=== PATIENT | male | born 1935 | race Caucasian/White ===

== ENCOUNTER → 2017-01-30 | Outpatient (CLI) | payer MEDICARE ==
[2017-01-30 08:59] LABS: Blood Urea Nitrogen 17 mg/dL (9-20); Non-African American GFR(MDRD) >60 (>60 ml/min/1.73 sqM)
--- NOTE | 2017-01-30 10:52 | CT ---
EXAMINATION TYPE: CT ChestAbdPelvis w con DATE OF EXAM: 01/30/2017 COMPARISON: CT thorax dated 03/20/2010 HISTORY: Lung and Prostate CA CT DLP: 1842 mGycm. Automated Exposure Control for Dose Reduction was Utilized. CONTRAST: CT scan of the thorax, abdomen and pelvis is performed with IV Contrast, patient injected with 100 mL of Omnipaque 300. FINDINGS: LUNGS: There has been a right upper lobectomy with resultant hyperexpansion of the right middle lobe and compensatory expansion of the right lower lobe with mediastinal shift to the right. Right apical pleural parenchymal scarring is noted. Focal pleural thickening is elongated measuring 1.5 cm on seri es 4 image 25. No new pulmonary nodules or masses are seen. Minimal left basilar dependent subsegment al atelectasis is noted. MEDIASTINUM: There are no greater than 1 cm hilar or mediastinal lymph nodes. No pericardial effusi on is seen. Left-sided cardiac device is present as well as three-vessel coronary artery calcificati ons. Right hilar mediastinal clips are seen. There are some areas of narrowing of the right main pulm onary artery, likely postsurgical. OTHER: No additional significant the hepatic parenchyma relating to benign granulomatous disease. Ab normality is seen. LIVER/GB: There is diffuse hypoattenuation of the hepatic parenchyma, most commonly related to underl vicki hepatic steatosis. This finding limits evaluation for hepatic masses. A single 6 mm lesion is se en within segment 8, unchanged from the prior exam of 03/20/2010, most likely relating to a benign si mple cyst. Scattered calcifications are seen within PANCREAS: No significant abnormality is seen. SPLEEN: Scattered parenchymal punctate rounded benign-appearing calcifications are seen within the sp lenic parenchyma compatible with granulomatous sequela. ADRENALS: No significant abnormality is seen. KIDNEYS: No significant abnormality is seen. To small to accurately characterize left upper poler and right inferior pole renal cortical lesions are seen. BOWEL: No significant abnormality is seen. No dilation. GENITAL ORGANS: The prostate gland is enlarged, heterogenous, and macrolobulated with exophytic nodul e from the left lateral peripheral zone measuring approximately 3.4 cm in anterior posterior dimensio n. There is impression upon the urinary bladder. Bilateral fat filled inguinal hernias are noted. LYMPH NODES: Approximately 1.2 cm peripancreatic nodule is seen on series 3 image 60 that is unchange d from 03/20/2010 and may represent a treated lymph node, splenule, or less likely unchanged pancreat ic lesion. OSSEOUS STRUCTURES: Punctate 5 mm sclerotic focus is seen within the right iliac bone, nonspecific. A dditional punctate 2 mm right iliac sclerotic focus is seen on image 90 of series 3. Left iliac scler otic focus is seen in series 3 image 94 measuring 3 mm. Similar 5 mm sclerotic focus is seen within t he L4 vertebral body and 3 mm focus within the L1 vertebral body. Multilevel degenerative changes are seen of the thoracolumbar and lumbosacral spine with Schmorl's nodes, endplate sclerosis, interverte bral disc space narrowing, vacuum disc phenomenon, at least disc bulges, small anterior osteophytes a nd facet arthropathy. OTHER: Moderate circumferential atheromatous changes are seen of the abdominal aorta and its branches . Abdominal aorta is of normal course and caliber. Nonspecific inflammatory fat stranding is seen of the inferior superficial abdominal wall subcutaneous soft tissues. IMPRESSION: 1. Postsurgical changes of the right lung with compensatory hyperexpansion and slight rightward media stinal shift. No evidence of new pulmonary nodule to suggest recurrence or metastatic intrathoracic d isease. No adenopathy within the chest, abdomen or pelvis. 2. Multiple nonspecific punctate sclerotic foci within the pelvis and lumbar vertebral bodies. These may simply relate to benign bone islands, however without prior exam for stability small metastatic f oci remain a possibility and surveillances recommended. 3. Enlarged, nodular, and heterogenous prostate gland corresponding the patient's known history of pr ostate carcinoma. 4. No evidence of visceral metastasis within the abdomen or pelvis. 5. Hepatic steatosis.
--- NOTE | 2017-01-30 13:50 | NM ---
EXAMINATION TYPE: NM bone scan whole body DATE OF EXAM: 01/30/2017 COMPARISON: 01/22/2017 CT HISTORY: Prostate cancer Delayed whole-body scanning was performed following the injection of 23.4 mCi Tc 99m MDP. Images acq uired 4.5 hours post injection. Anterior, posterior whole body images, bilateral obliques of the views of the pelvis and rib cage sub mitted. FINDINGS: Abnormal uptake in the proximal level of L3-L4 likely is degenerative. The punctate areas of abnormal signal involving the lumbar spine and pelvis are not well seen by bone scan which may be secondary to the small size of lesions noted by CT scan. Arthropathy of the should ers and knees is demonstrated with areas of abnormal uptake is a scoliotic curvature of the spine. Abnormal uptake involving the mandible likely related to periodontal disease. Photopenic defect overl vicki the left upper chest likely is related to Mediport catheter. IMPRESSION: No suspicious uptake seen by bone scan to correspond to the CT abnormality. This may be due to the re latively small size of the CT lesions (3 mm less), therefore, early metastases not excluded. Follow-u p exam could be obtained. Abnormal uptake at the L3 levels L3 most likely degenerative.
== END | disposition home or self-care (01) ==
LOC: RADCTMAIN 08:03
PROVIDERS: ATTEND Radiology Radiation Oncology
DX: C34.90 Malignant neoplasm of unspecified part of unspecified bronchus or lung (principal); C61 Malignant neoplasm of prostate; K76.0 Fatty (change of) liver, not elsewhere classified; N40.0 Benign prostatic hyperplasia without lower urinary tract symptoms; R93.7 Abnormal findings on diagnostic imaging of other parts of musculoskeletal system; Z98.890 Other specified postprocedural states
CPT/HCPCS: 82565; 84520; 71260; 74177; 36415; 78306; A9503; Q9967

== ENCOUNTER → 2017-09-03 | Outpatient (CLI) | payer MEDICARE ==
--- NOTE | 2017-09-03 10:48 | US ---
EXAMINATION TYPE: US venous doppler duplex LE LT DATE OF EXAM: 09/03/2017 10:34 AM COMPARISON: CLINICAL HISTORY: M79.662 Left Lower Ext Pain R22.42 Swelling. Hx of left popliteal vein DVT in 2009, on blood thinners, swollen knee, No pain SIDE PERFORMED: Left TECHNIQUE: The lower extremity deep venous system is examined utilizing real time linear array sonog emmanuelle with graded compression, doppler sonography and color-flow sonography. VESSELS IMAGED: External Iliac Vein (EIV) Common Femoral Vein Deep Femoral Vein Greater Saphenous Vein * Femoral Vein Popliteal Vein Small Saphenous Vein * Proximal Calf Veins (* superficial vessels) Grayscale, color doppler, spectral doppler imaging performed of the deep veins of the lower extremity . There is normal flow, compressibility, vascular waveforms. Cystic appearing lesion seen posterior left knee= 5.7 x 3.7 x 2.5 cm IMPRESSION: Left Leg: Negative for DVT
== END | disposition home or self-care (01) ==
LOC: RADUSWWP 09:52
PROVIDERS: ATTEND Internal Medicine Hematology & Oncology
DX: R22.42 Localized swelling, mass and lump, left lower limb (principal); M79.662 Pain in left lower leg

== ENCOUNTER → 2017-09-05 | Outpatient (CLI) | payer MEDICARE | END | disposition home or self-care (01) | LOC: LABWHC1 11:40 | PROVIDERS: ATTEND Radiology Radiation Oncology | DX: C61 Malignant neoplasm of prostate (principal) | CPT/HCPCS: 36415; 84153; 84402; 84403 ==

== ENCOUNTER 2017-11-22 18:33 | Emergency (ER) | payer MEDICARE ==
[2017-11-22 18:42] VITALS: TEMP 98.4
[2017-11-22 19:37] LABS: Anisocytosis Slight; Basophils # (A) 0.1 k/uL (0-0.2); Basophils % (A) 0 %; Eosinophils # (A) 0.4 k/uL (0-0.7); Eosinophils % (A) 2 %; HCT 44.9 % (39.0-53.0); HGB 13.8 gm/dL (13.0-17.5); Hypochromasia Marked; Lymphocytes # (A) 1.3 k/uL (1.0-4.8); Lymphocytes % (A) 5 %; MCH 22.8 pg (25.0-35.0); MCHC 30.7 g/dL (31.0-37.0); Mean Platelet Volume 9.7; Microcytosis Slight; Monocytes # (A) 1.1 k/uL (0-1.0); Monocytes % (A) 4 %; Neutrophils # (A) 21.4 k/uL (1.3-7.7); Neutrophils % (A) 87 %; Platelet Count 141 k/uL (150-450); RBC 6.04 m/uL (4.30-5.90); RDW 16.6 % (11.5-15.5); WBC 24.5 k/uL (3.8-10.6)
[2017-11-22 19:50] LABS: INR 3.2 (<1.2); Partial Thromboplastin Time 29.3 sec (22.0-30.0); Prothrombin Time 28.5 sec (9.0-12.0)
[2017-11-22 19:51] LABS: ALT 43 U/L (21-72); AST 29 U/L (17-59); Alkaline Phosphatase 94 U/L (38-126); Anion Gap 8 mmol/L; Blood Urea Nitrogen 27 mg/dL (9-20); Calcium 9.1 mg/dL (8.4-10.2); Carbon Dioxide 24 mmol/L (22-30); Chloride 106 mmol/L (98-107); Glucose 112 mg/dL (74-99); Potassium 4.4 mmol/L (3.5-5.1); Sodium 138 mmol/L (137-145); Total Bilirubin 1.4 mg/dL (0.2-1.3); Total Protein 5.8 g/dL (6.3-8.2)
[2017-11-22 19:54] LABS: MCV 74.3 fL (80.0-100.0)
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
[2017-11-22 20:50] VITALS: BP 173/99; PULSE 69; RESP 16
== END 2017-11-22 20:54 | disposition home or self-care (01) ==
LOC: EC 18:33
DX: D69.6 Thrombocytopenia, unspecified (principal); R79.1 Abnormal coagulation profile; I48.91 Unspecified atrial fibrillation; J44.9 Chronic obstructive pulmonary disease, unspecified; I10 Essential (primary) hypertension; Z85.46 Personal history of malignant neoplasm of prostate; Z85.118 Personal history of other malignant neoplasm of bronchus and lung; Z86.718 Personal history of other venous thrombosis and embolism; Z87.891 Personal history of nicotine dependence; Z95.810 Presence of automatic (implantable) cardiac defibrillator; Z90.2 Acquired absence of lung [part of]; Z79.01 Long term (current) use of anticoagulants; Z79.52 Long term (current) use of systemic steroids; Z79.899 Other long term (current) drug therapy
CPT/HCPCS: 36415; 80053; 85025; 85610; 85730; 86850; 86900; 86901; 99283

== ENCOUNTER → 2018-03-17 | Outpatient (CLI) | payer MEDICARE ==
[2018-03-17 07:52] LABS: Blood Urea Nitrogen 17 mg/dL (9-20)
--- NOTE | 2018-03-17 19:47 | CT ---
EXAMINATION TYPE: CT lumbar spine wo/w con DATE OF EXAM: 03/17/2018 COMPARISON: 01/30/2017 HISTORY: Low Back Pain. History of prostate cancer. CT DLP: 1482.30 mGycm Automated exposure control for dose reduction was used. CONTRAST: CT scan of the lumbar is performed without and with IV Contrast, patient injected with 100 mL of Isov ue 300. TECHNIQUE: Enhanced CT of the lumbar spine was performed. Bone and soft tissue window settings are s ubmitted as well as coronal and sagittal reconstructions. FINDINGS: There is grade 1 anterolisthesis of L4 on L5 and mild compression deformity of the L3 and L 4 vertebral bodies with height loss of approximately 30% at both levels. Extensive intervertebral dis c desiccation is seen at L3-L4 and Schmorl's node of the superior endplate of L3. Schmorl's node is a lso seen of the superior endplate of T12. There is inferior vertebral body height loss of L1. Vacuum disc phenomenon is seen at L5-S1. There is multilevel facet arthropathy. Nonspecific sclerotic proces s is seen of T12 and its left lateral margin that is subcentimeter. In the superficial subcutaneous s oft tissues at L1-L2 there is a rounded 2.0 cm cystic structure that may represent a subcutaneous shelbi aceous cyst. Evaluation of the spinal canal is limited on CT. There is partial visualization of a sma ll right pleural effusion and bibasilar subsegmental atelectasis. There is tortuosity of the descendi ng thoracic aorta and a small hiatal hernia. Few splenic and hepatic microcalcifications relate to be nign granulomata change. There is a 8mm left renal cyst appreciated. Extensive atherosclerosis is see n of the abdominal aorta and its branches. Urinary bladder circumferential wall thickening may relate to incomplete distention and is partially visualized. L1-L2: There is a broad-based disc bulge and facet arthropathy resulting in mild bilateral neural for aminal narrowing without spinal canal stenosis. L2-L3: There is a broad-based disc bulge, ligamentum flavum buckling and facet arthropathy resulting in mild bilateral neural foraminal narrowing and mild spinal canal stenosis. L3-L4: There is disc uncovering from the anterolisthesis as well as degenerative disc disease. There is a right foraminal disc herniation superimposed upon a broad-based disc bulge creating severe right neural foraminal narrowing, mild left neural foraminal narrowing and mild spinal canal stenosis in c ombination with facet arthropathy and ligamentum flavum buckling. L4-L5: There is a broad-based disc bulge as well as facet arthropathy and ligamentum flavum buckling creating mild to moderate right neural foraminal narrowing, mild left neural foraminal narrowing, and mild spinal canal stenosis. L5-S1: There is a left paracentral disc herniation superimposed upon a broad-based disc bulge. Facet arthropathy and ligamentum flavum buckling are also seen at this level creating mild right and severe left neural foraminal narrowing as well as mild spinal canal stenosis. IMPRESSION: 1. Age indeterminant compression deformities of L1, L3, and L4. In comparison to the CT chest, abdome n, and pelvis of 01/22/2017 the compression deformities of L1 and L4 are new with endplate deformity o f L3 stable. 2. Grade 1 anterolisthesis of L4 on L5 is stable from the prior. This is likely degenerative in natur e. 3. Left paracentral disc herniation at L5-S1 creating mild spinal canal stenosis. 4. Right foraminal disc herniation at L3-L4 resulting severe neural foraminal narrowing. 5. Multilevel moderate degenerative disc disease as described above creating variable degrees of neur al foraminal narrowing and spinal canal stenosis. 6. Partially visualized small right pleural effusion and other ancillary findings as described above.
== END | disposition home or self-care (01) ==
LOC: RADCTMAIN 07:09
PROVIDERS: ATTEND Internal Medicine Geriatric Medicine
DX: M48.061 Spinal stenosis, lumbar region without neurogenic claudication (principal); M99.73 Connective tissue and disc stenosis of intervertebral foramina of lumbar region; M51.26 Other intervertebral disc displacement, lumbar region; M51.27 Other intervertebral disc displacement, lumbosacral region; M43.16 Spondylolisthesis, lumbar region; M43.8X6 Other specified deforming dorsopathies, lumbar region
CPT/HCPCS: 82565; 84520; 72133; 36415; Q9967

== ENCOUNTER → 2018-10-13 | Outpatient (CLI) | payer MEDICARE ==
--- NOTE | 2018-10-13 17:04 | XR ---
EXAMINATION: XR chest 2V DATE AND TIME: 10/13/2018 4:46 PM CLINICAL INDICATION: PHH; C34.11 D69.3 G72.9 C61 TECHNIQUE: Departmental protocol COMPARISON: 03/06/2010 FINDINGS: Cardiac pacemaker. Moderately enlarged cardiac silhouette. Tortuous and prominent thoracic aorta. There is silhouetting of the right hemidiaphragm and right heart border by a prominent oblique-angled interface with appearance of right middle lobe atelectasis in the setting of moderate right pleural effusion. Small left pleural effusion noted. No abnormal gas collections. Emphysematous lung changes are noted. There is no pulmonary edema. The vast bulk of the pulmonary par enchyma is clear and well-expanded bilaterally. No acute skeletal or soft tissue findings are evident. IMPRESSION: Bilateral pleural effusions, greater on the right. Suspect right middle lobe atelectasis.
== END | disposition home or self-care (01) ==
LOC: RADXRMAIN 16:28
PROVIDERS: ATTEND Internal Medicine Hematology & Oncology
DX: C34.11 Malignant neoplasm of upper lobe, right bronchus or lung (principal); J90 Pleural effusion, not elsewhere classified; D69.3 Immune thrombocytopenic purpura; G72.9 Myopathy, unspecified; C61 Malignant neoplasm of prostate
CPT/HCPCS: 71046

== ENCOUNTER 2018-10-28 08:49 | Day surgery (SDC) | payer MEDICARE ==
[2018-10-28 09:22] VITALS: TEMP 97.6
[2018-10-28 09:25] LABS: Mean Platelet Volume 9.7; Platelet Count 184 k/uL (150-450)
[2018-10-28 09:35] LABS: INR 1.1 (<1.2); Prothrombin Time 11.7 sec (9.0-12.0)
--- NOTE | 2018-10-28 10:41 | XR ---
EXAMINATION TYPE: XR chest 1V portable DATE OF EXAM: 10/28/2018 COMPARISON: Prior chest x-ray 10/13/2018 HISTORY: Status post right thoracentesis TECHNIQUE: Single frontal view of the chest is obtained. FINDINGS: There is no significant interval change. IMPRESSION: No evident complication status post right thoracentesis.
[2018-10-28 10:51] VITALS: BP 116/73; PULSE 76; RESP 16
--- NOTE | 2018-10-28 15:08 | US ---
EXAMINATION TYPE: US thoracentesis DATE OF EXAM: 10/28/2018 COMPARISON: Chest x-ray 10/13/2018 HISTORY: Pleural effusion. FINDINGS: Maximal barrier technique was utilized. The skin overlying a suitable pocket of fluid was localized and the overlying skin prepped and draped. Lidocaine was used for local anesthesia. Ultras ound was used with sterile technique. A 5 [place] catheter over guide needle was advanced into the pl eural fluid collection using ultrasound guidance and the catheter advanced, needle removed. Approxim ately 0.8 liter(s) of serous fluid was removed. Catheter was withdrawn and hemostasis achieved. The re is no immediate complication. The patient discharged in stable condition without complication. IMPRESSION: STATUS POST ULTRASOUND GUIDED THORACENTESIS, POST PROCEDURE CHEST X-RAY PENDING. THIS NH OCEDURE WAS PERFORMED BY THE UNDERSIGNED.
== END 2018-10-28 10:51 | disposition home or self-care (01) ==
LOC: RADPROMAIN 08:49
PROVIDERS: ATTEND Internal Medicine Hematology & Oncology
DX: J90 Pleural effusion, not elsewhere classified (principal); C34.90 Malignant neoplasm of unspecified part of unspecified bronchus or lung; Z79.01 Long term (current) use of anticoagulants; Z79.02 Long term (current) use of antithrombotics/antiplatelets
CPT/HCPCS: 32555; 36415; 71045; 85049; 85610

== ENCOUNTER 2018-12-07 05:06 | Inpatient (IN) | payer MEDICARE ==
[2018-12-07] MEDS ORDERED: ALBUTEROL NEBULIZED 2.5 MG/3 ML INHALATION STA (05:39)
[2018-12-07] MEDS ORDERED: SODIUM CHLORIDE 0.9% 1,000 ML IV STA (05:39)
[2018-12-07] MEDS ORDERED: IPRATROPIUM 0.5 MG/2.5 ML NEBU INHALATION STA (05:39)
--- NOTE | 2018-12-07 05:39 | ED ---
SOB HPI - General Chief Complaint: Shortness of Breath Stated Complaint: Fall,SOB Time Seen by Provider: 12/07/18 05:38 Source: patient, family, RN notes reviewed, old records reviewed Mode of arrival: wheelchair Limitations: no limitations - History of Present Illness Initial Comments: This is an 83-year-old male the ER for evaluation. Patient resents today for evaluation of severe shortness of breath patient has recent fall which caused him to have severe left-sided flank pain left-sided chest pain. Patient has no other trauma is noted. Patient states shortness of breath of alcohol the last 2 days he is doing breathing treatments at home but his heart rate still remains to be going up-and-down, do breathing treatments are not helping. Also has history of cancer lung cancer with pleural effusions, most recently has had it drained about 800 miles. No cough no fevers. No current chest pain. Patient is taking all medication as prescribed MD Complaint: shortness of breath, cough -: hour(s) Severity: moderate Severity scale (1-10): 4 Improves With: nothing Worsens With: nothing Known History Of: COPD, congestive heart failure Context: recent URI, trauma/injury Associated Symptoms: pain with inspiration, cough Treatments Prior to Arrival: bronchodilator - Related Data Home Medications Medication Instructions Recorded Confirmed Atorvastatin [Lipitor] 20 mg PO DAILY 11/22/17 12/07/18 Metoprolol Tartrate [Lopressor] 50 mg PO BID 11/22/17 12/07/18 Tamsulosin [Flomax] 0.4 mg PO BID 11/22/17 12/07/18 Ubidecarenone [Co Q-10] 100 mg PO DAILY 11/22/17 12/07/18 Umeclidinium Brm/Vilanterol Tr 1 puff INHALATION RT-DAILY 11/22/17 12/07/18 [Anoro Ellipta 62.5-25 Mcg INH] Vitamin B Complex/Folic Acid 0.4 mg PO DAILY 11/22/17 12/07/18 [B-Complex Tablet] cycloSPORINE [Restasis] 1 drop BOTH EYES BID 11/22/17 12/07/18 Apixaban [Eliquis] 2.5 mg PO BID 10/14/18 12/07/18 Osimertinib Mesylate [Tagrisso] 80 mg PO DAILY 10/14/18 12/07/18 Albuterol Nebulized [Ventolin 2.5 mg INHALATION RT-BID 12/07/18 12/07/18 Nebulized] Calcium Carbonate/Vitamin D3 1 tab PO BID 12/07/18 12/07/18 [Calcium 600-Vit D3 400 Tablet] Clopidogrel [Plavix] 75 mg PO DAILY 12/07/18 12/07/18 Glucosamine-Chondr 500-400Mg 1 tab PO DAILY 12/07/18 12/07/18 Loperamide HCl [Imodium A-D] 2 mg PO QID PRN 12/07/18 12/07/18 Prochlorperazine [Compazine] 10 mg PO Q6H PRN 12/07/18 12/07/18 predniSONE 5 mg PO DAILY 12/07/18 12/07/18 Allergies Allergy/AdvReac Type Severity Reaction Status Date / Time No Known Allergies Allergy Verified 12/07/18 06:54 Review of Systems ROS Statement: Those systems with pertinent positive or pertinent negative responses have been documented in the HPI. ROS Other: All systems not noted in ROS Statement are negative. Past Medical History Past Medical History: Atrial Fibrillation, COPD, Hypertension Additional Past Medical History / Comment(s): malginant neoplasm of prostate, idopathic thrombocytopenic purpura, carcinoma of rt upper lung, dvt of left leg, myelodysplastic syndrome, carcinoma right hip History of Any Multi-Drug Resistant Organisms: None Reported Past Surgical History: Adenoidectomy, Tonsillectomy Additional Past Surgical History / Comment(s): rt upper lung lobe removed, aicd or pacemaker, thoracentesis Past Psychological History: No Psychological Hx Reported Smoking Status: Former smoker Past Alcohol Use History: None Reported Past Drug Use History: None Reported - Past Family History Mother Family Medical History: Cancer Additional Family Medical History / Comment(s): Mother had breast and colon cancer. Father Family Medical History: Vascular Disorder Additional Family Medical History / Comment(s): Father of a ruptured aneurysm. General Exam Limitations: no limitations General appearance: alert, in no apparent distress Head exam: Present: atraumatic, normocephalic, normal inspection Eye exam: Present: normal appearance, PERRL, EOMI. Absent: scleral icterus, conjunctival injection, periorbital swelling ENT exam: Present: normal exam, mucous membranes moist Neck exam: Present: normal inspection. Absent: tenderness, meningismus, lymphadenopathy Respiratory exam: Present: respiratory distress, wheezes, accessory muscle use, decreased breath sounds, prolonged expiratory. Absent: rales, rhonchi, stridor Cardiovascular Exam: Present: tachycardia, irregular rhythm, normal heart sounds. Absent: systolic murmur, diastolic murmur, rubs, gallop, clicks GI/Abdominal exam: Present: soft, normal bowel sounds. Absent: distended, tenderness, guarding, rebound, rigid Extremities exam: Present: normal inspection, full ROM, normal capillary refill. Absent: tenderness, pedal edema, joint swelling, calf tenderness Back exam: Present: normal inspection Neurological exam: Present: alert, oriented X3, CN II-XII intact Psychiatric exam: Present: normal affect, normal mood Skin exam: Present: warm, dry, intact, normal color. Absent: rash Course Vital Signs 12/07/18 12/07/18 12/07/18 05:09 06:04 06:17 Temperature 97.3 F L Pulse Rate 71 66 67 Respiratory 22 Rate Blood Pressure 147/74 O2 Sat by Pulse 98 Oximetry 12/07/18 12/07/18 12/07/18 06:29 06:39 07:34 Temperature 98.4 F Pulse Rate 72 77 69 Respiratory 18 18 Rate Blood Pressure 127/98 139/99 O2 Sat by Pulse 100 100 Oximetry - Reevaluation(s) Reevaluation #1: 12/07/18 06:14 Medical records reviewed Medical Decision Making - Medical Decision Making 83 male the ER for evaluation of shortness of breath, patient does have no contusions to fall, and out of A. fib with RVR, also possibility of pneumonia on x-ray. Patient be admitted for monitoring of cardiopulmonary status - Lab Data Result diagrams: 12/09/18 08:43 12/09/18 08:43 Lab Results 12/07/18 12/07/18 12/07/18 Range/Units 05:30 05:30 05:30 WBC 21.3 H (3.8-10.6) k/uL RBC 5.58 (4.30-5.90) m/uL Hgb 14.1 (13.0-17.5) gm/dL Hct 45.9 (39.0-53.0) % MCV 82.2 (80.0-100.0) fL MCH 25.3 (25.0-35.0) pg MCHC 30.8 L (31.0-37.0) g/dL RDW 16.5 H (11.5-15.5) % Plt Count 292 (150-450) k/uL Neutrophils % 88 % Lymphocytes % 3 % Monocytes % 6 % Eosinophils % 1 % Basophils % 0 % Neutrophils # 18.7 H (1.3-7.7) k/uL Lymphocytes # 0.7 L (1.0-4.8) k/uL Monocytes # 1.2 H (0-1.0) k/uL Eosinophils # 0.3 (0-0.7) k/uL Basophils # 0.1 (0-0.2) k/uL Hypochromasia Slight Anisocytosis Slight PT (9.0-12.0) sec INR (<1.2) APTT (22.0-30.0) sec Sodium 122 L (137-145) mmol/L Potassium 5.1 (3.5-5.1) mmol/L Chloride 87 L (98-107) mmol/L Carbon Dioxide 25 (22-30) mmol/L Anion Gap 10 mmol/L BUN 25 H (9-20) mg/dL Creatinine 0.79 (0.66-1.25) mg/dL Est GFR (CKD-EPI)AfAm >90 (>60 ml/min/1.73 sqM) Est GFR (CKD-EPI)NonAf 82 (>60 ml/min/1.73 sqM) Glucose 108 H (74-99) mg/dL Calcium 9.2 (8.4-10.2) mg/dL Magnesium 1.8 (1.6-2.3) mg/dL Total Bilirubin 3.2 H (0.2-1.3) mg/dL AST 22 (17-59) U/L ALT 24 (21-72) U/L Alkaline Phosphatase 112 (38-126) U/L Troponin I (0.000-0.034) ng/mL NT-Pro-B Natriuret Pep 5540 pg/mL Total Protein 6.2 L (6.3-8.2) g/dL Albumin 4.3 (3.5-5.0) g/dL 12/07/18 12/07/18 Range/Units 05:30 05:30 WBC (3.8-10.6) k/uL RBC (4.30-5.90) m/uL Hgb (13.0-17.5) gm/dL Hct (39.0-53.0) % MCV (80.0-100.0) fL MCH (25.0-35.0) pg MCHC (31.0-37.0) g/dL RDW (11.5-15.5) % Plt Count (150-450) k/uL Neutrophils % % Lymphocytes % % Monocytes % % Eosinophils % % Basophils % % Neutrophils # (1.3-7.7) k/uL Lymphocytes # (1.0-4.8) k/uL Monocytes # (0-1.0) k/uL Eosinophils # (0-0.7) k/uL Basophils # (0-0.2) k/uL Hypochromasia Anisocytosis PT 11.9 (9.0-12.0) sec INR 1.1 (<1.2) APTT 29.3 (22.0-30.0) sec Sodium (137-145) mmol/L Potassium (3.5-5.1) mmol/L Chloride (98-107) mmol/L Carbon Dioxide (22-30) mmol/L Anion Gap mmol/L BUN (9-20) mg/dL Creatinine (0.66-1.25) mg/dL Est GFR (CKD-EPI)AfAm (>60 ml/min/1.73 sqM) Est GFR (CKD-EPI)NonAf (>60 ml/min/1.73 sqM) Glucose (74-99) mg/dL Calcium (8.4-10.2) mg/dL Magnesium (1.6-2.3) mg/dL Total Bilirubin (0.2-1.3) mg/dL AST (17-59) U/L ALT (21-72) U/L Alkaline Phosphatase (38-126) U/L Troponin I <0.012 (0.000-0.034) ng/mL NT-Pro-B Natriuret Pep pg/mL Total Protein (6.3-8.2) g/dL Albumin (3.5-5.0) g/dL - EKG Data -: EKG Interpreted by Me (EKG shows paced rhythm rate of 100, AR 134, QRS 154, QTC 552) - Radiology Data Radiology results: report reviewed (Chest x-ray does show concern for pneumonia), image reviewed Disposition Clinical Impression: Acute exacerbation of chronic obstructive airways disease, Atrial fibrillation, Hyponatremia, Contusion of rib on left side, Community acquired pneumonia Disposition: ADMITTED IP TO THIS HOSP Condition: Fair Is patient prescribed a controlled substance at d/c from ED?: No
[2018-12-07] MEDS ORDERED: DILTIAZEM 5 MG/ML 5 ML VIAL IVP STA (05:47)
[2018-12-07 05:58] LABS: Anisocytosis Slight; Basophils # (A) 0.1 k/uL (0-0.2); Basophils % (A) 0 %; Eosinophils # (A) 0.3 k/uL (0-0.7); Eosinophils % (A) 1 %; HCT 45.9 % (39.0-53.0); HGB 14.1 gm/dL (13.0-17.5); Hypochromasia Slight; Lymphocytes # (A) 0.7 k/uL (1.0-4.8); Lymphocytes % (A) 3 %; MCH 25.3 pg (25.0-35.0); MCHC 30.8 g/dL (31.0-37.0); MCV 82.2 fL (80.0-100.0); Mean Platelet Volume 9.9; Monocytes # (A) 1.2 k/uL (0-1.0); Monocytes % (A) 6 %; Neutrophils # (A) 18.7 k/uL (1.3-7.7); Neutrophils % (A) 88 %; Platelet Count 292 k/uL (150-450); RBC 5.58 m/uL (4.30-5.90); RDW 16.5 % (11.5-15.5); WBC 21.3 k/uL (3.8-10.6)
[2018-12-07 06:05] LABS: ALT 24 U/L (21-72); AST 22 U/L (17-59); African American GFR (CKD) >90 (>60 ml/min/1.73 sqM); Albumin 4.3 g/dL (3.5-5.0); Alkaline Phosphatase 112 U/L (38-126); Anion Gap 10 mmol/L; Blood Urea Nitrogen 25 mg/dL (9-20); Calcium 9.2 mg/dL (8.4-10.2); Carbon Dioxide 25 mmol/L (22-30); Chloride 87 mmol/L (98-107); Glucose 108 mg/dL (74-99); Magnesium 1.8 mg/dL (1.6-2.3); Potassium 5.1 mmol/L (3.5-5.1); Sodium 122 mmol/L (137-145); Total Bilirubin 3.2 mg/dL (0.2-1.3); Total Protein 6.2 g/dL (6.3-8.2)
[2018-12-07 06:08] LABS: INR 1.1 (<1.2); Partial Thromboplastin Time 29.3 sec (22.0-30.0); Prothrombin Time 11.9 sec (9.0-12.0)
[2018-12-07] MEDS ORDERED: methylPREDNISolone SOD SUCCI 125 MG/2 ML VIAL IV STA (06:10)
--- NOTE | 2018-12-07 06:58 | XR ---
EXAM: XR Chest, 1 View CLINICAL HISTORY: ITS.REASON XR Reason: n TECHNIQUE: Frontal view of the chest. COMPARISON: CXR 10/28/18 FINDINGS: Lungs: Bibasilar atelectasis and lower lung infiltrate. Pleural space: Unremarkable. No pneumothorax. Heart: Cardiomegaly. Mediastinum: Unremarkable. Bones/joints: Unremarkable. Tubes, lines and devices: Left-sided cardiac pacing device. IMPRESSION: Bibasilar atelectasis and lower lung infiltrate.
[2018-12-07] MEDS ORDERED: ALBUTEROL NEBULIZED 2.5 MG/3 ML INHALATION PRN (06:59)
[2018-12-07] MEDS ORDERED: LEVOFLOXACIN 750MG-D5W PMX 750 MG in DEXTROSE/WATER 1 150ML.BAG IVPB STA (07:10)
[2018-12-07] MEDS: IPRATROPIUM-ALBUTEROL 3 ML NEB INHALATION SCH ×4 (08:34→19:25)
[2018-12-07] MEDS ORDERED: methylPREDNISolone SOD SUCCI 125 MG/2 ML VIAL IV SCH (12:00)
[2018-12-07] MEDS: IOPAMIDOL-300 CONTRAST 30 ML VIAL (ORAL USE) PO PRN ×2 (12:10→13:04)
[2018-12-07] MEDS ORDERED: LOPERAMIDE 2 MG CAP PO PRN (13:59)
[2018-12-07] MEDS ORDERED: BACLOFEN 10 MG TAB PO PRN (14:00)
--- NOTE | 2018-12-07 14:05 | XR ---
EXAMINATION TYPE: XR ribs LT DATE OF EXAM: 12/07/2018 COMPARISON: NONE HISTORY: Pain TECHNIQUE: 4 views of the left ribs submitted FINDINGS: Heart is enlarged and there is a cardiac device with subsegmental right-sided consolidation . There appears to be deformity of the posterior left rib. This is suggestive of fracture. No definit e destructive changes are seen. IMPRESSION: 1. Correlate for fracture posterior left 11th rib.
--- NOTE | 2018-12-07 14:36 | CT ---
EXAMINATION TYPE: CT ChestAbdPelvis w con DATE OF EXAM: 12/07/2018 COMPARISON: CT chest abdomen and pelvis January 30, 2017 HISTORY: fell 3 days ago. pain throughout chest abdomen and pelvis most prominent lt lower rib area CT DLP: 1212 mGycm. Automated Exposure Control for Dose Reduction was Utilized. CONTRAST: CT scan of the thorax, abdomen and pelvis is performed with IV Contrast, patient injected with 100 mL of Isovue 370. FINDINGS: LUNGS: An azygos lobe/fissure is redemonstrated. Surgical changes right hilar level are present axial image 26. There is new small to moderate-sized right pleural effusion extending to right lung apex a nd new small left pleural effusion. There is associated bibasilar compressive atelectasis. MEDIASTINUM: There are no greater than 1 cm hilar or mediastinal lymph nodes. New small to tiny tiffany cardial effusion is seen. Cardiomegaly is present with dual-lead pacemaker. [place] coronary artery c alcification and/or stents are felt present. OTHER: No additional significant abnormality is seen. LIVER/GB: No significant abnormality is appreciated. PANCREAS: No significant abnormality is seen. SPLEEN: Numerous calcifications throughout the spleen are consistent with product of old granulomatou s disease. ADRENALS: No significant abnormality is seen. KIDNEYS: No significant abnormality is seen. BOWEL: Oral contrast does not reach glottic level making evaluation of distal bowel slightly suboptim al. No suspicious small large bowel dilatation. Prominence of fecal material in the right colon and c ecum. GENITAL ORGANS: Enlarged prostate gland consistent with BPH. Adjacent pelvic phleboliths. LYMPH NODES: No greater than 1cm abdominal or pelvic lymph nodes are appreciated. OSSEOUS STRUCTURES: Innumerable osseous metastatic lesions with sclerotic foci throughout the vertebr a. Mild pathologic chronic compression fracture L4 level. Mild compression fracture L1 level. Moderat e pathologic chronic compression fracture T6 level. Scattered bony lesions throughout pelvis includin g a large lesion and right acetabulum. Lesion left sacrum with pathologic fracture coronal image 58. Bilateral rib lesions. There are acute nondisplaced vertical fractures through the posterior left 10- 12 ribs coronal image 75 and coronal image 12. OTHER: Moderate vascular calcification of the aorta extending into pelvic branch vessels.. IMPRESSION: 1. Confirmation of acute nondisplaced fractures involving posterior left 10th through 12th ribs. No a cute posttraumatic finding otherwise identified in the chest abdomen or pelvis. 2. Diffuse osseous metastatic disease is present. Pathologic fracture left scapula is noted.
--- NOTE | 2018-12-07 14:55 | P.HPIM ---
History of Present Illness H&P Date: 12/07/18 83 years old male patient of Dr. Stone, Dr. 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 Patient and his decided to hold on to Friday to see Dr. Stein but since he felt significantly worse with shortness of breath and back pain patient decided to come to the ER this morning. In the ER patient have a temp of 97.6 pulse of 76 respiratory rate 18 blood pressure 147/90 saturating well at room air. Labs flood ggestive leukocytes of 21,000, platelet 292, sodium 122 chloride 87 BUN 25 creatinine 0.79 bilirubin of 3.2 albumin 4.3 BNP of 5540 troponin 0.012. Chest x-ray was done that suggested right-sided consolidation deformity of the posterior left rib concerning for fracture of the left 11th rib. PET scan done in July 2018 prior to the radiation suggest lesions in the lower sclerae lumbar spine and pelvis and right eighth rib. Oncology and pulmonary evaluated the patient and ordered CT chest abdomen and pelvis to rule out further metastass and fractures. Review of Systems Constitutional: Reports fatigue, Reports lethargy, Denies chronic headaches, Denies chronic pain, Denies daytime sleepiness, Denies poor appetite Eyes: denies blurred vision, denies decreased vision, denies dry eye Ears, nose, mouth and throat: Denies ant. neck pain, Denies dysphagia, Denies headache, Denies hoarseness, Denies nasal discharge, Denies neck lump, Denies odynophagia, Denies post-nasal drip Cardiovascular: Reports chest pain, Reports decreased exercise tolerance, Reports dyspnea on exertion, Reports shortness of breath, Denies lightheadedness, Denies orthopnea, Denies palpitations, Denies paroxysmal nocturnal dyspnea, Denies syncope Respiratory: Reports cough, Reports dyspnea, Reports pain on inspiration, Reports wheezing, Denies congestion, Denies cough with sputum, Denies home oxygen Gastrointestinal: Denies abdominal pain, Denies belching, Denies bloating, Denies BRBPR, Denies change in bowel habits, Denies coffee ground emesis, Denies constipation, Denies diarrhea, Denies dyspepsia, Denies heartburn, Denies hematemesis, Denies hematochezia, Denies indigestion, Denies jaundice, Denies lactose intolerance, Denies loss of appetite, Denies vomiting Genitourinary: Denies discharge, Denies erectile dysfunction, Denies hematuria, Denies incontinence, Denies nocturia, Denies polyuria Musculoskeletal: Reports fractures, Reports gait dysfunction, Reports limitation of motion, Reports loss of height, Reports low back pain, Reports myalgias, Denies frequent falls, Denies leg numbness/tingling, Denies muscle weakness, Denies neck pain, Denies redness of joints, Denies shooting arm pain, Denies shooting leg pain Integumentary: Denies acne, Denies change in hair/nails, Denies color changes, Denies darkening of skin, Denies foot/leg ulcers, Denies growths, Denies hirsutism, Denies lesions, Denies sores, Denies striae, Denies wounds Neurological: Reports balance difficulties, Reports motor disturbance, Reports weakness, Denies aphasia, Denies ataxia, Denies change in mentation, Denies change in smell/taste, Denies change in speech, Denies confusion, Denies convulsions, Denies headaches, Denies loss of vision, Denies migraines, Denies numbness, Denies paralysis, Denies paresthesias, Denies seizures, Denies tingling Psychiatric: Denies anxiety, Denies depression Endocrine: Reports fatigue, Denies deepening of the voice, Denies excessive sweating, Denies excessive thirst, Denies heat intolerance, Denies high blood sugars, Denies increase in ring/shoe/hat size, Denies low blood sugars, Denies palpitations, Denies polydipsia, Denies polyphagia, Denies proptosis, Denies recent glucocorticoid use Past Medical History Past Medical History: Atrial Fibrillation, Blood Disorder, Cancer, COPD, Hyperlipidemia, Hypertension, Syncope Additional Past Medical History / Comment(s): 2016 R lung cancer with surg terry/chemotherapy, 2018 metatstatic cancer to R hip with radiation, past prostate cancer with radiation, pleural effusions with thoracentesis-last time 10/28/18 with 0.8L removed, Gilbert's syndrome per past medical record, myelodysplastic syndrome, thombocytopenia purpura, ITP, DVT l leg 2010, recurrent syncope/sinus arrest with pacer, fall on 12/05/18 with severe low back pain since-difficulty ambulating, cyst top of head. History of Any Multi-Drug Resistant Organisms: None Reported Past Surgical History: Adenoidectomy, Pacemaker, Tonsillectomy Additional Past Surgical History / Comment(s): R upper lobectomy, reveal mon itor, dual pacemaker, vocal cord benign polypectomies, colonoscopy, bilateral cataract removals/lens implants. Type of Cardiac Device: Permanent Pacemaker Device Placement Date:: 2009 Smoking Status: Former smoker - Past Family History Mother Family Medical History: Cancer Additional Family Medical History / Comment(s): Mother had breast and colon cancer. Father Family Medical History: Vascular Disorder Additional Family Medical History / Comment(s): Father of a ruptured aneurysm. Medications and Allergies Home Medications Medication Instructions Recorded Confirmed Type Atorvastatin [Lipitor] 20 mg PO DAILY 11/22/17 12/07/18 History Metoprolol Tartrate [Lopressor] 50 mg PO BID 11/22/17 12/07/18 History Tamsulosin [Flomax] 0.4 mg PO BID 11/22/17 12/07/18 History Ubidecarenone [Co Q-10] 100 mg PO DAILY 11/22/17 12/07/18 History Umeclidinium Brm/Vilanterol Tr 1 puff INHALATION RT-DAILY 11/22/17 12/07/18 History [Anoro Ellipta 62.5-25 Mcg INH] Vitamin B Complex/Folic Acid 0.4 mg PO DAILY 11/22/17 12/07/18 History [B-Complex Tablet] cycloSPORINE [Restasis] 1 drop BOTH EYES BID 11/22/17 12/07/18 History Apixaban [Eliquis] 2.5 mg PO BID 10/14/18 12/07/18 History Osimertinib Mesylate [Tagrisso] 80 mg PO DAILY 10/14/18 12/07/18 History Albuterol Nebulized [Ventolin 2.5 mg INHALATION RT-BID 12/07/18 12/07/18 History Nebulized] Calcium Carbonate/Vitamin D3 1 tab PO BID 12/07/18 12/07/18 History [Calcium 600-Vit D3 400 Tablet] Clopidogrel [Plavix] 75 mg PO DAILY 12/07/18 12/07/18 History Glucosamine-Chondr 500-400Mg 1 tab PO DAILY 12/07/18 12/07/18 History Loperamide HCl [Imodium A-D] 2 mg PO QID PRN 12/07/18 12/07/18 History Prochlorperazine [Compazine] 10 mg PO Q6H PRN 12/07/18 12/07/18 History predniSONE 5 mg PO DAILY 12/07/18 12/07/18 History Allergies Allergy/AdvReac Type Severity Reaction Status Date / Time No Known Allergies Allergy Verified 12/07/18 06:54 Physical Exam Vitals: Vital Signs Temp Pulse Pulse Resp BP BP Pulse Ox 12/07/18 08:49 76 12/07/18 08:34 76 12/07/18 08:00 97.5 F L 100 18 141/94 98 12/07/18 07:34 98.4 F 69 18 139/99 100 12/07/18 06:39 77 18 127/98 100 12/07/18 06:29 72 12/07/18 06:17 67 12/07/18 06:04 66 12/07/18 05:09 97.3 F L 71 22 147/74 98 Intake and Output 12/06/18 12/07/18 12/07/18 22:59 06:59 14:59 Other: Weight 77.111 kg - Constitutional General appearance: cooperative, no acute distress, history of a bump on his forehead no sign of bruising or bleeding - EENT Eyes: anicteric sclerae, PERRLA, normal appearance ENT: hearing grossly normal - Neck Neck: no lymphadenopathy, normal ROM, no other, no rigidity, no stridor, no thyromegaly - Respiratory Respiratory: bilateral: Decreased air entry with expiratory wheezing diffusely no crackles - Cardiovascular Rhythm: regular Heart sounds: normal: S1, S2 Abnormal Heart Sounds: no systolic murmur, no diastolic murmur, no rub, no S3 Gallop, no S4 Gallop, no click, no other - Gastrointestinal General gastrointestinal: normal bowel sounds, soft tender in the left flank - Integumentary Integumentary: no rash - Neurologic Neurologic: CNII-XII intact - Musculoskeletal Musculoskeletal: strength equal bilaterally - Psychiatric Psychiatric: A&O x's 3, appropriate affect Results CBC & Chem 7: 12/07/18 05:30 12/07/18 05:30 Labs: Abnormal Lab Results - Last 24 Hours (Table) 12/07/18 12/07/18 Range/Units 05:30 05:30 WBC 21.3 H (3.8-10.6) k/uL MCHC 30.8 L (31.0-37.0) g/dL RDW 16.5 H (11.5-15.5) % Neutrophils # 18.7 H (1.3-7.7) k/uL Lymphocytes # 0.7 L (1.0-4.8) k/uL Monocytes # 1.2 H (0-1.0) k/uL Sodium 122 L (137-145) mmol/L Chloride 87 L (98-107) mmol/L BUN 25 H (9-20) mg/dL Glucose 108 H (74-99) mg/dL Total Bilirubin 3.2 H (0.2-1.3) mg/dL Total Protein 6.2 L (6.3-8.2) g/dL Thrombosis Risk Factor Assmnt - DVT/VTE Prophylaxis DVT/VTE Prophylaxis: Pharmacologic Prophylaxis ordered - Choose All That Apply Any of the Below Risk Factors Present?: Yes Each Factor Represents 1 point: Abnormal pulmonary function (COPD) Other Risk Factors: Yes Each Risk Factor Represents 2 Points: Malignancy Each Risk Factor Represents 3 Points: Age 75 years or older, History of DVT/PE Other congenital or acquired thrombophilia - If yes, enter type in comment: No Thrombosis Risk Factor Assessment Total Risk Factor Score: 9 Thrombosis Risk Factor Assessment Level: High Risk Assessment and Plan Plan: #1 left flank pain secondary to mechanical fall. PT and OT consult. X-ray of the rib suggest posterior 11th rib fracture. CT chest, abdomen and pelvis ordered to rule out bleeding, metastasis or fractures. Incentive spirometry. Pulmonary consulted. Tramadol 50 4 times a day for pain control and baclofen for muscle spasm #2 history of lung cancer status post right lobectomy and chemotherapy in 2016 with metastasis to the right hip status postradiation in 2019 . Recent thoracentesis suggestive of recurrence of the lung cancer pathology positive for EGFR on Tagrisso #3 recurrent pleural effusions status post thoracentesis in 2017 chest x-ray negative for pleural effusion #4 COPD exacerbation initiated patient on Solu-Medrol 60 every 6 hours levofl oxacin running at 750 mg by mouth daily continue DuoNeb as needed for shortness of breath pro-calcitonin ordered #5 myelodysplasia stable #6 Gilbert's syndrome stable #7. Paroxysmal atrial fibrillation with history of recurrent syncope status post pacemaker. Continue metoprolol 50 mg twice a day. 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 Continue normal saline at 75 mL per hour and repeat CMP today #14 CODE STATUS full code
[2018-12-07] MEDS: traMADol 50 MG TAB PO SCH ×3 (15:02→21:40)
[2018-12-07] MEDS: OSIMERTINIB MESYLATE PO SCH (15:02)
--- NOTE | 2018-12-07 16:45 | CONS ---
CONSULTATION This is an 83-year-old male whom we were asked to see because of shortness of breath and falling. The patient apparently fell at home. He was brought in by his to the emergency room to be evaluated. He complains of pain in the left posterolateral chest area. He apparently was going down some steps and fell and hit that area. The patient apparently had a chest x-ray which did not show anything acute. We were asked to see the patient because the patient complains of pain with deep breathing and certain body movements. It apparently it relates primarily to trauma. The patient apparently was trying to take care of this at home with breathing treatments; he was using breathing treatments frequently, but it did not seem to help. He does have a previous history of lung cancer with previous right upper lobectomy and right pleural effusion, status post thoracentesis of about 800 mL. This was done by Interventional Radiology. The patient sees my partner, Dr. Hobson, for his COPD and lung cancer. The patient was scheduled to have a CT scan of the abdomen and pelvis. We added the chest to be included in that evaluation. Again, the chest x-ray did not show any fractured ribs. HOME MEDICATIONS: His home medications include: 1. Lipitor. 2. Lopressor. 3. Flomax. 4. Coenzyme Q. 5. Anoro. 6. Vitamin B complex. 7. Cyclosporine eye drops. 8. Eliquis. 9. Tagrisso. 10.Albuterol nebulized treatments. 11.Vitamin D3. 12.Glucosamine/chondroitin. 13.Imodium. 14.Prochlorperazine, which is Compazine. 15.Prednisone 5 mg a day. ALLERGIES: DENIED. MEDICAL HISTORY: Reviewed. He has a history of: 1. Hyperlipidemia. 2. Hypertension. 3. COPD. 4. Lung cancer. 5. Atrial fibrillation. 6. Prostate cancer. 7. ITP. 8. Left leg DVT. 9. Myelodysplastic syndrome. 10.Recurrent lung cancer to the right hip area. SURGICAL HISTORY: Surgical history includes: 1. Right upper lobectomy. 2. Pacemaker/AICD placement. 3. Thoracentesis recently. 4. Adenoidectomy. 5. Tonsillectomy. SOCIAL HISTORY: Positive for previous tobacco use. Denies any alcohol or illicit drug use. OCCUPATIONAL HISTORY: Noncontributory. FAMILY HISTORY: Negative. Apparently he states that his family is relatively healthy. REVIEW OF SYSTEMS: CONSTITUTIONAL: Left flank and back pain. NEUROLOGIC: Negative. HEENT: Negative. CARDIOVASCULAR: Negative. PULMONARY: Shortness of breath on deep inspiration. GI: Negative. : Negative. RHEUMATOLOGIC: Negative. IMMUNOLOGIC: Negative. ENDOCRINOLOGIC: Negative. DERMATOLOGIC: Negative. PHYSICAL EXAMINATION: VITAL SIGNS: Current vital signs are reviewed. Temperature is 97.6, heart rate 83, respiratory rate 18, blood pressure 147/90, mean 109, room-air saturation 94%. GENERAL: He appears in no acute distress. HEENT: HEENT examination is grossly unremarkable. Mucous membranes are moist. No oral lesions. NECK: Supple. Full range of motion. No adenopathy, thyromegaly or neck vein distention. CARDIOVASCULAR: Cardiovascular examination reveals regular rhythm and rate. Heart rate is 76. S1, S2 normal. No S3, S4 or murmur. LUNGS: Lungs reveal relatively clear breath sounds. He does wince when he takes a deep breath. No wheezes, rhonchi or crackles. Breath sounds are equal bilaterally. They are diminished throughout, primarily because he splints when he takes a deep breath. ABDOMEN: Soft. Bowel sounds are heard. EXTREMITIES: Intact. No cyanosis, clubbing or edema. SKIN: Without rash. NEUROLOGIC: Neurologic examination is brief but nonfocal. LAB DATA/IMAGING: Reviewed. White count 21.3, hemoglobin 14.1, hematocrit 45.9, platelet count 392,000. PT, INR, PTT all normal. Sodium 122, potassium 5.1, chloride 87, CO2 25. BUN 25, creatinine 0.79. N-terminal proBNP 5540. Troponins negative. Glucose 108. Total protein 6.2. Chest x-ray is reviewed. It shows some mild bibasilar atelectasis or lung infiltrates. No cephalization. There could be small effusions bilaterally. CT scan of chest, abdomen and pelvis is pending. CURRENT MEDICATIONS: Medications are reviewed. He is currently on updrafts with DuoNeb and Solu-Medrol. ASSESSMENT: 1. Status post fall with injury to the left posterior chest and lateral chest area; rule out pulmonary contusion and rib fractures. 2. Difficulty breathing secondary to left chest trauma. 3. History of lung cancer, status post right upper lobectomy with recurrence to the right hip and recent right thoracentesis. 4. History of hyperlipidemia. 5. History of hypertension. 6. History of chronic obstructive pulmonary disease. 7. History of chronic atrial fibrillation. 8. Currently on immunotherapy for spi-utuva-efod lung cancer. 9. Prostate cancer. 10.Idiopathic thrombocytopenic purpura. 11.Status post right upper lobectomy for lung cancer. 12.Left leg deep venous thrombosis. 13.History of myelodysplastic syndrome. PLAN: Please see my orders. The patient's medications are reviewed. We will discontinue the corticosteroids. Will wait for the CT scan of the chest, abdomen and pelvis. Will continue with breathing treatments. No additional recommendations are made. Patient needs to have pain control and incentive spirometer. Additional recommendations and suggestions are forthcoming. MMODL / IJN: [id number] /
[2018-12-07 17:43] LABS: ALT 22 U/L (21-72); AST 31 U/L (17-59); African American GFR (CKD) >90 (>60 ml/min/1.73 sqM); Albumin 3.7 g/dL (3.5-5.0); Alkaline Phosphatase 96 U/L (38-126); Anion Gap 9 mmol/L; Blood Urea Nitrogen 23 mg/dL (9-20); Calcium 8.1 mg/dL (8.4-10.2); Carbon Dioxide 21 mmol/L (22-30); Chloride 87 mmol/L (98-107); Glucose 141 mg/dL (74-99); Potassium 5.3 mmol/L (3.5-5.1); Total Bilirubin 2.9 mg/dL (0.2-1.3); Total Protein 5.7 g/dL (6.3-8.2)
[2018-12-07] MEDS: methylPREDNISolone SOD SUCCI 125 MG/2 ML VIAL IV SCH ×2 (17:45→22:56)
[2018-12-07] MEDS: SODIUM CHLORIDE 0.9% 1,000 ML IV SCH (17:45)
[2018-12-07 17:49] LABS: Sodium 117 mmol/L (137-145)
[2018-12-07] MEDS: SYMBICORT 160-4.5 MCG INHALER INHALATION SCH (19:25)
[2018-12-07] MEDS: METOPROLOL TARTRATE 50 MG TAB PO SCH (20:33)
[2018-12-07] MEDS: TAMSULOSIN 0.4 MG CAP.ER.24H PO SCH (20:34)
[2018-12-07] MEDS: CALCIUM CARB-VIT D 500MG-200UN 1 EACH TAB PO SCH (20:34)
[2018-12-07] MEDS: cycloSPORINE 0.05% OPHTH 0.4 ML DROPERETTE BOTH EYES SCH (21:41)
[2018-12-07] MEDS: IPRATROPIUM-ALBUTEROL 3 ML NEB INHALATION PRN (23:05)
--- NOTE | 2018-12-08 00:07 | P.CONS ---
History of Present Illness - Reason for Consult Consult date: 12/07/18 - History of Present Illness The patient is an 83-year-old white male with multiple medical problems. He is followed by Dr. Stone, in the outpatient setting. He has a long-standing history of ITP for which he was initially seen, and which was managed for several years with steroids and IVIG intermittently. he then developed other issues subsequently, as detailed below 09/01/15 : Just back from [place], he was diagnosed with Lung cancer, Adenocarcinoma subtype > Had Laporoscopic right upper Lobectomy on 06/06/15 rev ealing 2 cm (T1b) with Mets to [address] (T1) without distant mets for overall stage of IIA. Was started on adjuvant Chemotherapy with Carboplatinum+Alimta, 3 of 4 cycles completed in [place], 4th and last cycle is due on 09/15/15. He tolerated chemotherapy well, with Grade IV thrombocytopenia, dose of Carboplatinum was reduced for cycle#3. . 01/17/17: Was diagnosed with [place] 4+4=8 Adenocarcinoma of Prostate.. 02/19/17: Started on XRT of Prostate (Dr Bernie Morales). 04/01/17: Completed XRT to Prostate Ca, Received Rituxan for ITP, wkly x 4 , in late 2017. 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 He was given palliative XRT to Pelvis and started on Osimertinib > C/O nausea > better after Osimertinib held. 09/16/18: Feels a bit better, less SOB, Osimertinib restarted, tolerating Tagrisso well. 10/13/18: C/O increasing SOB, feels stronger, gained weight, has minimal skeletal pain. 11/12/18: Feels Ok, had Thoracentesis: 800 ml removed, no cytology studies. Tolerating simertinib well. On prednisone 5mg Po daily (ITP). the patient also has a long-standing history of anticoagulation for atrial fibrillation and hypercoagulable state. Was on warfarin for several years, but was changed to eliquis some months ago, due to difficulty in regulating INR. The patient's hematology and oncology history is as summarized above. The patient had an accidental fall, and suffered trauma to his left lower rib cage and left flank. He had been complaining of increased shortness of breath for about a day or so before, and this apparently became worse after the fall. It was exacerbated by difficulty in taking a deep breath, since this made his pain worsened. He therefore came into the emergency room, and was admitted further management. The patient has been taking eliquis and Plavix on a regular basis, and to his last dose on 12/06/18 p.m. He has had no obvious bleeding. According to his , the left flank pain is his major issue as it is interfering with his breathing, as well as any movement. Consult was therefore placed for further evaluation and recommendations Review of Systems Constitutional: Reports fatigue Eyes: denies blurred vision, denies pain Ears: deny: decreased hearing, ear discharge, earache, tinnitus Ears, nose, mouth and throat: Denies headache, Denies sore throat Cardiovascular: Reports chest pain, Reports dyspnea on exertion, Reports irregular heart beat Respiratory: Reports dyspnea, Reports pain Gastrointestinal: Denies abdominal pain, Denies diarrhea, Denies nausea, Denies vomiting Genitourinary: Reports as per HPI Musculoskeletal: Reports as per HPI, Reports muscle weakness Musculoskeletal: left: as per HPI Integumentary: Denies pruritus, Denies rash Neurological: Reports weakness, Denies numbness Psychiatric: Denies anxiety, Denies depression Endocrine: Reports fatigue Hematologic/Lymphatic: Reports as per HPI, Reports thrombophilia Past Medical History Past Medical History: Atrial Fibrillation, Blood Disorder, Cancer, COPD, Hyperlipidemia, Hypertension, Syncope Additional Past Medical History / Comment(s): 2016 R lung cancer with surgery/chemotherapy, 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 History of Any Multi-Drug Resistant Organisms: None Reported Past Surgical History: Adenoidectomy, Pacemaker, Tonsillectomy Additional Past Surgical History / Comment(s): R upper lobectomy, reveal monitor, dual pacemaker, vocal cord benign polypectomies, colonoscopy, bilateral cataract removals/lens implants. Type of Cardiac Device: Permanent Pacemaker Device Placement Date:: 2009 Smoking Status: Former smoker - Past Family History Mother Family Medical History: Cancer Additional Family Medical History / Comment(s): Mother had breast and colon cancer. Father Family Medical History: Vascular Disorder Additional Family Medical History / Comment(s): Father of a ruptured aneurysm. Medications and Allergies Home Medications Medication Instructions Recorded Confirmed Type Atorvastatin [Lipitor] 20 mg PO DAILY 11/22/17 12/07/18 History Metoprolol Tartrate [Lopressor] 50 mg PO BID 11/22/17 12/07/18 History Tamsulosin [Flomax] 0.4 mg PO BID 11/22/17 12/07/18 History Ubidecarenone [Co Q-10] 100 mg PO DAILY 11/22/17 12/07/18 History Umeclidinium Brm/Vilanterol Tr 1 puff INHALATION RT-DAILY 11/22/17 12/07/18 History [Anoro Ellipta 62.5-25 Mcg INH] Vitamin B Complex/Folic Acid 0.4 mg PO DAILY 11/22/17 12/07/18 History [B-Complex Tablet] cycloSPORINE [Restasis] 1 drop BOTH EYES BID 11/22/17 12/07/18 History Apixaban [Eliquis] 2.5 mg PO BID 10/14/18 12/07/18 History Osimertinib Mesylate [Tagrisso] 80 mg PO DAILY 10/14/18 12/07/18 History Albuterol Nebulized [Ventolin 2.5 mg INHALATION RT-BID 12/07/18 12/07/18 History Nebulized] Calcium Carbonate/Vitamin D3 1 tab PO BID 12/07/18 12/07/18 History [Calcium 600-Vit D3 400 Tablet] Clopidogrel [Plavix] 75 mg PO DAILY 12/07/18 12/07/18 History Glucosamine-Chondr 500-400Mg 1 tab PO DAILY 12/07/18 12/07/18 History Loperamide HCl [Imodium A-D] 2 mg PO QID PRN 12/07/18 12/07/18 History Prochlorperazine [Compazine] 10 mg PO Q6H PRN 12/07/18 12/07/18 History predniSONE 5 mg PO DAILY 12/07/18 12/07/18 History Allergies Allergy/AdvReac Type Severity Reaction Status Date / Time No Known Allergies Allergy Verified 12/07/18 06:54 Physical Exam Vitals: Vital Signs Temp Pulse Pulse Resp BP BP Pulse Ox 12/07/18 23:05 84 12/07/18 19:35 76 12/07/18 19:26 80 96 12/07/18 19:16 97.7 F 109 H 22 156/96 96 12/07/18 17:06 76 12/07/18 16:52 76 12/07/18 11:55 97.6 F 83 18 147/90 94 L 12/07/18 08:49 76 12/07/18 08:34 76 12/07/18 08:00 97.5 F L 100 18 141/94 98 12/07/18 07:34 98.4 F 69 18 139/99 100 12/07/18 06:39 77 18 127/98 100 12/07/18 06:29 72 12/07/18 06:17 67 12/07/18 06:04 66 12/07/18 05:09 97.3 F L 71 22 147/74 98 Intake and Output 12/07/18 12/07/18 12/08/18 14:59 22:59 06:59 Intake Total 150 350 Balance 150 350 Intake: Intake, IV Titration 150 Amount Levofloxacin 750Mg-D5w 150 Pmx 750 mg In Dextrose/ Water 1 150ml.bag @ 100 mls/hr IVPB ONCE STA Rx#: [id number] Oral 350 Other: Voiding Method Toilet # Voids 2 1 - Constitutional General appearance: no acute distress - EENT Eyes: EOMI, PERRLA ENT: hearing grossly normal, normal oropharynx - Neck Neck: no lymphadenopathy Thyroid: bilateral: normal size - Respiratory Respiratory: bilateral: diminished, wheezing - Cardiovascular Rhythm: irregularly irregular Heart sounds: normal: S1, S2 - Gastrointestinal General gastrointestinal: normal bowel sounds, soft - Integumentary Integumentary: normal - Neurologic Neurologic: CNII-XII intact - Musculoskeletal There was no tenderness noted on careful palpation of the spine along its entire length. The patient did have tenderness to palpation over the left lower rib cage and left flank. No obvious bruising noted in this area Musculoskeletal: generalized weakness, strength equal bilaterally - Psychiatric Psychiatric: A&O x's 3, appropriate affect Results CBC & Chem 7: 12/07/18 05:30 12/07/18 14:53 Labs: Abnormal Lab Results - Last 24 Hours (Table) 12/07/18 12/07/18 12/07/18 Range/Units 05:30 05:30 14:53 WBC 21.3 H (3.8-10.6) k/uL MCHC 30.8 L (31.0-37.0) g/dL RDW 16.5 H (11.5-15.5) % Neutrophils # 18.7 H (1.3-7.7) k/uL Lymphocytes # 0.7 L (1.0-4.8) k/uL Monocytes # 1.2 H (0-1.0) k/uL Sodium 122 L 117 L* (137-145) mmol/L Potassium 5.3 H (3.5-5.1) mmol/L Chloride 87 L 87 L (98-107) mmol/L Carbon Dioxide 21 L (22-30) mmol/L BUN 25 H 23 H (9-20) mg/dL Creatinine 0.62 L (0.66-1.25) mg/dL Glucose 108 H 141 H (74-99) mg/dL Osmolality 253 L (280-301) mosm/kg Calcium 8.1 L (8.4-10.2) mg/dL Total Bilirubin 3.2 H 2.9 H (0.2-1.3) mg/dL Total Protein 6.2 L 5.7 L (6.3-8.2) g/dL Chest x-ray: report reviewed Assessment and Plan (1) Contusion of rib on left side Narrative/Plan: The patient's current admission was precipitated by his accidental fall, trauma and subsequent effects. He does have known bone metastasis, and therefore could have suffered fractures. However effect of fractures in this case is likely to be is less significance overall, as they're likely to be admitted to the ribs if indeed that have occurred. On careful palpation of the spine and left iliac bone, and this time no significant tenderness was elicited. The area of tenderness was localized to the left lower rib cage and left upper flank. The bigger concern in this case is of bleeding as the patient was on eliquis and Plavix at the time of the trauma. Chest x-ray did not show any significant effusion on the affected side. The scans and were ordered to rule out any evidence of significant abdominal or thoracic hemorrhage. At this time there is no evidence of active bleeding as hemoglobin is normal, along with heart rate and blood pressure. Continue to monitor while workup is in progress Pain control Current Visit: Yes Status: Acute Code(s): S20.212A - CONTUSION OF LEFT FRONT WALL OF THORAX, INITIAL ENCOUNTER SNOMED Code(s): 150178726 (2) Acute exacerbation of chronic obstructive airways disease Narrative/Plan: On exam the patient had significant wheezing, and had actually developed some shortness of breath even prior to his follow-up in chest x-ray raises the possibility of basal infiltrate and therefore possible pneumonia. Deferred to the admitting service and other consultants for management in this regard Current Visit: Yes Status: Acute Code(s): J44.1 - CHRONIC OBSTRUCTIVE PULMO NARY DISEASE W (ACUTE) EXACERBATION SNOMED Code(s): 582815262 (3) Atrial fibrillation Narrative/Plan: The patient is on chronic anticoagulation, as well as antiplatelet therapy . Heart rate is controlled. Anticoagulation is currently on hold. However if imaging studies, as well as continued physical assessment and labs show no evidence of bleeding, then eliquis and Plavix may be resumed with continued monitoring Current Visit: Yes Status: Acute Code(s): I48.91 - UNSPECIFIED ATRIAL FIBRILLATION SNOMED Code(s): 04966461 (4) Metastatic lung cancer (metastasis from lung to other site) Narrative/Plan: The patient has been on a targeted agent, Osimertinib, this is a diagnosis of metastatic disease, with overall poor tolerance other than some side effects initially leading to temporary cessation. He reports good tolerance and compliance at this time. The patient did have thoracentesis done last month, but fluid was not sent for cytology. Imaging studies and have been ordered may be helpful in checking for progression. Similarly, if imaging studies were not definitive or negative, then it would be reasonable to target any recurrent effusion and ensure that cytologies are performed this time. ,,,While workup is in progress the patient can continue taking his targeted agent from home while inpatient Current Visit: Yes Status: Acute Code(s): C34.90 - MALIGNANT NEOPLASM OF UNSP PART OF UNSP BRONCHUS OR LUNG SNOMED Code(s): 57160973 (5) Chronic ITP (idiopathic thrombocytopenia) Narrative/Plan: Currently in remission with platelet count normal. Patient is on steroids chronically and is currently on low-dose prednisone. Monitor platelet count Current Visit: Yes Status: Acute Code(s): D69.3 - IMMUNE THROMBOCYTOPENIC P URPURA SNOMED Code(s): 85968549 Plan: Deferred to the admitting service and other consultants for management of his other medical problems
[2018-12-08] MEDS: IPRATROPIUM-ALBUTEROL 3 ML NEB INHALATION PRN ×2 (03:29→14:00)
[2018-12-08] MEDS: methylPREDNISolone SOD SUCCI 125 MG/2 ML VIAL IV SCH (05:27)
[2018-12-08] MEDS: IPRATROPIUM-ALBUTEROL 3 ML NEB INHALATION SCH ×5 (08:05→23:01)
[2018-12-08] MEDS: SYMBICORT 160-4.5 MCG INHALER INHALATION SCH ×2 (08:05→19:53)
[2018-12-08] MEDS: traMADol 50 MG TAB PO SCH ×2 (08:17→13:48)
[2018-12-08] MEDS: METOPROLOL TARTRATE 50 MG TAB PO SCH ×2 (08:18→20:55)
[2018-12-08] MEDS: CALCIUM CARB-VIT D 500MG-200UN 1 EACH TAB PO SCH ×2 (08:18→20:55)
[2018-12-08] MEDS: ATORVASTATIN 20 MG TAB PO SCH (08:18)
[2018-12-08] MEDS: TAMSULOSIN 0.4 MG CAP.ER.24H PO SCH ×2 (08:18→20:55)
[2018-12-08] MEDS: cycloSPORINE 0.05% OPHTH 0.4 ML DROPERETTE BOTH EYES SCH ×2 (08:19→21:29)
[2018-12-08 08:34] LABS: Anisocytosis Slight; Basophils % (A) 0 %; Eosinophils # (A) 0.1 k/uL (0-0.7); Eosinophils % (A) 0 %; HCT 42.6 % (39.0-53.0); HGB 13.2 gm/dL (13.0-17.5); Hypochromasia Moderate; Lymphocytes # (A) 0.5 k/uL (1.0-4.8); Lymphocytes % (A) 2 %; MCH 25.7 pg (25.0-35.0); Mean Platelet Volume 9.6; Monocytes # (A) 0.6 k/uL (0-1.0); Monocytes % (A) 2 %; Neutrophils % (A) 95 %; Platelet Count 344 k/uL (150-450); RBC 5.13 m/uL (4.30-5.90); RDW 16.8 % (11.5-15.5); WBC 26.4 k/uL (3.8-10.6)
[2018-12-08 08:39] LABS: ALT 14 U/L (21-72); AST 26 U/L (17-59); African American GFR (CKD) >90 (>60 ml/min/1.73 sqM); Albumin 4.1 g/dL (3.5-5.0); Alkaline Phosphatase 97 U/L (38-126); Anion Gap 14 mmol/L; Blood Urea Nitrogen 25 mg/dL (9-20); Calcium 8.3 mg/dL (8.4-10.2); Carbon Dioxide 20 mmol/L (22-30); Chloride 88 mmol/L (98-107); Glucose 147 mg/dL (74-99); Sodium 122 mmol/L (137-145); Total Bilirubin 2.7 mg/dL (0.2-1.3); Total Protein 6.1 g/dL (6.3-8.2)
[2018-12-08 08:49] LABS: Neutrophils # (A) 25.2 k/uL (1.3-7.7)
[2018-12-08] MEDS ORDERED: predniSONE 5 MG TAB PO SCH (09:00)
[2018-12-08] MEDS ORDERED: APIXABAN 2.5 MG TABLET PO SCH (09:00)
[2018-12-08] MEDS: SODIUM CHLORIDE 0.9% 1,000 ML IV SCH (09:00)
[2018-12-08] MEDS ORDERED: CLOPIDOGREL 75 MG TAB PO SCH (09:00)
[2018-12-08] MEDS: NON-FORMULARY DRUG (Vitamin B Complex/Folic Acid [B-Complex Tablet] 0.4 MG) PO SCH (10:19)
--- NOTE | 2018-12-08 12:09 | PN ---
PROGRESS NOTE This is a pulmonary and critical care progress note. DATE OF SERVICE: December 08, 2018 This is an 83-year-old gentleman we saw yesterday in consultation. He apparently fell at home injuring his left posterior chest and back area. The patient had a CT scan of the chest, abdomen and pelvis. The abdomen and pelvis CT scan was unremarkable. The chest CT scan showed 2 major issues. One was that he had multiple fractured ribs on the left side posteriorly at 10, 11 and 12 in addition to that, he has widely metastatic lung cancer. He has too numerous to count skeletal metastasis. The patient's reason for being in the hospital was difficulty breathing secondary to the left chest trauma. He does have a previous history of lung cancer. He is status post right upper lobectomy with occurrence of the right hip area. He has also had a recent right thoracentesis. In addition, he has a history of hyperlipidemia, hypertension, COPD, atrial fibrillation, prostate cancer, ITP, right upper lobectomy for lung cancer, left leg DVT and myelodysplastic syndrome. The patient is resting comfortably today. He is complaining about shortness of breath especially when he coughs or takes a deep breath. He is wearing oxygen therapy. His medications were reviewed. PHYSICAL EXAMINATION: VITAL SIGNS: Current vital signs include temperature 97.7, heart rate 96, respiratory rate 24, blood pressure 149/91, mean 110 and 3 L saturation 96%. Appears in no acute distress. HEENT: Examination is grossly unremarkable. Nasal O2 in place. NECK: Supple. Full range of motion. No adenopathy, thyromegaly or neck vein distention. CARDIOVASCULAR: Examination reveals regular rhythm and rate. Heart sounds are distant. LUNGS: Reveal diminished breath sounds. He does not take deep breaths. There is mild prolongation on forced maneuver. The patient does have some mild expiratory wheezes. ABDOMEN: Soft. Bowel sounds are heard. EXTREMITIES: Are intact. No cyanosis, clubbing, or edema. SKIN: Without rash. NEUROLOGIC: Examination is brief but nonfocal. LABS: Labs are reviewed. White count 26.4, hemoglobin 13.2, hematocrit 42.6, platelet count 344,000. Sodium 122, potassium 5, chloride 88, CO2 is 29. Anion gap 14. BUN 25, creatinine 0.78. The rest of the labs are reviewed. Chest, abdomen and pelvic CT is reviewed. Rib x-rays are reviewed. ASSESSMENT: 1. Status post fall with injury to the left posterior chest and lateral chest area, with fractured ribs posteriorly at 10, 11 and 12. 2. Possible pulmonary contusion secondary to chest trauma. 3. Dyspnea, secondary to left chest trauma. 4. History of lung cancer, status post right upper lobectomy with occurrence of the right hip and multiple skeletal metastases, despite immune therapy. 5. Recent right thoracentesis for right-sided pleural effusion. 6. History of hyperlipidemia. 7. History of hypertension. 8. Chronic obstructive pulmonary disease. 9. History of chronic atrial fibrillation. 10.Currently receiving immune therapy for non-small cell lung cancer. 11.History of prostate cancer. 12.Idiopathic thrombocytopenic purpura. 13.Status post right upper lobectomy for lung cancer. 14.Left leg deep venous thrombosis. 15.History of myelodysplastic syndrome. PLAN: The patient is doing reasonably well. I do encourage him to take deep breaths, cough and clear secretions. We also expressed to him the importance of doing incentive spirometry. Additional recommendations and suggestions are forthcoming. Obviously with the multiple rib fractures, pain control will be important. I did pass onto the the CT scan of the chest showing multiple skeletal metastasis. She will speak to the oncologist later today. Additional recommendations and suggestions are forthcoming. Prognosis is guarded. MMODL / IJN: [id number] /
[2018-12-08] MEDS: OSIMERTINIB MESYLATE PO SCH (13:48)
[2018-12-08] MEDS ORDERED: methylPREDNISolone SOD SUCCI 40 MG/ML 1 ML VIAL IV STA (13:50)
[2018-12-08] MEDS: methylPREDNISolone SOD SUCCI 40 MG/ML 1 ML VIAL IV SCH ×2 (13:52→17:22)
[2018-12-08] MEDS ORDERED: MORPHINE SULFATE 2 MG/ML SYRINGE IVP PRN (14:05)
--- NOTE | 2018-12-08 14:10 | P.PN ---
Subjective Progress Note Date: 12/08/18 Principal diagnosis: Fall was concerned that lesions on bone were new, compared to PET from [place] and does not appear progressed. Although new pleural effusion and audible wheeze. Objective - Vital Signs Vital signs: Vital Signs Temp 97.5 F L 12/08/18 04:56 Pulse 96 12/08/18 08:17 Resp 24 12/08/18 05:51 BP 149/91 12/08/18 05:51 Pulse Ox 96 12/08/18 05:51 Intake & Output 12/07/18 12/08/18 12/08/18 18:59 06:59 18:59 Intake Total 150 1025 Balance 150 1025 Weight 77.111 kg Intake: Intake, IV Titration 150 675 Amount Levofloxacin 750Mg-D5w 150 Pmx 750 mg In Dextrose/ Water 1 150ml.bag @ 100 mls/hr IVPB ONCE STA Rx#: [id number] Sodium Chloride 0.9% 1, 675 000 ml @ 75 mls/hr IV . [id number] [facility] Rx#:[id number] Oral 350 Other: Voiding Method Toilet Toilet Toilet # Voids 2 1 - Exam General: Alert and Oriented x3, No Acute Distress Head: Normocytic, Atraumatic Neck: Supple Mouth: No Lesions, No Thrush Eyes: Non-sclerotic No Palpable cervical, supraclavicular, axillary adenopathy Heart: Regular Rate, Regular Rhythm Lungs: Clear to Ausculations, No Wheeze, No Rhonchi, Diminishe bilateral lower lobes, No increased respiratory effort noted Abdomen: Soft, Non-Distended, Non-Tended, BSx4 Extremities: No Edema, Equal Strength Neurological: No Focal Defects: No sensory or motor deficits noted Psych: Calm and cooperative - Labs CBC & Chem 7: 12/08/18 07:55 12/08/18 07:55 Labs: Abnormal Lab Results - Last 24 Hours (Table) 12/07/18 12/08/18 12/08/18 Range/Units 14:53 07:55 07:55 WBC 26.4 H (3.8-10.6) k/uL RDW 16.8 H (11.5-15.5) % Neutrophils # 25.2 H (1.3-7.7) k/uL Lymphocytes # 0.5 L (1.0-4.8) k/uL Sodium 117 L* 122 L (137-145) mmol/L Potassium 5.3 H (3.5-5.1) mmol/L Chloride 87 L 88 L (98-107) mmol/L Carbon Dioxide 21 L 20 L (22-30) mmol/L BUN 23 H 25 H (9-20) mg/dL Creatinine 0.62 L (0.66-1.25) mg/dL Glucose 141 H 147 H (74-99) mg/dL Osmolality 253 L (280-301) mosm/kg Calcium 8.1 L 8.3 L (8.4-10.2) mg/dL Total Bilirubin 2.9 H 2.7 H (0.2-1.3) mg/dL ALT 14 L (21-72) U/L Total Protein 5.7 L 6.1 L (6.3-8.2) g/dL Assessment and Plan Plan: Contusion of rib on left side - CT Scan and Xray reveal Fx left posterior 11th rib, likely from fall and trauma. - The bigger concern in this case is of bleeding as the patient was on eliquis and Plavix at the time of the trauma. Chest x-ray did not show any significant effusion on the affected side. Acute exacerbation of chronic obstructive airways disease - admitting service and other consultants for management in this regard Atrial fibrillation - Chronic and Heart Rate Controlled - Anticoagulation is currently on hold. However if imaging studies, as well as continued physical assessment and labs show no evidence of bleeding, then eliquis and Plavix may be resumed with continued monitoring Metastatic lung cancer (metastasis from lung to other site): - Recent treatment with Osimertinib, tolerance has been poor. recently on hold. Right moderate pleural effusion and small left: - Schedule thoracentesis please send for cytology Chronic ITP (idiopathic thrombocytopenia) - Currently in remission with platelet count normal. - Patient is on steroids chronically and is currently on low-dose prednisone. Monitor platelet count Hyponatremia: - Nephrology Following - Osmolatity and urine lyte reviewed. Neoplastic related pain: Rib fx: - Balance between pain med induced lethargy/confusion - will add lidocaine patch Greaterthan 30 minutes with patient and
[2018-12-08] MEDS: HYDROcodone/APAP 5-325MG 1 EACH TAB PO PRN (14:21)
--- NOTE | 2018-12-08 15:37 | P.PN ---
Subjective Progress Note Date: 12/08/18 83 years old male patient of Dr. Stone, Dr. 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 Patient and his decided to hold on to Friday to see Dr. Stein but since he felt significantly worse with shortness of breath and back pain patient decided to come to the ER this morning. In the ER patient have a temp of 97.6 pulse of 76 respiratory rate 18 blood pressure 147/90 saturating well at room air. Labs suggestive leukocytes of 21,000, platelet 292, sodium 122 chloride 87 BUN 25 creatinine 0.79 bilirubin of 3.2 albumin 4.3 BNP of 5540 troponin 0.012. Chest x-ray was done that suggested right-sided consolidation deformity of the posterior left rib concerning for fracture of the left 11th rib. PET scan done in July 2018 prior to the radiation suggest lesions in the lower sclerae lumbar spine and pelvis and right eighth rib. Oncology and pulmonary evaluated the patient and ordered CT chest abdomen and pelvis to rule out further metastass and fractures. 12/08 patient examined bedside appears to be wheezing significantly. Also complains of significant pain in the left flank. Pain not controlled on tramadol will switch to [place] every 6 hours with IV morphine 2 mg every 6 hours alternating therapy. Solu-Medrol reduced to 40 mg every 6 per hour per pulmonary recommendations. CT chest abdomen and pelvis concerning for left 10- 12 rib fracture and left scapula fracture which appears to be new with the diffuse OCS metastatic disease present. Vital signs stable with a temp of 97.7 pulse of 70 respiratory rate 16 blood pressure 165/69. Patient's updated on the computed tomography scan results. Objective - Vital Signs Vital signs: Vital Signs Temp 97.8 F 12/08/18 12:10 Pulse 92 12/08/18 14:16 Resp 20 12/08/18 12:10 BP 133/83 12/08/18 12:10 Pulse Ox 99 12/08/18 12:10 Intake & Output 12/07/18 12/08/18 12/08/18 18:59 06:59 18:59 Intake Total 150 1025 600 Balance 150 1025 600 Weight 77.111 kg Intake: Intake, IV Titration 150 675 600 Amount Levofloxacin 750Mg-D5w 150 Pmx 750 mg In Dextrose/ Water 1 150ml.bag @ 100 mls/hr IVPB ONCE STA Rx#: [id number] Sodium Chloride 0.9% 1, 675 600 000 ml @ 75 mls/hr IV . [id number] Rx#:[id number] Oral 350 Other: Voiding Method Toilet Toilet Toilet # Voids 2 1 - Exam ROS Constitutional: Denies chills, Denies fever, Denies lethargy, Denies malaise, Denies poor appetite, Denies weakness, Denies weight loss Eyes: denies decreased vision, denies diplopia, denies discharge, denies pain Cardiovascular: Denies chest pain, Denies decreased exercise tolerance, Denies edema, Denies high blood pressure, Denies irregular heart beat, Denies palpitations, Denies paroxysmal nocturnal dyspnea, Denies rapid heart beat, Denies shortness of breath Respiratory: Denies congestion, Denies cough, Denies cough with sputum,endorses dyspnea, Denies home oxygen, endorses wheezing Gastrointestinal: Denies abdominal pain, Denies change in bowel habits, Denies coffee ground emesis, Denies early satiety, Denies excessive gas, Denies heartburn, Denies hematemesis, Denies hematochezia, Denies loss of appetite, Denies nausea, Denies vomiting Genitourinary: Denies dysuria, Denies flank pain, Denies kidney stones, Denies menorrhagia, Denies urgency, Denies urinary frequency Musculoskeletal: Denies gait dysfunction, Denies limitation of motion, Denies morning stiffness, Denies muscle cramps Physical exam - Constitutional General appearance: cooperative, no acute distress, bump on his forehead no sign of bruising or bleeding - EENT Eyes: anicteric sclerae, PERRLA, normal appearance ENT: hearing grossly normal - Neck Neck: no lymphadenopathy, normal ROM, no other, no rigidity, no stridor, no thyromegaly - Respiratory Respiratory: bilateral: Decreased air entry with expiratory wheezing diffusely worse than yesterday no crackles - Cardiovascular Rhythm: regular Heart sounds: normal: S1, S2 Abnormal Heart Sounds: no systolic murmur, no diastolic murmur, no rub, no S3 Gallop, no S4 Gallop, no click, no other - Gastrointestinal General gastrointestinal: normal bowel sounds, soft tender in the left flank - Integumentary Integumentary: no rash - Neurologic Neurologic: CNII-XII intact - Musculoskeletal Musculoskeletal: strength equal bilaterally - Psychiatric Psychiatric: A&O x's 3, appropriate affect - Labs CBC & Chem 7: 12/08/18 07:55 12/08/18 07:55 Labs: Abnormal Lab Results - Last 24 Hours (Table) 12/07/18 12/08/18 12/08/18 Range/Units 14:53 07:55 07:55 WBC 26.4 H (3.8-10.6) k/uL RDW 16.8 H (11.5-15.5) % Neutrophils # 25.2 H (1.3-7.7) k/uL Lymphocytes # 0.5 L (1.0-4.8) k/uL Sodium 117 L* 122 L (137-145) mmol/L Potassium 5.3 H (3.5-5.1) mmol/L Chloride 87 L 88 L (98-107) mmol/L Carbon Dioxide 21 L 20 L (22-30) mmol/L BUN 23 H 25 H (9-20) mg/dL Creatinine 0.62 L (0.66-1.25) mg/dL Glucose 141 H 147 H (74-99) mg/dL Osmolality 253 L (280-301) mosm/kg Uric Acid (3.5-8.5) mg/dL Calcium 8.1 L 8.3 L (8.4-10.2) mg/dL Total Bilirubin 2.9 H 2.7 H (0.2-1.3) mg/dL ALT 14 L (21-72) U/L Total Protein 5.7 L 6.1 L (6.3-8.2) g/dL 12/08/18 Range/Units 07:55 WBC (3.8-10.6) k/uL RDW (11.5-15.5) % Neutrophils # (1.3-7.7) k/uL Lymphocytes # (1.0-4.8) k/uL Sodium (137-145) mmol/L Potassium (3.5-5.1) mmol/L Chloride (98-107) mmol/L Carbon Dioxide (22-30) mmol/L BUN (9-20) mg/dL Creatinine (0.66-1.25) mg/dL Glucose (74-99) mg/dL Osmolality (280-301) mosm/kg Uric Acid 3.3 L (3.5-8.5) mg/dL Calcium (8.4-10.2) mg/dL Total Bilirubin (0.2-1.3) mg/dL ALT (21-72) U/L Total Protein (6.3-8.2) g/dL Assessment and Plan Plan: #1 left flank pain secondary to mechanical fall. PT and OT consult. X-ray of the rib suggest posterior 11th rib fracture. CT chest, abdomen and pelvis positive for fractures of the 10th to 12th rib on the left with left the pathological scapular fracture Incentive spirometry. Pulmonary consulted. Tramadol switched to [place] 5 every 6 with morphine intermittently #2 history of lung cancer status post right lobectomy and chemotherapy in 2016 with metastasis to the right hip status postradiation in 2019 . Recent thoracentesis suggestive of recurrence of the lung cancer pathology positive for EGFR on Tagrisso patient's CT abdomen and pelvis suggest multiple metastasis patient would like to discuss with Dr. Stone on his next appointment #3 recurrent pleural effusions status post thoracentesis in 2017 chest x-ray negative for pleural effusion #4 COPD exacerbation initiated patient on Solu-Medrol 60 every 6 hours levofloxacin 750 mg by mouth daily continue DuoNeb as needed for shortness of breath pro-calcitonin ordered #5 myelodysplasia stable #6 Gilbert's syndrome stable #7. Paroxysmal atrial fibrillation with history of recurrent syncope status post pacemaker. Continue metoprolol 50 mg twice a day. 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 Urine creatinine ordered serums sodium check Q's 8 hours #14 CODE STATUS full code
[2018-12-08] MEDS: LIDOCAINE 5% PATCH TOPICAL SCH (17:22)
[2018-12-09] MEDS: methylPREDNISolone SOD SUCCI 40 MG/ML 1 ML VIAL IV SCH ×3 (00:47→13:11)
[2018-12-09 01:14] LABS: Glucose,Whole Blood 159 mg/dL (75-99)
--- NOTE | 2018-12-09 02:14 | XR ---
EXAM: XR Chest, 1 View CLINICAL HISTORY: ITS.REASON XR Reason: loud audible breathing TECHNIQUE: Frontal view of the chest. COMPARISON: 12/07/18 FINDINGS: Lungs: Small amount of bibasilar atelectasis. Pleural space: Cannot rule out small bilateral pleural effusions. No pneumothorax. Heart: Unremarkable. No cardiomegaly. Mediastinum: Unremarkable. Bones/joints: osteopenia. Tubes, lines and devices: Left pacer is again noted. IMPRESSION: Small amount of bibasilar atelectasis. No substantial change.
[2018-12-09] MEDS: IPRATROPIUM-ALBUTEROL 3 ML NEB INHALATION SCH ×5 (03:56→18:38)
[2018-12-09 04:06] LABS: ABG Base Excess -1.8 mmol/L; ABG HCO3 23 mmol/L (21-25); ABG Oxygen Saturation 97.2 % (94-97); ABG PCO2 36 mmHg (35-45); ABG PH 7.41 (7.35-7.45); ABG PO2 87 mmHg (83-108); ABG TCO2 24 mmol/L (19-24); Allen Test Performed? Yes
[2018-12-09] MEDS: SYMBICORT 160-4.5 MCG INHALER INHALATION SCH ×2 (08:51→20:35)
[2018-12-09] MEDS: LIDOCAINE 5% PATCH TOPICAL SCH (09:11)
[2018-12-09] MEDS: TAMSULOSIN 0.4 MG CAP.ER.24H PO SCH ×2 (09:12→19:59)
[2018-12-09] MEDS: METOPROLOL TARTRATE 50 MG TAB PO SCH ×2 (09:12→19:57)
[2018-12-09] MEDS: CALCIUM CARB-VIT D 500MG-200UN 1 EACH TAB PO SCH ×2 (09:13→19:57)
[2018-12-09] MEDS: HYDROcodone/APAP 5-325MG 1 EACH TAB PO PRN ×2 (09:13→15:51)
[2018-12-09] MEDS: cycloSPORINE 0.05% OPHTH 0.4 ML DROPERETTE BOTH EYES SCH ×2 (09:14→19:57)
[2018-12-09] MEDS: ATORVASTATIN 20 MG TAB PO SCH (09:14)
[2018-12-09] MEDS: NON-FORMULARY DRUG (Vitamin B Complex/Folic Acid [B-Complex Tablet] 0.4 MG) PO SCH (09:15)
[2018-12-09 09:26] LABS: Albumin 4.2 g/dL (3.5-5.0); Calcium 8.8 mg/dL (8.4-10.2); Potassium 5.4 mmol/L (3.5-5.1); Total Bilirubin 2.3 mg/dL (0.2-1.3); Total Protein 6.2 g/dL (6.3-8.2)
[2018-12-09 10:03] LABS: Anisocytosis Slight; HCT 42.9 % (39.0-53.0); Hypochromasia Moderate; MCH 25.7 pg (25.0-35.0); MCHC 30.4 g/dL (31.0-37.0); MCV 84.6 fL (80.0-100.0); Mean Platelet Volume 10.2; Platelet Count 334 k/uL (150-450); RBC 5.07 m/uL (4.30-5.90); RDW 16.6 % (11.5-15.5); WBC 33.3 k/uL (3.8-10.6)
[2018-12-09 11:28] LABS: Monocytes # (M) 1.33 k/uL (0-1.0); Neutrophils % (M) 94 %; Nucleated Red Blood Cells 0 /100 WBC (0-0)
[2018-12-09 11:29] LABS: Band Neutrophils % 1 %; Lymphocytes # (M) 0.33 k/uL (1.0-4.8); Total Cells Counted 200
[2018-12-09 11:30] LABS: Poikilocytosis (M) Present; Toxic Granulation Present
[2018-12-09 11:31] LABS: Large Platelets Present
--- NOTE | 2018-12-09 12:41 | PN ---
PROGRESS NOTE DATE OF SERVICE: 12/09/2018 This is an 83-year-old gentleman who we saw in consultation 2 days ago. He fell at home injuring his left posterior chest and back area. CT scan revealed rib fractures at 10, 11, 12 posteriorly on the left. A chest x-ray showed a tenth rib fracture. The patient also has a history of metastatic lung cancer with [id number] skeletal metastasis. The patient apparently came into the hospital with complaints of difficulty in taking a deep breath and pain when taking a deep breath. The patient is also having difficulty with his breathing and noisy breathing. He does have a prior history of lung cancer with previous right upper lobectomy and recurrence into the right hip area. The recent CT scan of the chest, abdomen and pelvis showed multiple thoracic metastases. He also has a history of hyperlipidemia, hypertension, COPD, atrial fibrillation, prostate cancer, ITP, the right upper lobectomy for lung cancer, left leg DVT and myelodysplastic syndrome. His has lots of questions today. I answered them all. He is on maximal therapy with duo nebs, Pulmicort, Perforomist, Solu-Medrol, etc. He is also getting oxygen therapy. She has been informed about the multiple skeletal metastasis and about the rib fractures. PHYSICAL EXAMINATION: Current vital signs incluide a good temperature of 97.6, heart rate 92, respiratory rate 24, blood pressure 143/88 mean 106, room air saturation 95% on 2 L. He is 97%. Appears in no acute distress. HEENT: Examination is grossly unremarkable. Mucous membranes are moist. No oral lesions. NECK: Supple. Full range of motion. No adenopathy or thyromegaly. Neck veins are flat. CARDIOVASCULAR: Examination reveals regular rhythm and rate. Heart rate 92. S1, S2 normal. No S3, S4, or murmur. LUNGS: Reveal a very noisy inspiratory and expiratory wheezes and rhonchi. There is prolongation. The patient does not appear to be in any distress. No crackles. Breath sounds equal bilaterally. He winces when he takes a deep breath and when he coughs. ABDOMEN: Soft, bowel sounds are heard. No masses or tenderness. EXTREMITIES: Intact. No cyanosis, clubbing, or edema. SKIN: Without rash. NEUROLOGIC: Examination is brief but nonfocal. LABS: Reviewed. White count 33.3, hemoglobin 13, hematocrit 42.9, platelet count 334,000. He had blood gases done last night showing a pO2 of 87, pCO2 of 36, pH of 7.41. Sodium 122, potassium 5.4, chloride 87, CO2 is 23, anion gap is 12. BUN and creatinine were 37 and 0.94. The patient's total bilirubin was 2.3, albumin was 4.2. The patient did have a chest x-ray today. It shows basilar atelectasis. The right diaphragm is elevated. I do not see a pneumothorax. MEDICATIONS: Reviewed including his breathing medications. ASSESSMENT: 1. Status post fall with injury to the left posterior chest and lateral chest area, with fractures of ribs 10, 11 and 12 posteriorly. 2. Possible pulmonary contusion secondary to chest trauma. 3. Dyspnea, secondary to left chest trauma. 4. History of lung cancer, status post right upper lobectomy and recurrence of the cancer to the right hip area and multiple skeletal metastasis, despite immunotherapy. 5. Recent right thoracentesis right-sided pleural effusion. 6. History of hyperlipidemia. 7. History of hypertension. 8. Chronic obstructive pulmonary disease. 9. History of chronic atrial fibrillation. 10.Currently receiving immunotherapy for non-small cell lung cancer. 11.History of prostate cancer. 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 13.Status post right upper lobectomy for lung cancer. 14.Left leg deep venous thrombosis. 15.History of myelodysplastic syndrome. PLAN: The patient is still complaining of a lot of shortness of breath, particularly when he coughs or takes a deep breath. He needs additional pain medication for that. Currently receiving oxygen therapy, breathing treatments and steroids for his underlying difficulty with breathing. Some of this relates to underlying COPD. The patient is encouraged to deep breathe, cough, clear secretions and use the incentive spirometer. Hourly. No additional recommendations are made. We will continue to follow. His prognosis is very poor given his non-small cell lung cancer with multiple skeletal metastasis. I think sometimes the appears to be somewhat unrealistic about his overall situation. We will continue to support. Oncology is following. No additional recommendations are made. MMODL / IJN: [id number] /
[2018-12-09] MEDS: OSIMERTINIB MESYLATE PO SCH (13:11)
--- NOTE | 2018-12-09 13:33 | P.PN ---
Subjective Progress Note Date: 12/09/18 Principal diagnosis: Fall . is concerned as he became very confused overnight. His audible breathing is unchanged. Planning on thoracentesis Friday. Objective - Vital Signs Vital signs: Vital Signs Temp 97.8 F 12/09/18 12:47 Pulse 75 12/09/18 12:47 Resp 22 12/09/18 12:47 BP 156/82 12/09/18 12:47 Pulse Ox 94 L 12/09/18 12:47 Intake & Output 12/08/18 12/09/18 12/09/18 18:59 06:59 18:59 Intake Total 600 350 290 Balance 600 350 290 Weight 77.111 kg Intake: Intake, IV Titration 600 Amount Sodium Chloride 0.9% 1, 600 000 ml @ 75 mls/hr IV . [id number] Rx[facility][id number] Oral 350 290 Other: Voiding Method Toilet Toilet Toilet # Voids 1 - Exam General: Alert and Oriented x3, No Acute Distress Head: Normocytic, Atraumatic Neck: Supple Mouth: No Lesions, No Thrush Eyes: Non-sclerotic No Palpable cervical, supraclavicular, axillary adenopathy Heart: Regular Rate, Regular Rhythm Lungs: Clear to Ausculations, No Wheeze, No Rhonchi, Diminishe bilateral lower lobes, No increased respiratory effort noted Abdomen: Soft, Non-Distended, Non-Tended, BSx4 Extremities: No Edema, Equal Strength Neurological: No Focal Defects: No sensory or motor deficits noted Psych: Calm and cooperative - Labs CBC & Chem 7: 12/09/18 08:43 12/09/18 08:43 Labs: Abnormal Lab Results - Last 24 Hours (Table) 12/08/18 12/08/18 12/09/18 Range/Units 16:06 22:54 01:12 WBC (3.8-10.6) k/uL MCHC (31.0-37.0) g/dL RDW (11.5-15.5) % Neutrophils # (Manual) (1.3-7.7) k/uL Lymphocytes # (Manual) (1.0-4.8) k/uL Monocytes # (Manual) (0-1.0) k/uL ABG O2 Saturation (94-97) % Sodium 120 L 120 L (137-145) mmol/L Potassium (3.5-5.1) mmol/L Chloride (98-107) mmol/L BUN (9-20) mg/dL Glucose (74-99) mg/dL POC Glucose (mg/dL) 159 H (75-99) mg/dL Total Bilirubin (0.2-1.3) mg/dL Total Protein (6.3-8.2) g/dL 12/09/18 12/09/18 12/09/18 Range/Units 04:03 08:43 08:43 WBC 33.3 H (3.8-10.6) k/uL MCHC 30.4 L (31.0-37.0) g/dL RDW 16.6 H (11.5-15.5) % Neutrophils # (Manual) 31.60 H (1.3-7.7) k/uL Lymphocytes # (Manual) 0.33 L (1.0-4.8) k/uL Monocytes # (Manual) 1.33 H (0-1.0) k/uL ABG O2 Saturation 97.2 H (94-97) % Sodium 122 L (137-145) mmol/L Potassium 5.4 H (3.5-5.1) mmol/L Chloride 87 L (98-107) mmol/L BUN 37 H (9-20) mg/dL Glucose 130 H (74-99) mg/dL POC Glucose (mg/dL) (75-99) mg/dL Total Bilirubin 2.3 H (0.2-1.3) mg/dL Total Protein 6.2 L (6.3-8.2) g/dL Assessment and Plan Plan: Contusion of rib on left side - CT Scan and Xray reveal Fx left posterior 11th rib, likely from fall and trauma. - The bigger concern in this case is of bleeding as the patient was on eliquis and Plavix at the time of the trauma. Chest x-ray did not show any significant effusion on the affected side. Acute exacerbation of chronic obstructive airways disease - admitting service and other consultants for management in this regard Atrial fibrillation - Chronic and Heart Rate Controlled - Anticoagulation is currently on hold. However if imaging studies, as well as continued physical assessment and labs show no evidence of bleeding, then eliquis and Plavix may be resumed with continued monitoring Metastatic lung cancer (metastasis from lung to other site): - Recent treatment with Osimertinib, tolerance has been poor. recently on hold. - Would continue and continue monthly Xgeva in office. Right moderate pleural effusion and small left: - Schedule thoracentesis please send for cytology Chronic ITP (idiopathic thrombocytopenia) - Currently in remission with platelet count normal. - Patient is on steroids chronically and is currently on low-dose prednisone. Monitor platelet count Hyponatremia: - Nephrology Following - Osmolatity and urine lyte reviewed. Neoplastic related pain: Rib fx: - Balance between pain med induced lethargy/confusion - will add lidocaine patch rec Psych consult for geriatric assessment, recs for night confusion Greater than 30 minutes with patient and counseling and cordinating care
[2018-12-09] MEDS ORDERED: FUROSEMIDE 10 MG/ML 2 ML VIAL IV ONE ×2 (14:23→14:43)
--- NOTE | 2018-12-09 14:42 | P.PN ---
Subjective Progress Note Date: 12/09/18 83 years old male patient of Dr. Stone, Dr. 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 Patient and his decided to hold on to Friday to see Dr. Stein but since he felt significantly worse with shortness of breath and back pain patient decided to come to the ER this morning. In the ER patient have a temp of 97.6 pulse of 76 respiratory rate 18 blood pressure 147/90 saturating well at room air. Labs suggestive leukocytes of 21,000, platelet 292, sodium 122 chloride 87 BUN 25 creatinine 0.79 bilirubin of 3.2 albumin 4.3 BNP of 5540 troponin 0.012. Chest x-ray was done that suggested right-sided consolidation deformity of the posterior left rib concerning for fracture of the left 11th rib. PET scan done in July 2018 prior to the radiation suggest lesions in the lower sclerae lumbar spine and pelvis and right eighth rib. Oncology and pulmonary evaluated the patient and ordered CT chest abdomen and pelvis to rule out further metastass and fractures. 12/08 patient examined bedside appears to be wheezing significantly. Also complains of significant pain in the left flank. Pain not controlled on tramadol will switch to [place] every 6 hours with IV morphine 2 mg every 6 hours alternating therapy. Solu-Medrol reduced to 40 mg every 6 per hour per pulmonary recommendations. CT chest abdomen and pelvis concerning for left 10- 12 rib fracture and left scapula fracture which appears to be new with the diffuse OCS metastatic disease present. Vital signs stable with a temp of 97.7 pulse of 70 respiratory rate 16 blood pressure 165/69. Patient's updated on the computed tomography scan results. 12/09 patient examined bedside is wheezing significantly with no improvement on Solu-Medrol and breathing treatment. He did have an episode of confusion yesterday night likely secondary to morphine. Patient will be held. On evaluation today patient states the pain is well controlled on the current regimen vitals suggested temp 97.8 pulse 75 respiratory rate 22 blood pressure 156/82. We will increase Medrol to 60 IV every 6 and continue budesonide twice a day. We'll stop morphine, and start patient on Toradol. Continue eliquis and Plavix. Since patient is not able to tolerate narcotics due to the side effects we will start patient on Toradol .patient is a high fall risk and need for precautions. Sodium has improved to 122 uric acid is low labs suggestive of SIADH. Nephrology consulted for further management. Continue fluid restriction of 1500 mL Objective - Vital Signs Vital signs: Vital Signs Temp 97.8 F 12/09/18 12:47 Pulse 75 12/09/18 12:47 Resp 22 12/09/18 12:47 BP 156/82 12/09/18 12:47 Pulse Ox 94 L 12/09/18 12:47 Intake & Output 12/08/18 12/09/18 12/09/18 18:59 06:59 18:59 Intake Total 600 350 290 Balance 600 350 290 Weight 77.111 kg Intake: Intake, IV Titration 600 Amount Sodium Chloride 0.9% 1, 600 000 ml @ 75 mls/hr IV . [id number] [facility] Rx#:[id number] Oral 350 290 Other: Voiding Method Toilet Toilet Toilet # Voids 1 - Exam ROS Constitutional: Denies chills, Denies fever, Denies lethargy, Denies malaise, Denies poor appetite, Denies weakness, Denies weight loss Eyes: denies decreased vision, denies diplopia, denies discharge, denies pain Cardiovascular: Denies chest pain, Denies decreased exercise tolerance, Denies edema, Denies high blood pressure, Denies irregular heart beat, Denies palpitations, Denies paroxysmal nocturnal dyspnea, Denies rapid heart beat, Denies shortness of breath Respiratory: Denies congestion, Denies cough, Denies cough with sputum,endorses dyspnea, Denies home oxygen, endorses worsening wheezing Gastrointestinal: Denies abdominal pain, Denies change in bowel habits, Denies coffee ground emesis, Denies early satiety, Denies excessive gas, Denies heartburn, Denies hematemesis, Denies hematochezia, Denies loss of appetite, Denies nausea, Denies vomiting Genitourinary: Denies dysuria, Denies flank pain, Denies kidney stones, Denies menorrhagia, Denies urgency, Denies urinary frequency Musculoskeletal: Denies gait dysfunction, Denies limitation of motion, Denies morning stiffness, Denies muscle cramps Physical exam - Constitutional General appearance: cooperative, no acute distress, bump on his forehead no sign of bruising or bleeding - EENT Eyes: anicteric sclerae, PERRLA, normal appearance ENT: hearing grossly normal - Neck Neck: no lymphadenopathy, normal ROM, no other, no rigidity, no stridor, no thyromegaly - Respiratory Respiratory: bilateral: Decreased air entry with inspiratory and expiratory wheezing diffusely worse than yesterday no crackles - Cardiovascular Rhythm: regular Heart sounds: normal: S1, S2 Abnormal Heart Sounds: no systolic murmur, no diastolic murmur, no rub, no S3 Gallop, no S4 Gallop, no click, no other - Gastrointestinal General gastrointestinal: normal bowel sounds, soft tender in the left flank - Integumentary Integumentary: no rash - Neurologic Neurologic: CNII-XII intact - Musculoskeletal Musculoskeletal: strength equal bilaterally - Psychiatric Psychiatric: A&O x's 3, appropriate affect - Labs CBC & Chem 7: 12/09/18 08:43 12/09/18 08:43 Labs: Abnormal Lab Results - Last 24 Hours (Table) 12/08/18 12/08/18 12/09/18 Range/Units 16:06 22:54 01:12 WBC (3.8-10.6) k/uL MCHC (31.0-37.0) g/dL RDW (11.5-15.5) % Neutrophils # (Manual) (1.3-7.7) k/uL Lymphocytes # (Manual) (1.0-4.8) k/uL Monocytes # (Manual) (0-1.0) k/uL ABG O2 Saturation (94-97) % Sodium 120 L 120 L (137-145) mmol/L Potassium (3.5-5.1) mmol/L Chloride (98-107) mmol/L BUN (9-20) mg/dL Glucose (74-99) mg/dL POC Glucose (mg/dL) 159 H (75-99) mg/dL Total Bilirubin (0.2-1.3) mg/dL Total Protein (6.3-8.2) g/dL 12/09/18 12/09/18 12/09/18 Range/Units 04:03 08:43 08:43 WBC 33.3 H (3.8-10.6) k/uL MCHC 30.4 L (31.0-37.0) g/dL RDW 16.6 H (11.5-15.5) % Neutrophils # (Manual) 31.60 H (1.3-7.7) k/uL Lymphocytes # (Manual) 0.33 L (1.0-4.8) k/uL Monocytes # (Manual) 1.33 H (0-1.0) k/uL ABG O2 Saturation 97.2 H (94-97) % Sodium 122 L (137-145) mmol/L Potassium 5.4 H (3.5-5.1) mmol/L Chloride 87 L (98-107) mmol/L BUN 37 H (9-20) mg/dL Glucose 130 H (74-99) mg/dL POC Glucose (mg/dL) (75-99) mg/dL Total Bilirubin 2.3 H (0.2-1.3) mg/dL Total Protein 6.2 L (6.3-8.2) g/dL Assessment and Plan Plan: #1 left flank pain secondary to mechanical fall. PT and OT consult. X-ray of the rib suggest posterior 11th rib fracture. CT chest, abdomen and pelvis positive for fractures of the 10th to 12th rib on the left with left the pathological scapular fracture Incentive spirometry. Pulmonary consulted. Tramadol switched to [place] 5 every 6 hold morphine. Toradol initiated for 5 days #2 history of lung cancer status post right lobectomy and chemotherapy in 2016 with metastasis to the right hip status postradiation in 2019 . Recent thoracentesis suggestive of recurrence of the lung cancer pathology positive for EGFR on Tagrisso patient's CT abdomen and pelvis suggest multiple metastasis patient would like to discuss with Dr. Stone on his next appointment #3 recurrent pleural effusions status post thoracentesis in 2017 chest x-ray negative for pleural effusion #4 COPD exacerbation initiated patient on Solu-Medrol 60 every 6 hours az ithromycin 500 mg by mouth daily continue DuoNeb as needed for shortness of breath pro-calcitonin negative for pneumonia #5 myelodysplasia stable #6 Gilbert's syndrome stable #7. Paroxysmal atrial fibrillation with history of recurrent syncope status post pacemaker. Continue metoprolol 50 mg twice a day. 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 Urine creatinine ordered serums sodium check Q's 8 hours #14 CODE STATUS full code
--- NOTE | 2018-12-09 15:17 | CDI ---
Documentation Clarification Form Date: 12/09/2018 14:57 From: Valencia Black RN CCDS Admit Date: 12/07/2018 6:59:00 AM Patient Name: Raman Vanegas Visit Number: [id number] Discharge Date: ATTENTION: The Clinical Documentation Specialists (CDI) and [facility] Coding Staff appreciate your assistance in clarifying documentation. Please respond to the clarification below the line at the bottom and electronically sign. The CDI & [facility] Coding staff will review the response and follow-up if needed. Please note: Queries are made part of the Legal Health Record. If you have any questions, please contact the author of this message via ITS. 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 Per your Progress note 12/09/2018 currently receiving oxygen therapy, breathing treatments and steroids for his underlying difficulty with breathing. Some of this relates to underlying COPD History/Risk Factors: Medical history Right Lung Cancer with Lobectomy and chemo. Thoracentesis 10/28/18 , Tobacco use: former smoker Clinical Indicators: Vital signs: 156/82 75 97.8 94% 2L Lung/Breathing assessment: Reveal a very noisy inspiratory and expiratory wheezes and rhonchi. There is prolongation . The patient does not appear to be in any dstress. No crackles breath sounds equal bilaterally ABG/CBG: pH7.41 pO2 87 pCO2 36 Treatment: Breathing tx Duoneb, Symbicort, Solumedrol, O2 2L to 3L In your professional opinion, can you please clarify if these findings signify one of the following conditions? * Acute Respiratory Failure (further specify (if known)): With hypercapnia? (pCO2 >50 and pH <7.35) With hypoxia? (pO2 <60 mm Hg or SpO2 <91% on room air) * Acute Respiratory Distress * Acute Respiratory Insufficiency * Other Diagnosis, please specify * Unable to determine (Last Revision: August 2017) MTDD
[2018-12-09] MEDS: AZITHROMYCIN 500 MG in SODIUM CHLORIDE 0.9% 250 ML IVPB SCH (15:49)
[2018-12-09] MEDS: POLYETHYLENE GLYCOL 3350 17 GM POWD.PACK PO SCH (15:49)
[2018-12-09] MEDS ORDERED: HYDROcodone/APAP 5-325MG 1 EACH TAB PO STA (17:15)
[2018-12-09] MEDS: methylPREDNISolone SOD SUCCI 125 MG/2 ML VIAL IV SCH (18:15)
[2018-12-09] MEDS: KETOROLAC 30 MG/ML 1 ML VIAL IVP PRN (18:16)
[2018-12-10] MEDS: IPRATROPIUM-ALBUTEROL 3 ML NEB INHALATION SCH ×7 (00:05→23:36)
[2018-12-10] MEDS: HYDROcodone/APAP 5-325MG 1 EACH TAB PO PRN ×4 (01:28→17:35)
[2018-12-10] MEDS: methylPREDNISolone SOD SUCCI 125 MG/2 ML VIAL IV SCH ×5 (01:29→23:53)
[2018-12-10] MEDS: SODIUM CHLORIDE TAB 1 GM TAB PO SCH ×4 (01:29→17:35)
[2018-12-10] MEDS: SYMBICORT 160-4.5 MCG INHALER INHALATION SCH ×2 (07:59→20:31)
--- NOTE | 2018-12-10 08:45 | CDI ---
Documentation Clarification Form Date: 12/10/2018 8:25:09 AM From: Valencia Black RN CCDS Admit Date: 12/07/2018 6:59:00 AM Patient Name: Raman Vanegas Visit Number: [id number] Discharge Date: ATTENTION: The Clinical Documentation Specialists (CDI) and [facility] Coding Staff appreciate your assistance in clarifying documentation. Please respond to the clarification below the line at the bottom and electronically sign. The CDI & [facility] Coding staff will review the response and follow-up if needed. Please note: Queries are made part of the Legal Health Record. If you have any questions, please contact the author of this message via ITS. Dr. Butch Mahoney Confusion was documented in the 12/09/2018 progress note History/Risk Factors: 83 year old male presents to the ED for shortness of breath and a recent fall. Medical Hx HTN, COPD, Lung Cancer w/ lobectomy and Myelodysplastic syndrome. Clinical Indicators: per progress note 12/09/2018 He did an episode of confusion yesterday night likely secondary to morphine. Labs: 12/09 0400 Blood Gas Right radial 02 saturation 97.2, ph 7.41 pco2 36, total co2 24; Treatment: Discontinued morphine ivp, In your professional opinion, please clarify the etiology of the Altered Mental Status, if known. * Toxic Encephalopathy (specify Type and Underlying Medical Illness) * Other condition (please specify) * Unable to determine (Last Revision: August 2017) TOxic encephalopathy sec to opiod use MTDD
[2018-12-10 08:46] LABS: Anisocytosis Slight; Basophils % (A) 0 %; Eosinophils % (A) 0 %; HCT 40.6 % (39.0-53.0); HGB 12.6 gm/dL (13.0-17.5); Hypochromasia Moderate; Lymphocytes # (A) 0.2 k/uL (1.0-4.8); Lymphocytes % (A) 1 %; MCH 25.7 pg (25.0-35.0); MCHC 30.9 g/dL (31.0-37.0); MCV 83.3 fL (80.0-100.0); Monocytes # (A) 0.8 k/uL (0-1.0); Monocytes % (A) 3 %; Neutrophils # (A) 23.3 k/uL (1.3-7.7); Neutrophils % (A) 95 %; Platelet Count 272 k/uL (150-450); RBC 4.88 m/uL (4.30-5.90); RDW 16.4 % (11.5-15.5); WBC 24.5 k/uL (3.8-10.6)
[2018-12-10] MEDS: LIDOCAINE 5% PATCH TOPICAL SCH (08:48)
[2018-12-10] MEDS: ATORVASTATIN 20 MG TAB PO SCH (08:49)
[2018-12-10] MEDS: SENNOSIDES 8.6 MG TAB PO PRN ×2 (08:49→21:52)
[2018-12-10] MEDS: METOPROLOL TARTRATE 50 MG TAB PO SCH ×2 (08:50→21:52)
[2018-12-10] MEDS: CALCIUM CARB-VIT D 500MG-200UN 1 EACH TAB PO SCH ×2 (08:50→21:52)
[2018-12-10] MEDS: TAMSULOSIN 0.4 MG CAP.ER.24H PO SCH ×2 (08:50→21:52)
[2018-12-10] MEDS: AZITHROMYCIN 500 MG in SODIUM CHLORIDE 0.9% 250 ML IVPB SCH (08:51)
[2018-12-10 08:52] LABS: ALT 30 U/L (21-72); AST 31 U/L (17-59); African American GFR (CKD) >90 (>60 ml/min/1.73 sqM); Albumin 3.5 g/dL (3.5-5.0); Alkaline Phosphatase 72 U/L (38-126); Anion Gap 9 mmol/L; Blood Urea Nitrogen 41 mg/dL (9-20); Calcium 8.6 mg/dL (8.4-10.2); Carbon Dioxide 23 mmol/L (22-30); Chloride 91 mmol/L (98-107); Glucose 128 mg/dL (74-99); Potassium 5.2 mmol/L (3.5-5.1); Sodium 123 mmol/L (137-145); Total Bilirubin 1.8 mg/dL (0.2-1.3); Total Protein 5.2 g/dL (6.3-8.2); Uric Acid 3.9 mg/dL (3.5-8.5)
[2018-12-10] MEDS: OSIMERTINIB MESYLATE PO SCH ×2 (08:52→12:24)
[2018-12-10] MEDS: cycloSPORINE 0.05% OPHTH 0.4 ML DROPERETTE BOTH EYES SCH ×2 (08:52→22:17)
[2018-12-10] MEDS ORDERED: FUROSEMIDE 10 MG/ML 4 ML VIAL IV STA (08:58)
[2018-12-10] MEDS: NON-FORMULARY DRUG (Vitamin B Complex/Folic Acid [B-Complex Tablet] 0.4 MG) PO SCH (09:14)
--- NOTE | 2018-12-10 10:14 | P.NPCON ---
History of Present Illness - Reason for Consult hyponatremia - History of Present Illness Reason for sedation: Hyponatremia History of present illness: Patient is a 83-year-old male seen in renal consultation for hyponatremia. Patient's sodium level on admission was 122 on 12/07/2018 and it dropped down to 117 the same day. The last couple of days it's been in the range of 120-122. Last night the patient received a dose of Lasix and was started on sodium chloride tablets. Sodium level this morning is 123. Oral intake is fair. He denies excess fluid intake. He is not on any thiazide diuretics. Urine output has been good. No hematuria or dysuria. No history of kidney disease. Patient does complain of pain on the left side of his back. He does have rib fractures after sustaining a fall. CT of the chest abdomen and pelvis revealed fractures of 10-12 ribs on the left. Patient has history of lung cancer and is status post right lobectomy and chemotherapy in 2016. Patient is noted to have metastatic disease to the right hip earlier this year. He is required thoracentesis recently and cytology was suggestive of recurrence of lung cancer. Hemodynamically stable. Vital signs are stable. General: The patient appeared well nourished and normally developed. HEENT: Head exam is unremarkable. Neck is without jugular venous distension. LUNGS: Breath sounds decreased. Scattered wheezing. HEART: Rate and Rhythm are regular. First and second heart sounds normal. No murmurs, rubs or gallops. ABDOMEN: Abdominal exam reveals normal bowel sounds. Non-tender and non- distended. No evidence of peritonitis. EXTREMITITES: 1+ edema. Past Medical History Past Medical History: Atrial Fibrillation, COPD, Hypertension Additional Past Medical History / Comment(s): malginant neoplasm of prostate, idopathic thrombocytopenic purpura, carcinoma of rt upper lung, dvt of left leg, myelodysplastic syndrome, carcinoma right hip History of Any Multi-Drug Resistant Organisms: None Reported Past Surgical History: Adenoidectomy, Tonsillectomy Additional Past Surgical History / Comment(s): rt upper lung lobe removed, aicd or pacemaker, thoracentesis Type of Cardiac Device: Permanent Pacemaker Device Placement Date:: 2009 Past Psychological History: No Psychological Hx Reported Smoking Status: Former smoker Past Alcohol Use History: None Reported Past Drug Use History: None Reported - Past Family History Mother Family Medical History: Cancer Additional Family Medical History / Comment(s): Mother had breast and colon cancer. Father Family Medical History: Vascular Disorder Additional Family Medical History / Comment(s): Father of a ruptured aneurysm. Medications and Allergies Home Medications Medication Instructions Recorded Confirmed Type Atorvastatin [Lipitor] 20 mg PO DAILY 11/22/17 12/07/18 History Metoprolol Tartrate [Lopressor] 50 mg PO BID 11/22/17 12/07/18 History Tamsulosin [Flomax] 0.4 mg PO BID 11/22/17 12/07/18 History Ubidecarenone [Co Q-10] 100 mg PO DAILY 11/22/17 12/07/18 History Umeclidinium Brm/Vilanterol Tr 1 puff INHALATION RT-DAILY 11/22/17 12/07/18 History [Anoro Ellipta 62.5-25 Mcg INH] Vitamin B Complex/Folic Acid 0.4 mg PO DAILY 11/22/17 12/07/18 History [B-Complex Tablet] cycloSPORINE [Restasis] 1 drop BOTH EYES BID 11/22/17 12/07/18 History Apixaban [Eliquis] 2.5 mg PO BID 10/14/18 12/07/18 History Osimertinib Mesylate [Tagrisso] 80 mg PO DAILY 10/14/18 12/07/18 History Albuterol Nebulized [Ventolin 2.5 mg INHALATION RT-BID 12/07/18 12/07/18 History Nebulized] Calcium Carbonate/Vitamin D3 1 tab PO BID 12/07/18 12/07/18 History [Calcium 600-Vit D3 400 Tablet] Clopidogrel [Plavix] 75 mg PO DAILY 12/07/18 12/07/18 History Glucosamine-Chondr 500-400Mg 1 tab PO DAILY 12/07/18 12/07/18 History Loperamide HCl [Imodium A-D] 2 mg PO QID PRN 12/07/18 12/07/18 History Prochlorperazine [Compazine] 10 mg PO Q6H PRN 12/07/18 12/07/18 History predniSONE 5 mg PO DAILY 12/07/18 12/07/18 History Allergies Allergy/AdvReac Type Severity Reaction Status Date / Time No Known Allergies Allergy Verified 12/07/18 06:54 Physical Exam Vitals: Vital Signs Temp Pulse Pulse Resp BP Pulse Ox 12/10/18 08:15 76 12/10/18 08:01 74 12/10/18 05:00 97.7 F 74 18 117/82 99 12/10/18 03:51 76 12/10/18 03:43 72 12/10/18 00:15 72 12/10/18 00:05 72 98 12/10/18 00:00 18 12/09/18 21:00 98.7 F 74 18 125/73 97 12/09/18 19:15 18 12/09/18 18:50 74 12/09/18 18:40 71 12/09/18 12:47 97.8 F 75 22 156/82 94 L Intake and Output 12/09/18 12/10/18 12/10/18 22:59 06:59 14:59 Intake Total 970 370 Balance 970 370 Intake: Intake, IV Titration 250 250 Amount Azithromycin 500 mg In 250 250 Sodium Chloride 0.9% 250 ml @ 250 mls/hr IVPB DAILY COUNTS INCLUDE 234 BEDS AT THE [facility] Rx#:[id number] Oral 720 120 Other: Voiding Method Toilet Toilet # Voids 1 2 # Bowel Movements 2 Results - Lab Results Most recent lab results ABG pH 7.41 (7.35-7.45) 12/09/18 04:03 ABG pCO2 36 mmHg (35-45) 12/09/18 04:03 ABG pO2 87 mmHg (83-108) 12/09/18 04:03 ABG HCO3 23 mmol/L (21-25) 12/09/18 04:03 ABG O2 Saturation 97.2 % (94-97) H 12/09/18 04:03 Calcium 8.6 mg/dL (8.4-10.2) 12/10/18 07:56 Magnesium 1.8 mg/dL (1.6-2.3) 12/07/18 05:30 12/10/18 07:56 12/10/18 07:56 Assessment and Plan Plan: Assessment: 1. Hyponatremia. Patient is slightly hypervolemic. Additionally there is a component of SIADH from underlying malignancy. Urine osmolality was quite high at 847 and urine sodium was 26. Uric acid also low which is again suggestive of SIADH. TSH normal. 2. Mild hyperkalemia which can be from the use of nonsteroidals. 3. Status post fall with rib fractures. 4. Metastatic lung cancer. Oncology following. 5. COPD exacerbation. Plan: Lasix 40 mg IV once now. Maintain 1.5 L fluid restriction. Maintain sodium chloride tablets 1 g twice daily. Repeat sodium level this evening. Encouraged oral intake, especially protein. Ensure 3 times daily. If no improvement in sodium level, I will give him a dose of Samsca. Thank you for the consultation. I will continue to follow the patient with you during his hospital stay.
--- NOTE | 2018-12-10 11:09 | PN ---
PROGRESS NOTE DATE OF SERVICE: 12/10/2018. This is an 83-year-old male with a history of recent fall and multiple injuries to the left posterior chest and back area and fractures of ribs 10, 11 and 12. The patient may have sustained a pulmonary contusion secondary to chest trauma. Anyway, the patient initially came in with shortness of breath. Any time he coughed or took a deep breath he was having pain in that area from the recent trauma and the fractures. More recently, over the last couple of days, he has been complaining of really noisy respirations. In fact, you can sort of hear the noise when first entering the room. The patient does have a history of lung cancer. He has had a previous right upper lobectomy and recurrence to the right hip area. Also, CT scan of the chest revealed multiple [id number] skeletal metastases according to the radiologist. I believe that the noisy respirations may in fact relate to either extrinsic compression of the airways by malignancy and/or endobronchial or endotracheal tumor implant. In fact, when you listen to his neck area, you can hear some stridor. He has had a recent right-sided thoracentesis. He does have a small amount of pleural effusion back on the right side. That is going to be reassessed by Interventional Radiology. He does also have a history of hyperlipidemia, hypertension, COPD, chronic atrial fibrillation and current immune therapy for his non-small cell lung cancer. Other medical problems include prostate cancer, ITP, previous right upper lobectomy for lung cancer, left leg DVT and myelodysplastic syndrome. His overall prognosis remains very guarded. I spoke to him and his today. I did ask the nurse to make sure that Dr. Masterson come in to see the patient. Dr. Masterson saw the patient on Friday, but not since that time. The patient has been seen by the oncologic nurse practitioner. PHYSICAL EXAMINATION: VITAL SIGNS: Current vital signs are reviewed. Temperature is 97.7, heart rate 74, respiratory rate 18, blood pressure 117/82, mean 93 and 2 L saturation 99%. He appears in no acute distress. He does have noisy respirations and some mild stridor noted. There is no conversational dyspnea. There is no use of accessory muscles. HEENT: Examination is grossly unremarkable. Nasal O2 in place at 2 L. NECK: Supple. Full range of motion. No adenopathy or thyromegaly. There is some stridor on auscultation. CARDIOVASCULAR: Examination reveals regular rhythm and rate. Heart rate is 74. S1, S2 normal. No S3, S4, or murmur. LUNGS: Reveal both inspiratory and expiratory high-pitched continuous adventitious lung sounds. No crackles. No distinct wheezes per se. A few scattered rhonchi noted. ABDOMEN: Soft. Bowel sounds are heard. EXTREMITIES: Are intact. No cyanosis, clubbing, or edema. SKIN: Without rash. NEUROLOGIC: Examination is brief but nonfocal. LABS: Labs are reviewed. White count 24.5, hemoglobin 12.6, hematocrit 40.6, platelet count 272,000. Sodium 123, potassium 5.2, chloride 91, CO2 of 23. Anion gap is 9. BUN and creatinine were 41 and 0.88. Total bilirubin was 1.8. Alkaline phosphatase was 72. Most recent chest x-ray was from yesterday. It is stable. A CAT scan from 12/07 is re-evaluated. MEDICATIONS: His medications are evaluated. He is currently on Zithromax, Symbicort, diuretics, DuoNeb, corticosteroids, and his usual medications. His current immune therapy is a drug called Tagrisso. ASSESSMENT: 1. Status post fall with injury to the left posterior chest and lateral chest area, with fractures posteriorly of ribs 10, 11 and 12. 2. Possible pulmonary contusion secondary to chest trauma. 3. Shortness of breath, secondary to chest trauma. 4. History of lung cancer, status post right upper lobectomy and recurrence of the cancer to the right hip area and multiple skeletal metastases despite immune therapy. The lung cancer is non-small cell. 5. Recent right thoracentesis for right-sided pleural effusion. 6. History of hyperlipidemia. 7. History of hypertension. 8. Chronic obstructive pulmonary disease. 9. History of chronic atrial fibrillation. 10.Currently receiving immunotherapy for non-small cell lung cancer. 11.History of prostate cancer. 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 13.Status post right upper lobectomy for lung cancer. 14.Left leg deep venous thrombosis. 15.History of myelodysplastic syndrome. PLAN: The patient's overall prognosis remains poor. I believe code status should be discussed and there should be some consideration to possible hospice or palliative care. We will leave that up to the primary and the oncology service. His respiratory issues are of concern. I believe that if this was all a COPD exacerbation, the breathing treatments and Symbicort and steroids would have made things better. I suspect there is either extrinsic compression of the airways by tumor and/or endobronchial or endotracheal tumor implants. Additional recommendations and suggestions are forthcoming. Prognosis is poor. We will continue to follow. MMODL / IJN: [id number] /
[2018-12-10] MEDS: POLYETHYLENE GLYCOL 3350 17 GM POWD.PACK PO SCH (12:08)
--- NOTE | 2018-12-10 16:03 | P.PN ---
Subjective Progress Note Date: 12/10/18 83 years old male patient of Dr. Stone, Dr. 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 Patient and his decided to hold on to Friday to see Dr. Stein but since he felt significantly worse with shortness of breath and back pain patient decided to come to the ER this morning. In the ER patient have a temp of 97.6 pulse of 76 respiratory rate 18 blood pressure 147/90 saturating well at room air. Labs suggestive leukocytes of 21,000, platelet 292, sodium 122 chloride 87 BUN 25 creatinine 0.79 bilirubin of 3.2 albumin 4.3 BNP of 5540 troponin 0.012. Chest x-ray was done that suggested right-sided consolidation deformity of the posterior left rib concerning for fracture of the left 11th rib. PET scan done in July 2018 prior to the radiation suggest lesions in the lower sclerae lumbar spine and pelvis and right eighth rib. Oncology and pulmonary evaluated the patient and ordered CT chest abdomen and pelvis to rule out further metastass and fractures. 12/08 patient examined bedside appears to be wheezing significantly. Also complains of significant pain in the left flank. Pain not controlled on tramadol will switch to [place] every 6 hours with IV morphine 2 mg every 6 hours alternating therapy. Solu-Medrol reduced to 40 mg every 6 per hour per pulmonary recommendations. CT chest abdomen and pelvis concerning for left 10- 12 rib fracture and left scapula fracture which appears to be new with the diffuse OCS metastatic disease present. Vital signs stable with a temp of 97.7 pulse of 70 respiratory rate 16 blood pressure 165/69. Patient's updated on the computed tomography scan results. 12/09 patient examined bedside is wheezing significantly with no improvement on Solu-Medrol and breathing treatment. He did have an episode of confusion yesterday night likely secondary to morphine. Patient will be held. On evaluation today patient states the pain is well controlled on the current regimen vitals suggested temp 97.8 pulse 75 respiratory rate 22 blood pressure 156/82. We will increase Medrol to 60 IV every 6 and continue budesonide twice a day. We'll stop morphine, and start patient on Toradol. Continue eliquis and Plavix. Since patient is not able to tolerate narcotics due to the side effects we will start patient on Toradol .patient is a high fall risk and need for precautions. Sodium has improved to 122 uric acid is low labs suggestive of SIADH. Nephrology consulted for further management. Continue fluid restriction of 1500 mL 12/10 patient examined bedside wheezing has improved significantly will continue with Solu-Medrol and breathing treatment. Vitals are stable with a temp of 97.8 pulse 78 respiratory rate 20 blood pressure 153/88 saturating well at room air. Patient continues to have lower back pain and burning and corrected, in addition to the left flank pain, will start patient on gabapentin for sciatica. Worsening separately instructed to give patient breathing treatment every 4 hours. Had detailed discussion with Dr. johansen who feels patient's cancer has not progressed and there are no lung lesions that might be contributing to patient's respiratory status. Will treat patient for COPD exacerbation with Solu-Medrol and breathing treatment that patient is responding to. Since patient also has confusion and had a trauma. It would be beneficial to get a CT head to rule out bleeding Objective - Vital Signs Vital signs: Vital Signs Temp 97.8 F 12/10/18 12:49 Pulse 78 12/10/18 12:49 Resp 20 12/10/18 12:49 BP 153/88 12/10/18 12:49 Pulse Ox 94 L 12/10/18 12:49 Intake & Output 12/09/18 12/10/18 12/10/18 18:59 06:59 18:59 Intake Total 1140 1340 725 Output Total 1225 Balance 1140 1340 -500 Weight 77.111 kg Intake: Intake, IV Titration 250 500 Amount Azithromycin 500 mg In 250 500 Sodium Chloride 0.9% 250 ml @ 250 mls/hr IVPB DAILY SUZY Rx#:[id number] Oral 890 840 725 Output: Urine 1225 Other: Voiding Method Toilet Toilet Toilet # Voids 2 2 # Bowel Movements 2 - Exam ROS Constitutional: Denies chills, Denies fever, Denies lethargy, Denies malaise, Denies poor appetite, Denies weakness, Denies weight loss Eyes: denies decreased vision, denies diplopia, denies discharge, denies pain Cardiovascular: Denies chest pain, Denies decreased exercise tolerance, Denies edema, Denies high blood pressure, Denies irregular heart beat, Denies palpitations, Denies paroxysmal nocturnal dyspnea, Denies rapid heart beat, Denies shortness of breath Respiratory: Denies congestion, Denies cough, Denies cough with sputum,endorses dyspnea, Denies home oxygen, endorses worsening wheezing Gastrointestinal: Denies abdominal pain, Denies change in bowel habits, Denies coffee ground emesis, Denies early satiety, Denies excessive gas, Denies heartburn, Denies hematemesis, Denies hematochezia, Denies loss of appetite, Denies nausea, Denies vomiting Genitourinary: Denies dysuria, Denies flank pain, Denies kidney stones, Denies menorrhagia, Denies urgency, Denies urinary frequency Musculoskeletal: Denies gait dysfunction, Denies limitation of motion, Denies morning stiffness, Denies muscle cramps Neurological confusion present, normal motor or sensory deficit Physical exam - Constitutional General appearance: cooperative, no acute distress, bump on his forehead no sign of bruising or bleeding - EENT Eyes: anicteric sclerae, PERRLA, normal appearance ENT: hearing grossly normal - Neck Neck: no lymphadenopathy, normal ROM, no other, no rigidity, no stridor, no thyromegaly - Respiratory Respiratory: bilateral: Decreased air entry with inspiratory and expiratory wheezing diffusely worse than yesterday no crackles - Cardiovascular Rhythm: regular Heart sounds: normal: S1, S2 Abnormal Heart Sounds: no systolic murmur, no diastolic murmur, no rub, no S3 Gallop, no S4 Gallop, no click, no other - Gastrointestinal General gastrointestinal: normal bowel sounds, soft tender in the left flank - Integumentary Integumentary: no rash - Neurologic Neurologic: CNII-XII intact - Musculoskeletal Musculoskeletal: strength equal bilaterally - Psychiatric Psychiatric: A&O x's 3, appropriate affect - Labs CBC & Chem 7: 12/10/18 07:56 12/10/18 07:56 Labs: Abnormal Lab Results - Last 24 Hours (Table) 12/09/18 12/10/18 12/10/18 Range/Units 19:33 07:56 07:56 WBC 24.5 H (3.8-10.6) k/uL Hgb 12.6 L (13.0-17.5) gm/dL MCHC 30.9 L (31.0-37.0) g/dL RDW 16.4 H (11.5-15.5) % Neutrophils # 23.3 H (1.3-7.7) k/uL Lymphocytes # 0.2 L (1.0-4.8) k/uL Sodium 121 L 123 L (137-145) mmol/L Potassium 5.2 H (3.5-5.1) mmol/L Chloride 91 L (98-107) mmol/L BUN 41 H (9-20) mg/dL Glucose 128 H (74-99) mg/dL Total Bilirubin 1.8 H (0.2-1.3) mg/dL Total Protein 5.2 L (6.3-8.2) g/dL Assessment and Plan Plan: #1 left flank pain secondary to mechanical fall. PT and OT consult. X-ray of the rib suggest posterior 11th rib fracture. CT chest, abdomen and pelvis positive for fractures of the 10th to 12th rib on the left with left the pathological scapular fracture Incentive spirometry. Pulmonary consulted. Tramadol switched to [place] 5 every 6 hold morphine. Toradol initiated for 5 days. Gabapentin initiated at 100 3 times a day #2 history of lung cancer status post right lobectomy and chemotherapy in 2016 with metastasis to the right hip status postradiation in 2019 . Recent thoracentesis suggestive of recurrence of the lung cancer pathology positive for EGFR on Tagrisso patient's CT abdomen and pelvis suggest multiple metastasis patient would like to discuss with Dr. Stone on his next appointment #3 recurrent pleural effusions status post thoracentesis in 2017 chest x-ray negative for pleural effusion #4 COPD exacerbation initiated patient on Solu-Medrol 60 every 6 hours az ithromycin 500 mg by mouth daily continue DuoNeb as needed for shortness of breath pro-calcitonin negative for pneumonia #5 myelodysplasia stable #6 Gilbert's syndrome stable #7. Paroxysmal atrial fibrillation with history of recurrent syncope status post pacemaker. Continue metoprolol 50 mg twice a day. 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 Patient received 2 doses of Lasix yesterday. Patient Lasix 40 today #15 metabolic encephalopathy likely secondary to medications. CT head ordered to rule out any bleeding in the brain revealed and brain metastasis #14 CODE STATUS full code
[2018-12-10] MEDS ORDERED: QUEtiapine 25 MG TAB PO PRN (16:59)
--- NOTE | 2018-12-10 17:06 | P.CN ---
Psychiatric Consult - . Consult date: 12/10/18 Consult:: 12/10/18 16:40 IDENTTIFYING DATA: This patient is a 83-year-old male with a history of COPD, lung cancer stage IV, hypoxemia hyponatremia and status post falls with fractured ribs. Patient lives with his and has 3 kids. HISTORY OF PRESENT ILLNESS: The patient was brought into the hospital on 12/07/2018 for hypoxemia hyponatremia status post falls and fractured his ribs. Psychiatry was consulted for "ing". According to nurse states that patient has been confused at night however did not have any kind of behavioral disturbances. Senior Technical Writer spoke with who states that patient has had a long course of different treatments and is lung cancer has spread however remains hopeful. states that on Friday she received a call from the patient stating that he was confused and was watching the baseball game and states that he was in "[place] basement". states that on and off patient will get confused at night and attributes it to his medications. Senior Technical Writer spoke with patient at bedside, who was calm and cooperative during interview. Patient spoke of his ups and downs with lung cancer and difficulty in breathing which causes him anxiety at nighttime. He remains optimistic about his treatment. Patient denies any depression or any manic symptoms at this time. Patient does admit to having some visual hallucinations at night and states that on his iPod or on his phone she believes that there is other buttons that aren't really there and tries to push them. Patient also claims that he feel disoriented at times and doesn't know where he is. Patient claims that he's been looking at his watch to remember the dates. Patient denies any psych history and denies any substance use. He states that he sleeps okay at night and has fair appetite. At this time patient denies any suicidal or homical ideations, intent or plan. Patient denies any auditory, visual hallucinations and denies any paranoia or delusions. PAST PSYCHIATRIC HISTORY: denies. PAST MEDICAL HISTORY: Lung cancer stage IV with history of lobectomy in 2016 with multiple skeletal metastases, COPD, ITP ALLERGIES: No known drug allergies. CHEMICAL DEPENDENCY HISTORY: denies. FAMILY PSYCHIATRIC HISTORY: denies. FAMILY CHEMICAL DEPENDENCY HISTORY:denies. SOCIAL HISTORY: Currently lives with his and has 3 kids. MENTAL STATUS EXAM: General Appearance: Patient appears to be stated age is alert, pleasant, and cooperative. Patient was wearing hospital gown and has fair hygiene and grooming. Behavior: Patient is calmly seated without any agitated behavior. Speech: Patient's speech is fluent and nonpressured. Mood/Affect: Patient reports their mood is fine, affect is congruent Suicidality/Homicidality: Patient denies having any suicidal or homicidal ideation intent or plan. Perceptions: Patient denies any auditory or visual hallucinations. Though content/process: There is no evidence of any delusional thought content and thought process is linear and goal-directed. Memory and concentration: AOX3, grossly intact for the purposes of this session. Can spell "WORLD" backwards, has 3/3 memory recall, can name previous two presidents. Judgment and insight: fair IMPRESSIONS: Delirium secondary to medications (sedatives and steroids) PLAN: -At this time patient patient does NOT meet criteria for inpatient psychiatric admission. -Delirium precautions recommended with patient including - Consider decreasing/avoiding use of narcotics, PERFUME AND TOILET WATER MAKER sedatives, limit anticholinergic medications when possible, frequent re-orientation, minimize use of restraints, open window shades during the day and close them at night -Would recommend the following medication changes/additions: Seroquel 12.5 mg daily at bedtime when necessary for behavioral disturbances associated with delirium i.e. patient wandering always, having disturbing visual hallucinations, bizarre behavior, pulling at lines etc. -Psychiatry will sign off at this point Thank you for the consult 12/10/18 16:57 12/10/18 17:00 12/10/18 17:04
--- NOTE | 2018-12-10 17:33 | CT ---
EXAMINATION TYPE: CT brain wo con DATE OF EXAM: 12/10/2018 COMPARISON: 09/08/2009 HISTORY: Confusion CT DLP: 1079.2 mGycm Automated exposure control for dose reduction was used. FINDINGS: There is cerebral cortical atrophy. There is no mass effect nor midline shift. There is no sign of in tracranial hemorrhage. There is mild mucosal thickening left maxillary sinus. Calvarium is intact. IMPRESSION: CEREBRAL ATROPHY THAT HAS PROGRESSED COMPARED TO OLD EXAM. NO ACUTE INTRACRANIAL ABNORMALITY.
[2018-12-10] MEDS: GABAPENTIN 100 MG CAP PO SCH ×2 (17:37→21:52)
[2018-12-11] MEDS: IPRATROPIUM-ALBUTEROL 3 ML NEB INHALATION SCH ×5 (03:12→21:26)
[2018-12-11] MEDS: HYDROcodone/APAP 5-325MG 1 EACH TAB PO PRN ×4 (03:14→21:10)
[2018-12-11] MEDS: methylPREDNISolone SOD SUCCI 125 MG/2 ML VIAL IV SCH ×4 (06:25→23:15)
[2018-12-11] MEDS: SODIUM CHLORIDE TAB 1 GM TAB PO SCH ×2 (06:26→18:02)
--- NOTE | 2018-12-11 07:33 | CDI ---
Documentation Clarification Form Date: 12/09/2018 14:57 From: Valencia Black RN CCDS Admit Date: 12/07/2018 6:59:00 AM Patient Name: Raman Vanegas Visit Number: [id number] Discharge Date: ATTENTION: The Clinical Documentation Specialists (CDI) and [facility] Coding Staff appreciate your assistance in clarifying documentation. Please respond to the clarification below the line at the bottom and electronically sign. The CDI & [facility] Coding staff will review the response and follow-up if needed. Please note: Queries are made part of the Legal Health Record. If you have any questions, please contact the author of this message via ITS. 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 Per your Progress note 12/09/2018 currently receiving oxygen therapy, breathing treatments and steroids for his underlying difficulty with breathing. Some of this relates to underlying COPD History/Risk Factors: Medical history Right Lung Cancer with Lobectomy and chemo. Thoracentesis 10/28/18 , Tobacco use: former smoker Clinical Indicators: Vital signs: 156/82 75 97.8 94% 2L Lung/Breathing assessment: Reveal a very noisy inspiratory and expiratory wheezes and rhonchi. There is prolongation . The patient does not appear to be in any dstress. No crackles breath sounds equal bilaterally ABG/CBG: pH7.41 pO2 87 pCO2 36 Treatment: Breathing tx Duoneb, Symbicort, Solumedrol, O2 2L to 3L In your professional opinion, can you please clarify if these findings signify one of the following conditions? * Acute Respiratory Failure (further specify (if known)): With hypercapnia? (pCO2 >50 and pH <7.35) With hypoxia? (pO2 <60 mm Hg or SpO2 <91% on room air) * Acute Respiratory Distress * Acute Respiratory Insufficiency * Other Diagnosis, please specify * Unable to determine (Last Revision: August 2017) MTDD
[2018-12-11 08:16] LABS: African American GFR (CKD) >90 (>60 ml/min/1.73 sqM); Anion Gap 8 mmol/L; Blood Urea Nitrogen 42 mg/dL (9-20); Calcium 8.5 mg/dL (8.4-10.2); Carbon Dioxide 27 mmol/L (22-30); Chloride 93 mmol/L (98-107); Glucose 136 mg/dL (74-99); Magnesium 2.2 mg/dL (1.6-2.3); Potassium 4.9 mmol/L (3.5-5.1); Sodium 128 mmol/L (137-145)
[2018-12-11] MEDS: SYMBICORT 160-4.5 MCG INHALER INHALATION SCH ×2 (08:24→21:26)
--- NOTE | 2018-12-11 09:16 | P.PN ---
Subjective Patient is seen in follow-up for hyponatremia. Sodium level is improving and is up to 128 today. Oral intake is fair. Urine output is good. No vomiting or diarrhea. Patient is maintained on sodium chloride tablets and also received a dose of IV Lasix yesterday. Vital signs are stable. General: The patient appeared well nourished and normally developed. HEENT: Head exam is unremarkable. Neck is without jugular venous distension. LUNGS: Lungs are clear to auscultation and percussion. Breath sounds decreased. HEART: Rate and Rhythm are regular. First and second heart sounds normal. No murmurs, rubs or gallops. ABDOMEN: Abdominal exam reveals normal bowel sounds. Non-tender and non- distended. No evidence of peritonitis. EXTREMITITES: No clubbing, cyanosis, or edema. Objective - Vital Signs Vital signs: Vital Signs Temp 97.4 F L 12/10/18 19:31 Pulse 80 12/11/18 08:37 Resp 20 12/10/18 20:31 BP 144/83 12/10/18 19:31 Pulse Ox 98 12/11/18 08:24 Intake & Output 12/10/18 12/11/18 12/11/18 18:59 06:59 18:59 Intake Total 725 240 Output Total 1225 Balance -500 240 Weight 77.111 kg Intake: Oral 725 240 Output: Urine 1225 Other: Voiding Method Toilet Toilet # Voids 1 # Bowel Movements 1 - Labs CBC & Chem 7: 12/10/18 07:56 12/11/18 07:26 Labs: Abnormal Lab Results - Last 24 Hours (Table) 12/10/18 12/10/18 12/11/18 Range/Units 16:45 Unknown 07:26 Sodium 126 L 128 L (137-145) mmol/L Chloride 93 L (98-107) mmol/L BUN 42 H (9-20) mg/dL Glucose 136 H (74-99) mg/dL Ur Creatinine 24 Hour 807.8 L (1000.0-2000.0) mg/24hr Assessment and Plan Plan: Assessment: 1. Hyponatremia. Patient is slightly hypervolemic. Additionally there is a component of SIADH from underlying malignancy. Urine osmolality was quite high at 847 and urine sodium was 26. Uric acid also low which is again suggestive of SIADH. TSH normal. 2. Mild hyperkalemia which can be from the use of nonsteroidals. Improved. 3. Status post fall with rib fractures. 4. Metastatic lung cancer. Oncology following. 5. COPD exacerbation. Plan: Start Lasix 20 mg orally twice daily. Maintain 1.5 L fluid restriction. Maintain sodium chloride tablets 1 g twice daily. Encouraged oral intake, especially protein. Ensure 3 times daily. If sodium level drops again, I will give him a dose of [place].
[2018-12-11] MEDS: LIDOCAINE 5% PATCH TOPICAL SCH (09:35)
[2018-12-11] MEDS: TAMSULOSIN 0.4 MG CAP.ER.24H PO SCH ×2 (09:36→21:08)
[2018-12-11] MEDS: METOPROLOL TARTRATE 50 MG TAB PO SCH ×2 (09:36→21:08)
[2018-12-11] MEDS: ATORVASTATIN 20 MG TAB PO SCH (09:36)
[2018-12-11] MEDS: AZITHROMYCIN 500 MG TAB PO SCH (09:36)
[2018-12-11] MEDS: FUROSEMIDE 20 MG TAB PO SCH ×2 (09:37→15:40)
[2018-12-11] MEDS: GABAPENTIN 100 MG CAP PO SCH ×3 (09:37→21:08)
[2018-12-11] MEDS: CALCIUM CARB-VIT D 500MG-200UN 1 EACH TAB PO SCH ×2 (09:37→21:08)
[2018-12-11] MEDS: NON-FORMULARY DRUG (Vitamin B Complex/Folic Acid [B-Complex Tablet] 0.4 MG) PO SCH (09:38)
[2018-12-11] MEDS: cycloSPORINE 0.05% OPHTH 0.4 ML DROPERETTE BOTH EYES SCH ×2 (09:38→21:08)
[2018-12-11] MEDS: OSIMERTINIB MESYLATE PO SCH (12:37)
--- NOTE | 2018-12-11 15:25 | P.PN ---
Subjective Progress Note Date: 12/11/18 Principal diagnosis: Fall Patient sitting up in chair, Audible wheeze improved in this position, at bedside Objective - Vital Signs Vital signs: Vital Signs Temp 97.4 F L 12/10/18 19:31 Pulse 79 12/11/18 11:40 Resp 20 12/11/18 09:30 BP 144/83 12/10/18 19:31 Pulse Ox 98 12/11/18 08:24 Intake & Output 12/10/18 12/11/18 12/11/18 18:59 06:59 18:59 Intake Total 725 240 480 Output Total 1225 Balance -500 240 480 Weight 77.111 kg Intake: Oral 725 240 480 Output: Urine 1225 Other: Voiding Method Toilet Toilet Toilet # Voids 1 # Bowel Movements 1 - Exam General: Alert and Oriented x3, No Acute Distress Head: Normocytic, Atraumatic Neck: Supple Mouth: No Lesions, No Thrush Eyes: Non-sclerotic No Palpable cervical, supraclavicular, axillary adenopathy Heart: Regular Rate, Regular Rhythm Lungs: Clear to Ausculations, No Wheeze, No Rhonchi, Diminishe bilateral lower lobes, No increased respiratory effort noted Abdomen: Soft, Non-Distended, Non-Tended, BSx4 Extremities: No Edema, Equal Strength Neurological: No Focal Defects: No sensory or motor deficits noted Psych: Calm and cooperative - Labs CBC & Chem 7: 12/10/18 07:56 12/11/18 07:26 Labs: Abnormal Lab Results - Last 24 Hours (Table) 12/10/18 12/10/18 12/11/18 Range/Units 16:45 Unknown 07:26 Sodium 126 L 128 L (137-145) mmol/L Chloride 93 L (98-107) mmol/L BUN 42 H (9-20) mg/dL Glucose 136 H (74-99) mg/dL Ur Creatinine 24 Hour 807.8 L (1000.0-2000.0) mg/24hr Assessment and Plan Plan: Contusion of rib on left side - CT Scan and Xray reveal Fx left posterior 11th rib, likely from fall and trauma. - The bigger concern in this case is of bleeding as the patient was on eliquis and Plavix at the time of the trauma. Chest x-ray did not show any significant effusion on the affected side. Acute exacerbation of chronic obstructive airways disease - admitting service and other consultants for management in this regard Atrial fibrillation - Chronic and Heart Rate Controlled - Anticoagulation is currently on hold. However if imaging studies, as well as continued physical assessment and labs show no evidence of bleeding, then eliquis and Plavix may be resumed with continued monitoring Metastatic lung cancer (metastasis from lung to other site): - Recent treatment with Osimertinib, tolerance has been poor. recently on hold. - Would continue and continue monthly Xgeva in office. Right moderate pleural effusion and small left: - Schedule thoracentesis please send for cytology Chronic ITP (idiopathic thrombocytopenia) - Currently in remission with platelet count normal. - Patient is on steroids chronically and is currently on low-dose prednisone. Monitor platelet count Hyponatremia: - Nephrology Following - Osmolatity and urine lyte reviewed. Neoplastic related pain: Rib fx: - Balance between pain med induced lethargy/confusion - will add lidocaine patch - Pulmonary to perform Thoracentesis if needed Friday, ok to continue Eliquis at this time til re-evaluation of pleural fluid
--- NOTE | 2018-12-11 15:31 | P.PN ---
Subjective Progress Note Date: 12/11/18 83 years old male patient of Dr. Stone, Dr. 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 Patient and his decided to hold on to Friday to see Dr. Stein but since he felt significantly worse with shortness of breath and back pain patient decided to come to the ER this morning. In the ER patient have a temp of 97.6 pulse of 76 respiratory rate 18 blood pressure 147/90 saturating well at room air. Labs suggestive leukocytes of 21,000, platelet 292, sodium 122 chloride 87 BUN 25 creatinine 0.79 bilirubin of 3.2 albumin 4.3 BNP of 5540 troponin 0.012. Chest x-ray was done that suggested right-sided consolidation deformity of the posterior left rib concerning for fracture of the left 11th rib. PET scan done in July 2018 prior to the radiation suggest lesions in the lower sclerae lumbar spine and pelvis and right eighth rib. Oncology and pulmonary evaluated the patient and ordered CT chest abdomen and pelvis to rule out further metastass and fractures. 12/08 patient examined bedside appears to be wheezing significantly. Also complains of significant pain in the left flank. Pain not controlled on tramadol will switch to [place] every 6 hours with IV morphine 2 mg every 6 hours alternating therapy. Solu-Medrol reduced to 40 mg every 6 per hour per pulmonary recommendations. CT chest abdomen and pelvis concerning for left 10- 12 rib fracture and left scapula fracture which appears to be new with the diffuse OCS metastatic disease present. Vital signs stable with a temp of 97.7 pulse of 70 respiratory rate 16 blood pressure 165/69. Patient's updated on the computed tomography scan results. 12/09 patient examined bedside is wheezing significantly with no improvement on Solu-Medrol and breathing treatment. He did have an episode of confusion yesterday night likely secondary to morphine. Patient will be held. On evaluation today patient states the pain is well controlled on the current regimen vitals suggested temp 97.8 pulse 75 respiratory rate 22 blood pressure 156/82. We will increase Medrol to 60 IV every 6 and continue budesonide twice a day. We'll stop morphine, and start patient on Toradol. Continue eliquis and Plavix. Since patient is not able to tolerate narcotics due to the side effects we will start patient on Toradol .patient is a high fall risk and need for precautions. Sodium has improved to 122 uric acid is low labs suggestive of SIADH. Nephrology consulted for further management. Continue fluid restriction of 1500 mL 12/10 patient examined bedside wheezing has improved significantly will continue with Solu-Medrol and breathing treatment. Vitals are stable with a temp of 97.8 pulse 78 respiratory rate 20 blood pressure 153/88 saturating well at room air. Patient continues to have lower back pain and burning and corrected, in addition to the left flank pain, will start patient on gabapentin for sciatica. Worsening separately instructed to give patient breathing treatment every 4 hours. Had detailed discussion with Dr. johansen who feels patient's cancer has not progressed and there are no lung lesions that might be contributing to patient's respiratory status. Will treat patient for COPD exacerbation with Solu-Medrol and breathing treatment that patient is responding to. Since patient also has confusion and had a trauma. It would be beneficial to get a CT head to rule out bleeding 12/11 patient continues to be wheezing on exertion. Pain is better controlled he slept better yesterday. Patient appears to be tolerating gabapentin and [place] well without any side effect of confusion. Plavix continues to be held. Continue IV steroids for today will continue DuoNeb as needed for shortness of breath as well as scheduled basis every [address] head was negative for any acute bleed. All questions were answered with family at bedside Objective - Vital Signs Vital signs: Vital Signs Temp 97.4 F L 12/10/18 19:31 Pulse 79 12/11/18 11:40 Resp 20 12/11/18 09:30 BP 144/83 12/10/18 19:31 Pulse Ox 98 12/11/18 08:24 Intake & Output 12/10/18 12/11/18 12/11/18 18:59 06:59 18:59 Intake Total 725 240 480 Output Total 1225 Balance -500 240 480 Weight 77.111 kg Intake: Oral 725 240 480 Output: Urine 1225 Other: Voiding Method Toilet Toilet Toilet # Voids 1 # Bowel Movements 1 - Exam ROS Constitutional: Denies chills, Denies fever, Denies lethargy, Denies malaise, Denies poor appetite, Denies weakness, Denies weight loss Eyes: denies decreased vision, denies diplopia, denies discharge, denies pain Cardiovascular: Denies chest pain, Denies decreased exercise tolerance, Denies edema, Denies high blood pressure, Denies irregular heart beat, Denies palpitations, Denies paroxysmal nocturnal dyspnea, Denies rapid heart beat, Denies shortness of breath Respiratory: Denies congestion, Denies cough, Denies cough with sputum,endorses dyspnea, Denies home oxygen, endorses worsening wheezing Gastrointestinal: Denies abdominal pain, Denies change in bowel habits, Denies coffee ground emesis, Denies early satiety, Denies excessive gas, Denies heartburn, Denies hematemesis, Denies hematochezia, Denies loss of appetite, Denies nausea, Denies vomiting Genitourinary: Denies dysuria, Denies flank pain, Denies kidney stones, Denies menorrhagia, Denies urgency, Denies urinary frequency Musculoskeletal: Denies gait dysfunction, Denies limitation of motion, Denies morning stiffness, Denies muscle cramps Neurological confusion present, normal motor or sensory deficit Physical exam - Constitutional General appearance: cooperative, no acute distress, bump on his forehead no sign of bruising or bleeding - EENT Eyes: anicteric sclerae, PERRLA, normal appearance ENT: hearing grossly normal - Neck Neck: no lymphadenopathy, normal ROM, no other, no rigidity, no stridor, no thyromegaly - Respiratory Respiratory: bilateral: Decreased air entry with inspiratory and expiratory wheezing diffusely worse than yesterday no crackles - Cardiovascular Rhythm: regular Heart sounds: normal: S1, S2 Abnormal Heart Sounds: no systolic murmur, no diastolic murmur, no rub, no S3 Gallop, no S4 Gallop, no click, no other - Gastrointestinal General gastrointestinal: normal bowel sounds, soft tender in the left flank - Integumentary Integumentary: no rash - Neurologic Neurologic: CNII-XII intact - Musculoskeletal Musculoskeletal: strength equal bilaterally - Psychiatric Psychiatric: A&O x's 3, appropriate affect - Labs CBC & Chem 7: 12/10/18 07:56 12/11/18 07:26 Labs: Abnormal Lab Results - Last 24 Hours (Table) 12/10/18 12/10/18 12/11/18 Range/Units 16:45 Unknown 07:26 Sodium 126 L 128 L (137-145) mmol/L Chloride 93 L (98-107) mmol/L BUN 42 H (9-20) mg/dL Glucose 136 H (74-99) mg/dL Ur Creatinine 24 Hour 807.8 L (1000.0-2000.0) mg/24hr Assessment and Plan Plan: #1 left flank pain secondary to mechanical fall. PT and OT consult. X-ray of the rib suggest posterior 11th rib fracture. CT chest, abdomen and pelvis positive for fractures of the 10th to 12th rib on the left with left the pathological scapular fracture Incentive spirometry. Pulmonary consulted. Tramadol switched to [place] 5 every 6 hold morphine. Toradol initiated for 5 days. Gabapentin initiated at 100 3 times a day #2 history of lung cancer status post right lobectomy and chemotherapy in 2016 with metastasis to the right hip status postradiation in 2019 . Recent thoracentesis suggestive of recurrence of the lung cancer pathology positive for EGFR on Tagrisso patient's CT abdomen and pelvis suggest multiple metastasis patient would like to discuss with Dr. Stone on his next appointment #3 recurrent pleural effusions status post thoracentesis in 2017 chest x-ray negative for pleural effusion plan for thoracentesis on Friday #4 COPD exacerbation initiated patient on Solu-Medrol 60 every 6 hours azithromycin 500 mg by mouth daily continue DuoNeb as needed for shortness of breath pro-calcitonin negative for pneumonia #5 myelodysplasia stable #6 Gilbert's syndrome stable #7. Paroxysmal atrial fibrillation with history of recurrent syncope status post pacemaker. Continue metoprolol 50 mg twice a day. 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 Patient received 2 doses of Lasix yesterday. Patient Lasix 40 today #15 metabolic encephalopathy likely secondary to medications. CT head ordered to rule out any bleeding in the brain revealed and brain metastasis #14 CODE STATUS full code Disposition- plan for thoracentesis Friday
--- NOTE | 2018-12-11 17:07 | P.PN ---
Subjective Progress Note Date: 12/11/18 Principal diagnosis: The patient is seen today 12/11/2018 in follow-up on the regular medical floor. He is currently awake and alert in no acute distress. He does have dyspnea on minimal exertion. Currently maintaining good O2 saturations in the upper 90s on 2 L/m per nasal cannula. Sodium 128. Creatinine 0.89. He is maintained on DuoNeb inhalations, Symbicort and the Solu-Medrol. Antibiotics in the form of azithromycin. Objective - Vital Signs Vital signs: Vital Signs Temp 97.4 F L 12/10/18 19:31 Pulse 98 12/11/18 15:42 Resp 20 12/11/18 15:31 BP 144/83 12/10/18 19:31 Pulse Ox 99 12/11/18 15:31 Intake & Output 12/10/18 12/11/18 12/11/18 18:59 06:59 18:59 Intake Total 725 240 480 Output Total 1225 Balance -500 240 480 Weight 77.111 kg Intake: Oral 725 240 480 Output: Urine 1225 Other: Voiding Method Toilet Toilet Toilet # Voids 1 6 # Bowel Movements 1 - Exam GENERAL EXAM: Frail, cachectic 83-year-old gentleman. Alert, currently comfortable in no apparent distress. On 2 L nasal cannula. HEAD: Normocephalic. EYES: Normal reaction of pupils, equal size. NOSE: Clear with pink turbinates. THROAT: No erythema or exudates. NECK: No masses, no JVD. CHEST: No chest wall deformity. LUNGS: Equal air entry with scattered rhonchi. CVS: S1 and S2 normal with no audible murmur, regular rhythm. ABDOMEN: No hepatosplenomegaly, normal bowel sounds, no guarding or rigidity. SPINE: No scoliosis or deformity SKIN: No rashes CENTRAL NERVOUS SYSTEM: No focal deficits, tone is normal in all 4 extremities. EXTREMITIES: There is no peripheral edema. No clubbing, no cyanosis. Periphera l pulses are intact. - Labs CBC & Chem 7: 12/10/18 07:56 12/11/18 07:26 Labs: Abnormal Lab Results - Last 24 Hours (Table) 12/10/18 12/10/18 12/11/18 Range/Units 16:45 Unknown 07:26 Sodium 126 L 128 L (137-145) mmol/L Chloride 93 L (98-107) mmol/L BUN 42 H (9-20) mg/dL Glucose 136 H (74-99) mg/dL Ur Creatinine 24 Hour 807.8 L (1000.0-2000.0) mg/24hr Assessment and Plan Assessment: Impression: #1 Chest pain secondary follow with injury to the left posterior chest and lateral chest area, fractures posteriorly of ribs 10, 11 and 12. #2 Possible pulmonary contusion secondary to chest trauma. #3 Acute hypoxic respiratory failure secondary to above. On 2 liters per minute per nasal cannula. #4 History of lung cancer, status post right upper lobectomy and recurrence of the cancer to the right hip and multiple skeletal metastases despite immunotherapy. Lung cancer is non-small cell. #5 Recent right-sided thoracentesis for pleural effusion. #6 Hyperlipidemia. #7 Hypertension. #8 Chronic obstructive pulmonary disease. #9 History of chronic atrial fibrillation, anticoagulated with Eliquis. #10 Currently receiving immunotherapy for non-small cell lung cancer. #11 History of prostate cancer. 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 #13 History of left lower extremity DVT. #14 History of myelodysplastic syndrome. Plan: The patient was seen and evaluated by Dr. Abdullahi. No plans for thoracentesis at this time. We'll resume his Eliquis. Continue bronchodilators and steroids. Increase his activity as tolerated. We'll continue to follow and make further recommendations based on his clinical status. I, the cosigning physician, performed a history & physical examination of the patient. Lungs sounds few scattered rhonchi. Maintaining good O2 saturations in the 90s on 2 L/m per nasal cannula. I discussed the assessment and plan of care with my nurse practitioner, Enma Coelho. I attest to the above note as dictated by her.
--- NOTE | 2018-12-11 17:27 | P.PN ---
Subjective Progress Note Date: 12/10/18 The patient continues to complain of decreased endurance and generalized weakness. He has persistent shortness of breath even at rest. On questioning, he states that this appears to be somewhat better. He is able to ability to the bathroom and back to the chair with oxygen without assistance. Chest wall/flank pain is somewhat improved. No obvious bleeding noted. He denies any new areas of bone pain. Objective - Vital Signs Vital signs: Vital Signs Temp 97.4 F L 12/10/18 19:31 Pulse 98 12/11/18 15:42 Resp 20 12/11/18 15:31 BP 144/83 12/10/18 19:31 Pulse Ox 99 12/11/18 15:31 Intake & Output 12/10/18 12/11/18 12/11/18 18:59 06:59 18:59 Intake Total 725 240 480 Output Total 1225 Balance -500 240 480 Weight 77.111 kg Intake: Oral 725 240 480 Output: Urine 1225 Other: Voiding Method Toilet Toilet Toilet # Voids 1 6 # Bowel Movements 1 - Constitutional General appearance: Present: no acute distress - EENT Eyes: Present: EOMI ENT: Present: hearing grossly normal, normal oropharynx - Respiratory Details: Apparently noted throughout both lung erwin, including right lung base on my exam Respiratory: bilateral: wheezing - Cardiovascular Rhythm: regular Heart sounds: normal: S1, S2 - Gastrointestinal General gastrointestinal: Present: normal bowel sounds, soft - Integumentary Integumentary: Present: normal - Neurologic Neurologic: Present: CNII-XII intact - Musculoskeletal Musculoskeletal Comment(s): Persistent left lower rib cage tenderness on palpation Musculoskeletal: Present: generalized weakness, strength equal bilaterally - Psychiatric Psychiatric: Present: A&O x's 3 - Labs CBC & Chem 7: 12/10/18 07:56 12/11/18 07:26 Labs: Abnormal Lab Results - Last 24 Hours (Table) 12/10/18 12/10/18 12/11/18 Range/Units 16:45 Unknown 07:26 Sodium 126 L 128 L (137-145) mmol/L Chloride 93 L (98-107) mmol/L BUN 42 H (9-20) mg/dL Glucose 136 H (74-99) mg/dL Ur Creatinine 24 Hour 807.8 L (1000.0-2000.0) mg/24hr Assessment and Plan (1) Contusion of rib on left side Narrative/Plan: Imaging studies revealed no evidence of any internal hemorrhage, either in the chest wall or abdomen. Patient continues to have tenderness on exam, but no major bruising in the soft tissue. Imaging studies confirmed traumatic fractures. Current Visit: Yes Status: Acute Code(s): S20.212A - CONTUSION OF LEFT FRONT WALL OF THORAX, INITIAL ENCOUNTER SNOMED Code(s): 468110487 (2) Metastatic lung cancer (metastasis from lung to other site) Narrative/Plan: Based on imaging studies done here, there were concerns regarding disease status from the patient and his , as well as other consultants. Imaging studies were discussed with the nurse practitioner, who had already discussed with the patient and his family that they did not show any definite evidence of progression. The same was retreated indicated to the patient and his . Scans show diffuse bony metastatic disease. The patient had presented with the same, prior to starting his current line of therapy. Compared to prior computed tomography scan reports, there does not appear to be significant progression. There was some concern on part of the admitting service about certain areas not mentioned on prior PET scan such as the left scapula. However, there was a lag between prior imaging, and initiation of his current therapy. In addition his current targeted agent may take up to 2-3 months to start showing clinical benefit. Therefore it is possible that some bony progression could have developed between the prior imaging, and onset of therapy effect. Clinically actually the patient is significantly improved in terms of his bone pain. Therefore based on the current findings, there is no definite evidence of progression of bone disease. There was also concern for progression of disease in the lung. However CT scans do not show any definite evidence of the same. Therefore to confirm progression in the lung, the patient would need bronchoscopic evaluation (as there is concern for airway obstruction based on clinical exam per pulmonary) to determine the same. However, he is not felt to be stable enough to undergo bronchoscopy. A PET scan may be of benefit, but would need to be performed as an outpatient. Therefore, at this time, in the absence of any documented, confirm progression of disease, it would be reasonable to continue his current line of therapy, especially given that his bone symptoms have improved. In addition, the patient's current targeted agent is proven to be quite effective in his malignancy, even more than standard chemotherapy in the first line. After some initial issues, he has been tolerating treatment quite well. Given his age and performance status of the treatment options are somewhat limited. Therefore it would not be justified to discontinue treatment at this time unless progression is definitely proved The above was discussed in detail with the patient and his , and also with the admitting service. They expressed understanding of the same, and it was decided to continue current treatment at this time. Based on the patient's 's request, the case was also be discussed with the patient's primary oncologist and jewelry repairer. Current Visit: Yes Status: Acute Code(s): C34.90 - MALIGNANT NEOPLASM OF UNSP PART OF UNSP BRONCHUS OR LUNG SNOMED Code(s): 98221532 (3) Acute exacerbation of chronic obstructive airways disease Narrative/Plan: The patient continues to be short of breath, though he feels somewhat improved today. On my exam today, there was bilateral wheezing noted. It was discussed with the patient and his , that given the underlying condition of his lungs, it is possible that respiratory status may deteriorate, despite aggressive management, even though his malignancy may be under control. Therefore it would be reasonable to consider the patient's CODE STATUS and make decisions regarding intubation/mechanical ventilation if this were to occur. The patient's prognosis is likely to be very guarded in those circumstances, with a respiratory compromise occurred from malignant or nonmalignant causes, and chances of clinical benefit from intubation are likely to be low. The patient and his again expressed understanding of the same. The case will be discussed with the primary jewelry repairer at their request. They will consider the above and make a decision regarding his CODE STATUS, and ventilation support Current Visit: Yes Status: Acute Code(s): J44.1 - CHRONIC OBSTRUCTIVE PULMONARY DISEASE W (ACUTE) EXACERBATION SNOMED Code(s): 608978240 (4) Chronic ITP (idiopathic thrombocytopenia) Narrative/Plan: Platelets remain normal on low-dose prednisone Current Visit: Yes Status: Acute Code(s): D69.3 - IMMUNE THROMBOCYTOPENIC PURPURA SNOMED Code(s): 42800922 (5) Atrial fibrillation Current Visit: Yes Status: Acute Code(s): I48.91 - UNSPECIFIED ATRIAL FIBRILLATION SNOMED Code(s): 21171585 Plan: The above was discussed in detail with the admitting service, and Dr. Stone
[2018-12-11] MEDS: APIXABAN 5 MG TAB PO SCH (21:08)
[2018-12-12] MEDS: IPRATROPIUM-ALBUTEROL 3 ML NEB INHALATION SCH ×7 (00:12→23:34)
[2018-12-12] MEDS: SODIUM CHLORIDE TAB 1 GM TAB PO SCH ×2 (06:13→18:06)
[2018-12-12] MEDS: methylPREDNISolone SOD SUCCI 125 MG/2 ML VIAL IV SCH ×4 (06:14→23:45)
[2018-12-12] MEDS: LIDOCAINE 5% PATCH TOPICAL SCH (07:35)
[2018-12-12] MEDS: GABAPENTIN 100 MG CAP PO SCH ×3 (07:37→21:03)
[2018-12-12] MEDS: cycloSPORINE 0.05% OPHTH 0.4 ML DROPERETTE BOTH EYES SCH ×2 (07:37→21:04)
[2018-12-12] MEDS: TAMSULOSIN 0.4 MG CAP.ER.24H PO SCH ×2 (07:37→21:03)
[2018-12-12] MEDS: CALCIUM CARB-VIT D 500MG-200UN 1 EACH TAB PO SCH ×2 (07:38→21:04)
[2018-12-12] MEDS: METOPROLOL TARTRATE 50 MG TAB PO SCH ×2 (07:38→21:03)
[2018-12-12] MEDS: HYDROcodone/APAP 5-325MG 1 EACH TAB PO PRN ×2 (07:38→13:51)
[2018-12-12] MEDS: ATORVASTATIN 20 MG TAB PO SCH (07:38)
[2018-12-12] MEDS: FUROSEMIDE 20 MG TAB PO SCH ×2 (07:39→17:15)
[2018-12-12] MEDS: APIXABAN 5 MG TAB PO SCH ×2 (07:39→21:03)
[2018-12-12] MEDS: SENNOSIDES 8.6 MG TAB PO PRN (07:39)
[2018-12-12 08:00] LABS: African American GFR (CKD) >90 (>60 ml/min/1.73 sqM); Anion Gap 10 mmol/L; Blood Urea Nitrogen 45 mg/dL (9-20); Calcium 8.3 mg/dL (8.4-10.2); Carbon Dioxide 25 mmol/L (22-30); Chloride 95 mmol/L (98-107); Glucose 148 mg/dL (74-99); Sodium 130 mmol/L (137-145)
[2018-12-12 08:05] LABS: Magnesium 2.3 mg/dL (1.6-2.3); Potassium 5.3 mmol/L (3.5-5.1)
[2018-12-12] MEDS: SYMBICORT 160-4.5 MCG INHALER INHALATION SCH ×2 (09:04→19:30)
--- NOTE | 2018-12-12 09:41 | P.PN ---
Subjective Progress Note Date: 12/12/18 Principal diagnosis: Chest pain secondary to all with left lateral rib fractures of 10, 11 and 12 The patient is seen today 12/12/2017 in follow-up on the regular medical floor. He is currently sitting up in a chair at the bedside. Awake and alert in no acute distress. Breathing quite a bit better today as compared to yesterday. 18 in good O2 saturations in the high 90s on 2 L/m per nasal cannula. He is afebrile. Hemodynamically stable. Sodium 1:30. Potassium 5.3. Creatinine 0.79. Objective - Vital Signs Vital signs: Vital Signs Temp 97.6 F 12/12/18 04:39 Pulse 78 12/12/18 07:44 Resp 18 12/12/18 07:44 BP 154/85 12/12/18 04:39 Pulse Ox 99 12/12/18 04:39 Intake & Output 12/11/18 12/12/18 12/12/18 18:59 06:59 18:59 Intake Total 480 437 Output Total 550 Balance -70 437 Weight 79.5 kg Intake: Oral 480 437 Output: Urine 550 Other: Voiding Method Toilet Toilet Toilet # Voids 4 2 - Exam GENERAL EXAM: Frail, cachectic 83-year-old gentleman. Alert, up in a chair at the bedside, currently comfortable in no apparent distress. On 2 L nasal cannula. HEAD: Normocephalic. EYES: Normal reaction of pupils, equal size. NOSE: Clear with pink turbinates. THROAT: No erythema or exudates. NECK: No masses, no JVD. CHEST: No chest wall deformity. LUNGS: Equal air entry with scattered rhonchi. CVS: S1 and S2 normal with no audible murmur, regular rhythm. ABDOMEN: No hepatosplenomegaly, normal bowel sounds, no guarding or rigidity. SPINE: No scoliosis or deformity SKIN: No rashes CENTRAL NERVOUS SYSTEM: No focal deficits, tone is normal in all 4 extremities. EXTREMITIES: There is no peripheral edema. No clubbing, no cyanosis. Peripheral pulses are intact. - Labs CBC & Chem 7: 12/10/18 07:56 12/12/18 07:00 Labs: Abnormal Lab Results - Last 24 Hours (Table) 12/12/18 Range/Units 07:00 Sodium 130 L (137-145) mmol/L Potassium 5.3 H (3.5-5.1) mmol/L Chloride 95 L (98-107) mmol/L BUN 45 H (9-20) mg/dL Glucose 148 H (74-99) mg/dL Calcium 8.3 L (8.4-10.2) mg/dL Assessment and Plan Assessment: Impression: #1 Chest pain secondary follow with injury to the left posterior chest and lateral chest area, fractures posteriorly of ribs 10, 11 and 12. #2 Possible pulmonary contusion secondary to chest trauma. #3 Acute hypoxic respiratory failure secondary to above. On 2 liters per minute per nasal cannula. #4 History of lung cancer, status post right upper lobectomy and recurrence of the cancer to the right hip and multiple skeletal metastases despite immunotherapy. Lung cancer is non-small cell. #5 Recent right-sided thoracentesis for pleural effusion. #6 Hyperlipidemia. #7 Hypertension. #8 Chronic obstructive pulmonary disease. #9 History of chronic atrial fibrillation, anticoagulated with Eliquis. #10 Currently receiving immunotherapy for non-small cell lung cancer. #11 History of prostate cancer. 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 #13 History of left lower extremity DVT. #14 History of myelodysplastic syndrome. Plan: The patient was seen and evaluated by Dr. Abdullahi. Continue bronchodilators and steroids. Increase his activity as tolerated. We'll continue to follow and make further recommendations based on his clinical status. I, the cosigning physician, performed a history & physical examination of the patient. Lungs sounds few scattered rhonchi. Maintaining good O2 saturations in the 90s on 2 L/m per nasal cannula. I discussed the assessment and plan of care with my nurse practitioner, Enma Coelho. I attest to the above note as dictated by her.
[2018-12-12] MEDS: AZITHROMYCIN 500 MG TAB PO SCH (09:46)
[2018-12-12] MEDS: NON-FORMULARY DRUG (Vitamin B Complex/Folic Acid [B-Complex Tablet] 0.4 MG) PO SCH (09:46)
--- NOTE | 2018-12-12 12:42 | P.PN ---
Subjective Progress Note Date: 12/12/18 83 years old male patient of Dr. Stone, Dr. 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 Patient and his decided to hold on to Friday to see Dr. Stein but since he felt significantly worse with shortness of breath and back pain patient decided to come to the ER this morning. In the ER patient have a temp of 97.6 pulse of 76 respiratory rate 18 blood pressure 147/90 saturating well at room air. Labs suggestive leukocytes of 21,000, platelet 292, sodium 122 chloride 87 BUN 25 creatinine 0.79 bilirubin of 3.2 albumin 4.3 BNP of 5540 troponin 0.012. Chest x-ray was done that suggested right-sided consolidation deformity of the posterior left rib concerning for fracture of the left 11th rib. PET scan done in July 2018 prior to the radiation suggest lesions in the lower sclerae lumbar spine and pelvis and right eighth rib. Oncology and pulmonary evaluated the patient and ordered CT chest abdomen and pelvis to rule out further metastass and fractures. 12/08 patient examined bedside appears to be wheezing significantly. Also complains of significant pain in the left flank. Pain not controlled on t ramadol will switch to [place] every 6 hours with IV morphine 2 mg every 6 hours alternating therapy. Solu-Medrol reduced to 40 mg every 6 per hour per pulmonary recommendations. CT chest abdomen and pelvis concerning for left 10- 12 rib fracture and left scapula fracture which appears to be new with the diffuse OCS metastatic disease present. Vital signs stable with a temp of 97.7 pulse of 70 respiratory rate 16 blood pressure 165/69. Patient's updated on the computed tomography scan results. 12/09 patient examined bedside is wheezing significantly with no improvement on Solu-Medrol and breathing treatment. He did have an episode of confusion yesterday night likely secondary to morphine. Patient will be held. On evaluation today patient states the pain is well controlled on the current regimen vitals suggested temp 97.8 pulse 75 respiratory rate 22 blood pressure 156/82. We will increase Medrol to 60 IV every 6 and continue budesonide twice a day. We'll stop morphine, and start patient on Toradol. Continue eliquis and Plavix. Since patient is not able to tolerate narcotics due to the side effects we will start patient on Toradol .patient is a high fall risk and need for precautions. Sodium has improved to 122 uric acid is low labs suggestive of SIADH. Nephrology consulted for further management. Continue fluid restriction of 1500 mL 12/10 patient examined bedside wheezing has improved significantly will continue with Solu-Medrol and breathing treatment. Vitals are stable with a temp of 97.8 pulse 78 respiratory rate 20 blood pressure 153/88 saturating well at room air. Patient continues to have lower back pain and burning and corrected, in addition to the left flank pain, will start patient on gabapentin for sciatica. Worsening separately instructed to give patient breathing treatment every 4 hours. Had detailed discussion with Dr. johansen who feels patient's cancer has not progressed and there are no lung lesions that might be contributing to patient's respiratory status. Will treat patient for COPD exacerbation with Solu-Medrol and breathing treatment that patient is responding to. Since patient also has confusion and had a trauma. It would be beneficial to get a CT head to rule out bleeding 12/11 patient continues to be wheezing on exertion. Pain is better controlled he slept better yesterday. Patient appears to be tolerating gabapentin and [place] well without any side effect of confusion. Plavix continues to be held. Continue IV steroids for today will continue DuoNeb as needed for shortness of breath as well as scheduled basis every [address] head was negative for any acute bleed. All questions were answered with family at bedside 12/12: Patient continues to have wheezing with exertion. He is up to the bacterium utilizing walker. is at the bedside and plan of care discussed with both of them. Patient states that his pain is better controlled and he is sleeping better. He is tolerating the gabapentin and [place] without any difficulties. Discussed with patient and preforming an echocardiogram. states that echocardiogram was done 07/23/2018 and refuses one at this time. Due to the chest x-ray showing no increase in atelectasis or fluid eliquis was restarted yesterday. Repeat chest x-ray tomorrow. Review Of Systems: Constitutional: No fever, no chills, no night sweats. No weight change. No weakness, fatigue or lethargy. No daytime sleepiness. EENT: No headache. No blurred vision or double vision, no loss of vision. No loss of Hearing, no ringing in the ears, no dizziness. No nasal drainage or congestion. No epistaxis. No sore throat. Lungs: Reports shortness of breath with exertion, no cough, no sputum production. Reports wheezing. Cardiovascular: No chest pain, no lower extremity edema. No palpitations. No paroxysmal nocturnal dyspnea. No orthopnea. No lightheadedness or dizziness. No syncopal episodes. Abdominal: no abdominal discomfort. No nausea, vomiting. no diarrhea. No constipation. No bloody or tarry stools. improved loss of appetite. Genitourinary: No dysuria, increased frequency, urgency. No urinary retention. Musculoskeletal: No myalgias. No muscle weakness, no gait dysfunction, no frequent falls. No back pain. No neck pain. Integumentary: No wounds, no lesions. No rash or pruritus. No unusual bruising. No change in hair or nails. Neurologic: No aphasia. No facial droop. No change in mentation. No head injury. No headache. No paralysis. No paresthesia. Psychiatric: No depression. No anxiety. No mood swings. Endocrine: No abnormal blood sugars. No weight change. No excessive sweating or thirst. Objective - Vital Signs Vital signs: Vital Signs Temp 97.6 F 12/12/18 04:39 Pulse 108 H 12/12/18 10:53 Resp 18 12/12/18 07:44 BP 154/85 12/12/18 04:39 Pulse Ox 99 12/12/18 04:39 Intake & Output 12/11/18 12/12/18 12/12/18 18:59 06:59 18:59 Intake Total 480 437 200 Output Total 550 Balance -70 437 200 Weight 79.5 kg Intake: Oral 480 437 200 Output: Urine 550 Other: Voiding Method Toilet Toilet Toilet # Voids 4 2 - Exam General Appearance: Alert, cooperative, no distress, appears stated age. Neck HEENT: Supple, no lymphadenopathy, no thyroid enlargement, no carotid bruits. Lungs: Decreased air entry with inspiratory and expiratory wheezes, no crackles or rhonchi Chest Wall: Chest wall normal expansion with deep inspiration no tenderness and no deformity was found on exam, no costochondral pain or discomfort. Heart: Regular rate and rhythm, S1, S2 normal, no murmur, rub or gallop. Back: Symmetric, no curvature, ROM normal, no CVA tenderness. Abdomen: Soft, non-tender, no rebound or rigidity, no hepatosplenomegaly. Extremities: Extremities normal, atraumatic, no cyanosis or edema. Pulses: 2+ and symmetric. Skin: Skin color, texture, tugor normal, no rashes or lesions. Neurologic: Alert oriented x3 cranial nerves II through XII intact, no motor deficit, no abnormal balance or gait with walker - Labs CBC & Chem 7: 12/10/18 07:56 12/12/18 07:00 Labs: Abnormal Lab Results - Last 24 Hours (Table) 12/12/18 Range/Units 07:00 Sodium 130 L (137-145) mmol/L Potassium 5.3 H (3.5-5.1) mmol/L Chloride 95 L (98-107) mmol/L BUN 45 H (9-20) mg/dL Glucose 148 H (74-99) mg/dL Calcium 8.3 L (8.4-10.2) mg/dL Assessment and Plan Plan: 1. left flank pain secondary to mechanical fall. PT and OT consult. X-ray of the rib suggest posterior 11th rib fracture. CT chest, abdomen and pelvis posi tive for fractures of the 10th to 12th rib on the left with left the pathological scapular fracture Incentive spirometry. Pulmonary appreciated. Tramadol switched to [place] 5 every 6 hold morphine. Toradol initiated for 5 days. Gabapentin initiated at 100 3 times a day 2. history of lung cancer status post right lobectomy and chemotherapy in 2016 with metastasis to the right hip status postradiation in 2019 . Recent thoracentesis suggestive of recurrence of the lung cancer pathology positive for EGFR on Tagrisso patient's CT abdomen and pelvis suggest multiple metastasis patient would like to discuss with Dr. Stone on his next appointment. Repeat chest x-ray tomorrow possible thoracentesis on Friday. 3. recurrent pleural effusions status post thoracentesis in 12/09/18 chest x-ray negative for pleural effusion, gayla reinitiated repeat chest x-ray tomorrow possible thoracentesis Friday. BNP ordered 4. COPD exacerbation initiated patient on Solu-Medrol 60 every 6 hours azithr omycin 500 mg by mouth daily continue DuoNeb as needed for shortness of breath pro-calcitonin negative for pneumonia 5. myelodysplasia stable 6. Gilbert's syndrome stable 7. Paroxysmal atrial fibrillation with history of recurrent syncope status post pacemaker. Continue metoprolol 50 mg twice a day. elliquis restarted 8. history of DVT left leg 2009 on elliquis 9. hypertension. Continue metoprolol 10. idiopathic thrombocytopenia platelets stable 11. hyperlipidemia Lipitor 20 mg by mouth daily 12. atrial fibrillation continue metoprolol 50 mg twice a day 13. BPH continue tamsulosin 14. 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 Patient received 2 doses of Lasix yesterday. Patient Lasix 40 today 15. metabolic encephalopathy likely secondary to medications. CT negative. CODE STATUS full code Disposition- minimum 2 nights day, possible thoracentesis on Friday Impression and plan of care have been directed as dictated by the signing physician. Cate lBand nurse practitioner acting as scribe for signing physician.
[2018-12-12] MEDS: OSIMERTINIB MESYLATE PO SCH (13:52)
--- NOTE | 2018-12-12 14:04 | P.PN ---
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 He is feeling much better is eating fairly well and his sodium is improving. Past hi story significant for long-standing TTP, lung cancer as well as multiple myeloma and ca prostate Currently he is on salt tablets and Lasix with fluid restriction as treatment for his SIADH. He does have minimal edema Objective - Vital Signs Vital signs: Vital Signs Temp 97.6 F 12/12/18 04:39 Pulse 108 H 12/12/18 10:53 Resp 18 12/12/18 07:44 BP 154/85 12/12/18 04:39 Pulse Ox 99 12/12/18 04:39 Intake & Output 12/11/18 12/12/18 12/12/18 18:59 06:59 18:59 Intake Total 480 437 200 Output Total 550 Balance -70 437 200 Weight 79.5 kg Intake: Oral 480 437 200 Output: Urine 550 Other: Voiding Method Toilet Toilet Toilet # Voids 4 2 Examination is awake alert oriented comfortable HEENT exam no JVP neck is supple no facial asymmetry Lungs are clear to auscultation good air entry bilaterally Heart sounds are unremarkable for any murmur rub gallop Abdomen soft nontender Extremity exam was trace edema in his feet. Neurologically awake alert oriented - Labs CBC & Chem 7: 12/10/18 07:56 12/12/18 07:00 Labs: Abnormal Lab Results - Last 24 Hours (Table) 12/12/18 Range/Units 07:00 Sodium 130 L (137-145) mmol/L Potassium 5.3 H (3.5-5.1) mmol/L Chloride 95 L (98-107) mmol/L BUN 45 H (9-20) mg/dL Glucose 148 H (74-99) mg/dL Calcium 8.3 L (8.4-10.2) mg/dL Assessment and Plan Assessment: Impression 1. SIADH with sodium improving on current treatment of salt and Lasix and water to restriction. Sodium is up to 1:30. 2. Metastatic lung CA. 3. History of chronic ITP 4. History of COPD 5. Atrial fibrillation. 6. Mild hyperkalemia potassium is 5.3. Possibly related to nonsteroidals otherwise No other clear-cut cause at this time. Rule out high blood sugar Recommendation 1. Discontinue nonsteroidals. 2. Check blood sugar 3. Maintain current regimen off salt water restriction and Lasix and watch closely.
[2018-12-12] MEDS: KETOROLAC 30 MG/ML 1 ML VIAL IVP PRN (17:13)
[2018-12-12] MEDS: HYDROcodone/APAP 7.5-325MG 1 EACH TAB PO PRN ×2 (18:04→22:19)
--- NOTE | 2018-12-12 19:40 | P.PN ---
Subjective Progress Note Date: 12/12/18 Principal diagnosis: Fall at bedside and patient up in chair breathing appears much improved Objective - Vital Signs Vital signs: Vital Signs Temp 98.1 F 12/12/18 16:42 Pulse 99 12/12/18 19:29 Resp 18 12/12/18 16:42 BP 137/90 12/12/18 16:42 Pulse Ox 99 12/12/18 16:42 Intake & Output 12/12/18 12/12/18 12/13/18 06:59 18:59 06:59 Intake Total 437 1065 Balance 437 1065 Weight 79.5 kg Intake: Oral 437 1065 Other: Voiding Method Toilet Toilet # Voids 2 3 - Exam General: Alert and Oriented x3, No Acute Distress Head: Normocytic, Atraumatic Neck: Supple Mouth: No Lesions, No Thrush Eyes: Non-sclerotic No Palpable cervical, supraclavicular, axillary adenopathy Heart: Regular Rate, Regular Rhythm Lungs: Clear to Ausculations, No Wheeze, No Rhonchi, Diminishe bilateral lower lobes, No increased respiratory effort noted Abdomen: Soft, Non-Distended, Non-Tended, BSx4 Extremities: No Edema, Equal Strength Neurological: No Focal Defects: No sensory or motor deficits noted Psych: Calm and cooperative - Labs CBC & Chem 7: 12/10/18 07:56 12/12/18 07:00 Labs: Abnormal Lab Results - Last 24 Hours (Table) 12/12/18 Range/Units 07:00 Sodium 130 L (137-145) mmol/L Potassium 5.3 H (3.5-5.1) mmol/L Chloride 95 L (98-107) mmol/L BUN 45 H (9-20) mg/dL Glucose 148 H (74-99) mg/dL Calcium 8.3 L (8.4-10.2) mg/dL Assessment and Plan Plan: Contusion of rib on left side - CT Scan and Xray reveal Fx left posterior 11th rib, likely from fall and trauma. - The bigger concern in this case is of bleeding as the patient was on eliquis and Plavix at the time of the trauma. Chest x-ray did not show any significant effusion on the affected side. Acute exacerbation of chronic obstructive airways disease - admitting service and other consultants for management in this regard Atrial fibrillation - Chronic and Heart Rate Controlled - Anticoagulation is currently on hold. However if imaging studies, as well as continued physical assessment and labs show no evidence of bleeding, then eliquis and Plavix may be resumed with continued monitoring Metastatic lung cancer (metastasis from lung to other site): - Recent treatment with Osimertinib, tolerance has been poor. recently on hold. - Would continue and continue monthly Xgeva in office. Right moderate pleural effusion and small left: - Schedule thoracentesis please send for cytology Chronic ITP (idiopathic thrombocytopenia) - Currently in remission with platelet count normal. - Patient is on steroids chronically and is currently on low-dose prednisone. Monitor platelet count Hyponatremia: - Nephrology Following - Osmolatity and urine lyte reviewed. Neoplastic related pain: Rib fx: - Balance between pain med induced lethargy/confusion - will add lidocaine patch - Pulmonary to perform Thoracentesis if needed Friday, ok to continue Eliquis at this time til re-evaluation of pleural fluid - patient continues to improve
[2018-12-13] MEDS: IPRATROPIUM-ALBUTEROL 3 ML NEB INHALATION SCH ×6 (03:14→23:36)
[2018-12-13] MEDS: SODIUM CHLORIDE TAB 1 GM TAB PO SCH ×2 (05:57→16:40)
[2018-12-13] MEDS: methylPREDNISolone SOD SUCCI 125 MG/2 ML VIAL IV SCH ×4 (05:57→23:54)
[2018-12-13] MEDS: HYDROcodone/APAP 7.5-325MG 1 EACH TAB PO PRN ×4 (05:57→21:45)
--- NOTE | 2018-12-13 07:20 | XR ---
EXAMINATION TYPE: XR chest 2V DATE OF EXAM: 12/13/2018 COMPARISON: 12/09/2018 INDICATION: Short of breath TECHNIQUE: Frontal and lateral views of the chest are obtained. FINDINGS: The heart size is normal. The pulmonary vasculature is normal. Small right pleural effusion is present. Some atelectasis in the right middle lobe is present.. Pace maker overlies left chest. IMPRESSION: 1. Right middle lobe atelectasis with a small right pleural effusion.
[2018-12-13] MEDS: SYMBICORT 160-4.5 MCG INHALER INHALATION SCH ×2 (08:00→19:37)
[2018-12-13 08:25] LABS: Anisocytosis Slight; Basophils # (A) 0.1 k/uL (0-0.2); Basophils % (A) 0 %; Eosinophils # (A) 0.1 k/uL (0-0.7); Eosinophils % (A) 0 %; HCT 47.8 % (39.0-53.0); Hypochromasia Marked; Lymphocytes # (A) 0.1 k/uL (1.0-4.8); Lymphocytes % (A) 0 %; MCH 25.2 pg (25.0-35.0); MCHC 29.3 g/dL (31.0-37.0); Mean Platelet Volume 8.8; Monocytes # (A) 0.7 k/uL (0-1.0); Monocytes % (A) 2 %; Neutrophils # (A) 28.8 k/uL (1.3-7.7); Neutrophils % (A) 96 %; Platelet Count 279 k/uL (150-450); RBC 5.56 m/uL (4.30-5.90)
[2018-12-13 08:35] LABS: Albumin 3.9 g/dL (3.5-5.0); Calcium 8.7 mg/dL (8.4-10.2); Total Bilirubin 1.8 mg/dL (0.2-1.3); Total Protein 5.8 g/dL (6.3-8.2)
--- NOTE | 2018-12-13 08:37 | P.PN ---
Subjective Progress Note Date: 12/13/18 83 years old male patient of Dr. Stone, Dr. 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 Patient and his decided to hold on to Friday to see Dr. Stein but since he felt significantly worse with shortness of breath and back pain patient decided to come to the ER this morning. In the ER patient have a temp of 97.6 pulse of 76 respiratory rate 18 blood pressure 147/90 saturating well at room air. Labs suggestive leukocytes of 21,000, platelet 292, sodium 122 chloride 87 BUN 25 creatinine 0.79 bilirubin of 3.2 albumin 4.3 BNP of 5540 troponin 0.012. Chest x-ray was done that suggested right-sided consolidation deformity of the posterior left rib concerning for fracture of the left 11th rib. PET scan done in July 2018 prior to the radiation suggest lesions in the lower sclerae lumbar spine and pelvis and right eighth rib. Oncology and pulmonary evaluated the patient and ordered CT chest abdomen and pelvis to rule out further metastass and fractures. 12/08 patient examined bedside appears to be wheezing significantly. Also complains of significant pain in the left flank. Pain not controlled on t ramadol will switch to Hamel every 6 hours with IV morphine 2 mg every 6 hours alternating therapy. Solu-Medrol reduced to 40 mg every 6 per hour per pulmonary recommendations. CT chest abdomen and pelvis concerning for left 10- 12 rib fracture and left scapula fracture which appears to be new with the diffuse OCS metastatic disease present. Vital signs stable with a temp of 97.7 pulse of 70 respiratory rate 16 blood pressure 165/69. Patient's updated on the computed tomography scan results. 12/09 patient examined bedside is wheezing significantly with no improvement on Solu-Medrol and breathing treatment. He did have an episode of confusion yesterday night likely secondary to morphine. Patient will be held. On evaluation today patient states the pain is well controlled on the current regimen vitals suggested temp 97.8 pulse 75 respiratory rate 22 blood pressure 156/82. We will increase Medrol to 60 IV every 6 and continue budesonide twice a day. We'll stop morphine, and start patient on Toradol. Continue eliquis and Plavix. Since patient is not able to tolerate narcotics due to the side effects we will start patient on Toradol .patient is a high fall risk and need for precautions. Sodium has improved to 122 uric acid is low labs suggestive of SIADH. Nephrology consulted for further management. Continue fluid restriction of 1500 mL 12/10 patient examined bedside wheezing has improved significantly will continue with Solu-Medrol and breathing treatment. Vitals are stable with a temp of 97.8 pulse 78 respiratory rate 20 blood pressure 153/88 saturating well at room air. Patient continues to have lower back pain and burning and corrected, in addition to the left flank pain, will start patient on gabapentin for sciatica. Worsening separately instructed to give patient breathing treatment every 4 hours. Had detailed discussion with Dr. johansen who feels patient's cancer has not progressed and there are no lung lesions that might be contributing to patient's respiratory status. Will treat patient for COPD exacerbation with Solu-Medrol and breathing treatment that patient is responding to. Since patient also has confusion and had a trauma. It would be beneficial to get a CT head to rule out bleeding 12/11 patient continues to be wheezing on exertion. Pain is better controlled he slept better yesterday. Patient appears to be tolerating gabapentin and Hamel well without any side effect of confusion. Plavix continues to be held. Continue IV steroids for today will continue DuoNeb as needed for shortness of breath as well as scheduled basis every [address] head was negative for any acute bleed. All questions were answered with family at bedside 12/12: Patient continues to have wheezing with exertion. He is up to the bacterium utilizing walker. is at the bedside and plan of care discussed with both of them. Patient states that his pain is better controlled and he is sleeping better. He is tolerating the gabapentin and Hamel without any difficulties. Discussed with patient and preforming an echocardiogram. states that echocardiogram was done 07/23/2018 and refuses one at this time. Due to the chest x-ray showing no increase in atelectasis or fluid eliquis was restarted yesterday. Repeat chest x-ray tomorrow. 12/13: Patient is resting in bed without any difficulties at this time. Patient states that his breathing has improved compared to yesterday. He finds that he is able to tolerate walking short distances. His states that he does better after he's had his breathing treatments. However the longer way from the breathing treatment the worst his wheezes be calm. Instructed patient and that they may off for additional breathing treatments in between the scheduled once. Chest x-ray shows a small right pleural effusion. We'll continue to give eliquis. Continue to hold Plavix. BNP 9250. Review Of Systems: Constitutional: No fever, no chills, no night sweats. No weight change. No weakness, fatigue or lethargy. No daytime sleepiness. EENT: No headache. No blurred vision or double vision, no loss of vision. No loss of Hearing, no ringing in the ears, no dizziness. No nasal drainage or congestion. No epistaxis. No sore throat. Lungs: Reports shortness of breath with exertion, no cough, no sputum production. Reports wheezing. Cardiovascular: No chest pain, no lower extremity edema. No palpitations. No paroxysmal nocturnal dyspnea. No orthopnea. No lightheadedness or dizziness. No syncopal episodes. Abdominal: no abdominal discomfort. No nausea, vomiting. no diarrhea. No constipation. No bloody or tarry stools. improved loss of appetite. Genitourinary: No dysuria, increased frequency, urgency. No urinary retention. Musculoskeletal: No myalgias. No muscle weakness, no gait dysfunction, no frequent falls. No back pain. No neck pain. Integumentary: No wounds, no lesions. No rash or pruritus. No unusual bruising. No change in hair or nails. Neurologic: No aphasia. No facial droop. No change in mentation. No head injury. No headache. No paralysis. No paresthesia. Psychiatric: No depression. No anxiety. No mood swings. Endocrine: No abnormal blood sugars. No weight change. No excessive sweating or thirst. Objective - Vital Signs Vital signs: Vital Signs Temp 97.1 F L 12/13/18 05:00 Pulse 84 08/11/19 08:12 Resp 20 12/13/18 05:00 BP 167/79 12/13/18 05:00 Pulse Ox 94 L 12/13/18 05:00 Intake & Output 12/12/18 12/13/18 12/13/18 18:59 06:59 18:59 Intake Total 1065 240 Balance 1065 240 Weight 74.5 kg Intake: Oral 1065 240 Other: Voiding Method Toilet Toilet # Voids 3 2 - Exam General Appearance: Alert, cooperative, no distress, appears stated age. Neck HEENT: Supple, no lymphadenopathy, no thyroid enlargement, no carotid bruits. Lungs: Decreased air entry with inspiratory and expiratory wheezes improved, no crackles or rhonchi Chest Wall: Chest wall normal expansion with deep inspiration no tenderness and no deformity was found on exam, no costochondral pain or discomfort. Heart: Regular rate and rhythm, S1, S2 normal, no murmur, rub or gallop. Back: Symmetric, no curvature, ROM normal, no CVA tenderness. Abdomen: Soft, non-tender, no rebound or rigidity, no hepatosplenomegaly. Extremities: Extremities normal, atraumatic, no cyanosis or edema. Pulses: 2+ and symmetric. Skin: Skin color, texture, tugor normal, no rashes or lesions. Neurologic: Alert oriented x3 cranial nerves II through XII intact, no motor deficit, no abnormal balance or gait with walker - Labs CBC & Chem 7: 12/13/18 07:47 12/13/18 07:47 Labs: Abnormal Lab Results - Last 24 Hours (Table) 12/13/18 Range/Units 07:47 WBC 30.0 H (3.8-10.6) k/uL MCHC 29.3 L (31.0-37.0) g/dL RDW 17.0 H (11.5-15.5) % Assessment and Plan Plan: 1. left flank pain secondary to mechanical fall. PT and OT consult. X-ray of the rib suggest posterior 11th rib fracture. CT chest, abdomen and pelvis positive for fractures of the 10th to 12th rib on the left with left the pathological scapular fracture Incentive spirometry. Pulmonary appreciated. Tramadol switched to Hamel 5 every 6 hold morphine. Toradol initiated for 5 days. Gabapentin initiated at 100 3 times a day 2. history of lung cancer status post right lobectomy and chemotherapy in 2016 with metastasis to the right hip status postradiation in 2019 . Recent thoracentesis suggestive of recurrence of the lung cancer pathology positive for EGFR on Tagrisso patient's CT abdomen and pelvis suggest multiple metastasis patient would like to discuss with Dr. Stone on his next appointment. Repeat chest x-ray tomorrow possible thoracentesis on Friday. 3. recurrent pleural effusions status post thoracentesis in 12/09/18 chest x-ray negative for pleural effusion, eliquis reinitiated repeat chest x-ray impression small right pleural effusion possible thoracentesis Friday. BNP 9250. Continue to hold Plavix 4. COPD exacerbation initiated patient on Solu-Medrol 60 every 6 hours azithrom ycin 500 mg by mouth daily continue DuoNeb as needed for shortness of breath pro-calcitonin negative for pneumonia 5. myelodysplasia stable 6. Gilbert's syndrome stable 7. Paroxysmal atrial fibrillation with history of recurrent syncope status post pacemaker. Continue metoprolol 50 mg twice a day. elliquis restarted 8. history of DVT left leg 2009 on elliquis 9. hypertension. Continue metoprolol 10. idiopathic thrombocytopenia platelets stable 11. hyperlipidemia Lipitor 20 mg by mouth daily 12. atrial fibrillation continue metoprolol 50 mg twice a day 13. BPH continue tamsulosin 14. 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 Patient received 2 doses of Lasix yesterday. Patient Lasix 40 today 15. metabolic encephalopathy likely secondary to medications. CT negative. CODE STATUS full code Disposition- minimum 2 nights day, possible thoracentesis on Friday Impression and plan of care have been directed as dictated by the signing physician. Cate Bland nurse practitioner acting as scribe for signing physician.
[2018-12-13 08:38] LABS: Potassium 5.1 mmol/L (3.5-5.1)
[2018-12-13] MEDS: CALCIUM CARB-VIT D 500MG-200UN 1 EACH TAB PO SCH ×2 (09:13→20:21)
[2018-12-13] MEDS: TAMSULOSIN 0.4 MG CAP.ER.24H PO SCH ×2 (09:13→20:21)
[2018-12-13] MEDS: FUROSEMIDE 20 MG TAB PO SCH ×2 (09:13→16:40)
[2018-12-13] MEDS: METOPROLOL TARTRATE 50 MG TAB PO SCH ×2 (09:13→20:21)
[2018-12-13] MEDS: AZITHROMYCIN 500 MG TAB PO SCH (09:14)
[2018-12-13] MEDS: ATORVASTATIN 20 MG TAB PO SCH (09:14)
[2018-12-13] MEDS: cycloSPORINE 0.05% OPHTH 0.4 ML DROPERETTE BOTH EYES SCH ×2 (09:14→20:21)
[2018-12-13] MEDS: APIXABAN 5 MG TAB PO SCH (09:14)
[2018-12-13] MEDS: LIDOCAINE 5% PATCH TOPICAL SCH (09:14)
[2018-12-13] MEDS: SENNOSIDES 8.6 MG TAB PO PRN (09:14)
[2018-12-13] MEDS: NON-FORMULARY DRUG (Vitamin B Complex/Folic Acid [B-Complex Tablet] 0.4 MG) PO SCH (09:15)
[2018-12-13] MEDS: GABAPENTIN 100 MG CAP PO SCH ×3 (09:17→20:21)
[2018-12-13 09:52] LABS: Poikilocytosis (M) Present
[2018-12-13 09:53] LABS: Large Platelets Present; RBC Fragments Present
--- NOTE | 2018-12-13 10:16 | P.PN ---
Subjective Progress Note Date: 12/13/18 Principal diagnosis: Chest pain secondary to all with left lateral rib fractures of 10, 11 and 12 The patient is seen today 12/13/2018 in follow-up on the regular medical floor. Up ambulating in the room with assistance and walker. Breathing is better today as compared to yesterday. Maintaining in good O2 saturations in the high 90s on 2 L/m per nasal cannula. He is afebrile. Hemodynamically stable. White count 30.0. Hemoglobin 14.0. Creatinine 0.93. He remains on DuoNeb inhalations, Symbicort, IV Solu-Medrol. Antibiotics in the form of azithromycin. Chest x- ray shows right middle lobe atelectasis with a small right pleural effusion. Objective - Vital Signs Vital signs: Vital Signs Temp 97.1 F L 12/13/18 05:00 Pulse 84 12/13/18 08:12 Resp 20 12/13/18 05:00 BP 167/79 12/13/18 05:00 Pulse Ox 94 L 12/13/18 05:00 Intake & Output 12/12/18 12/13/18 12/13/18 18:59 06:59 18:59 Intake Total 1065 240 Balance 1065 240 Weight 74.5 kg Intake: Oral 1065 240 Other: Voiding Method Toilet Toilet # Voids 3 2 - Exam GENERAL EXAM: Frail, cachectic 83-year-old gentleman. Alert, currently comfortable in no apparent distress. On 2 L nasal cannula. HEAD: Normocephalic. EYES: Normal reaction of pupils, equal size. NOSE: Clear with pink turbinates. THROAT: No erythema or exudates. NECK: No masses, no JVD. CHEST: No chest wall deformity. LUNGS: Equal air entry with faint crackles in the right base. CVS: S1 and S2 normal with no audible murmur, regular rhythm. ABDOMEN: No hepatosplenomegaly, normal bowel sounds, no guarding or rigidity. SPINE: No scoliosis or deformity SKIN: No rashes CENTRAL NERVOUS SYSTEM: No focal deficits, tone is normal in all 4 extremities. EXTREMITIES: There is no peripheral edema. No clubbing, no cyanosis. Peripheral pulses are intact. - Labs CBC & Chem 7: 12/13/18 07:47 12/13/18 07:47 Labs: Abnormal Lab Results - Last 24 Hours (Table) 12/13/18 12/13/18 Range/Units 07:47 07:47 WBC 30.0 H (3.8-10.6) k/uL MCHC 29.3 L (31.0-37.0) g/dL RDW 17.0 H (11.5-15.5) % Neutrophils # 28.8 H (1.3-7.7) k/uL Lymphocytes # 0.1 L (1.0-4.8) k/uL Sodium 134 L (137-145) mmol/L Chloride 94 L (98-107) mmol/L Carbon Dioxide 31 H (22-30) mmol/L BUN 58 H (9-20) mg/dL Glucose 179 H (74-99) mg/dL Total Bilirubin 1.8 H (0.2-1.3) mg/dL Total Protein 5.8 L (6.3-8.2) g/dL Assessment and Plan Assessment: Impression: #1 Chest pain secondary follow with injury to the left posterior chest and lateral chest area, fractures posteriorly of ribs 10, 11 and 12. #2 Possible pulmonary contusion secondary to chest trauma. Small right pleural effusion. #3 Acute hypoxic respiratory failure secondary to above. On 2 liters per minute per nasal cannula. #4 History of lung cancer, status post right upper lobectomy and recurrence of the cancer to the right hip and multiple skeletal metastases despite immunotherapy. Lung cancer is non-small cell. #5 Recent right-sided thoracentesis for pleural effusion. #6 Hyperlipidemia. #7 Hypertension. #8 Chronic obstructive pulmonary disease. #9 History of chronic atrial fibrillation, anticoagulated with Eliquis. #10 Currently receiving immunotherapy for non-small cell lung cancer. #11 History of prostate cancer. 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 #13 History of left lower extremity DVT. #14 History of myelodysplastic syndrome. Plan: The patient was seen and evaluated by Dr. Abdullahi. Chest x-ray and labs reviewed. Just a small right pleural effusion. Continue bronchodilators, antibiotics and steroids. Increase his activity as tolerated. We'll continue to follow and make further recommendations based on his clinical status. I, the cosigning physician, performed a history & physical examination of the patient. Lungs sounds few crackles in the right base. Maintaining good O2 saturations in the 90s on 2 L/m per nasal cannula. I discussed the assessment and plan of care with my nurse practitioner, Enma Coelho. I attest to the above note as dictated by her.
--- NOTE | 2018-12-13 11:38 | P.PN ---
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 He is feeling much better is eating fairly well and his sodium is improving. Past hi story significant for long-standing ITP, He denies any fever chills cough. His short of breath and is on oxygen via nasal cannula. No nausea vomiting diarrhea. He does have pain from her rib fracture Currently he is on salt tablets and Lasix with fluid restriction as treatment for his SIADH. He does have minimal edema Objective - Vital Signs Vital signs: Vital Signs Temp 97.1 F L 12/13/18 05:00 Pulse 84 12/13/18 08:12 Resp 20 12/13/18 09:40 BP 167/79 12/13/18 05:00 Pulse Ox 94 L 12/13/18 05:00 Intake & Output 12/12/18 12/13/18 12/13/18 18:59 06:59 18:59 Intake Total 1065 240 Balance 1065 240 Weight 74.5 kg Intake: Oral 1065 240 Other: Voiding Method Toilet Toilet Toilet # Voids 3 2 On examination is awake alert oriented HEENT exam no JVP neck is supple no facial asymmetry Lungs are significant for bilateral coarse crackles at bases good air entry bilaterally Heart sounds are unremarkable for any murmur rub gallop Abdomen soft nontender no masses Extreme exam was minimal edema in the ankles and feet. Neurologically awake alert oriented but generalized weakness - Labs CBC & Chem 7: 12/13/18 07:47 12/13/18 07:47 Labs: Abnormal Lab Results - Last 24 Hours (Table) 12/13/18 12/13/18 Range/Units 07:47 07:47 WBC 30.0 H (3.8-10.6) k/uL MCHC 29.3 L (31.0-37.0) g/dL RDW 17.0 H (11.5-15.5) % Neutrophils # 28.8 H (1.3-7.7) k/uL Lymphocytes # 0.1 L (1.0-4.8) k/uL Sodium 134 L (137-145) mmol/L Chloride 94 L (98-107) mmol/L Carbon Dioxide 31 H (22-30) mmol/L BUN 58 H (9-20) mg/dL Glucose 179 H (74-99) mg/dL Total Bilirubin 1.8 H (0.2-1.3) mg/dL Total Protein 5.8 L (6.3-8.2) g/dL Assessment and Plan Assessment: Impression 1. SIADH with sodium improving on current treatment of salt and Lasix and water to restriction. Sodium is up to 134. 2. Metastatic lung CA. 3. History of chronic ITP 4. History of COPD 5. Atrial fibrillation. 6. Mild hyperkalemia potassium is 5.3. Possibly related to nonsteroidals otherwise No other clear-cut cause at this time. Rule out high blood sugar Recommendation 1. Avoid nonsteroidals. 2. Maintain current regimen off salt water restriction and Lasix and watch closely. 3. If his discharge he needs to have electrolytes checked in 2 or 3 days and reported to our office or come and see us in the office.
[2018-12-13] MEDS: OSIMERTINIB MESYLATE PO SCH (12:28)
[2018-12-14] MEDS: IPRATROPIUM-ALBUTEROL 3 ML NEB INHALATION SCH ×6 (03:51→23:33)
[2018-12-14] MEDS: HYDROcodone/APAP 7.5-325MG 1 EACH TAB PO PRN ×3 (05:48→20:29)
[2018-12-14] MEDS: SODIUM CHLORIDE TAB 1 GM TAB PO SCH (05:48)
[2018-12-14] MEDS: methylPREDNISolone SOD SUCCI 125 MG/2 ML VIAL IV SCH (05:48)
[2018-12-14 08:13] LABS: Anisocytosis Slight; HCT 45.7 % (39.0-53.0); HGB 13.7 gm/dL (13.0-17.5); Hypochromasia Marked; MCH 25.8 pg (25.0-35.0); MCV 86.3 fL (80.0-100.0); Mean Platelet Volume 9.1; Platelet Count 292 k/uL (150-450); RBC 5.29 m/uL (4.30-5.90)
[2018-12-14] MEDS: SYMBICORT 160-4.5 MCG INHALER INHALATION SCH ×2 (08:20→19:54)
[2018-12-14] MEDS: LIDOCAINE 5% PATCH TOPICAL SCH (08:24)
[2018-12-14] MEDS: GABAPENTIN 100 MG CAP PO SCH ×3 (08:25→21:44)
[2018-12-14] MEDS: SENNOSIDES 8.6 MG TAB PO PRN ×2 (08:25→20:30)
[2018-12-14] MEDS: CALCIUM CARB-VIT D 500MG-200UN 1 EACH TAB PO SCH ×2 (08:25→20:29)
[2018-12-14] MEDS: ATORVASTATIN 20 MG TAB PO SCH (08:25)
[2018-12-14] MEDS: FUROSEMIDE 20 MG TAB PO SCH ×2 (08:25→17:22)
[2018-12-14] MEDS: AZITHROMYCIN 500 MG TAB PO SCH (08:25)
[2018-12-14] MEDS: TAMSULOSIN 0.4 MG CAP.ER.24H PO SCH ×2 (08:25→20:29)
[2018-12-14] MEDS: METOPROLOL TARTRATE 50 MG TAB PO SCH ×2 (08:25→20:30)
[2018-12-14] MEDS: cycloSPORINE 0.05% OPHTH 0.4 ML DROPERETTE BOTH EYES SCH ×2 (08:26→20:30)
[2018-12-14] MEDS: NON-FORMULARY DRUG (Vitamin B Complex/Folic Acid [B-Complex Tablet] 0.4 MG) PO SCH (08:26)
[2018-12-14 09:25] LABS: African American GFR (CKD) >90 (>60 ml/min/1.73 sqM); Anion Gap 10 mmol/L; Blood Urea Nitrogen 55 mg/dL (9-20); Calcium 8.4 mg/dL (8.4-10.2); Carbon Dioxide 32 mmol/L (22-30); Chloride 93 mmol/L (98-107); Glucose 155 mg/dL (74-99); Potassium 4.6 mmol/L (3.5-5.1); Sodium 135 mmol/L (137-145)
--- NOTE | 2018-12-14 09:31 | P.PN ---
Subjective Patient is seen in follow-up for hyponatremia. Sodium level is improving and is up to 135 today. Oral intake is fair. Urine output is good. No vomiting or diarrhea. Patient is maintained on sodium chloride tablets and oral Lasix. Vital signs are stable. General: The patient appeared well nourished and normally developed. HEENT: Head exam is unremarkable. Neck is without jugular venous distension. LUNGS: Breath sounds decreased. Scattered rhonchi. HEART: Rate and Rhythm are regular. First and second heart sounds normal. No murmurs, rubs or gallops. ABDOMEN: Abdominal exam reveals normal bowel sounds. Non-tender and non- distended. No evidence of peritonitis. EXTREMITITES: 1+ edema. Objective - Vital Signs Vital signs: Vital Signs Temp 97.9 F 12/14/18 07:47 Pulse 80 12/14/18 08:32 Resp 20 12/14/18 07:47 BP 143/90 12/14/18 07:47 Pulse Ox 95 12/13/18 21:00 Intake & Output 12/13/18 12/14/18 12/14/18 18:59 06:59 18:59 Intake Total 940 Balance 940 Weight 77 kg Intake: Oral 940 Other: Voiding Method Toilet Toilet # Voids 4 2 - Labs CBC & Chem 7: 12/14/18 07:34 12/14/18 07:34 Labs: Abnormal Lab Results - Last 24 Hours (Table) 12/13/18 12/14/18 12/14/18 Range/Units 07:47 07:34 07:34 WBC 30.0 H 29.0 H (3.8-10.6) k/uL MCHC 29.3 L 30.0 L (31.0-37.0) g/dL RDW 17.0 H 17.0 H (11.5-15.5) % Neutrophils # 28.8 H (1.3-7.7) k/uL Lymphocytes # 0.1 L (1.0-4.8) k/uL Sodium 135 L (137-145) mmol/L Chloride 93 L (98-107) mmol/L Carbon Dioxide 32 H (22-30) mmol/L BUN 55 H (9-20) mg/dL Glucose 155 H (74-99) mg/dL Assessment and Plan Plan: Assessment: 1. Hyponatremia. Patient is slightly hypervolemic. Additionally there is a component of SIADH from underlying malignancy. Urine osmolality was quite high at 847 and urine sodium was 26. Uric acid also low which is again suggestive of SIADH. TSH normal. Improving. 2. Mild hyperkalemia which can be from the use of nonsteroidals. Improved. 3. Status post fall with rib fractures. 4. Metastatic lung cancer. Oncology following. 5. COPD exacerbation. Plan: Maintain Lasix 20 mg orally twice daily. Maintain 1.5 L fluid restriction. Decrease sodium chloride tablets 1 g once today. Encouraged oral intake, especially protein. Ensure 3 times daily. Repeat BMP to 3 days postdischarge. Follow up outpatient in the next 1-2 weeks.
[2018-12-14] MEDS: OSIMERTINIB MESYLATE PO SCH (12:34)
[2018-12-14 13:06] VITALS: BMI 23.6
--- NOTE | 2018-12-14 14:34 | P.PN ---
Subjective Progress Note Date: 12/14/18 Principal diagnosis: Chest pain secondary to all with left lateral rib fractures of 10, 11 and 12 The patient is seen today 12/14/2018 in follow-up on the regular medical floor. He is currently sitting up in a chair at the bedside. Awake and alert in no acute distress. Cooperative. He is maintaining good O2 saturations in the 90s on 2 L/m per nasal cannula. He is afebrile. White count 29.0. Hemoglobin 13.7. Creatinine 0.81. He remains on DuoNeb inhalations, Symbicort, oral prednisone. Antibiotics in the form of azithromycin. Objective - Vital Signs Vital signs: Vital Signs Temp 97.9 F 12/14/18 07:47 Pulse 76 12/14/18 12:35 Resp 19 12/14/18 08:35 BP 143/90 12/14/18 07:47 Pulse Ox 95 12/13/18 21:00 Intake & Output 12/13/18 12/14/18 12/14/18 18:59 06:59 18:59 Intake Total 940 Balance 940 Weight 77 kg 77 kg Intake: Oral 940 Other: Voiding Method Toilet Toilet Toilet # Voids 4 2 2 - Exam GENERAL EXAM: 83-year-old gentleman. Alert, currently comfortable in no apparent distress. On 2 L nasal cannula. HEAD: Normocephalic. EYES: Normal reaction of pupils, equal size. NOSE: Clear with pink turbinates. THROAT: No erythema or exudates. NECK: No masses, no JVD. CHEST: No chest wall deformity. LUNGS: Equal air entry with faint crackles in the right base. CVS: S1 and S2 normal with no audible murmur, regular rhythm. ABDOMEN: No hepatosplenomegaly, normal bowel sounds, no guarding or rigidity. SPINE: No scoliosis or deformity SKIN: No rashes CENTRAL NERVOUS SYSTEM: No focal deficits, tone is normal in all 4 extremities. EXTREMITIES: There is no peripheral edema. No clubbing, no cyanosis. Peripheral pulses are intact. - Labs CBC & Chem 7: 12/14/18 07:34 12/14/18 07:34 Labs: Abnormal Lab Results - Last 24 Hours (Table) 12/14/18 12/14/18 Range/Units 07:34 07:34 WBC 29.0 H (3.8-10.6) k/uL MCHC 30.0 L (31.0-37.0) g/dL RDW 17.0 H (11.5-15.5) % Sodium 135 L (137-145) mmol/L Chloride 93 L (98-107) mmol/L Carbon Dioxide 32 H (22-30) mmol/L BUN 55 H (9-20) mg/dL Glucose 155 H (74-99) mg/dL Assessment and Plan Assessment: Impression: #1 Chest pain secondary to injury to the left posterior chest and lateral chest area, fractures posteriorly of ribs 10, 11 and 12. #2 Possible pulmonary contusion secondary to chest trauma. Small right pleural effusion. #3 Acute hypoxic respiratory failure secondary to above. On 2 liters per minute per nasal cannula. #4 History of lung cancer, status post right upper lobectomy and recurrence of the cancer to the right hip and multiple skeletal metastases despite immunoth erapy. Lung cancer is non-small cell. #5 Recent right-sided thoracentesis for pleural effusion. #6 Hyperlipidemia. #7 Hypertension. #8 Chronic obstructive pulmonary disease. #9 History of chronic atrial fibrillation, anticoagulated with Eliquis. #10 Currently receiving immunotherapy for non-small cell lung cancer. #11 History of prostate cancer. 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 #13 History of left lower extremity DVT. #14 History of myelodysplastic syndrome. Plan: The patient was seen and evaluated by Dr. Hobson. He is cleared for discharge from the pulmonary standpoint. He'll be evaluated for possible home oxygen. Continue bronchodilators, antibiotics and steroids. Follow-up in our office in 1-2 weeks' time. He has are both encouraged to call sooner with any pulmonary symptoms or other questions or concerns. I, the cosigning physician, performed a history & physical examination of the patient. Lungs sounds few crackles in the right base. Maintaining good O2 saturations in the 90s on 2 L/m per nasal cannula. I discussed the assessment and plan of care with my nurse practitioner, Enma Coelho. I attest to the above note as dictated by her.
--- NOTE | 2018-12-14 14:48 | P.PN ---
Subjective Progress Note Date: 12/14/18 83 years old male patient of Dr. Stone, Dr. 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 Patient and his decided to hold on to Friday to see Dr. Stein but since he felt significantly worse with shortness of breath and back pain patient decided to come to the ER this morning. In the ER patient have a temp of 97.6 pulse of 76 respiratory rate 18 blood pressure 147/90 saturating well at room air. Labs suggestive leukocytes of 21,000, platelet 292, sodium 122 chloride 87 BUN 25 creatinine 0.79 bilirubin of 3.2 albumin 4.3 BNP of 5540 troponin 0.012. Chest x-ray was done that suggested right-sided consolidation deformity of the posterior left rib concerning for fracture of the left 11th rib. PET scan done in July 2018 prior to the radiation suggest lesions in the lower sclerae lumbar spine and pelvis and right eighth rib. Oncology and pulmonary evaluated the patient and ordered CT chest abdomen and pelvis to rule out further metastass and fractures. 12/08 patient examined bedside appears to be wheezing significantly. Also complains of significant pain in the left flank. Pain not controlled on tramadol will switch to Geddes every 6 hours with IV morphine 2 mg every 6 hours alternating therapy. Solu-Medrol reduced to 40 mg every 6 per hour per pulmonary recommendations. CT chest abdomen and pelvis concerning for left 10- 12 rib fracture and left scapula fracture which appears to be new with the diffuse OCS metastatic disease present. Vital signs stable with a temp of 97.7 pulse of 70 respiratory rate 16 blood pressure 165/69. Patient's updated on the computed tomography scan results. 12/09 patient examined bedside is wheezing significantly with no improvement on Solu-Medrol and breathing treatment. He did have an episode of confusion yesterday night likely secondary to morphine. Patient will be held. On evaluation today patient states the pain is well controlled on the current regimen vitals suggested temp 97.8 pulse 75 respiratory rate 22 blood pressure 156/82. We will increase Medrol to 60 IV every 6 and continue budesonide twice a day. We'll stop morphine, and start patient on Toradol. Continue eliquis and Plavix. Since patient is not able to tolerate narcotics due to the side effects we will start patient on Toradol .patient is a high fall risk and need for precautions. Sodium has improved to 122 uric acid is low labs suggestive of SIADH. Nephrology consulted for further management. Continue fluid restriction of 1500 mL 12/10 patient examined bedside wheezing has improved significantly will continue with Solu-Medrol and breathing treatment. Vitals are stable with a temp of 97.8 pulse 78 respiratory rate 20 blood pressure 153/88 saturating well at room air. Patient continues to have lower back pain and burning and corrected, in addition to the left flank pain, will start patient on gabapentin for sciatica. Worsening separately instructed to give patient breathing treatment every 4 hours. Had detailed discussion with Dr. johansen who feels patient's cancer has not progressed and there are no lung lesions that might be contributing to patient's respiratory status. Will treat patient for COPD exacerbation with Solu-Medrol and breathing treatment that patient is responding to. Since patient also has confusion and had a trauma. It would be beneficial to get a CT head to rule out bleeding 12/11 patient continues to be wheezing on exertion. Pain is better controlled he slept better yesterday. Patient appears to be tolerating gabapentin and Geddes well without any side effect of confusion. Plavix continues to be held. Continue IV steroids for today will continue DuoNeb as needed for shortness of breath as well as scheduled basis every [address] head was negative for any acute bleed. All questions were answered with family at bedside 12/12: Patient continues to have wheezing with exertion. He is up to the bacterium utilizing walker. is at the bedside and plan of care discussed with both of them. Patient states that his pain is better controlled and he is sleeping better. He is tolerating the gabapentin and Geddes without any difficulties. Discussed with patient and preforming an echocardiogram. states that echocardiogram was done 07/23/2018 and refuses one at this time. Due to the chest x-ray showing no increase in atelectasis or fluid eliquis was restarted yesterday. Repeat chest x-ray tomorrow. 12/13: Patient is resting in bed without any difficulties at this time. Patient states that his breathing has improved compared to yesterday. He finds that he is able to tolerate walking short distances. His states that he does better after he's had his breathing treatments. However the longer way from the breathing treatment the worst his wheezes be calm. Instructed patient and that they may off for additional breathing treatments in between the scheduled once. Chest x-ray shows a small right pleural effusion. We'll continue to give eliquis. Continue to hold Plavix. BNP 9250. 12/14: Patient did have a bloody stool last evening for which eliquis was placed on hold. He has been afebrile, heart rate 80, blood pressure 143/90, pulse ox 95% on 2 L nasal cannula. We have asked for home O2 assessment to be done for which his pulse ox was 96% with activity on room air. Solu-Medrol will be decreased to 40 mg every 8 hours. Patient does complain of continued shortness of breath. Repeat sodium is at 135. Patient has had good urine output. No vomiting or diarrhea. Patient is followed by nephrology with plan for Lasix 20 mg oral twice daily, 1.5 L fluid restriction, sodium chloride tablets down to 1 g today. Encourage oral intake and ensure. Plan for follow-up in the office in one to 2 weeks. Discussed discharge planning with the patient and his . VNA is currently set up but PT has recommended subacute rehab. Patient does not want to go to rehab and also states that her mother has been placed in hospice care and she may need to travel to [place] at any time but her mother is not actively dying at this point. Case management will follow-up with the patient's regarding other options if needed. Patient is anxious to see Dr. Hobson today. Patient does have a rash on the bilateral buttocks it is very mild. Patient has been seen by gift shop clerk and Review Of Systems: Constitutional: No fever, no chills, no night sweats. No weight change. No weakness, fatigue or lethargy. EENT: No headache. No blurred vision or double vision, no loss of vision. No loss of Hearing, no ringing in the ears, no dizziness. No nasal drainage or congestion. No epistaxis. No sore throat. Lungs: Reports shortness of breath with exertion, no cough, no sputum production. Reports wheezing. Cardiovascular: No chest pain, no lower extremity edema. No palpitations. No paroxysmal nocturnal dyspnea. No orthopnea. No lightheadedness or dizziness. No syncopal episodes. Abdominal: no abdominal discomfort. No nausea, vomiting. no diarrhea. No constipation. No bloody or tarry stools. improved loss of appetite. Genitourinary: No dysuria, increased frequency, urgency. No urinary retention. Musculoskeletal: No myalgias. No muscle weakness, no gait dysfunction, no frequent falls. No back pain. No neck pain. Integumentary: No wounds, no lesions. No rash or pruritus. No unusual bruising. No change in hair or nails. Neurologic: No aphasia. No facial droop. No change in mentation. No head injury. No headache. No paralysis. No paresthesia. Psychiatric: No depression. No anxiety. No mood swings. Endocrine: No abnormal blood sugars. No weight change. No excessive sweating or thirst. Objective - Vital Signs Vital signs: Vital Signs Temp 97.9 F 12/14/18 07:47 Pulse 80 12/14/18 08:32 Resp 19 12/14/18 08:35 BP 143/90 12/14/18 07:47 Pulse Ox 95 12/13/18 21:00 Intake & Output 12/13/18 12/14/18 12/14/18 18:59 06:59 18:59 Intake Total 940 Balance 940 Weight 77 kg Intake: Oral 940 Other: Voiding Method Toilet Toilet Toilet # Voids 4 2 - Exam General Appearance: Alert, cooperative, no distress, appears stated age. Neck HEENT: Supple, no lymphadenopathy, no thyroid enlargement, no carotid bruits. Lungs: Decreased air entry with inspiratory and expiratory wheezes improved, no crackles or rhonchi Chest Wall: Chest wall normal expansion with deep inspiration no tenderness and no deformity was found on exam, no costochondral pain or discomfort. Heart: Regular rate and rhythm, S1, S2 normal, no murmur, rub or gallop. Back: Symmetric, no curvature, ROM normal, no CVA tenderness. Abdomen: Soft, non-tender, no rebound or rigidity, no hepatosplenomegaly. Mild erythema on the bilateral medial buttocks. Extremities: Extremities normal, atraumatic, no cyanosis or edema. Pulses: 2+ and symmetric. Skin: Skin color, texture, tugor normal, no rashes or lesions. Neurologic: Alert oriented x3 cranial nerves II through XII intact, no motor deficit, no abnormal balance or gait with walker - Labs CBC & Chem 7: 12/14/18 07:34 12/14/18 07:34 Labs: Abnormal Lab Results - Last 24 Hours (Table) 12/14/18 12/14/18 Range/Units 07:34 07:34 WBC 29.0 H (3.8-10.6) k/uL MCHC 30.0 L (31.0-37.0) g/dL RDW 17.0 H (11.5-15.5) % Sodium 135 L (137-145) mmol/L Chloride 93 L (98-107) mmol/L Carbon Dioxide 32 H (22-30) mmol/L BUN 55 H (9-20) mg/dL Glucose 155 H (74-99) mg/dL Assessment and Plan Plan: 1. left flank pain secondary to mechanical fall secondary to 10th to 11th left rib fractures and the pathological scapula fracture. Continue Incentive spirometry. Pulmonary appreciated. Gabapentin initiated at 100 3 times a day 2. History of lung cancer status post right lobectomy and chemotherapy in 2016 with metastasis to the right hip status postradiation in 2019 . Recent thora centesis suggestive of recurrence of the lung cancer pathology positive for EGFR on Tagrisso patient's CT abdomen and pelvis suggest multiple metastasis patient would like to discuss with Dr. Stone on his next appointment. Repeat chest x- ray tomorrow possible thoracentesis on Friday. 3. Recurrent pleural effusions status post thoracentesis in 12/09/18. Pulmonary consult appreciated. No plan for thoracentesis. 4. COPD exacerbation initiated patient on Solu-Medrol decreased to 40 mg every 8 hours azithromycin 500 mg by mouth daily continue DuoNeb as needed for shortness of breath pro-calcitonin negative for pneumonia 5. myelodysplasia stable 6. Gilbert's syndrome stable 7. Paroxysmal atrial fibrillation with history of recurrent syncope status post pacemaker. Continue metoprolol 50 mg twice a day. Eliquis on hold for possible GI bleed. 8. history of DVT left leg 2009 on elliquis 9. hypertension. Continue metoprolol 10. idiopathic thrombocytopenia platelets stable 11. hyperlipidemia Lipitor 20 mg by mouth daily 12. atrial fibrillation continue metoprolol 50 mg twice a day 13. BPH continue tamsulosin 14. 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 Patient received 2 doses of Lasix yesterday. Patient Lasix 40 today 15. metabolic encephalopathy likely secondary to medications. CT negative. 16. Possible GI bleed most likely from hemorrhoids. Eliquis on hold. CODE STATUS full code Discharge plan: Home with VNA tomorrow or ECF. Impression and plan of care have been directed as dictated by the signing physician. Kasandra Dyer nurse practitioner acting as scribe for signing physician.
--- NOTE | 2018-12-14 15:52 | P.PN ---
Subjective Progress Note Date: 12/14/18 Principal diagnosis: Fall while on anticoagulation Patient is overall doing well today, he has no acute complaints, he denies any hemoptysis, new or unusual pain. He has been taking osimertinib with complaints of occasional diarrhea, mild rash puritis controlled. Objective - Vital Signs Vital signs: Vital Signs Temp 97.9 F 12/14/18 07:47 Pulse 76 12/14/18 12:35 Resp 19 12/14/18 15:06 BP 143/90 12/14/18 07:47 Pulse Ox 95 12/13/18 21:00 Intake & Output 12/13/18 12/14/18 12/14/18 18:59 06:59 18:59 Intake Total 940 1250 Balance 940 1250 Weight 77 kg 77 kg Intake: Oral 940 1250 Other: Voiding Method Toilet Toilet Toilet # Voids 4 2 3 - Constitutional General appearance: Present: average body habitus, cooperative, no acute distress - EENT Eyes: Present: anicteric sclerae, EOMI - Respiratory Respiratory: bilateral: CTA, rales (Few scattered) - Cardiovascular Heart sounds: normal: S1, S2 - Peripheral edema foot Peripheral Edema: bilateral: Trace - Gastrointestinal General gastrointestinal: Present: normal bowel sounds, soft - Integumentary Integumentary: Present: normal - Neurologic Neurologic: Present: CNII-XII intact - Musculoskeletal Musculoskeletal: Present: generalized weakness - Psychiatric Psychiatric: Present: A&O x's 3, appropriate affect, intact judgment & insight - Labs CBC & Chem 7: 12/14/18 07:34 12/14/18 07:34 Labs: Abnormal Lab Results - Last 24 Hours (Table) 12/14/18 12/14/18 Range/Units 07:34 07:34 WBC 29.0 H (3.8-10.6) k/uL MCHC 30.0 L (31.0-37.0) g/dL RDW 17.0 H (11.5-15.5) % Sodium 135 L (137-145) mmol/L Chloride 93 L (98-107) mmol/L Carbon Dioxide 32 H (22-30) mmol/L BUN 55 H (9-20) mg/dL Glucose 155 H (74-99) mg/dL Assessment and Plan (1) Contusion of rib on left side Narrative/Plan: No evidence currently to suggest ongoing bleeding. Continue to watch CBC will inpatient. Patient will monitor for resolving bruising. Current Visit: Yes Status: Acute Priority: Medium Code(s): S20.212A - CONTUSION OF LEFT FRONT WALL OF THORAX, INITIAL ENCOUNTER SNOMED Code(s): 237529086 (2) Chronic ITP (idiopathic thrombocytopenia) Narrative/Plan: No evidence of exacerbation. No acute intervention needed. Count is okay for patient to receive anticoagulation and antiplatelet therapies Current Visit: Yes Status: Chronic Priority: Low Code(s): D69.3 - IMMUNE THROMBOCYTOPENIC PURPURA SNOMED Code(s): 10440278 (3) Metastatic lung cancer (metastasis from lung to other site) Narrative/Plan: Patient has been on oral EGFR therapy for several months now. He had some side effects early on but, with a period of holding, starting at a reduced dose, and then increasing to standard dose patient has actually done very well with only grade 1 side effects. Patient is also due for Rank Ligand inhibitor treatment with Xgeva. Appointments will be adjusted, patient's will be contacted by the office for a new appointment date and time. Continue osimertinib Current Visit: Yes Status: Chronic Priority: Medium Code(s): C34.90 - MALIGNANT NEOPLASM OF UNSP PART OF UNSP BRONCHUS OR LUNG SNOMED Code(s): 54854478
[2018-12-14] MEDS ORDERED: methylPREDNISolone SOD SUCCI 40 MG/ML 1 ML VIAL IV SCH (16:00)
[2018-12-14] MEDS: APIXABAN 2.5 MG TABLET PO SCH (20:29)
[2018-12-14] MEDS: BETAMETHASONE DIPROPIONATE 0.05% CREAM 15 GM TUBE TOPICAL SCH (20:30)
[2018-12-15] MEDS: HYDROcodone/APAP 7.5-325MG 1 EACH TAB PO PRN ×3 (01:57→13:04)
[2018-12-15] MEDS: IPRATROPIUM-ALBUTEROL 3 ML NEB INHALATION SCH ×3 (03:30→12:43)
[2018-12-15] MEDS: SYMBICORT 160-4.5 MCG INHALER INHALATION SCH (07:27)
[2018-12-15] MEDS: TAMSULOSIN 0.4 MG CAP.ER.24H PO SCH (08:07)
[2018-12-15] MEDS: GABAPENTIN 100 MG CAP PO SCH (08:07)
[2018-12-15] MEDS: METOPROLOL TARTRATE 50 MG TAB PO SCH (08:07)
[2018-12-15] MEDS: BETAMETHASONE DIPROPIONATE 0.05% CREAM 15 GM TUBE TOPICAL SCH (08:07)
[2018-12-15] MEDS: LIDOCAINE 5% PATCH TOPICAL SCH (08:07)
[2018-12-15] MEDS: CALCIUM CARB-VIT D 500MG-200UN 1 EACH TAB PO SCH (08:08)
[2018-12-15] MEDS: APIXABAN 2.5 MG TABLET PO SCH (08:08)
[2018-12-15] MEDS: FUROSEMIDE 20 MG TAB PO SCH (08:08)
[2018-12-15] MEDS: SENNOSIDES 8.6 MG TAB PO PRN (08:08)
[2018-12-15] MEDS: ATORVASTATIN 20 MG TAB PO SCH (08:08)
[2018-12-15] MEDS: AZITHROMYCIN 500 MG TAB PO SCH (08:08)
[2018-12-15] MEDS: cycloSPORINE 0.05% OPHTH 0.4 ML DROPERETTE BOTH EYES SCH (08:09)
[2018-12-15] MEDS: NON-FORMULARY DRUG (Vitamin B Complex/Folic Acid [B-Complex Tablet] 0.4 MG) PO SCH (08:09)
[2018-12-15] MEDS ORDERED: SODIUM CHLORIDE TAB 1 GM TAB PO SCH (09:00)
[2018-12-15] MEDS ORDERED: predniSONE 20 MG TAB PO SCH (09:00)
[2018-12-15 09:37] VITALS: RESP 17
--- NOTE | 2018-12-15 09:52 | P.PN ---
Subjective Progress Note Date: 12/15/18 Principal diagnosis: Chest pain secondary to all with left lateral rib fractures of 10, 11 and 12 The patient is seen today 12/15/2018 in follow-up on the regular medical floor. He is up in a chair at the bedside. Awake and alert in no acute distress. Appetite has improved. He's been up ambulating with assistance. He denies any worsening shortness of breath, cough or congestion. Maintaining good O2 saturations in the mid 90s on room air now. He is afebrile. Hemodynamically stable. He remains on DuoNeb inhalations, Symbicort. Prednisone taper. Antibiotics in the form of azithromycin by mouth Objective - Vital Signs Vital signs: Vital Signs Temp 97.7 F 12/15/18 05:00 Pulse 90 12/15/18 07:41 Resp 17 12/15/18 07:30 BP 130/89 12/15/18 05:00 Pulse Ox 95 12/15/18 05:00 Intake & Output 12/14/18 12/15/18 12/15/18 18:59 06:59 18:59 Intake Total 1250 Balance 1250 Weight 77 kg 77 kg Intake: Oral 1250 Other: Voiding Method Toilet Toilet Toilet # Voids 3 1 # Bowel Movements 1 - Exam GENERAL EXAM: 83-year-old gentleman. Alert, comfortable in no apparent distress. On room air. HEAD: Normocephalic. EYES: Normal reaction of pupils, equal size. NOSE: Clear with pink turbinates. THROAT: No erythema or exudates. NECK: No masses, no JVD. CHEST: No chest wall deformity. LUNGS: Equal air entry with faint crackles in the right base. CVS: S1 and S2 normal with no audible murmur, regular rhythm. ABDOMEN: No hepatosplenomegaly, normal bowel sounds, no guarding or rigidity. SPINE: No scoliosis or deformity SKIN: No rashes CENTRAL NERVOUS SYSTEM: No focal deficits, tone is normal in all 4 extremities. EXTREMITIES: There is no peripheral edema. No clubbing, no cyanosis. Peripheral pulses are intact. - Labs CBC & Chem 7: 12/14/18 07:34 12/14/18 07:34 Assessment and Plan Assessment: Impression: #1 Chest pain secondary to injury to the left posterior chest and lateral chest area, fractures posteriorly of ribs 10, 11 and 12. #2 Possible pulmonary contusion secondary to chest trauma. Small right pleural effusion. #3 Acute hypoxic respiratory failure secondary to above. On 2 liters per minute per nasal cannula. #4 History of lung cancer, status post right upper lobectomy and recurrence of the cancer to the right hip and multiple skeletal metastases despite immunotherapy. Lung cancer is non-small cell. #5 Recent right-sided thoracentesis for pleural effusion. #6 Hyperlipidemia. #7 Hypertension. #8 Chronic obstructive pulmonary disease. #9 History of chronic atrial fibrillation, anticoagulated with Eliquis. #10 Currently receiving immunotherapy for non-small cell lung cancer. #11 History of prostate cancer. 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 #13 History of left lower extremity DVT. #14 History of myelodysplastic syndrome. Plan: The patient was seen and evaluated by Dr. Hobson. He is cleared for discharge from the pulmonary standpoint. Follow-up in our office in 1-2 weeks' time. He and are both encouraged to call sooner with any pulmonary symptoms or other questions or concerns. I, the cosigning physician, performed a history & physical examination of the patient. Lungs sounds few crackles in the right base. Maintaining good O2 saturations in the 90s on room air. I discussed the assessment and plan of care with my nurse practitioner, Enma Coelho. I attest to the above note as dictated by her.
--- NOTE | 2018-12-15 10:10 | P.PN ---
Subjective Patient is seen in follow-up for hyponatremia. Sodium level has improved and was up to 135 as of yesterday. Oral intake is fair. Urine output is good. No vomiting or diarrhea. No active complaints at this time. Vital signs are stable. General: The patient appeared well nourished and normally developed. HEENT: Head exam is unremarkable. Neck is without jugular venous distension. LUNGS: Breath sounds decreased. Scattered rhonchi. HEART: Rate and Rhythm are regular. First and second heart sounds normal. No murmurs, rubs or gallops. ABDOMEN: Abdominal exam reveals normal bowel sounds. Non-tender and non- distended. No evidence of peritonitis. EXTREMITITES: 1+ edema. Objective - Vital Signs Vital signs: Vital Signs Temp 97.7 F 12/15/18 05:00 Pulse 90 12/15/18 07:41 Resp 17 12/15/18 07:30 BP 130/89 12/15/18 05:00 Pulse Ox 95 12/15/18 05:00 Intake & Output 12/14/18 12/15/18 12/15/18 18:59 06:59 18:59 Intake Total 1250 Balance 1250 Weight 77 kg 77 kg Intake: Oral 1250 Other: Voiding Method Toilet Toilet Toilet # Voids 3 1 # Bowel Movements 1 - Labs CBC & Chem 7: 12/14/18 07:34 12/14/18 07:34 Assessment and Plan Plan: Assessment: 1. Hyponatremia. Patient is slightly hypervolemic. Additionally there is a component of SIADH from underlying malignancy. Urine osmolality was quite high at 847 and urine sodium was 26. Uric acid also low which is again suggestive of SIADH. TSH normal. Improved. 2. Mild hyperkalemia which can be from the use of nonsteroidals. Improved. 3. Status post fall with rib fractures. 4. Metastatic lung cancer. Oncology following. 5. COPD exacerbation. Plan: Maintain Lasix 20 mg orally twice daily. Maintain 1.5 L fluid restriction. Continue sodium chloride tablet 1 g once today. Encouraged oral intake, especially protein. Ensure 3 times daily. Repeat BMP 2-3 days postdischarge. Follow up outpatient in the next 1-2 weeks.
[2018-12-15] MEDS ORDERED: HYDROCORTISONE SUPPOSITORY 25 MG SUPP RECTAL STA (11:28)
[2018-12-15 12:57] VITALS: BP 124/83; PULSE 78; TEMP 98
[2018-12-15] MEDS: OSIMERTINIB MESYLATE PO SCH (13:06)
--- NOTE | 2018-12-15 13:22 | P.PN ---
Subjective Progress Note Date: 12/15/18 Principal diagnosis: Fall while on anticoagulation, on EGFR therapy for non-small cell lung cancer, metastatic Patient is overall doing well today, he has no acute complaints, pending discharge. Objective - Vital Signs Vital signs: Vital Signs Temp 98 F 12/15/18 12:57 Pulse 78 12/15/18 12:57 Resp 17 12/15/18 12:57 BP 124/83 12/15/18 12:57 Pulse Ox 96 12/15/18 12:57 Intake & Output 12/14/18 12/15/18 12/15/18 18:59 06:59 18:59 Intake Total 1250 450 Balance 1250 450 Weight 77 kg 77 kg Intake: Oral 1250 450 Other: Voiding Method Toilet Toilet Toilet # Voids 3 1 # Bowel Movements 1 - Constitutional General appearance: Present: average body habitus, cooperative, no acute distress - EENT Eyes: Present: anicteric sclerae, EOMI - Respiratory Details: respirations even and unlabored, O2 discontinued - Integumentary Integumentary: Present: normal - Neurologic Neurologic: Present: CNII-XII intact - Musculoskeletal Musculoskeletal Comment(s): assistive device for ambulation Musculoskeletal: Present: strength equal bilaterally - Psychiatric Psychiatric: Present: A&O x's 3, appropriate affect, intact judgment & insight - Labs CBC & Chem 7: 12/14/18 07:34 12/14/18 07:34 Assessment and Plan (1) Contusion of rib on left side Narrative/Plan: hemoglobin stable, No evidence to suggest bleeding. CBC will continue to be monitored in the outpatient setting. Patient are very aware of bleeding precautions and signs and symptoms of bleeding. Current Visit: Yes Status: Acute Priority: Medium Code(s): S20.212A - CONTUSION OF LEFT FRONT WALL OF THORAX, INITIAL ENCOUNTER SNOMED Code(s): 636010411 (2) Chronic ITP (idiopathic thrombocytopenia) Narrative/Plan: Patient is going to taper prednisone back to his 5 mg by mouth daily which was his maintenance dose for ITP. Current Visit: Yes Status: Chronic Priority: Low Code(s): D69.3 - IMMUNE THROMBOCYTOPENIC PURPURA SNOMED Code(s): 18704789 (3) Metastatic lung cancer (metastasis from lung to other site) Narrative/Plan: Patient has been on oral EGFR therapy for several months now, doing well overall, mild side effects. Will continue on the same. Patient is also due for Rank Ligand inhibitor treatment with Xgeva. Appointme nts adjusted, patient's will be contacted by the office with new appointment dates and times. Continue osimertinib, oral EGFR therapy for metastatic lung cancer. Current Visit: Yes Status: Chronic Priority: Medium Code(s): C34.90 - MALIGNANT NEOPLASM OF UNSP PART OF UNSP BRONCHUS OR LUNG SNOMED Code(s): 02993744 (4) Atrial fibrillation Narrative/Plan: Cont eliquis 2.5mg BID (confirmed dose with office and , Rx changed at Pharmacy) Current Visit: Yes Status: Chronic Priority: Medium Code(s): I48.91 - U NSPECIFIED ATRIAL FIBRILLATION SNOMED Code(s): 35676324 (5) Hyponatremia Narrative/Plan: recheck labs in office, will CC to Nephrology for ongoing treatment and monitoring Current Visit: Yes Status: Acute Priority: Medium Code(s): E87.1 - HYPO- OSMOLALITY AND HYPONATREMIA SNOMED Code(s): 26639817
--- NOTE | 2018-12-15 15:54 | P.DS ---
Providers Date of admission: 12/07/18 06:59 Expected date of discharge: 12/15/18 Attending physician: Ryne Stein Consults: 12/07/18 06:59 Consult Physician Routine Consulting Provider: Daniel Stone Consult Reason/Comments: known Do you want consulting provider notified?: Yes Consult Physician Routine Consulting Provider: Lexis Hobson Consult Reason/Comments: known Do you want consulting provider notified?: Yes 12/09/18 13:48 Consult Physician Routine Consulting Provider: Toy Graves Consult Reason/Comments: hyponatremia Do you want consulting provider notified?: Yes 12/09/18 17:16 Consult Physician Routine Consulting Provider: Yuniel Durbin Consult Reason/Comments: sun downers Do you want consulting provider notified?: Already Contacted Primary care physician: Ryne Stein [facility] Course: 83 years old male patient of Dr. Stone, Dr. 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 Patient and his decided to hold on to Friday to see Dr. Stein but since he felt significantly worse with shortness of breath and back pain patient decided to come to the ER this morning. In the ER patient have a temp of 97.6 pulse of 76 respiratory rate 18 blood pressure 147/90 saturating well at room air. Labs suggestive leukocytes of 21,000, platelet 292, sodium 122 chloride 87 BUN 25 creatinine 0.79 bilirubin of 3.2 albumin 4.3 BNP of 5540 troponin 0.012. Chest x-ray was done that suggested right-sided consolidation deformity of the posterior left rib concerning for fracture of the left 11th rib. PET scan done in July 2018 prior to the radiation suggest lesions in the lower sclerae lumbar spine and pelvis and right eighth rib. Oncology and pulmonary evaluated the patient and ordered CT chest abdomen and pelvis to rule out further metastass and fractures. 12/08 patient examined bedside appears to be wheezing significantly. Also complains of significant pain in the left flank. Pain not controlled on tramadol will switch to [place] every 6 hours with IV morphine 2 mg every 6 hours alternating therapy. Solu-Medrol reduced to 40 mg every 6 per hour per pulmonary recommendations. CT chest abdomen and pelvis concerning for left 10- 12 rib fracture and left scapula fracture which appears to be new with the diffuse OCS metastatic disease present. Vital signs stable with a temp of 97.7 pulse of 70 respiratory rate 16 blood pressure 165/69. Patient's updated on the computed tomography scan results. 12/09 patient examined bedside is wheezing significantly with no improvement on Solu-Medrol and breathing treatment. He did have an episode of confusion yesterday night likely secondary to morphine. Patient will be held. On evaluation today patient states the pain is well controlled on the current regimen vitals suggested temp 97.8 pulse 75 respiratory rate 22 blood pressure 156/82. We will increase Medrol to 60 IV every 6 and continue budesonide twice a day. We'll stop morphine, and start patient on Toradol. Continue eliquis and Plavix. Since patient is not able to tolerate narcotics due to the side effects we will start patient on Toradol .patient is a high fall risk and need for precautions. Sodium has improved to 122 uric acid is low labs suggestive of SIADH. Nephrology consulted for further management. Continue fluid restriction of 1500 mL 12/10 patient examined bedside wheezing has improved significantly will continue with Solu-Medrol and breathing treatment. Vitals are stable with a temp of 97.8 pulse 78 respiratory rate 20 blood pressure 153/88 saturating well at room air. Patient continues to have lower back pain and burning and corrected, in addition to the left flank pain, will start patient on gabapentin for sciatica. Worsening separately instructed to give patient breathing treatment every 4 hours. Had detailed discussion with Dr. johansen who feels patient's cancer has not progressed and there are no lung lesions that might be contributing to patient's respiratory status. Will treat patient for COPD exacerbation with Solu-Medrol and breathing treatment that patient is responding to. Since patient also has confusion and had a trauma. It would be beneficial to get a CT head to rule out bleeding 12/11 patient continues to be wheezing on exertion. Pain is better controlled he slept better yesterday. Patient appears to be tolerating gabapentin and [place] well without any side effect of confusion. Plavix continues to be held. Continue IV steroids for today will continue DuoNeb as needed for shortness of breath as well as scheduled basis every [address] head was negative for any acute bleed. All questions were answered with family at bedside 12/12: Patient continues to have wheezing with exertion. He is up to the bacterium utilizing walker. is at the bedside and plan of care discussed with both of them. Patient states that his pain is better controlled and he is sleeping better. He is tolerating the gabapentin and [place] without any difficulties. Discussed with patient and preforming an echocardiogram. states that echocardiogram was done 07/23/2018 and refuses one at this time. Due to the chest x-ray showing no increase in atelectasis or fluid eliquis was restarted yesterday. Repeat chest x-ray tomorrow. 12/13: Patient is resting in bed without any difficulties at this time. Patient states that his breathing has improved compared to yesterday. He finds that he is able to tolerate walking short distances. His states that he does better after he's had his breathing treatments. However the longer way from the breathing treatment the worst his wheezes be calm. Instructed patient and that they may off for additional breathing treatments in between the scheduled once. Chest x-ray shows a small right pleural effusion. We'll continue to give eliquis. Continue to hold Plavix. BNP 9250. 12/14: Patient did have a bloody stool last evening for which eliquis was placed on hold. He has been afebrile, heart rate 80, blood pressure 143/90, pulse ox 95% on 2 L nasal cannula. We have asked for home O2 assessment to be done for which his pulse ox was 96% with activity on room air. Solu-Medrol will be decreased to 40 mg every 8 hours. Patient does complain of continued shortness of breath. Repeat sodium is at 135. Patient has had good urine output. No vomiting or diarrhea. Patient is followed by nephrology with plan for Lasix 20 mg oral twice daily, 1.5 L fluid restriction, sodium chloride tablets down to 1 g today. Encourage oral intake and ensure. Plan for follow-up in the office in one to 2 weeks. Discussed discharge planning with the patient and his . VNA is currently set up but PT has recommended subacute rehab. Patient does not want to go to rehab and also states that her mother has been placed in hospice care and she may need to travel to [place] at any time but her mother is not actively dying at this point. Case management will follow-up with the patient's regarding other options if needed. Patient is anxious to see Dr. Hobson today. Patient does have a rash on the bilateral buttocks it is very mild. Patient has been seen by lab technologist and 12/15: Patient was seen by Dr. Graves this morning with recommendations to continue Lasix 20 mg twice daily, maintain 1.5 L fluid restriction, sodium chloride 1 g daily, ensure and repeat BMP in 2-3 days after discharge with follow-up in the office in one to 2 weeks. Patient is complaining of rectal discomfort today and Anusol will be added. Patient was resumed back on eliquis. Oncology is planning for follow-up appointment in the office as well as an appointment for Tagrisso. The patient will be discharged home today in stable condition. Discharge diagnoses: 1. Left flank pain secondary to mechanical fall secondary to 10th to 11th left rib fractures and the pathological scapula fracture. 2. History of lung cancer status post right lobectomy and chemotherapy in 2016 with metastasis to the right hip status postradiation in 2019. 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 Recurrent pleural effusions status post thoracentesis in 12/09/18. 4. COPD exacerbation 5. Myelodysplasia stable 6. Gilbert's syndrome stable 7. Paroxysmal atrial fibrillation with history of recurrent syncope status post pacemaker. 8. History of DVT left leg 2009 on elliquis 9. Hypertension. 10. Idiopathic thrombocytopenia 11. Hyperlipidemia 12. BPH 13. 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 Metabolic encephalopathy likely secondary to medications. 16. Possible GI bleed most likely from hemorrhoids. Discharge plan: Home with VNA Impression and plan of care have been directed as dictated by the signing physician. Kasandra Dyer nurse practitioner acting as scribe for signing physician. Patient Condition at Discharge: Good Plan - Discharge Summary Discharge Rx Participant: Yes New Discharge Prescriptions: New Hydrocortisone Suppository [Anusol-Hc] 25 mg RECTAL HS #30 supp Betamethasone Dipropionate [Diprolene AF 0.05% Cream] 1 applic TOPICAL BID applic Furosemide [Lasix] 20 mg PO BID@0900,1600 #60 tab Gabapentin [Neurontin] 100 mg PO TID #9 cap HYDROcodone/APAP 7.5-325MG [[place] 7.5-325] 1 each PO Q4HR PRN #18 tab PRN Reason: Pain Sennosides [Senokot] 8.6 mg PO BID PRN tab PRN Reason: Constipation QUEtiapine [SEROquel] 12.5 mg PO HS PRN #30 tab PRN Reason: Delirium Sodium Chloride Tab 1 gm PO DAILY #30 tab Azithromycin [Zithromax] 500 mg PO DAILY #3 tab predniSONE 0 mg PO DIRECTED #30 tab Continue cycloSPORINE [Restasis] 1 drop BOTH EYES BID Metoprolol Tartrate [Lopressor] 50 mg PO BID Vitamin B Complex/Folic Acid [B-Complex Tablet] 0.4 mg PO DAILY Ubidecarenone [Co Q-10] 100 mg PO DAILY Tamsulosin [Flomax] 0.4 mg PO BID Umeclidinium Brm/Vilanterol Tr [Anoro Ellipta 62.5-25 Mcg INH] 1 puff INHALATION RT-DAILY Atorvastatin [Lipitor] 20 mg PO DAILY Osimertinib Mesylate [Tagrisso] 80 mg PO DAILY Apixaban [Eliquis] 2.5 mg PO BID Albuterol Nebulized [Ventolin Nebulized] 2.5 mg INHALATION RT-BID Prochlorperazine [Compazine] 10 mg PO Q6H PRN PRN Reason: Nausea Calcium Carbonate/Vitamin D3 [Calcium 600-Vit D3 400 Tablet] 1 tab PO BID Glucosamine-Chondr 500-400Mg 1 tab PO DAILY Loperamide HCl [Imodium A-D] 2 mg PO QID PRN PRN Reason: Diarrhea Discontinued predniSONE 5 mg PO DAILY Clopidogrel [Plavix] 75 mg PO DAILY Discharge Medication List Atorvastatin [Lipitor] 20 mg PO DAILY 11/22/17 [History] Metoprolol Tartrate [Lopressor] 50 mg PO BID 11/22/17 [History] Tamsulosin [Flomax] 0.4 mg PO BID 11/22/17 [History] Ubidecarenone [Co Q-10] 100 mg PO DAILY 11/22/17 [History] Umeclidinium Brm/Vilanterol Tr [Anoro Ellipta 62.5-25 Mcg INH] 1 puff INHALATION RT-DAILY 11/22/17 [History] Vitamin B Complex/Folic Acid [B-Complex Tablet] 0.4 mg PO DAILY 11/22/17 [History] cycloSPORINE [Restasis] 1 drop BOTH EYES BID 11/22/17 [History] Apixaban [Eliquis] 2.5 mg PO BID 10/14/18 [History] Osimertinib Mesylate [Tagrisso] 80 mg PO DAILY 10/14/18 [History] Albuterol Nebulized [Ventolin Nebulized] 2.5 mg INHALATION RT-BID 12/07/18 [History] Calcium Carbonate/Vitamin D3 [Calcium 600-Vit D3 400 Tablet] 1 tab PO BID 12/07/18 [History] Glucosamine-Chondr 500-400Mg 1 tab PO DAILY 12/07/18 [History] Loperamide HCl [Imodium A-D] 2 mg PO QID PRN 12/07/18 [History] Prochlorperazine [Compazine] 10 mg PO Q6H PRN 12/07/18 [History] Azithromycin [Zithromax] 500 mg PO DAILY #3 tab 12/15/18 [Rx] Betamethasone Dipropionate [Diprolene AF 0.05% Cream] 1 applic TOPICAL BID applic 12/15/18 [Rx] Furosemide [Lasix] 20 mg PO BID@0900,1600 #60 tab 12/15/18 [Rx] Gabapentin [Neurontin] 100 mg PO TID #9 cap 12/15/18 [Rx] HYDROcodone/APAP 7.5-325MG [[place] 7.5-325] 1 each PO Q4HR PRN #18 tab 12/15/18 [Rx] Hydrocortisone Suppository [Anusol-Hc] 25 mg RECTAL HS #30 supp 12/15/18 [Rx] QUEtiapine [SEROquel] 12.5 mg PO HS PRN #30 tab 12/15/18 [Rx] Sennosides [Senokot] 8.6 mg PO BID PRN tab 12/15/18 [Rx] Sodium Chloride Tab 1 gm PO DAILY #30 tab 12/15/18 [Rx] predniSONE 0 mg PO DIRECTED #30 tab 12/15/18 [Rx] Follow up Appointment(s)/Referral(s): Ryne Stein MD [Primary Care Provider] - 1-2 days (office will call patient with appt.) Daniel Stone MD [STAFF PHYSICIAN] - 12/15/18 10:30 am [facility] Visiting Nurse, [NON-STAFF] - 1-2 Days Patient Instructions/Handouts: How to Prevent Pressure Injuries (GEN), COPD (Chronic Obstructive Pulmonary Disease) (GEN) Discharge Disposition: HOME WITH HOME HEALTH SERVICES
[2018-12-15] MEDS ORDERED: HYDROCORTISONE SUPPOSITORY 25 MG SUPP RECTAL SCH (21:00)
== END 2018-12-15 15:29 | disposition home health service (06) | DRG 205 ==
LOC: EC 05:06 → 3NMEDONC 06:59
PROVIDERS: ADMIT Internal Medicine Geriatric Medicine; ATTEND Internal Medicine Geriatric Medicine
DX: S27.321A Contusion of lung, unilateral, initial encounter (principal); G92 Toxic encephalopathy; J96.01 Acute respiratory failure with hypoxia; J91.0 Malignant pleural effusion; D69.3 Immune thrombocytopenic purpura; E22.2 Syndrome of inappropriate secretion of antidiuretic hormone; C79.51 Secondary malignant neoplasm of bone; S22.42XA Multiple fractures of ribs, left side, initial encounter for closed fracture; M84.512A Pathological fracture in neoplastic disease, left shoulder, initial encounter for fracture; J44.1 Chronic obstructive pulmonary disease with (acute) exacerbation; C34.11 Malignant neoplasm of upper lobe, right bronchus or lung; J98.11 Atelectasis; R64 Cachexia; K92.1 Melena; D68.32 Hemorrhagic disorder due to extrinsic circulating anticoagulants; E87.5 Hyperkalemia; I11.0 Hypertensive heart disease with heart failure; I50.9 Heart failure, unspecified; I48.0 Paroxysmal atrial fibrillation; I48.2 Chronic atrial fibrillation; E80.4 Gilbert syndrome; D46.9 Myelodysplastic syndrome, unspecified; E78.5 Hyperlipidemia, unspecified; N40.0 Benign prostatic hyperplasia without lower urinary tract symptoms; M54.42 Lumbago with sciatica, left side; R26.2 Difficulty in walking, not elsewhere classified; T40.605A Adverse effect of unspecified narcotics, initial encounter; T45.515A Adverse effect of anticoagulants, initial encounter; Z68.23 Body mass index [BMI] 23.0-23.9, adult; Z79.01 Long term (current) use of anticoagulants; Z79.02 Long term (current) use of antithrombotics/antiplatelets; Z79.52 Long term (current) use of systemic steroids; Z79.899 Other long term (current) drug therapy; Z86.718 Personal history of other venous thrombosis and embolism; Z90.2 Acquired absence of lung [part of]; Z98.890 Other specified postprocedural states; Z85.46 Personal history of malignant neoplasm of prostate; Z87.891 Personal history of nicotine dependence; Z92.21 Personal history of antineoplastic chemotherapy; Z92.3 Personal history of irradiation; Z95.810 Presence of automatic (implantable) cardiac defibrillator; Z98.42 Cataract extraction status, left eye; Z98.41 Cataract extraction status, right eye; Z96.1 Presence of intraocular lens; Z80.0 Family history of malignant neoplasm of digestive organs; Z80.3 Family history of malignant neoplasm of breast; W10.9XXA Fall (on) (from) unspecified stairs and steps, initial encounter; Y92.009 Unspecified place in unspecified non-institutional (private) residence as the place of occurrence of the external cause
CPT/HCPCS: 36415; 36600; 70450; 71045; 71046; 71260; 74177; 80048; 80053; 81050; 82570; 82805; 83735; 83880; 83930; 83935; 84145; 84295; 84300; 84443; 84484; 84550; 85025; 85027; 85610; 85730; 93005; 94640; 94760; 96361; 96374; 99285

== ENCOUNTER 2019-01-23 11:03 | Inpatient (IN) | payer MEDICARE ==
[2019-01-23] MEDS ORDERED: IPRATROPIUM-ALBUTEROL 3 ML NEB INHALATION STA (11:38)
[2019-01-23] MEDS ORDERED: methylPREDNISolone SOD SUCCI 125 MG/2 ML VIAL IV STA (11:38)
--- NOTE | 2019-01-23 11:53 | XR ---
EXAMINATION TYPE: XR chest 2V DATE OF EXAM: 01/23/2019 HISTORY: difficulty breathing. REFERENCE: Previous study dated 12/13/2018. FINDINGS: There is a bipolar pacemaker place on the left. The heart is mildly enlarged. There is chronic atelectasis of the right middle lobe. There is develop ing a left lower lobe infiltrate. There are small, bilateral effusions. There is underlying COPD. IMPRESSION: 1. DEVELOPING LEFT LOWER LOBE INFILTRATE. 2. CHRONIC ATELECTASIS OF THE RIGHT MIDDLE LOBE. 3. CARDIOMEGALY. 4. COPD. 5. SMALL, BILATERAL
--- NOTE | 2019-01-23 12:21 | ED ---
SOB HPI - General Chief Complaint: Shortness of Breath Stated Complaint: SOB Time Seen by Provider: 01/23/19 11:19 Source: patient, RN notes reviewed Mode of arrival: wheelchair Limitations: no limitations - History of Present Illness Initial Comments: This an 83-year-old male presents emergency Department chief complaint of shortness of breath. Patient had increased shortness breath over the last few days he does have a history of lung cancer in which she was treated once is currently on chemotherapy for recurrent lung cancer. Patient also states that he's had a large pleural effusion drained twice in the past. Patient denies any known fevers or chills. He states that he does do treatments at home but he feels more short of breath and usual denies any chest pain denies any leg swelling on the usual. Patient sees , Dr. Stone. Patient does have history of A. fib and states that he is anticoagulated on Eliquis. - Related Data Home Medications Medication Instructions Recorded Confirmed Atorvastatin [Lipitor] 20 mg PO DAILY 11/22/17 12/07/18 Metoprolol Tartrate [Lopressor] 50 mg PO BID 11/22/17 12/07/18 Tamsulosin [Flomax] 0.4 mg PO BID 11/22/17 12/07/18 Ubidecarenone [Co Q-10] 100 mg PO DAILY 11/22/17 12/07/18 Umeclidinium Brm/Vilanterol Tr 1 puff INHALATION RT-DAILY 11/22/17 12/07/18 [Anoro Ellipta 62.5-25 Mcg INH] Vitamin B Complex/Folic Acid 0.4 mg PO DAILY 11/22/17 12/07/18 [B-Complex Tablet] cycloSPORINE [Restasis] 1 drop BOTH EYES BID 11/22/17 12/07/18 Apixaban [Eliquis] 2.5 mg PO BID 10/14/18 12/07/18 Osimertinib Mesylate [Tagrisso] 80 mg PO DAILY 10/14/18 12/07/18 Albuterol Nebulized [Ventolin 2.5 mg INHALATION RT-BID 12/07/18 12/07/18 Nebulized] Calcium Carbonate/Vitamin D3 1 tab PO BID 12/07/18 12/07/18 [Calcium 600-Vit D3 400 Tablet] Glucosamine-Chondr 500-400Mg 1 tab PO DAILY 12/07/18 12/07/18 Loperamide HCl [Imodium A-D] 2 mg PO QID PRN 12/07/18 12/07/18 Prochlorperazine [Compazine] 10 mg PO Q6H PRN 12/07/18 12/07/18 Previous Rx's Medication Instructions Recorded Azithromycin [Zithromax] 500 mg PO DAILY #3 tab 12/15/18 Betamethasone Dipropionate 1 applic TOPICAL BID applic 12/15/18 [Diprolene AF 0.05% Cream] Furosemide [Lasix] 20 mg PO BID@0900,1600 #60 tab 12/15/18 Gabapentin [Neurontin] 100 mg PO TID #9 cap 12/15/18 HYDROcodone/APAP 7.5-325MG [[place] 1 each PO Q4HR PRN #18 tab 12/15/18 7.5-325] Hydrocortisone Suppository 25 mg RECTAL HS #30 supp 12/15/18 [Anusol-Hc] QUEtiapine [SEROquel] 12.5 mg PO HS PRN #30 tab 12/15/18 Sennosides [Senokot] 8.6 mg PO BID PRN tab 12/15/18 Sodium Chloride Tab 1 gm PO DAILY #30 tab 12/15/18 predniSONE 0 mg PO DIRECTED #30 tab 12/15/18 Allergies Allergy/AdvReac Type Severity Reaction Status Date / Time No Known Allergies Allergy Verified 01/23/19 11:09 Review of Systems ROS Statement: Those systems with pertinent positive or pertinent negative responses have been documented in the HPI. ROS Other: All systems not noted in ROS Statement are negative. Past Medical History Past Medical History: Atrial Fibrillation, COPD, Hypertension Additional Past Medical History / Comment(s): malginant neoplasm of prostate, idopathic thrombocytopenic purpura, carcinoma of rt upper lung, dvt of left leg, myelodysplastic syndrome, carcinoma right hip History of Any Multi-Drug Resistant Organisms: None Reported Past Surgical History: Adenoidectomy, Tonsillectomy Additional Past Surgical History / Comment(s): rt upper lung lobe removed, aicd or pacemaker, thoracentesis Type of Cardiac Device: Permanent Pacemaker Device Placement Date:: 2009 Past Psychological History: No Psychological Hx Reported Smoking Status: Former smoker Past Alcohol Use History: None Reported Past Drug Use History: None Reported - Past Family History Mother Family Medical History: Cancer Additional Family Medical History / Comment(s): Mother had breast and colon cancer. Father Family Medical History: Vascular Disorder Additional Family Medical History / Comment(s): Father of a ruptured ane urysm. General Exam Limitations: no limitations General appearance: alert, in no apparent distress Head exam: Present: atraumatic, normocephalic, normal inspection Eye exam: Present: normal appearance, PERRL, EOMI. Absent: scleral icterus, conjunctival injection, periorbital swelling ENT exam: Present: normal exam, mucous membranes moist Neck exam: Present: normal inspection, full ROM. Absent: tenderness, meningismus, lymphadenopathy Respiratory exam: Present: respiratory distress, wheezes, rhonchi. Absent: normal lung sounds bilaterally, rales, stridor Cardiovascular Exam: Present: regular rate, normal rhythm, normal heart sounds. Absent: systolic murmur, diastolic murmur, rubs, gallop, clicks Extremities exam: Absent: pedal edema Course Vital Signs 01/23/19 01/23/19 11:07 12:28 Temperature 97.6 F Pulse Rate 79 97 Respiratory 26 H Rate Blood Pressure 130/85 O2 Sat by Pulse 96 Oximetry Medical Decision Making - Medical Decision Making 83-year-old male presented from for cough congestion shortness of breath. Patient has evidence of pneumonia. Patient is dyspneic. Patient will be started on antibiotics in the hospital this time. Patient also found to have a sodium 118. Patient's had a history of hyponatremia. Patient will be started on gentle fluid hydration. Patient will be admitted to Dr. Starks, consult pulmonology and oncology at this time - Lab Data Result diagrams: 01/23/19 12:00 01/23/19 12:00 Lab Results 01/23/19 01/23/19 01/23/19 Range/Units 12:00 12:00 12:00 WBC 13.2 H (3.8-10.6) k/uL RBC 4.90 (4.30-5.90) m/uL Hgb 13.1 (13.0-17.5) gm/dL Hct 40.7 (39.0-53.0) % MCV 83.2 (80.0-100.0) fL MCH 26.8 (25.0-35.0) pg MCHC 32.3 (31.0-37.0) g/dL RDW 20.0 H (11.5-15.5) % Plt Count 200 (150-450) k/uL Neutrophils % 90 % Lymphocytes % 3 % Monocytes % 5 % Eosinophils % 1 % Basophils % 0 % Neutrophils # 12.0 H (1.3-7.7) k/uL Lymphocytes # 0.3 L (1.0-4.8) k/uL Monocytes # 0.7 (0-1.0) k/uL Eosinophils # 0.1 (0-0.7) k/uL Basophils # 0.0 (0-0.2) k/uL Manual Slide Review Performed Hypochromasia Slight Poikilocytosis Slight Anisocytosis Slight Microcytosis Slight PT (9.0-12.0) sec INR (<1.2) APTT (22.0-30.0) sec Sodium 118 L* (137-145) mmol/L Potassium 4.7 (3.5-5.1) mmol/L Chloride 83 L (98-107) mmol/L Carbon Dioxide 25 (22-30) mmol/L Anion Gap 10 mmol/L BUN 20 (9-20) mg/dL Creatinine 0.60 L (0.66-1.25) mg/dL Est GFR (CKD-EPI)AfAm >90 (>60 ml/min/1.73 sqM) Est GFR (CKD-EPI)NonAf >90 (>60 ml/min/1.73 sqM) Glucose 88 (74-99) mg/dL Plasma Lactic Acid Peng (0.7-2.0) mmol/L Calcium 8.2 L (8.4-10.2) mg/dL Magnesium 1.7 (1.6-2.3) mg/dL Total Bilirubin 2.1 H (0.2-1.3) mg/dL AST 29 (17-59) U/L ALT 28 (21-72) U/L Alkaline Phosphatase 103 (38-126) U/L Troponin I (0.000-0.034) ng/mL NT-Pro-B Natriuret Pep 6440 pg/mL Total Protein 5.6 L (6.3-8.2) g/dL Albumin 3.8 (3.5-5.0) g/dL 01/23/19 01/23/19 01/23/19 Range/Units 12:00 12:00 12:00 WBC (3.8-10.6) k/uL RBC (4.30-5.90) m/uL Hgb (13.0-17.5) gm/dL Hct (39.0-53.0) % MCV (80.0-100.0) fL MCH (25.0-35.0) pg MCHC (31.0-37.0) g/dL RDW (11.5-15.5) % Plt Count (150-450) k/uL Neutrophils % % Lymphocytes % % Monocytes % % Eosinophils % % Basophils % % Neutrophils # (1.3-7.7) k/uL Lymphocytes # (1.0-4.8) k/uL Monocytes # (0-1.0) k/uL Eosinophils # (0-0.7) k/uL Basophils # (0-0.2) k/uL Manual Slide Review Hypochromasia Poikilocytosis Anisocytosis Microcytosis PT 11.6 (9.0-12.0) sec INR 1.1 (<1.2) APTT 30.5 H (22.0-30.0) sec Sodium (137-145) mmol/L Potassium (3.5-5.1) mmol/L Chloride (98-107) mmol/L Carbon Dioxide (22-30) mmol/L Anion Gap mmol/L BUN (9-20) mg/dL Creatinine (0.66-1.25) mg/dL Est GFR (CKD-EPI)AfAm (>60 ml/min/1.73 sqM) Est GFR (CKD-EPI)NonAf (>60 ml/min/1.73 sqM) Glucose (74-99) mg/dL Plasma Lactic Acid Peng 0.9 (0.7-2.0) mmol/L Calcium (8.4-10.2) mg/dL Magnesium (1.6-2.3) mg/dL Total Bilirubin (0.2-1.3) mg/dL AST (17-59) U/L ALT (21-72) U/L Alkaline Phosphatase (38-126) U/L Troponin I <0.012 (0.000-0.034) ng/mL NT-Pro-B Natriuret Pep pg/mL Total Protein (6.3-8.2) g/dL Albumin (3.5-5.0) g/dL - EKG Data EKG Comments: EKG performed at 11:39 A. fib rate of 81. 84 QT/QTC 428/497 Critical Care Time Critical Care Time: Yes Total Critical Care Time: 35 Critical Care Time: Total 35 minutes of critical care time were used initially evaluated the patient, reviewed past medical history, review medications vitals. Initial labs including CBC, CMP, BMP, troponin, EKG, to gas and blood cultures were ordered along with a chest x-ray. Patient found to have a left-sided pneumonia, right- sided pleural effusion. Sodium is 118 fluid hydration was ordered, case discussed with Dr. Starks with consults to pulmonology and oncology. Patient started on antibiotics. Disposition Clinical Impression: Acute exacerbation of chronic obstructive airways disease, Hyponatremia, Pneumonia Disposition: ADMITTED IP TO THIS HOSP Condition: Fair Referrals: Ryne Stein MD [Primary Care Provider] - 1-2 days
[2019-01-23 12:24] LABS: Anisocytosis Slight; Basophils % (A) 0 %; Eosinophils # (A) 0.1 k/uL (0-0.7); Eosinophils % (A) 1 %; HCT 40.7 % (39.0-53.0); HGB 13.1 gm/dL (13.0-17.5); Hypochromasia Slight; Lymphocytes # (A) 0.3 k/uL (1.0-4.8); Lymphocytes % (A) 3 %; MCH 26.8 pg (25.0-35.0); MCHC 32.3 g/dL (31.0-37.0); MCV 83.2 fL (80.0-100.0); Mean Platelet Volume 9.6; Microcytosis Slight; Monocytes # (A) 0.7 k/uL (0-1.0); Monocytes % (A) 5 %; Neutrophils % (A) 90 %; Platelet Count 200 k/uL (150-450); Poikilocytosis Slight; WBC 13.2 k/uL (3.8-10.6)
[2019-01-23 12:25] LABS: INR 1.1 (<1.2); Partial Thromboplastin Time 30.5 sec (22.0-30.0); Prothrombin Time 11.6 sec (9.0-12.0)
[2019-01-23 12:27] LABS: ALT 28 U/L (21-72); AST 29 U/L (17-59); African American GFR (CKD) >90 (>60 ml/min/1.73 sqM); Albumin 3.8 g/dL (3.5-5.0); Alkaline Phosphatase 103 U/L (38-126); Anion Gap 10 mmol/L; Blood Urea Nitrogen 20 mg/dL (9-20); Calcium 8.2 mg/dL (8.4-10.2); Carbon Dioxide 25 mmol/L (22-30); Chloride 83 mmol/L (98-107); Glucose 88 mg/dL (74-99); Magnesium 1.7 mg/dL (1.6-2.3); Potassium 4.7 mmol/L (3.5-5.1); Total Bilirubin 2.1 mg/dL (0.2-1.3); Total Protein 5.6 g/dL (6.3-8.2)
[2019-01-23 12:39] LABS: Sodium 118 mmol/L (137-145)
[2019-01-23] MEDS ORDERED: AZITHROMYCIN 500 MG in SODIUM CHLORIDE 0.9% 250 ML IVPB STA (13:05)
[2019-01-23] MEDS ORDERED: PNEUMONIA PROTOCOL UTILIZED 1 EACH MISC PO PRN (13:05)
[2019-01-23] MEDS ORDERED: SODIUM CHLORIDE 0.9% 1,000 ML IV SCH ×2 (14:15→21:30)
[2019-01-23] MEDS ORDERED: IPRATROPIUM-ALBUTEROL 3 ML NEB INHALATION SCH (16:00)
[2019-01-23] MEDS ORDERED: MAGNESIUM HYDROXIDE 2,400 MG/10 ML CUP PO PRN (16:43)
--- NOTE | 2019-01-23 16:51 | P.HPIM ---
History of Present Illness H&P Date: 01/23/19 Chief Complaint: Shortness of breath This is a pleasant 83 years old male patient of Dr. Stone, Dr. 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 PET scan done in July 2018 prior to the radiation suggest lesions in the lower sclerae lumbar spine and pelvis and right eighth rib. Patient currently resides at [facility] under care of Dr. Stein under respite care as his 's mother past away and is in [place], and no one can be with him at home to assist with his medical care. Patient has had shortness of breath since his admission [facility] 6 days ago, he also mentions that he has had thoracentesis twice now usefully every 3 months, and was seen in emergency room secondary to increasing shortness of breath, productive cough of yellow sputum, hypoxemia, and respiratory distress conversational dyspnea Audible wheezing, decreased appetite weight loss no fever, no chills no falls, no disorientation, has weakness. ER findings x-ray showing left infiltrate sodium of 118 from a previous of 135 WBC count of 13.2 from a previous of 29, knowing urinalysis done lactic acid 0.9 creatinine of 0.6 he is currently being treated for COPD exacerbation and pneumonia, left side with 15% pleural effusion right side while in the hospital, with consults made to Dr. Mix and Dr. Patino oncology, patient is full code and is on oral chemotherapy agent to Tagrisso . Patient denies any O2 requirements prior to admission, and is on nebulizer unit 3 times a day without any help Review of Systems Constitutional: Reports as per HPI, Reports anorexia, Reports chills, Reports chronic pain, Reports fatigue, Reports malaise, Reports poor appetite, Reports weakness, Reports weight loss, Denies chronic headaches, Denies daytime sleepiness, Denies fever, Denies lethargy, Denies night sweats, Denies sweats, Denies weight gain Ears, nose, mouth and throat: Reports as per HPI, Denies ant. neck pain, Denies bleeding gums, Denies dental pain, Denies dysphagia, Denies epistaxis, Denies headache, Denies hoarseness, Denies mouth pain, Denies nasal congestion, Denies nasal discharge, Denies neck fullness/pressure, Denies neck lump, Denies nose pain, Denies odynophagia, Denies post-nasal drip, Denies sinus pain, Denies sinus pressure, Denies swelling in mouth, Denies swelling in throat, Denies sore throat, Denies vertigo, Denies voice changes Cardiovascular: Reports as per HPI, Reports dyspnea on exertion, Reports edema (Left leg), Reports shortness of breath Respiratory: Reports as per HPI, Reports cough, Reports cough with sputum, Reports dyspnea, Reports wheezing, Denies congestion, Denies excessive sputum, Denies hemoptysis, Denies home oxygen, Denies pain, Denies pain on inspiration, Denies pleurisy, Denies respiratory infections, Denies sleep apnea, Denies s noring Gastrointestinal: Reports as per HPI, Denies abdominal pain, Denies belching, Denies bloating, Denies BRBPR, Denies change in bowel habits, Denies coffee ground emesis, Denies constipation, Denies diarrhea, Denies dyspepsia, Denies early satiety, Denies excessive gas, Denies heartburn, Denies hematemesis, Denies hematochezia, Denies indigestion, Denies jaundice, Denies lactose intolerance, Denies loss of appetite, Denies melena, Denies nausea, Denies vomiting Genitourinary: Reports as per HPI Musculoskeletal: Reports as per HPI, Reports muscle weakness Integumentary: Reports as per HPI, Denies acne, Denies boils, Denies brittle nails, Denies change in hair/nails, Denies color changes, Denies darkening of skin, Denies depigmentation, Denies dryness, Denies foot/leg ulcers, Denies elie wths, Denies hirsutism, Denies lesions, Denies onychomycosis, Denies pruritus, Denies rash, Denies sores, Denies striae, Denies unusual bruising, Denies wounds Neurological: Reports as per HPI, Reports weakness, Denies aphasia, Denies ataxia, Denies balance difficulties, Denies burning pain, Denies change in mentation, Denies change in smell/taste, Denies change in speech, Denies confusion, Denies convulsions, Denies double vision, Denies gait dysfunction, Denies head injury, Denies headaches, Denies hearing difficulties, Denies lack of coordination, Denies loss of vision, Denies memory loss, Denies migraines, Denies motor disturbance, Denies numbness, Denies paralysis, Denies paresthesias, Denies seizures, Denies sensory deficit, Denies spasticity, Denies syncope, Denies tic, Denies tingling, Denies transient paralysis, Denies tremors, Denies vertigo, Denies visual changes Psychiatric: Reports as per HPI Endocrine: Reports as per HPI, Reports fatigue, Reports weight change, Denies cold intolerance, Denies deepening of the voice, Denies excessive sweating, Denies excessive thirst, Denies flushing, Denies heat intolerance, Denies high blood sugars, Denies increase in ring/shoe/hat size, Denies low blood sugars, Denies nocturia, Denies palpitations, Denies polydipsia, Denies polyphagia, Denies polyuria, Denies proptosis, Denies recent glucocorticoid use, Denies thyroid mass Hematologic/Lymphatic: Reports as per HPI, Denies easy bleeding, Denies easy bruising, Denies lymphadenopathy, Denies lymphedema, Denies thrombophilia Allergic/Immunologic: Reports as per HPI, Denies allergic rhinitis, Denies anaphylaxis, Denies angioedema, Denies gluten intolerance, Denies persistent infections, Denies seasonal allergies, Denies urticaria, Denies wheezing Past Medical History Past Medical History: Atrial Fibrillation, COPD, Hypertension Additional Past Medical History / Comment(s): malginant neoplasm of prostate, idopathic thrombocytopenic purpura, carcinoma of rt upper lung, dvt of left leg, myelodysplastic syndrome, carcinoma right hip History of Any Multi-Drug Resistant Organisms: None Reported Past Surgical History: Adenoidectomy, Tonsillectomy Additional Past Surgical History / Comment(s): rt upper lung lobe removed, aicd or pacemaker, thoracentesis Type of Cardiac Device: Permanent Pacemaker Device Placement Date:: 2009 Past Psychological History: No Psychological Hx Reported Smoking Status: Former smoker Past Alcohol Use History: None Reported Past Drug Use History: None Reported - Past Family History Mother Family Medical History: Cancer Additional Family Medical History / Comment(s): Mother had breast and colon cancer. Father Family Medical History: Vascular Disorder Additional Family Medical History / Comment(s): Father of a ruptured aneurysm. Medications and Allergies Home Medications Medication Instructions Recorded Confirmed Type Atorvastatin [Lipitor] 20 mg PO DAILY 11/22/17 01/23/19 History Tamsulosin [Flomax] 0.4 mg PO BID 11/22/17 01/23/19 History Ubidecarenone [Co Q-10] 100 mg PO DAILY 11/22/17 01/23/19 History Umeclidinium Brm/Vilanterol Tr 1 puff INHALATION RT-DAILY 11/22/17 01/23/19 History [Anoro Ellipta 62.5-25 Mcg INH] Vitamin B Complex/Folic Acid 0.4 mg PO DAILY 11/22/17 01/23/19 History [B-Complex Tablet] cycloSPORINE [Restasis] 1 drop BOTH EYES BID 11/22/17 01/23/19 History Apixaban [Eliquis] 2.5 mg PO BID 10/14/18 01/23/19 History Osimertinib Mesylate [Tagrisso] 80 mg PO DAILY 10/14/18 01/23/19 History Albuterol Nebulized [Ventolin 2.5 mg INHALATION RT-BID 12/07/18 01/23/19 History Nebulized] Calcium Carbonate/Vitamin D3 1 tab PO BID 12/07/18 01/23/19 History [Calcium 600-Vit D3 400 Tablet] Glucosamine-Chondr 500-400Mg 1 tab PO DAILY 12/07/18 01/23/19 History Loperamide HCl [Imodium A-D] 2 mg PO BID PRN 12/07/18 01/23/19 History Bisacodyl [Dulcolax] 10 mg RECTAL DAILY PRN 01/23/19 01/23/19 History Magnesium Hydroxide [Milk of 7,200 mg PO DAILY PRN 01/23/19 01/23/19 History Magnesia Concentrate] Metoprolol Succinate (ER) [Toprol 50 mg PO BID 01/23/19 01/23/19 History Xl] Na Phos,M-B/Na Phos,Di-Ba [Fleet 133 ml RECTAL DAILY PRN 01/23/19 01/23/19 History Adult] predniSONE 5 mg PO DAILY 01/23/19 01/23/19 History Allergies Allergy/AdvReac Type Severity Reaction Status Date / Time No Known Allergies Allergy Verified 01/23/19 13:57 Physical Exam Vitals: Vital Signs Temp Pulse Resp BP Pulse Ox 01/23/19 16:11 88 01/23/19 15:30 73 15 108/85 96 01/23/19 15:00 78 19 119/82 94 L 01/23/19 14:30 87 15 116/86 97 01/23/19 14:00 76 17 134/78 98 01/23/19 13:30 73 14 126/91 98 01/23/19 13:00 73 18 132/94 96 01/23/19 12:28 97 01/23/19 11:07 97.6 F 79 26 H 130/85 96 Intake and Output 01/23/19 01/23/19 01/23/19 06:59 14:59 22:59 Other: Weight 77.111 kg - Constitutional General appearance: cooperative, mild distress - EENT Eyes: anicteric sclerae, EOMI, PERRLA, dentition normal, normal appearance ENT: NA/AT, normal oropharynx - Neck Neck: normal ROM - Respiratory Respiratory: bilateral: CTA, negative: diminished, dullness, rales, rhonchi - Cardiovascular Rhythm: regular Heart sounds: normal: S1, S2 Abnormal Heart Sounds: no systolic murmur, no diastolic murmur, no rub, no S3 Gallop, no S4 Gallop, no click, no other - Gastrointestinal General gastrointestinal: normal bowel sounds, soft - Integumentary Integumentary: decreased turgor, normal - Neurologic Neurologic: CNII-XII intact - Musculoskeletal Musculoskeletal: gait normal, strength equal bilaterally - Psychiatric Psychiatric: A&O x's 3, appropriate affect, intact judgment & insight Results CBC & Chem 7: 01/23/19 12:00 01/23/19 12:00 Labs: Abnormal Lab Results - Last 24 Hours (Table) 01/23/19 01/23/19 01/23/19 Range/Units 12:00 12:00 12:00 WBC 13.2 H (3.8-10.6) k/uL RDW 20.0 H (11.5-15.5) % Neutrophils # 12.0 H (1.3-7.7) k/uL Lymphocytes # 0.3 L (1.0-4.8) k/uL APTT 30.5 H (22.0-30.0) sec Sodium 118 L* (137-145) mmol/L Chloride 83 L (98-107) mmol/L Creatinine 0.60 L (0.66-1.25) mg/dL Calcium 8.2 L (8.4-10.2) mg/dL Total Bilirubin 2.1 H (0.2-1.3) mg/dL Total Protein 5.6 L (6.3-8.2) g/dL Laboratory Results WBC 13.2 k/uL (3.8-10.6) H 01/23/19 12:00 RBC 4.90 m/uL (4.30-5.90) 01/23/19 12:00 Hgb 13.1 gm/dL (13.0-17.5) 01/23/19 12:00 Hct 40.7 % (39.0-53.0) 01/23/19 12:00 MCV 83.2 fL (80.0-100.0) 01/23/19 12:00 MCH 26.8 pg (25.0-35.0) 01/23/19 12:00 MCHC 32.3 g/dL (31.0-37.0) 01/23/19 12:00 RDW 20.0 % (11.5-15.5) H 01/23/19 12:00 Plt Count 200 k/uL (150-450) 01/23/19 12:00 Neutrophils % 90 % 01/23/19 12:00 Lymphocytes % 3 % 01/23/19 12:00 Monocytes % 5 % 01/23/19 12:00 Eosinophils % 1 % 01/23/19 12:00 Basophils % 0 % 01/23/19 12:00 Neutrophils # 12.0 k/uL (1.3-7.7) H 01/23/19 12:00 Lymphocytes # 0.3 k/uL (1.0-4.8) L 01/23/19 12:00 Monocytes # 0.7 k/uL (0-1.0) 01/23/19 12:00 Eosinophils # 0.1 k/uL (0-0.7) 01/23/19 12:00 Basophils # 0.0 k/uL (0-0.2) 01/23/19 12:00 Manual Slide Review Performed 01/23/19 12:00 Hypochromasia Slight 01/23/19 12:00 Poikilocytosis Slight 01/23/19 12:00 Anisocytosis Slight 01/23/19 12:00 Microcytosis Slight 01/23/19 12:00 PT 11.6 sec (9.0-12.0) 01/23/19 12:00 INR 1.1 (<1.2) 01/23/19 12:00 APTT 30.5 sec (22.0-30.0) H 01/23/19 12:00 Sodium 118 mmol/L (137-145) L* 01/23/19 12:00 Potassium 4.7 mmol/L (3.5-5.1) 01/23/19 12:00 Chloride 83 mmol/L (98-107) L 01/23/19 12:00 Carbon Dioxide 25 mmol/L (22-30) 01/23/19 12:00 Anion Gap 10 mmol/L 01/23/19 12:00 BUN 20 mg/dL (9-20) 01/23/19 12:00 Creatinine 0.60 mg/dL (0.66-1.25) L 01/23/19 12:00 Est GFR (CKD-EPI)AfAm >90 (>60 ml/min/1.73 sqM) 01/23/19 12:00 Est GFR (CKD-EPI)NonAf >90 (>60 ml/min/1.73 sqM) 01/23/19 12:00 Glucose 88 mg/dL (74-99) 01/23/19 12:00 Plasma Lactic Acid Peng 0.9 mmol/L (0.7-2.0) 01/23/19 12:00 Calcium 8.2 mg/dL (8.4-10.2) L 01/23/19 12:00 Magnesium 1.7 mg/dL (1.6-2.3) 01/23/19 12:00 Total Bilirubin 2.1 mg/dL (0.2-1.3) H 01/23/19 12:00 AST 29 U/L (17-59) 01/23/19 12:00 ALT 28 U/L (21-72) 01/23/19 12:00 Alkaline Phosphatase 103 U/L (38-126) 01/23/19 12:00 Troponin I <0.012 ng/mL (0.000-0.034) 01/23/19 12:00 NT-Pro-B Natriuret Pep 6440 pg/mL 01/23/19 12:00 Total Protein 5.6 g/dL (6.3-8.2) L 01/23/19 12:00 Albumin 3.8 g/dL (3.5-5.0) 01/23/19 12:00 Thrombosis Risk Factor Assmnt - DVT/VTE Prophylaxis DVT/VTE Prophylaxis: Pharmacologic Prophylaxis ordered - Choose All That Apply Any of the Below Risk Factors Present?: Yes Each Factor Represents 1 point: Abnormal pulmonary function (COPD), Swollen legs (current) Each Risk Factor Represents 2 Points: Malignancy Each Risk Factor Represents 3 Points: Age 75 years or older Thrombosis Risk Factor Assessment Total Risk Factor Score: 7 Thrombosis Risk Factor Assessment Level: High Risk Assessment and Plan Plan: 1 COPD exacerbation, with dyspnea and bronchospasm, new left lower lobe pneumonia and small bilateral pleural effusion, no hypoxemia noted while resting, patient would be given IV steroid Solu-Medrol, nebulized albuterol Atrovent, sputum cultures, O2 supplementation, consult pulmonary Dr. Mix, nebulized budesonide 1 mg twice a day, 2. Left pneumonia, currently residing on skilled ECF, facility acquired pne umonia cannot be ruled out, sputum cultures, IV Zosyn and Levaquin protocol 16 and calcitnonin level 2. 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 Graves, serum osmolality urine osmolality urine sodium to be obtained IV fluids at 80 mL an hour patient might need salt tablets and fluid restriction once fluid status has been stabilized 4 status post right lobectomy and chemotherapy in 2015 with metastasis to the right hip status postradiation in July 2018 . Recent thoracentesis suggestive of recurrence of the lung cancer pathology positive for EGFR on Tagrisso 5 recurrent pleural effusions status post thoracentesis 3 months ago chest x- ray small bilateral pleural effusion 4. 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 Graves IV fluids at 0.975 mL an hour 5 myelodysplasia stable 6 Gilbert's syndrome stable 7. Paroxysmal atrial fibrillation with history of recurrent syncope status post pacemaker. Continue metoprolol 50 mg twice a day. Continue elliquis 8 history of DVT left leg 2009 without the occurrence as the patient is on eliquis and is compliant no Dopplers required today 9 hypertension blood pressure controlled on metoprolol 10 idiopathic thrombocytopenia platelets stable 11 hyperlipidemia Lipitor 20 mg by mouth daily 12 atrial fibrillation continue metoprolol 50 mg twice a day 13 BPH continue tamsulosin 14 CODE STATUS full code Return to [facility] for respite care until would come back from [place]
[2019-01-23 17:08] LABS: Glucose,Whole Blood 117 mg/dL (75-99)
[2019-01-23] MEDS: LEVOFLOXACIN 500MG-D5W PMX 500 MG in DEXTROSE/WATER 1 100ML.BAG IVPB SCH (18:24)
[2019-01-23] MEDS: methylPREDNISolone SOD SUCCI 125 MG/2 ML VIAL IV SCH ×2 (18:28→23:51)
[2019-01-23] MEDS: BUDESONIDE 1 MG/2 ML NEBU INHALATION SCH (19:17)
[2019-01-23] MEDS: ALBUTEROL NEBULIZED 2.5 MG/3 ML INHALATION SCH ×2 (19:19→23:29)
[2019-01-23 19:51] LABS: Appearance,Urine Clear (Clear); Bilirubin,Urine Negative (Negative); Blood,Urine Negative (Negative); Color,Urine Yellow; Glucose,Urine (UA) 3+ (Negative); Leukocyte Esterase,Urine Negative (Negative); Mucus,Urine Rare /hpf; Nitrite,Urine Negative (Negative); Protein,Urine 1+ (Negative); Specific Gravity,Urine 1.026 (1.001-1.035); Squamous Epithelial Cell,Urine <1 /hpf (0-4); Urobilinogen,Urine <2.0 mg/dL (<2.0)
[2019-01-23 19:55] LABS: Ketones,Urine 3+ (Negative)
[2019-01-23] MEDS: APIXABAN 2.5 MG TABLET PO SCH (19:55)
[2019-01-23] MEDS: cycloSPORINE 0.05% OPHTH 0.4 ML DROPERETTE BOTH EYES SCH (19:55)
[2019-01-23] MEDS: METOPROLOL SUCCINATE (ER) 50 MG TAB.ER.24H PO SCH (19:56)
[2019-01-23] MEDS: TAMSULOSIN 0.4 MG CAP.ER.24H PO SCH (19:56)
[2019-01-23] MEDS: CALCIUM CARB-VIT D 500MG-200UN 1 EACH TAB PO SCH (19:56)
[2019-01-23] MEDS: PIPERACILLIN-TAZOBACTAM 3.375 GM in SODIUM CHLORIDE 0.9% 100 ML IVPB SCH ×2 (19:57→23:51)
[2019-01-23 20:12] LABS: African American GFR (CKD) >90 (>60 ml/min/1.73 sqM); Anion Gap 11 mmol/L; Blood Urea Nitrogen 20 mg/dL (9-20); Calcium 7.8 mg/dL (8.4-10.2); Carbon Dioxide 22 mmol/L (22-30); Chloride 83 mmol/L (98-107); Glucose 189 mg/dL (74-99); Potassium 5.1 mmol/L (3.5-5.1); Uric Acid 2.8 mg/dL (3.5-8.5)
[2019-01-23 20:14] LABS: Sodium 116 mmol/L (137-145)
[2019-01-23 20:45] LABS: Glucose,Whole Blood 180 mg/dL (75-99)
[2019-01-23] MEDS ORDERED: SODIUM CHLORIDE 3%(HYPERTONIC) 500 ML IV SCH (21:15)
[2019-01-23] MEDS ORDERED: FUROSEMIDE 10 MG/ML 2 ML VIAL IV ONE (21:33)
[2019-01-23] MEDS: SODIUM CHLORIDE TAB 1 GM TAB PO SCH (21:54)
[2019-01-23] MEDS: INSULIN ASPART (NovoLOG) 100 UNIT/ML VIAL SQ SCH (21:59)
[2019-01-24 01:38] LABS: African American GFR (CKD) >90 (>60 ml/min/1.73 sqM); Anion Gap 8 mmol/L; Blood Urea Nitrogen 19 mg/dL (9-20); Calcium 7.9 mg/dL (8.4-10.2); Carbon Dioxide 21 mmol/L (22-30); Chloride 88 mmol/L (98-107); Glucose 157 mg/dL (74-99); Potassium 4.6 mmol/L (3.5-5.1)
[2019-01-24 01:42] LABS: Sodium 117 mmol/L (137-145)
[2019-01-24] MEDS: ALBUTEROL NEBULIZED 2.5 MG/3 ML INHALATION SCH ×3 (03:00→11:42)
[2019-01-24] MEDS: FUROSEMIDE 10 MG/ML 2 ML VIAL IV SCH ×2 (03:21→09:15)
[2019-01-24] MEDS: methylPREDNISolone SOD SUCCI 125 MG/2 ML VIAL IV SCH ×3 (05:05→17:19)
[2019-01-24 06:26] LABS: Glucose,Whole Blood 161 mg/dL (75-99)
[2019-01-24 06:27] LABS: ALT 21 U/L (21-72); AST 24 U/L (17-59); African American GFR (CKD) >90 (>60 ml/min/1.73 sqM); Albumin 3.3 g/dL (3.5-5.0); Alkaline Phosphatase 80 U/L (38-126); Anion Gap 10 mmol/L; Blood Urea Nitrogen 17 mg/dL (9-20); Calcium 7.9 mg/dL (8.4-10.2); Carbon Dioxide 21 mmol/L (22-30); Chloride 88 mmol/L (98-107); Glucose 145 mg/dL (74-99); Potassium 4.8 mmol/L (3.5-5.1); Total Bilirubin 1.7 mg/dL (0.2-1.3); Total Protein 5.1 g/dL (6.3-8.2)
[2019-01-24] MEDS ORDERED: SODIUM CHLORIDE 0.9% 1,000 ML IV SCH (06:30)
[2019-01-24] MEDS: INSULIN ASPART (NovoLOG) 100 UNIT/ML VIAL SQ SCH ×4 (06:31→20:23)
--- NOTE | 2019-01-24 06:37 | XR ---
EXAMINATION TYPE: XR chest 2V DATE OF EXAM: 01/24/2019 HISTORY: pneumonia. REFERENCE: Previous study dated 01/23/2019. FINDINGS: There is a bipolar pacemaker place on the left. The heart is enlarged. There is chronic right middle lobe volume loss. There is underlying COPD. There are small, bilateral effusions, greater on the right left. Partial resolution of the patient's left basilar airspace disea se. IMPRESSION: 1. IMPROVED AERATION, LEFT LUNG BASE. 2. CHRONIC ATELECTASIS IN THE RIGHT MIDDLE LOBE. 3. CARDIOMEGALY. 4. COPD. 5. SMALL, BILATERAL EFFUSIONS.
[2019-01-24 06:45] LABS: Anisocytosis Slight; Basophils % (A) 0 %; Eosinophils % (A) 0 %; HCT 37.3 % (39.0-53.0); HGB 12.1 gm/dL (13.0-17.5); Hypochromasia Slight; Lymphocytes # (A) 0.3 k/uL (1.0-4.8); Lymphocytes % (A) 2 %; MCH 26.9 pg (25.0-35.0); MCHC 32.4 g/dL (31.0-37.0); Mean Platelet Volume 9.6; Microcytosis Slight; Monocytes # (A) 0.2 k/uL (0-1.0); Monocytes % (A) 1 %; Neutrophils # (A) 13.2 k/uL (1.3-7.7); Neutrophils % (A) 96 %; Platelet Count 203 k/uL (150-450); Poikilocytosis Slight; RDW 19.6 % (11.5-15.5); WBC 13.7 k/uL (3.8-10.6)
[2019-01-24 06:46] LABS: Sodium 119 mmol/L (137-145)
[2019-01-24] MEDS: BUDESONIDE 1 MG/2 ML NEBU INHALATION SCH ×2 (08:33→20:31)
[2019-01-24 08:53] LABS: RBC Fragments Present
[2019-01-24] MEDS ORDERED: ATORVASTATIN 20 MG TAB PO SCH (09:00)
[2019-01-24] MEDS ORDERED: VITAMIN B COMPLEX PO SCH (09:00)
[2019-01-24] MEDS ORDERED: OSIMERTINIB MESYLATE 80 MG PO SCH (09:00)
[2019-01-24] MEDS ORDERED: FOLIC ACID PO SCH (09:00)
[2019-01-24] MEDS: PIPERACILLIN-TAZOBACTAM 3.375 GM in SODIUM CHLORIDE 0.9% 100 ML IVPB SCH ×2 (09:15→15:02)
[2019-01-24] MEDS: SODIUM CHLORIDE TAB 1 GM TAB PO SCH ×3 (09:15→20:22)
[2019-01-24] MEDS: TAMSULOSIN 0.4 MG CAP.ER.24H PO SCH ×2 (09:16→20:23)
[2019-01-24] MEDS: cycloSPORINE 0.05% OPHTH 0.4 ML DROPERETTE BOTH EYES SCH ×2 (09:16→21:26)
[2019-01-24] MEDS: CALCIUM CARB-VIT D 500MG-200UN 1 EACH TAB PO SCH ×2 (09:16→20:23)
[2019-01-24] MEDS: APIXABAN 2.5 MG TABLET PO SCH ×2 (09:16→20:22)
[2019-01-24] MEDS: METOPROLOL SUCCINATE (ER) 50 MG TAB.ER.24H PO SCH ×2 (09:16→20:23)
--- NOTE | 2019-01-24 09:22 | P.NPCON ---
History of Present Illness - Reason for Consult hyponatremia - Chief Complaint Severe hyponatremia - History of Present Illness This is an 83-year-old male seen in consultation because of severe hyponatremia. Admitted with a sodium of 118. Urine osmolality was 865, urine sodium 58, creatinine is 0.6 BUN is 20.. Uric acid is 2.8. This is suggestive of a syndrome of inappropriate ADH. A recent sodium was 135 dated 12/14/2018. Earlier though his sodium had been 117 on 12/07/2018, and almost similar urinary findings of high osmolality. He was started on IV normal saline, salt tablets and Lasix to try to improve his sodium. A decision to use 3% was held because of the need to be transferred to ICU. With the above regimen his sodium improved to 119. This occurred over 6 hours Patient currently resides at [facility] Patient has had shortness of breath since his admission [facility] 6 days ago, he also mentions that he has had thoracentesis in the recent past. He was seen in emergency with shortness of breath cough. He does admit to decreased appetite weight loss, no fever, no chills no falls, no disorientation, has weakness. ER findings x-ray showing left infiltrate. 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 PET scan done in July 2018 prior to the radiation suggest lesions in the lower sclerae lumbar spine and pelvis and right eighth rib. Past Medical History Past Medical History: Atrial Fibrillation, COPD, Hypertension Additional Past Medical History / Comment(s): malginant neoplasm of prostate, idopathic thrombocytopenic purpura, carcinoma of rt upper lung, dvt of left leg, myelodysplastic syndrome, carcinoma right hip History of Any Multi-Drug Resistant Organisms: None Reported Past Surgical History: Adenoidectomy, Tonsillectomy Additional Past Surgical History / Comment(s): rt upper lung lobe removed, aicd or pacemaker, thoracentesis Type of Cardiac Device: Permanent Pacemaker Device Placement Date:: 2009 Past Psychological History: No Psychological Hx Reported Smoking Status: Former smoker Past Alcohol Use History: None Reported Past Drug Use History: None Reported - Past Family History Mother Family Medical History: Cancer Additional Family Medical History / Comment(s): Mother had breast and colon cancer. Father Family Medical History: Vascular Disorder Additional Family Medical History / Comment(s): Father of a ruptured aneur ysm. Medications and Allergies Home Medications Medication Instructions Recorded Confirmed Type Atorvastatin [Lipitor] 20 mg PO DAILY 11/22/17 01/23/19 History Tamsulosin [Flomax] 0.4 mg PO BID 11/22/17 01/23/19 History Ubidecarenone [Co Q-10] 100 mg PO DAILY 11/22/17 01/23/19 History Umeclidinium Brm/Vilanterol Tr 1 puff INHALATION RT-DAILY 11/22/17 01/23/19 History [Anoro Ellipta 62.5-25 Mcg INH] Vitamin B Complex/Folic Acid 0.4 mg PO DAILY 11/22/17 01/23/19 History [B-Complex Tablet] cycloSPORINE [Restasis] 1 drop BOTH EYES BID 11/22/17 01/23/19 History Apixaban [Eliquis] 2.5 mg PO BID 10/14/18 01/23/19 History Osimertinib Mesylate [Tagrisso] 80 mg PO DAILY 10/14/18 01/23/19 History Albuterol Nebulized [Ventolin 2.5 mg INHALATION RT-BID 12/07/18 01/23/19 History Nebulized] Calcium Carbonate/Vitamin D3 1 tab PO BID 12/07/18 01/23/19 History [Calcium 600-Vit D3 400 Tablet] Glucosamine-Chondr 500-400Mg 1 tab PO DAILY 12/07/18 01/23/19 History Loperamide HCl [Imodium A-D] 2 mg PO BID PRN 12/07/18 01/23/19 History Bisacodyl [Dulcolax] 10 mg RECTAL DAILY PRN 01/23/19 01/23/19 History Magnesium Hydroxide [Milk of 7,200 mg PO DAILY PRN 01/23/19 01/23/19 History Magnesia Concentrate] Metoprolol Succinate (ER) [Toprol 50 mg PO BID 01/23/19 01/23/19 History Xl] Na Phos,M-B/Na Phos,Di-Ba [Fleet 133 ml RECTAL DAILY PRN 01/23/19 01/23/19 History Adult] predniSONE 5 mg PO DAILY 01/23/19 01/23/19 History Allergies Allergy/AdvReac Type Severity Reaction Status Date / Time No Known Allergies Allergy Verified 01/23/19 13:57 Physical Exam Vitals: Vital Signs Temp Pulse Pulse Resp BP BP Pulse Ox 01/24/19 08:45 80 01/24/19 08:33 80 01/24/19 03:51 98.5 F 81 21 128/71 97 01/24/19 03:50 84 20 01/24/19 03:16 80 01/24/19 03:02 80 01/24/19 00:00 98.1 F 84 20 124/75 93 L 01/23/19 23:40 81 01/23/19 23:30 76 01/23/19 20:00 98.4 F 91 20 130/65 94 L 01/23/19 19:36 76 01/23/19 19:20 74 97 01/23/19 16:30 97.6 F 73 18 129/85 97 01/23/19 16:23 80 01/23/19 16:11 88 01/23/19 16:00 73 18 01/23/19 15:30 73 15 108/85 96 01/23/19 15:00 78 19 119/82 94 L 01/23/19 14:30 87 15 116/86 97 01/23/19 14:01 97.9 F 73 16 129/85 100 01/23/19 14:00 76 17 134/78 98 01/23/19 13:30 73 14 126/91 98 01/23/19 13:00 73 18 132/94 96 01/23/19 12:28 97 01/23/19 11:07 97.6 F 79 26 H 130/85 96 Intake and Output 01/23/19 01/24/19 01/24/19 22:59 06:59 14:59 Intake Total 680 320 240 Output Total 200 600 150 Balance 480 -280 90 Intake: Intake, IV Titration 440 320 Amount Levofloxacin 500Mg-D5w 100 Pmx 500 mg In Dextrose/ Water 1 100ml.bag @ 100 mls/hr IVPB Q24H [facility] Rx#: [id number] Piperacillin-Tazobactam 3 100 .375 gm In Sodium Chloride 0.9% 100 ml @ 25 mls/hr IVPB Q8HR [facility] Rx# :[id number] Sodium Chloride 0.9% 1, 240 320 000 ml @ 80 mls/hr IV . [id number] [facility] Rx#:[id number] Oral 240 240 Output: Urine 200 600 150 Other: Voiding Method Toilet Toilet Urinal Urinal Weight 77.3 kg On examination is awake alert oriented comfortable. HEENT exam no JVP neck is supple no facial asymmetry Lungs are significant for autoimmune disease. Air entry is somewhat diminished Heart sounds are unremarkable for any murmur rub gallop Abdomen soft nontender no organomegaly ascites masses Extremity exam was no edema Neurologically awake alert oriented no focal motor deficit no asterixis Results - Lab Results Most recent lab results Calcium 7.9 mg/dL (8.4-10.2) L 01/24/19 05:39 Magnesium 1.7 mg/dL (1.6-2.3) 01/23/19 12:00 01/24/19 05:39 01/24/19 05:39 Assessment and Plan Assessment: Impression 1. 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 Started on IV normal saline at 100 and hour, salt tablets 2 g 3 times a day, Lasix 20 IV every 8 hours. Responding to the current regimen sodium improving to 119/6 hours. 2. Lung cancer status post right lung lobectomy in 2016, chemotherapy with metastasis to the right hip, status post radiation and recurrence with thoracentesis on 10/28/2018 positive for malignancy. 3. History of Gilbert's syndrome 4. History of myelodysplastic syndrome 5. Atrial fibrillation. 6. COPD 7. History of DVT 2009 8. History of prostate cancer. Admission 1. Maintain IV normal saline 100 and hour, salt tablets 2 g 3 times a day, and IV Lasix 20 mg every 8 hours. 2. Monitor lites to 4 until sodium is in the safe level of in 125. 3. Will try to keep the correction to about 8-10/24 hours. Thank you for this consultation and we'll continue to follow.
[2019-01-24 10:30] LABS: African American GFR (CKD) >90 (>60 ml/min/1.73 sqM); Anion Gap 10 mmol/L; Blood Urea Nitrogen 18 mg/dL (9-20); Calcium 7.9 mg/dL (8.4-10.2); Carbon Dioxide 21 mmol/L (22-30); Chloride 87 mmol/L (98-107); Glucose 186 mg/dL (74-99)
[2019-01-24 10:39] LABS: Potassium 4.9 mmol/L (3.5-5.1); Sodium 118 mmol/L (137-145)
[2019-01-24 11:44] VITALS: BMI 23.8
[2019-01-24] MEDS: SODIUM CHLORIDE 0.9% 1,000 ML IV SCH (11:47)
[2019-01-24] MEDS ORDERED: IPRATROPIUM-ALBUTEROL 3 ML NEB INHALATION PRN (11:48)
[2019-01-24] MEDS: IPRATROPIUM-ALBUTEROL 3 ML NEB INHALATION SCH ×2 (11:55→20:31)
[2019-01-24] MEDS ORDERED: TOLVAPTAN 15 MG 1/2 TABLET PO ONE (12:00)
[2019-01-24 12:26] LABS: Glucose,Whole Blood 147 mg/dL (75-99)
--- NOTE | 2019-01-24 12:35 | CONS ---
CONSULTATION PULMONARY/CARE CONSULTATION: DATE OF CONSULTATION: January 24, 2019 HISTORY OF PRESENT ILLNESS: 83-year-old male who brings is brought to the emergency department with complaints of shortness of breath. He states his shortness of breath has progressed over the last couple days prior to admission. The patient is currently receiving I believe immune therapy for his lung cancer. The patient also apparently has a pleural effusion which has been drained in the past. He denies any chest pain or chest pressure. No fever, no chills. His appetite has been poor. He has lost a bit of weight. Denies any nausea, vomiting or diarrhea. His primary doctor is Dr. Stein. He also sees Dr. Stone and I believe he sees my partner, Dr. Hobson. He does have a history of atrial fibrillation for which he is on Eliquis. The patient was sitting on the shower chair in the shower when I evaluated him. He did not appear to be particularly short of breath and he does state that he feels a bit better today than he did yesterday when he came in. HOME MEDICATIONS: Include Lipitor, Lopressor, Flomax, coenzyme Q10, Anoro Ellipta, vitamin B folic acid complex. Restasis eye drops, Tagrisso, albuterol updrafts, calcium with vitamin D3, glucosamine and chondroitin, Imodium and Compazine. ALLERGIES: The patient denies any allergies. PAST MEDICAL HISTORY: His past medical history is positive for COPD, hypertension, atrial fibrillation, prostate cancer, ITP, right upper lobe lung cancer, left leg DVT, and myelodysplastic syndrome. SURGICAL HISTORY: Includes adenoidectomy and tonsillectomy. AICD/pacemaker implantation. Previous thoracentesis for pleural effusion and right upper lobectomy. SOCIAL HISTORY: Positive for previous tobacco use. Does not smoke currently. He denies any alcohol or illicit drug use. FAMILY HISTORY: Positive for mother with colon and breast cancer and a father had a ruptured aneurysm. That is what he from. REVIEW OF SYSTEMS: CONSTITUTIONAL: Decreased appetite and weakness. NEUROLOGIC: Negative. HEENT negative. CARDIOVASCULAR negative. PULMONARY: Shortness of breath. Minimal cough, some chest congestion. GI negative. negative. RHEUMATOLOGIC negative. IMMUNOLOGIC negative. ENDOCRINOLOGIC negative. DERMATOLOGIC: Negative. PHYSICAL EXAMINATION: VITAL SIGNS: Current vital signs are reviewed. They include temperature 98.1, heart rate 80, respiratory rate 18, blood pressure 121/71 and mean of 87, room-air saturation 97%. General: Appears in no acute distress. No audible wheezing. No use of accessory muscles or conversational dyspnea noted. HEENT examination is grossly unremarkable. Mucous membranes are moist. NECK: Supple. Full range of motion. No adenopathy or thyromegaly. No stridor noted. Neck veins are flat. CARDIOVASCULAR examination reveals regular rhythm and rate. Heart rate 80. S1, S2 normal. Heart sounds are distant. No distinct murmur. LUNGS: A few scattered expiratory rhonchi and wheezes. Breath sounds are diminished. Breath sounds equal bilaterally. No crackles. ABDOMEN: Soft. Bowel sounds are heard. EXTREMITIES are intact. No cyanosis, clubbing, or edema. SKIN: Without rash. NEUROLOGIC examination is brief but nonfocal. LABS: Reviewed. White count 13.7, hemoglobin 12.1, hematocrit 37.3, platelet count normal. PT/INR normal. PTT is 30.5. Sodium is up from 116 to 118, potassium 4.9, chloride 87, CO2 21, anion gap is 10, BUN and creatinine were 18 and 0.65, glucose 186. The patient's total bilirubin is 1.7. Calcium 7.9. N terminal proBNP is 6440. Troponin is less than 0.012. Procalcitonin is low at 0.05. Urine looks pretty benign. X-RAY: Most recent chest x-ray was done on the day of admission. It shows a possible left lower lobe infiltrate. There are also changes of COPD. A repeat chest x-ray shows some improvement. The patient does have a right-sided pleural effusion and a left-sided pleural effusion, but the right side looks a bit more. His pacemaker defibrillator is noted. No microbiologic data. Medications are reviewed. ASSESSMENT: 1. Shortness of breath, likely related to underlying chronic obstructive pulmonary disease exacerbation and possible pneumonia left lower lobe. 2. History of recurrent pleural effusion, status post thoracentesis x2. 3. History of right upper lobectomy. 4. Metastatic non-small cell lung cancer, currently on immunotherapy with Tagrisso. 5. History of hyperlipidemia. 6. History of hypertension. 7. History of atrial fibrillation. 8. History of prostate cancer. 10.History of idiopathic thrombocytopenia purpura. 11.Myelodysplastic syndrome. 12.Deep vein thrombosis eft leg. PLAN: The patient's medications are reviewed. We will treat him primarily for COPD exacerbation and possible infection. Chest x-ray does show some infiltrate in the left lower lobe. He does also have some minimal effusions on the left side and a slightly larger effusion on the right side. Additional recommendations and suggestions forthcoming. Clinically, the patient does not look bad. He actually does not appear to be short of breath and his saturations are 97% on room air. We will continue to follow. Prognosis is poor. MMODL / IJN: [id number] / MTDD
[2019-01-24] MEDS ORDERED: FUROSEMIDE 10 MG/ML 4 ML VIAL IV SCH (13:45)
[2019-01-24 13:50] LABS: African American GFR (CKD) >90 (>60 ml/min/1.73 sqM); Anion Gap 14 mmol/L; Blood Urea Nitrogen 20 mg/dL (9-20); Calcium 8.2 mg/dL (8.4-10.2); Carbon Dioxide 20 mmol/L (22-30); Chloride 87 mmol/L (98-107); Glucose 181 mg/dL (74-99); Potassium 4.4 mmol/L (3.5-5.1); Sodium 121 mmol/L (137-145)
[2019-01-24] MEDS ORDERED: FUROSEMIDE 10 MG/ML 4 ML VIAL IV STA (14:20)
[2019-01-24] MEDS: OSIMERTINIB MESYLATE 80 MG PO SCH (14:28)
--- NOTE | 2019-01-24 14:51 | XR ---
EXAMINATION TYPE: XR chest 2V DATE OF EXAM: 01/24/2019 COMPARISON: 01/24/2019 HISTORY: Short of breath TECHNIQUE: Frontal and lateral views of the chest are obtained. FINDINGS: There is blunting right costophrenic angle. There is no heart failure. There is left axill silvina pacemaker. Thoracic aorta is atheromatous. There is slight blunting also left costophrenic angle. There are no hilar masses. There is mild thoracic kyphosis with anterior wedging of mid thoracic vasquez tebra. There is old left scapular fracture noted. IMPRESSION: Bilateral pleural effusions. No heart failure. No change compared to exam this morning.
[2019-01-24] MEDS: FOLIC ACID 1 MG TAB PO SCH (15:01)
[2019-01-24] MEDS: THIAMINE 100 MG TAB PO SCH (15:01)
[2019-01-24] MEDS: guaiFENesin 600 MG TABLET.ER PO SCH ×2 (15:01→21:26)
--- NOTE | 2019-01-24 15:19 | CT ---
EXAMINATION TYPE: CT angio chest DATE OF EXAM: 01/24/2019 3:01 PM COMPARISON: None HISTORY: Shortness of breath CT DLP: 442.7 mGycm Automated exposure control for dose reduction was used. CONTRAST: CTA scan of the thorax is performed with IV Contrast, patient injected with 100 mL of Isovue 300, pul monary embolism protocol. There are 3-D post processed images.. FINDINGS: There are bilateral pleural effusions and larger on the right side. Heart appears slightly enlarged. Thoracic aorta is atheromatous. There is no aneurysm or dissection. There is coronary artery calcific ation. There is normal contrast opacification of the pulmonary arteries. I see no filling defects. There is no mediastinal adenopathy. There are no hilar masses. There are numerous calcified splenic and hepatic granulomata. There are osteoblastic changes in multiple areas of the thoracic spine. There is blastic change in th e sternum. There is 30% anterior wedging of T6. There is 25% wedging of T5 and L1. There are blastic changes in bilateral ribs. There is significant sclerosis and fracture noted of the body of the left scapula. There is healing fracture left posterior fourth rib. IMPRESSION: MODERATE BILATERAL PLEURAL EFFUSIONS WITH BASILAR PULMONARY ATELECTASIS. THIS COULD RELATE TO MILD CH RONIC HEART FAILURE PLEURAL FLUID NOT SIGNIFICANTLY DIFFERENT THAN OLD CT SCAN OF 12/07/2018. NO EVIDENCE OF PULMONARY EMBOLISM. ATHEROSCLEROTIC VASCULAR DISEASE. . Osteoblastic changes in the bony thorax consistent with metastatic disease.
--- NOTE | 2019-01-24 15:43 | P.PN ---
Subjective Progress Note Date: 01/24/19 This is a pleasant 83 years old male patient of Dr. Stone, Dr. 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 PET scan done in July 2018 prior to the radiation suggest lesions in the lower sclerae lumbar spine and pelvis and right eighth rib. Patient currently resides at [facility] under care of Dr. Stein under respite care as his 's mother past away and is in [place], and no one can be with him at home to assist with his medical care. Patient has had shortness of breath since his admission [facility] 6 days ago, he also mentions that he has had thoracentesis twice now usefully every 3 months, and was seen in emergency room secondary to increasing shortness of breath, productive cough of yellow sputum, hypoxemia, and respiratory distress conversational dyspnea Audible wheezing, decreased appetite weight loss no fever, no chills no falls, no disorientation, has weakness. ER findings x-ray showing left infiltrate sodium of 118 from a previous of 135 WBC count of 13.2 from a previous of 29, knowing urinalysis done lactic acid 0.9 creatinine of 0.6 he is currently being treated for COPD exacerbation and pneumonia, left side with 15% pleural effusion right side while in the hospital, with consults made to Dr. Mix and Dr. Patino oncology, patient is full code and is on oral chemotherapy agent to [facility] . Patient denies any O2 requirements prior to admission, and is on nebulizer unit 3 times a day without any help 01/24: Patient was seen for evaluation today, he has labored breathing today, with accessory muscle use, albuterol wheezing, and conversational dyspnea. We are giving him 1 time dose of Lasix 40 mg, caution as the patient has hyponatremia, fluid excess is noted today with edema, chest x-ray requested today, patient's IV steroid Solu-Medrol and Pulmicort Brovana albuterol. Sodium levels of 118 and 121 today albumin low at 3.3 computed tomography scan of the chest shows moderate bilateral pleural effusion with basilar pulmonary atelectasis pleural fluid did not significantly unchanged from previous CAT scan of 12/07/2018, no pulmonary emboli, there is also blastic changes multiple areas of thoracic spine and sternum Objective - Vital Signs Vital signs: Vital Signs Temp 97.9 F 01/24/19 12:00 Pulse 86 01/24/19 12:00 Resp 22 01/24/19 12:00 BP 113/74 01/24/19 12:00 Pulse Ox 94 L 01/24/19 12:00 Intake & Output 01/23/19 01/24/19 01/24/19 18:59 06:59 18:59 Intake Total 440 760 600 Output Total 200 800 150 Balance 240 -40 450 Weight 77.111 kg 77.3 kg 77.3 kg Intake: Intake, IV Titration 200 760 Amount Levofloxacin 500Mg-D5w 100 100 Pmx 500 mg In Dextrose/ Water 1 100ml.bag @ 100 mls/hr IVPB Q24H [facility] Rx#: [id number] Piperacillin-Tazobactam 3 100 .375 gm In Sodium Chloride 0.9% 100 ml @ 25 mls/hr IVPB Q8HR [facility] Rx# :[id number] Sodium Chloride 0.9% 1, 560 000 ml @ 80 mls/hr IV . [id number] [facility] Rx#:[id number] cefTRIAXone 1 gm In 100 Sodium Chloride 0.9% 50 ml @ 100 mls/hr IVPB ONCE [facility] Rx#:[id number] Oral 240 0 600 Output: Urine 200 800 150 Other: Voiding Method Toilet Toilet Toilet Urinal Urinal Urinal # Voids 2 4 # Bowel Movements 1 - Constitutional General appearance: Present: average body habitus, cooperative, mild distress - EENT Eyes: Present: anicteric sclerae, EOMI, PERRLA, dentition normal, normal appearance ENT: Present: NA/AT, normal oropharynx - Neck Neck: Present: normal ROM - Respiratory Respiratory: bilateral: diminished, rhonchi, wheezing, negative: CTA, dullness, rales, prolonged expiration - Cardiovascular Rhythm: regular Heart sounds: normal: S1 Abnormal Heart Sounds: Absent: systolic murmur, diastolic murmur, rub, S3 Gallop, S4 Gallop, click, other - Gastrointestinal General gastrointestinal: Present: normal bowel sounds, soft - Integumentary Integumentary: Present: decreased turgor, normal - Musculoskeletal Musculoskeletal: Present: gait normal - Psychiatric Psychiatric: Present: A&O x's 3, appropriate affect, intact judgment & insight - Labs CBC & Chem 7: 01/24/19 05:39 01/24/19 13:27 Labs: Abnormal Lab Results - Last 24 Hours (Table) 01/23/19 01/23/19 01/23/19 Range/Units 12:00 17:01 19:36 WBC (3.8-10.6) k/uL Hgb (13.0-17.5) gm/dL Hct (39.0-53.0) % RDW (11.5-15.5) % Neutrophils # (1.3-7.7) k/uL Lymphocytes # (1.0-4.8) k/uL Sodium (137-145) mmol/L Chloride (98-107) mmol/L Carbon Dioxide (22-30) mmol/L Creatinine (0.66-1.25) mg/dL Glucose (74-99) mg/dL POC Glucose (mg/dL) 117 H (75-99) mg/dL Osmolality 243 L* (280-301) mosm/kg Uric Acid (3.5-8.5) mg/dL Calcium (8.4-10.2) mg/dL Total Bilirubin (0.2-1.3) mg/dL Total Protein (6.3-8.2) g/dL Albumin (3.5-5.0) g/dL Urine Protein 1+ H (Negative) Urine Glucose (UA) 3+ H (Negative) Urine Ketones 3+ H (Negative) Urine Mucus Rare H (None) /hpf 01/23/19 01/23/19 01/24/19 Range/Units 19:44 20:44 00:58 WBC (3.8-10.6) k/uL Hgb (13.0-17.5) gm/dL Hct (39.0-53.0) % RDW (11.5-15.5) % Neutrophils # (1.3-7.7) k/uL Lymphocytes # (1.0-4.8) k/uL Sodium 116 L* 117 L* (137-145) mmol/L Chloride 83 L 88 L (98-107) mmol/L Carbon Dioxide 21 L (22-30) mmol/L Creatinine 0.62 L 0.57 L (0.66-1.25) mg/dL Glucose 189 H 157 H (74-99) mg/dL POC Glucose (mg/dL) 180 H (75-99) mg/dL Osmolality 249 L* 248 L* (280-301) mosm/kg Uric Acid 2.8 L (3.5-8.5) mg/dL Calcium 7.8 L 7.9 L (8.4-10.2) mg/dL Total Bilirubin (0.2-1.3) mg/dL Total Protein (6.3-8.2) g/dL Albumin (3.5-5.0) g/dL Urine Protein (Negative) Urine Glucose (UA) (Negative) Urine Ketones (Negative) Urine Mucus (None) /hpf 01/24/19 01/24/19 01/24/19 Range/Units 05:39 05:39 06:25 WBC 13.7 H (3.8-10.6) k/uL Hgb 12.1 L (13.0-17.5) gm/dL Hct 37.3 L (39.0-53.0) % RDW 19.6 H (11.5-15.5) % Neutrophils # 13.2 H (1.3-7.7) k/uL Lymphocytes # 0.3 L (1.0-4.8) k/uL Sodium 119 L* (137-145) mmol/L Chloride 88 L (98-107) mmol/L Carbon Dioxide 21 L (22-30) mmol/L Creatinine 0.60 L (0.66-1.25) mg/dL Glucose 145 H (74-99) mg/dL POC Glucose (mg/dL) 161 H (75-99) mg/dL Osmolality (280-301) mosm/kg Uric Acid (3.5-8.5) mg/dL Calcium 7.9 L (8.4-10.2) mg/dL Total Bilirubin 1.7 H (0.2-1.3) mg/dL Total Protein 5.1 L (6.3-8.2) g/dL Albumin 3.3 L (3.5-5.0) g/dL Urine Protein (Negative) Urine Glucose (UA) (Negative) Urine Ketones (Negative) Urine Mucus (None) /hpf 01/24/19 01/24/19 01/24/19 Range/Units 09:43 12:20 13:27 WBC (3.8-10.6) k/uL Hgb (13.0-17.5) gm/dL Hct (39.0-53.0) % RDW (11.5-15.5) % Neutrophils # (1.3-7.7) k/uL Lymphocytes # (1.0-4.8) k/uL Sodium 118 L* 121 L (137-145) mmol/L Chloride 87 L 87 L (98-107) mmol/L Carbon Dioxide 21 L 20 L (22-30) mmol/L Creatinine 0.65 L (0.66-1.25) mg/dL Glucose 186 H 181 H (74-99) mg/dL POC Glucose (mg/dL) 147 H (75-99) mg/dL Osmolality (280-301) mosm/kg Uric Acid (3.5-8.5) mg/dL Calcium 7.9 L 8.2 L (8.4-10.2) mg/dL Total Bilirubin (0.2-1.3) mg/dL Total Protein (6.3-8.2) g/dL Albumin (3.5-5.0) g/dL Urine Protein (Negative) Urine Glucose (UA) (Negative) Urine Ketones (Negative) Urine Mucus (None) /hpf Microbiology - Last 24 Hours (Table) 01/23/19 12:00 Blood Culture - Preliminary Blood No Growth after 24 hours Assessment and Plan Plan: 1 COPD exacerbation, with dyspnea and bronchospasm, new left lower lobe pneumonia and moderate bilateral pleural effusion, acute on chronic respiratory failure no hypoxemia noted while resting, patient would be given IV steroid Solu-Medrol, nebulized albuterol Atrovent, sputum cultures, O2 supplementation, consult pulmonary Dr. Mix, nebulized budesonide 1 mg twice a day, continue Brovana, Lasix when necessary. IV fluids decreased currently secondary to fluid overload, 20 mL an hour 2. Left pneumonia, currently residing on skilled ECF, facility acquired pneumonia cannot be ruled out, sputum cultures, IV Zosyn and Levaquin protocol 16 and procalcitnonin level is normal at 0.05 2. 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 Graves, serum osmolality urine osmolality urine sodium to be obtained IV fluids at 80 mL an hour patient might need salt tablets and fluid restriction once fluid status has been stabilized. Tolvaptan givne 15 mxg x 1 on 12/24, discussed with Dr. Horowitz, nephrology following closely 4 status post right lobectomy and chemotherapy in 2015 with metastasis to the right hip status postradiation in July 2018 . Recent thoracentesis suggestive of recurrence of the lung cancer pathology positive for EGFR on Tagrisso 5 recurrent pleural effusions status post thoracentesis 3 months ago chest x- ray small bilateral pleural effusion 4. Significant hyponatremia secondary to SIADH, urine osmolality and serum osmolality A, consult with Dr. Graves IV fluids at 20 mL an hour 5 myelodysplasia stable 6 Gilbert's syndrome stable 7. Paroxysmal atrial fibrillation with history of recurrent syncope status post pacemaker. Continue metoprolol 50 mg twice a day. Continue eliquis 8 history of DVT left leg 2009 without the occurrence as the patient is on eliquis and is compliant no Dopplers required today 9 hypertension blood pressure controlled on metoprolol 10 idiopathic thrombocytopenia platelets stable 11 hyperlipidemia Lipitor 20 mg by mouth daily 12 atrial fibrillation continue metoprolol 50 mg twice a day 13 BPH continue tamsulosin 14 CODE STATUS full code Return to [facility] for respite care until would come back from [place]
[2019-01-24 17:17] LABS: Glucose,Whole Blood 127 mg/dL (75-99)
[2019-01-24 17:53] LABS: African American GFR (CKD) >90 (>60 ml/min/1.73 sqM); Anion Gap 14 mmol/L; Blood Urea Nitrogen 22 mg/dL (9-20); Calcium 8.7 mg/dL (8.4-10.2); Carbon Dioxide 23 mmol/L (22-30); Chloride 88 mmol/L (98-107); Glucose 126 mg/dL (74-99); Potassium 4.3 mmol/L (3.5-5.1); Sodium 125 mmol/L (137-145)
[2019-01-24] MEDS: LEVOFLOXACIN 500MG-D5W PMX 500 MG in DEXTROSE/WATER 1 100ML.BAG IVPB SCH ×2 (19:16→20:25)
[2019-01-24] MEDS ORDERED: DEXTROSE 5% IN WATER 1,000 ML IV ONE (19:42)
[2019-01-24 20:07] LABS: Glucose,Whole Blood 180 mg/dL (75-99)
[2019-01-24] MEDS: DIPHENOX-ATROP 2.5-0.025 MG 1 EACH TAB PO PRN (20:22)
[2019-01-24] MEDS: ATORVASTATIN 20 MG TAB PO SCH (20:23)
[2019-01-24] MEDS: FORMOTEROL FUMARATE 20 MCG/2 ML NEBU INHALATION SCH (20:31)
--- NOTE | 2019-01-24 23:50 | P.CONS ---
History of Present Illness - Reason for Consult Consult date: 01/24/19 SOB, metastatic lung ca on treatment - History of Present Illness The patient is an 83-year-old white male with multiple medical problems. He is followed by Dr. Stone, in the outpatient setting. He has a long-standing history of ITP for which he was initially seen, and which was managed for several years with steroids and IVIG intermittently. he then developed other issues subsequently, as detailed below 09/01/15 : Just back from [place], he was diagnosed with Lung cancer, Adenocarcinoma subtype > Had Laporoscopic right upper Lobectomy on 06/06/15 revealing 2 cm (T1b) with Mets to [address] (T1) without distant mets for overall stage of IIA. Was started on adjuvant Chemotherapy with Carboplatinum+Alimta, 3 of 4 cycles completed in [place], 4th and last cycle given on 09/15/15. He tolerated chemotherapy well, with Grade IV thrombocytopenia, dose of Carboplatinum was reduced for cycle#3. . 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 02/19/17: Started on XRT of Prostate (Dr Bernie Morales). 04/01/17: Completed XRT to Prostate Ca, Received Rituxan for ITP, wkly x 4 , in late 2017. 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 He was given palliative XRT to Pelvis and started on Osimertinib > C/O nausea > better after Osimertinib held. 09/16/18: Feels a bit better, less SOB, Osimertinib restarted, tolerating Tagrisso well. 10/13/18: C/O increasing SOB, feels stronger, gained weight, has minimal skeletal pain. 11/12/18: Feels Ok, had Thoracentesis: 800 ml removed, no cytology studies. Tolerating Osimertinib well. On prednisone 5mg Po daily (ITP). the patient also has a long-standing history of anticoagulation for atrial fibrillation and hypercoagulable state. Was on warfarin for several years, but was changed to eliquis in early 2018, due to difficulty in regulating INR. The patient's hematology and oncology history is as summarized above The patient was admitted in the after an accidental fall with trauma to the chest wall. Internal bleeding was ruled out. His admission was subsequently prolonged due to COPD exacerbation. He was able to recover and was discharged to [facility]. He continued on Osimertinib. The patient was readmitted this time as he had been getting progressively short of breath over the past week or so. Also noted a cough, mostly dry. No hemoptysis had occurred. He was therefore admitted for further management. Imaging studies so far indicate possible pneumonia. The patient will also significantly hyponatremic. He was therefore admitted for further management and consult placed Review of Systems Constitutional: Reports weakness Eyes: denies blurred vision, denies pain Ears: deny: decreased hearing, ear discharge, earache, tinnitus Ears, nose, mouth and throat: Denies headache, Denies sore throat Cardiovascular: Reports irregular heart beat, Reports shortness of breath Respiratory: Reports cough, Reports dyspnea Gastrointestinal: Denies abdominal pain, Denies diarrhea, Denies nausea, Denies vomiting Genitourinary: Reports urinary frequency, Reports urinary hesitancy Musculoskeletal: Reports muscle weakness Integumentary: Reports color changes Neurological: Reports weakness, Denies numbness Psychiatric: Denies anxiety, Denies depression Endocrine: Reports fatigue Hematologic/Lymphatic: Reports as per HPI, Reports easy bruising Past Medical History Past Medical History: Atrial Fibrillation, COPD, Hypertension Additional Past Medical History / Comment(s): malginant neoplasm of prostate, idopathic thrombocytopenic purpura, carcinoma of rt upper lung, dvt of left leg, myelodysplastic syndrome, carcinoma right hip History of Any Multi-Drug Resistant Organisms: None Reported Past Surgical History: Adenoidectomy, Tonsillectomy Additional Past Surgical History / Comment(s): rt upper lung lobe removed, aicd or pacemaker, thoracentesis Type of Cardiac Device: Permanent Pacemaker Device Placement Date:: 2009 Past Psychological History: No Psychological Hx Reported Smoking Status: Former smoker Past Alcohol Use History: None Reported Past Drug Use History: None Reported - Past Family History Mother Family Medical History: Cancer Additional Family Medical History / Comment(s): Mother had breast and colon cancer. Father Family Medical History: Vascular Disorder Additional Family Medical History / Comment(s): Father of a ruptured aneurysm. Medications and Allergies Home Medications Medication Instructions Recorded Confirmed Type Atorvastatin [Lipitor] 20 mg PO DAILY 11/22/17 01/23/19 History Tamsulosin [Flomax] 0.4 mg PO BID 11/22/17 01/23/19 History Ubidecarenone [Co Q-10] 100 mg PO DAILY 11/22/17 01/23/19 History Umeclidinium Brm/Vilanterol Tr 1 puff INHALATION RT-DAILY 11/22/17 01/23/19 History [Anoro Ellipta 62.5-25 Mcg INH] Vitamin B Complex/Folic Acid 0.4 mg PO DAILY 11/22/17 01/23/19 History [B-Complex Tablet] cycloSPORINE [Restasis] 1 drop BOTH EYES BID 11/22/17 01/23/19 History Apixaban [Eliquis] 2.5 mg PO BID 10/14/18 01/23/19 History Osimertinib Mesylate [Tagrisso] 80 mg PO DAILY 10/14/18 01/23/19 History Albuterol Nebulized [Ventolin 2.5 mg INHALATION RT-BID 12/07/18 01/23/19 History Nebulized] Calcium Carbonate/Vitamin D3 1 tab PO BID 12/07/18 01/23/19 History [Calcium 600-Vit D3 400 Tablet] Glucosamine-Chondr 500-400Mg 1 tab PO DAILY 12/07/18 01/23/19 History Loperamide HCl [Imodium A-D] 2 mg PO BID PRN 12/07/18 01/23/19 History Bisacodyl [Dulcolax] 10 mg RECTAL DAILY PRN 01/23/19 01/23/19 History Magnesium Hydroxide [Milk of 7,200 mg PO DAILY PRN 01/23/19 01/23/19 History Magnesia Concentrate] Metoprolol Succinate (ER) [Toprol 50 mg PO BID 01/23/19 01/23/19 History Xl] Na Phos,M-B/Na Phos,Di-Ba [Fleet 133 ml RECTAL DAILY PRN 01/23/19 01/23/19 History Adult] predniSONE 5 mg PO DAILY 01/23/19 01/23/19 History Allergies Allergy/AdvReac Type Severity Reaction Status Date / Time No Known Allergies Allergy Verified 01/23/19 13:57 Physical Exam Vitals: Vital Signs Temp Pulse Pulse Resp BP Pulse Ox 01/24/19 20:57 84 01/24/19 20:46 84 01/24/19 20:45 84 01/24/19 20:31 80 97 01/24/19 20:00 98.2 F 79 20 136/76 97 01/24/19 16:00 97.8 F 91 18 141/93 99 01/24/19 12:00 97.9 F 70 20 113/74 94 L 01/24/19 11:54 80 01/24/19 11:42 80 01/24/19 08:45 80 01/24/19 08:33 80 01/24/19 08:00 98.1 F 86 18 121/71 97 01/24/19 03:51 98.5 F 81 21 128/71 97 01/24/19 03:50 84 20 01/24/19 03:16 80 01/24/19 03:02 80 01/24/19 00:00 98.1 F 84 20 124/75 93 L 01/23/19 23:40 81 Intake and Output 01/24/19 01/24/19 01/25/19 14:59 22:59 06:59 Intake Total 837 837 Output Total 150 1575 200 Balance 687 -738 -200 Intake: Intake, IV Titration 360 Amount Piperacillin-Tazobactam 3 100 .375 gm In Sodium Chloride 0.9% 100 ml @ 25 mls/hr IVPB Q8HR [facility] Rx# :[id number] Sodium Chloride 0.9% 1, 100 000 ml @ 100 mls/hr IV . Q10H [facility] Rx#:[id number] Sodium Chloride 0.9% 1, 160 000 ml @ 20 mls/hr IV . Q24H [facility] Rx#:[id number] Oral 837 477 Output: Urine 150 1575 200 Other: Voiding Method Toilet Urinal Urinal # Voids 4 2 1 # Bowel Movements 1 Weight 77.3 kg - Constitutional General appearance: no acute distress - EENT Eyes: EOMI, PERRLA ENT: hearing grossly normal, normal oropharynx - Neck Neck: no lymphadenopathy Thyroid: bilateral: normal size - Respiratory Respiratory: bilateral: wheezing, prolonged expiration - Cardiovascular Rhythm: regular Heart sounds: normal: S1, S2 - Gastrointestinal General gastrointestinal: normal bowel sounds, soft - Integumentary Integumentary: normal - Neurologic Neurologic: CNII-XII intact - Musculoskeletal Musculoskeletal: generalized weakness, strength equal bilaterally - Psychiatric Psychiatric: A&O x's 3, appropriate affect Results CBC & Chem 7: 01/24/19 05:39 01/24/19 17:15 Labs: Abnormal Lab Results - Last 24 Hours (Table) 01/24/19 01/24/19 01/24/19 Range/Units 00:58 05:39 05:39 WBC 13.7 H (3.8-10.6) k/uL Hgb 12.1 L (13.0-17.5) gm/dL Hct 37.3 L (39.0-53.0) % RDW 19.6 H (11.5-15.5) % Neutrophils # 13.2 H (1.3-7.7) k/uL Lymphocytes # 0.3 L (1.0-4.8) k/uL Sodium 117 L* 119 L* (137-145) mmol/L Chloride 88 L 88 L (98-107) mmol/L Carbon Dioxide 21 L 21 L (22-30) mmol/L BUN (9-20) mg/dL Creatinine 0.57 L 0.60 L (0.66-1.25) mg/dL Glucose 157 H 145 H (74-99) mg/dL POC Glucose (mg/dL) (75-99) mg/dL Osmolality 248 L* (280-301) mosm/kg Calcium 7.9 L 7.9 L (8.4-10.2) mg/dL Total Bilirubin 1.7 H (0.2-1.3) mg/dL Total Protein 5.1 L (6.3-8.2) g/dL Albumin 3.3 L (3.5-5.0) g/dL 01/24/19 01/24/19 01/24/19 Range/Units 06:25 09:43 12:20 WBC (3.8-10.6) k/uL Hgb (13.0-17.5) gm/dL Hct (39.0-53.0) % RDW (11.5-15.5) % Neutrophils # (1.3-7.7) k/uL Lymphocytes # (1.0-4.8) k/uL Sodium 118 L* (137-145) mmol/L Chloride 87 L (98-107) mmol/L Carbon Dioxide 21 L (22-30) mmol/L BUN (9-20) mg/dL Creatinine 0.65 L (0.66-1.25) mg/dL Glucose 186 H (74-99) mg/dL POC Glucose (mg/dL) 161 H 147 H (75-99) mg/dL Osmolality (280-301) mosm/kg Calcium 7.9 L (8.4-10.2) mg/dL Total Bilirubin (0.2-1.3) mg/dL Total Protein (6.3-8.2) g/dL Albumin (3.5-5.0) g/dL 01/24/19 01/24/19 01/24/19 Range/Units 13:27 17:15 17:15 WBC (3.8-10.6) k/uL Hgb (13.0-17.5) gm/dL Hct (39.0-53.0) % RDW (11.5-15.5) % Neutrophils # (1.3-7.7) k/uL Lymphocytes # (1.0-4.8) k/uL Sodium 121 L 125 L (137-145) mmol/L Chloride 87 L 88 L (98-107) mmol/L Carbon Dioxide 20 L (22-30) mmol/L BUN 22 H (9-20) mg/dL Creatinine (0.66-1.25) mg/dL Glucose 181 H 126 H (74-99) mg/dL POC Glucose (mg/dL) 127 H (75-99) mg/dL Osmolality (280-301) mosm/kg Calcium 8.2 L (8.4-10.2) mg/dL Total Bilirubin (0.2-1.3) mg/dL Total Protein (6.3-8.2) g/dL Albumin (3.5-5.0) g/dL 01/24/19 Range/Units 20:05 WBC (3.8-10.6) k/uL Hgb (13.0-17.5) gm/dL Hct (39.0-53.0) % RDW (11.5-15.5) % Neutrophils # (1.3-7.7) k/uL Lymphocytes # (1.0-4.8) k/uL Sodium (137-145) mmol/L Chloride (98-107) mmol/L Carbon Dioxide (22-30) mmol/L BUN (9-20) mg/dL Creatinine (0.66-1.25) mg/dL Glucose (74-99) mg/dL POC Glucose (mg/dL) 180 H (75-99) mg/dL Osmolality (280-301) mosm/kg Calcium (8.4-10.2) mg/dL Total Bilirubin (0.2-1.3) mg/dL Total Protein (6.3-8.2) g/dL Albumin (3.5-5.0) g/dL Microbiology - Last 24 Hours (Table) 01/23/19 12:00 Blood Culture - Preliminary Blood No Growth after 24 hours Chest x-ray: report reviewed Assessment and Plan (1) Acute exacerbation of chronic obstructive airways disease Narrative/Plan: The patient had similar complaints during his last visit. He appears to have had a recurrence, possibly due to underlying pneumonia. The patient is improved currently. Defer to the admitting service for management. CT will be performed to rule out PE as possible cause. This will also help to rule out progression of disease. Current Visit: Yes Status: Acute Code(s): J44.1 - CHRONIC OBSTRUCTIVE PULMONARY DISEASE W (ACUTE) EXACERBATION SNOMED Code(s): 960508114 (2) Pneumonia Narrative/Plan: Chest x-ray showed bilateral effusions with official report not mentioning a definite infiltrate. Therefore the diagnosis appears to be clinically. Patient is on antibiotics. 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 While this can occur with COPD exacerbation/pneumonia, Given his history of malignancy, progression of malignancy has to be ruled out. CT of the chest is being ordered as noted above. Sodium is improved Current Visit: Yes Status: Acute Priority: Medium Code(s): E87.1 - HYPO- OSMOLALITY AND HYPONATREMIA SNOMED Code(s): 35378883 (4) Metastatic lung cancer (metastasis from lung to other site) Narrative/Plan: Most recent imaging in early 12/21 did not show any progression. Chest imaging is being repeated as noted above, especially in light of hyponatremia. The patient has continued on his current regimen in the ECF. If chest imaging is negative for progression, continue the same. Current Visit: No Status: Chronic Priority: Medium Code(s): C34.90 - MALIGNANT NEOPLASM OF UNSP PART OF UNSP BRONCHUS OR LUNG SNOMED Code(s): 12926047
[2019-01-25] MEDS: methylPREDNISolone SOD SUCCI 125 MG/2 ML VIAL IV SCH ×5 (00:10→23:32)
[2019-01-25] MEDS: PIPERACILLIN-TAZOBACTAM 3.375 GM in SODIUM CHLORIDE 0.9% 100 ML IVPB SCH ×2 (00:11→09:58)
[2019-01-25 00:51] LABS: African American GFR (CKD) >90 (>60 ml/min/1.73 sqM); Anion Gap 10 mmol/L; Blood Urea Nitrogen 24 mg/dL (9-20); Calcium 8.7 mg/dL (8.4-10.2); Carbon Dioxide 23 mmol/L (22-30); Chloride 94 mmol/L (98-107); Glucose 128 mg/dL (74-99); Potassium 4.3 mmol/L (3.5-5.1); Sodium 127 mmol/L (137-145)
[2019-01-25 06:15] LABS: Glucose,Whole Blood 166 mg/dL (75-99)
[2019-01-25] MEDS: INSULIN ASPART (NovoLOG) 100 UNIT/ML VIAL SQ SCH ×4 (06:31→21:02)
[2019-01-25 07:12] LABS: Anisocytosis Slight; Basophils # (A) 0.2 k/uL (0-0.2); Basophils % (A) 1 %; Eosinophils # (A) 0.1 k/uL (0-0.7); Eosinophils % (A) 0 %; HCT 36.2 % (39.0-53.0); HGB 12.4 gm/dL (13.0-17.5); Hypochromasia Slight; Lymphocytes # (A) 0.2 k/uL (1.0-4.8); Lymphocytes % (A) 1 %; MCH 28.7 pg (25.0-35.0); MCHC 34.3 g/dL (31.0-37.0); MCV 83.8 fL (80.0-100.0); Mean Platelet Volume 8.7; Monocytes # (A) 0.7 k/uL (0-1.0); Monocytes % (A) 2 %; Neutrophils # (A) 32.2 k/uL (1.3-7.7); Neutrophils % (A) 96 %; Platelet Count 250 k/uL (150-450); RBC 4.32 m/uL (4.30-5.90); RDW 18.7 % (11.5-15.5); WBC 33.5 k/uL (3.8-10.6)
[2019-01-25 07:35] LABS: ALT 33 U/L (21-72); AST 27 U/L (17-59); African American GFR (CKD) >90 (>60 ml/min/1.73 sqM); Albumin 3.6 g/dL (3.5-5.0); Alkaline Phosphatase 71 U/L (38-126); Anion Gap 11 mmol/L; Blood Urea Nitrogen 24 mg/dL (9-20); Calcium 8.5 mg/dL (8.4-10.2); Carbon Dioxide 22 mmol/L (22-30); Chloride 96 mmol/L (98-107); Glucose 149 mg/dL (74-99); Potassium 4.4 mmol/L (3.5-5.1); Sodium 129 mmol/L (137-145); Total Bilirubin 1.2 mg/dL (0.2-1.3); Total Protein 5.5 g/dL (6.3-8.2)
[2019-01-25] MEDS: IPRATROPIUM-ALBUTEROL 3 ML NEB INHALATION SCH ×3 (09:01→19:07)
[2019-01-25] MEDS: BUDESONIDE 1 MG/2 ML NEBU INHALATION SCH ×2 (09:01→19:07)
[2019-01-25] MEDS: FORMOTEROL FUMARATE 20 MCG/2 ML NEBU INHALATION SCH ×2 (09:01→19:06)
[2019-01-25] MEDS: guaiFENesin 600 MG TABLET.ER PO SCH ×2 (09:57→20:24)
[2019-01-25] MEDS: TAMSULOSIN 0.4 MG CAP.ER.24H PO SCH ×2 (09:57→20:24)
[2019-01-25] MEDS: METOPROLOL SUCCINATE (ER) 50 MG TAB.ER.24H PO SCH ×2 (09:57→20:24)
[2019-01-25] MEDS: cycloSPORINE 0.05% OPHTH 0.4 ML DROPERETTE BOTH EYES SCH ×2 (09:57→20:24)
[2019-01-25] MEDS: CALCIUM CARB-VIT D 500MG-200UN 1 EACH TAB PO SCH ×2 (09:57→20:24)
[2019-01-25] MEDS: APIXABAN 2.5 MG TABLET PO SCH (09:57)
[2019-01-25] MEDS: THIAMINE 100 MG TAB PO SCH (09:57)
[2019-01-25] MEDS: SODIUM CHLORIDE TAB 1 GM TAB PO SCH ×2 (09:57→17:44)
[2019-01-25] MEDS: FOLIC ACID 1 MG TAB PO SCH (09:57)
[2019-01-25 10:59] LABS: Crenated RBC Present; Poikilocytosis (M) Present; RBC Fragments Present
[2019-01-25 12:27] LABS: Glucose,Whole Blood 159 mg/dL (75-99)
[2019-01-25] MEDS: DIPHENOX-ATROP 2.5-0.025 MG 1 EACH TAB PO PRN ×2 (12:45→20:24)
[2019-01-25] MEDS: OSIMERTINIB MESYLATE 80 MG PO SCH (12:48)
[2019-01-25] MEDS: SODIUM CHLORIDE 0.9% 1,000 ML IV SCH (12:59)
--- NOTE | 2019-01-25 14:22 | P.PN ---
Subjective Progress Note Date: 01/25/19 Principal diagnosis: COPD exacerbation NO clear evidence of progression seen of CTA, although with the persistent Hyponatremia, cardiology eval and MRI brain is resonable. Objective - Vital Signs Vital signs: Vital Signs Temp 97 F L 01/25/19 08:45 Pulse 71 01/25/19 12:30 Resp 18 01/25/19 12:30 BP 135/76 01/25/19 12:30 Pulse Ox 100 01/25/19 12:30 Intake & Output 01/24/19 01/25/19 01/25/19 18:59 06:59 18:59 Intake Total 1314 360 240 Output Total 150 1775 Balance 1164 -1415 240 Weight 77.3 kg 78 kg Intake: Intake, IV Titration 360 Amount Piperacillin-Tazobactam 3 100 .375 gm In Sodium Chloride 0.9% 100 ml @ 25 mls/hr IVPB Q8HR [facility] Rx# :[id number] Sodium Chloride 0.9% 1, 100 000 ml @ 100 mls/hr IV . Q10H [facility] Rx#:[id number] Sodium Chloride 0.9% 1, 160 000 ml @ 20 mls/hr IV . Q24H [facility] Rx#:[id number] Oral 1314 240 Output: Urine 150 1775 Other: Voiding Method Toilet Urinal Urinal # Voids 4 1 # Bowel Movements 1 1 - Exam - Constitutional General appearance: no acute distress - EENT Eyes: EOMI, PERRLA ENT: hearing grossly normal, normal oropharynx - Neck Neck: no lymphadenopathy Thyroid: bilateral: normal size - Respiratory Respiratory: bilateral: wheezing, prolonged expiration - Cardiovascular Rhythm: regular Heart sounds: normal: S1, S2 - Gastrointestinal General gastrointestinal: normal bowel sounds, soft - Integumentary Integumentary: normal - Neurologic Neurologic: CNII-XII intact - Musculoskeletal Musculoskeletal: generalized weakness, strength equal bilaterally - Psychiatric Psychiatric: A&O x's 3, appropriate affect - Labs CBC & Chem 7: 01/25/19 06:38 01/25/19 14:54 Labs: Abnormal Lab Results - Last 24 Hours (Table) 01/24/19 01/24/19 01/24/19 Range/Units 13:27 17:15 17:15 WBC (3.8-10.6) k/uL Hgb (13.0-17.5) gm/dL Hct (39.0-53.0) % RDW (11.5-15.5) % Neutrophils # (1.3-7.7) k/uL Lymphocytes # (1.0-4.8) k/uL Sodium 121 L 125 L (137-145) mmol/L Chloride 87 L 88 L (98-107) mmol/L Carbon Dioxide 20 L (22-30) mmol/L BUN 22 H (9-20) mg/dL Glucose 181 H 126 H (74-99) mg/dL POC Glucose (mg/dL) 127 H (75-99) mg/dL Calcium 8.2 L (8.4-10.2) mg/dL Total Protein (6.3-8.2) g/dL 01/24/19 01/24/19 01/25/19 Range/Units 20:05 23:52 06:14 WBC (3.8-10.6) k/uL Hgb (13.0-17.5) gm/dL Hct (39.0-53.0) % RDW (11.5-15.5) % Neutrophils # (1.3-7.7) k/uL Lymphocytes # (1.0-4.8) k/uL Sodium 127 L (137-145) mmol/L Chloride 94 L (98-107) mmol/L Carbon Dioxide (22-30) mmol/L BUN 24 H (9-20) mg/dL Glucose 128 H (74-99) mg/dL POC Glucose (mg/dL) 180 H 166 H (75-99) mg/dL Calcium (8.4-10.2) mg/dL Total Protein (6.3-8.2) g/dL 01/25/19 01/25/19 01/25/19 Range/Units 06:38 06:38 12:25 WBC 33.5 H (3.8-10.6) k/uL Hgb 12.4 L (13.0-17.5) gm/dL Hct 36.2 L (39.0-53.0) % RDW 18.7 H (11.5-15.5) % Neutrophils # 32.2 H (1.3-7.7) k/uL Lymphocytes # 0.2 L (1.0-4.8) k/uL Sodium 129 L (137-145) mmol/L Chloride 96 L (98-107) mmol/L Carbon Dioxide (22-30) mmol/L BUN 24 H (9-20) mg/dL Glucose 149 H (74-99) mg/dL POC Glucose (mg/dL) 159 H (75-99) mg/dL Calcium (8.4-10.2) mg/dL Total Protein 5.5 L (6.3-8.2) g/dL Microbiology - Last 24 Hours (Table) 01/23/19 12:00 Blood Culture - Preliminary Blood No Growth after 24 hours Assessment and Plan Plan: Chest x-ray: report reviewed Assessment and Plan Acute exacerbation of chronic obstructive airways disease: - The patient had similar complaints during his last visit. He appears to have had a recurrence, possibly due to underlying pneumonia. - The patient is improved currently. - Defer to the admitting service for management. - CT negative for PE Pneumonia - Chest x-ray showed bilateral effusions with official report not mentioning a definite infiltrate. - Therefore the diagnosis appears to be clinically. - Patient is on antibiotics. 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 While this can occur with COPD exacerbation/pneumonia, Given his history of malignancy, progression of malignancy has to be ruled out. - CT of the chest is being ordered as noted above. - Sodium is improved (4) Metastatic lung cancer (metastasis from lung to other site) - Most recent imaging in early 12/21 did not show any progression. - CT of the chest reviewed with noted pleural effusion and probable bone mets. - Rec MRI brain to assess for metastatic progressive disease Plan for thoracentesis, send fluid cytology, in am. Spoke to pulmonology
--- NOTE | 2019-01-25 14:56 | P.PN ---
Subjective Progress Note Date: 01/25/19 This is a pleasant 83 years old male patient of Dr. Stone, Dr. 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 PET scan done in July 2018 prior to the radiation suggest lesions in the lower sclerae lumbar spine and pelvis and right eighth rib. Patient currently resides at [facility] under care of Dr. Stein under respite care as his 's mother past away and is in [place], and no one can be with him at home to assist with his medical care. Patient has had shortness of breath since his admission [facility] 6 days ago, he also mentions that he has had thoracentesis twice now usefully every 3 months, and was seen in emergency room secondary to increasing shortness of breath, productive cough of yellow sputum, hypoxemia, and respiratory distress conversational dyspnea Audible wheezing, decreased appetite weight loss no fever, no chills no falls, no disorientation, has weakness. ER findings x-ray showing left infiltrate sodium of 118 from a previous of 135 WBC count of 13.2 from a previous of 29, knowing urinalysis done lactic acid 0.9 creatinine of 0.6 he is currently being treated for COPD exacerbation and pneumonia, left side with 15% pleural effusion right side while in the hospital, with consults made to Dr. Mix and Dr. Patino oncology, patient is full code and is on oral chemotherapy agent to [facility] . Patient denies any O2 requirements prior to admission, and is on nebulizer unit 3 times a day without any help 01/24: Patient was seen for evaluation today, he has labored breathing today, w ith accessory muscle use, albuterol wheezing, and conversational dyspnea. We are giving him 1 time dose of Lasix 40 mg, caution as the patient has hyponatremia, fluid excess is noted today with edema, chest x-ray requested today, patient's IV steroid Solu-Medrol and Pulmicort Brovana albuterol. Sodium levels of 118 and 121 today albumin low at 3.3 computed tomography scan of the chest shows moderate bilateral pleural effusion with basilar pulmonary atelectasis pleural fluid did not significantly unchanged from previous CAT scan of 12/07/2018, no pulmonary emboli, there is also blastic changes multiple areas of thoracic spine and sternum 01/25: CTA of the chest reveals moderate bilateral pleural effusions with basilar pulmonary atelectasis is could relate to mild chronic heart failure. Pleural fluid not significantly different from old CAT scan of December 07. No evidence of pulmonary embolism. Atherosclerotic vascular disease. Osteoblastic changes in the bony thorax consistent with metastatic disease. Oncology has reviewed for no clear evidence of progression. Discussed case with Dr. Hobson and he may plan for thoracentesis on the patient tomorrow. Eliquis will be placed on hold. Pneumonia has been ruled out in antibiotics will be discontinued. Patient states that he is breathing better today. Objective - Vital Signs Vital signs: Vital Signs Temp 97 F L 01/25/19 08:45 Pulse 92 01/25/19 09:32 Resp 19 01/25/19 08:45 BP 137/75 01/25/19 08:45 Pulse Ox 98 01/25/19 08:45 Intake & Output 01/24/19 01/25/19 01/25/19 18:59 06:59 18:59 Intake Total 1314 360 240 Output Total 150 1775 Balance 1164 -1415 240 Weight 77.3 kg 78 kg Intake: Intake, IV Titration 360 Amount Piperacillin-Tazobactam 3 100 .375 gm In Sodium Chloride 0.9% 100 ml @ 25 mls/hr IVPB Q8HR SUZY Rx# :[id number] Sodium Chloride 0.9% 1, 100 000 ml @ 100 mls/hr IV . Q10H SUZY Rx#:[id number] Sodium Chloride 0.9% 1, 160 000 ml @ 20 mls/hr IV . Q24H SUZY Rx#:[id number] Oral 1314 240 Output: Urine 150 1775 Other: Voiding Method Toilet Urinal Urinal # Voids 4 1 # Bowel Movements 1 1 - Exam Review Of Systems: Constitutional: No fever, no chills, no night sweats. No weight change. Reports weakness, fatigue or lethargy. No daytime sleepiness. EENT: No headache. No blurred vision or double vision, no loss of vision. No loss of Hearing, no ringing in the ears, no dizziness. No nasal drainage or congestion. No epistaxis. No sore throat. Lungs: Reports shortness of breath, reports cough, no sputum production. No wheezing. Cardiovascular: No chest pain, no lower extremity edema. No palpitations. No lightheadedness or dizziness. No syncopal episodes. Abdominal: No abdominal pain. No nausea, vomiting. No diarrhea. No constipation. No bloody or tarry stools. No loss of appetite. Genitourinary: No dysuria, increased frequency, urgency. No urinary retention. Musculoskeletal: No myalgias. No muscle weakness, no gait dysfunction, no frequent falls. No back pain. No neck pain. Integumentary: No wounds, no lesions. No rash or pruritus. No unusual bruising. No change in hair or nails. Neurologic: No aphasia. No facial droop. No change in mentation. No head injury. No headache. No paralysis. No paresthesia. Psychiatric: No depression. No anxiety. No mood swings. Endocrine: No abnormal blood sugars. No weight change. No excessive sweating or thirst. - Constitutional General appearance: Present: average body habitus, cooperative, mild distress - EENT Eyes: Present: anicteric sclerae, EOMI, PERRLA, dentition normal, normal appearance ENT: Present: NA/AT, normal oropharynx - Neck Neck: Present: normal ROM - Respiratory Respiratory: bilateral: diminished, rhonchi, wheezing, negative: CTA, dullness, rales, prolonged expiration - Cardiovascular Rhythm: regular Heart sounds: normal: S1 Abnormal Heart Sounds: Absent: systolic murmur, diastolic murmur, rub, S3 Gallop, S4 Gallop, click, other - Gastrointestinal General gastrointestinal: Present: normal bowel sounds, soft - Integumentary Integumentary: Present: decreased turgor, normal - Musculoskeletal Musculoskeletal: Present: gait normal - Psychiatric Psychiatric: Present: A&O x's 3, appropriate affect, intact judgment & insight - Labs CBC & Chem 7: 01/25/19 06:38 01/25/19 06:38 Labs: Abnormal Lab Results - Last 24 Hours (Table) 01/24/19 01/24/19 01/24/19 Range/Units 12:20 13:27 17:15 WBC (3.8-10.6) k/uL Hgb (13.0-17.5) gm/dL Hct (39.0-53.0) % RDW (11.5-15.5) % Sodium 121 L 125 L (137-145) mmol/L Chloride 87 L 88 L (98-107) mmol/L Carbon Dioxide 20 L (22-30) mmol/L BUN 22 H (9-20) mg/dL Glucose 181 H 126 H (74-99) mg/dL POC Glucose (mg/dL) 147 H (75-99) mg/dL Calcium 8.2 L (8.4-10.2) mg/dL Total Protein (6.3-8.2) g/dL 01/24/19 01/24/19 01/24/19 Range/Units 17:15 20:05 23:52 WBC (3.8-10.6) k/uL Hgb (13.0-17.5) gm/dL Hct (39.0-53.0) % RDW (11.5-15.5) % Sodium 127 L (137-145) mmol/L Chloride 94 L (98-107) mmol/L Carbon Dioxide (22-30) mmol/L BUN 24 H (9-20) mg/dL Glucose 128 H (74-99) mg/dL POC Glucose (mg/dL) 127 H 180 H (75-99) mg/dL Calcium (8.4-10.2) mg/dL Total Protein (6.3-8.2) g/dL 01/25/19 01/25/19 01/25/19 Range/Units 06:14 06:38 06:38 WBC 33.5 H (3.8-10.6) k/uL Hgb 12.4 L (13.0-17.5) gm/dL Hct 36.2 L (39.0-53.0) % RDW 18.7 H (11.5-15.5) % Sodium 129 L (137-145) mmol/L Chloride 96 L (98-107) mmol/L Carbon Dioxide (22-30) mmol/L BUN 24 H (9-20) mg/dL Glucose 149 H (74-99) mg/dL POC Glucose (mg/dL) 166 H (75-99) mg/dL Calcium (8.4-10.2) mg/dL Total Protein 5.5 L (6.3-8.2) g/dL Microbiology - Last 24 Hours (Table) 01/23/19 12:00 Blood Culture - Preliminary Blood No Growth after 24 hours Assessment and Plan Plan: 1. Acute COPD exacerbation, with dyspnea and bronchospasm, and moderate bilateral pleural effusion, acute respiratory distress without hypoxemia. Consult with Dr. Abdullahi appreciated. Continue O2 therapy, DuoNeb treatment 4 times daily and as needed, Pulmicort 1 mg twice daily, Perforomist 20 g twice daily, Mucinex, Levaquin, Solu-Medrol 60 mg every 6 hours, Zosyn. Dr. Hobson will discuss thoracentesis with the patient tentatively for tomorrow. Eliquis will be placed on hold. 2. Pneumonia has been ruled out. Discontinue Zosyn and Levaquin. Pro- calcitonin was normal. 3. 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 Horowitz appreciated. Continue normal saline at 100 mL per hour, salt tablets 2 g 3 times daily and IV Lasix 20 mg every 8 hours. 4. Metastatic lung disease status post right lobectomy and chemotherapy in 2015 with metastasis to the right hip status postradiation in July 2018. Consult with Dr. Masterson appreciated. Patient is on Osimertinib mesylate. 5. Recurrent pleural effusions status post thoracentesis 3 months ago chest x- ray small bilateral pleural effusion 6. Myelodysplasia, stable. 7. Gilbert's syndrome, stable. 8. Paroxysmal atrial fibrillation with history of recurrent syncope status post pacemaker. Continue metoprolol 50 mg twice a day. Eliquis on hold for thoracentesis 9. History of DVT left leg 2009 without the occurrence as the patient is on eliquis and is compliant. 10. Hypertension. Continue metoprolol. 11. Idiopathic thrombocytopenia, platelets stable. Consult with Dr. Zelalem carter ppreciated. Patient is normally on prednisone 5 mg daily. 12. Hyperlipidemia. Lipitor 20 mg by mouth daily. 13. BPH. Continue tamsulosin. 14. CODE STATUS full code Return to [facility] for respite care until returns from [place] Impression and plan of care have been directed as dictated by the signing physician. Kasandra Dyer nurse practitioner acting as scribe for signing physician.
--- NOTE | 2019-01-25 15:54 | PN ---
PROGRESS NOTE The patient is seen for followup for hyponatremia. His sodium has come up from 118 on January 23 to about 127 last night and this morning it was up to 129. The patient is maintained on sodium chloride tablets along with Lasix and normal saline. His saline is now discontinued. The patient was started on D5W and the serum sodium had increased to 129. However, given the time frame, it is appropriate to let his serum sodium rise. I will discontinue the D5W and we will check a sodium now. Pt also received a dose of Samsca yesterday. PHYSICAL EXAMINATION: Blood pressure is 135/76, heart rate 71 per minute, patient is afebrile. Examination of the heart S1, S2. Examination of the lungs, bilateral breath sounds are heard. Abdomen is soft, nontender. Exam of lower extremities shows trace edema bilaterally. ANIMAL STICKER exam grossly intact. LABS: Show sodium 129, potassium 4.4, BUN 24, serum creatinine 0.85. ASSESSMENT: 1. Hyponatremia associated with SIADH, currently improving. Discontinue D5W. Check serum sodium now. Can hold off on sodium chloride tabs until the sodium comes back this afternoon. Lasix is also on hold. 2. Lung cancer status post right lung lobectomy, chemotherapy. The patient has metastasis to his right hip. 3. History of Gilbert syndrome. 4. History of myelodysplastic syndrome. 5. Atrial fibrillation. 6. Chronic obstructive pulmonary disease. 7. History of prostatic cancer. PLAN: Check sodium now. Hold off on D5W for now. Encourage increased protein intake. MMODL / IJN: [id number] / [place]
--- NOTE | 2019-01-25 17:23 | P.PN ---
Subjective Progress Note Date: 01/25/19 Principal diagnosis: Moderately sized right pleural effusion and small left pleural effusion, doubt underlying pneumonia On 01/25/2019 patient seen in follow-up on selective care unit, awake and alert, in no acute distress, his been ambulating to the bathroom, tolerating activity fairly well, patient is on room air, with a pulse ox of 100%, no cough or congestion, he is afebrile, denies any chills, hemodynamically stable. Although patient has a leukocytosis with a white blood cell count of 33.5, his pro-calcitonin level was low at 0.05 suggesting absence of active infection, and CT chest has been reviewed, showed no evidence of pulmonary embolism, but did show a moderately sized bilateral pleural effusions with basilar pulmonary atelectasis. Patient is on oral anticoagulation which we will place on hold, and we will proceed with the right-sided thoracentesis sometime tomorrow as was discussed with the patient who is agreeable to proceed. Objective - Vital Signs Vital signs: Vital Signs Temp 97 F L 01/25/19 08:45 Pulse 71 01/25/19 12:30 Resp 18 01/25/19 12:30 BP 135/76 01/25/19 12:30 Pulse Ox 100 01/25/19 12:30 Intake & Output 01/24/19 01/25/19 01/25/19 18:59 06:59 18:59 Intake Total 1314 360 462 Output Total 150 1775 Balance 1164 -1415 462 Weight 77.3 kg 78 kg Intake: Intake, IV Titration 360 Amount Piperacillin-Tazobactam 3 100 .375 gm In Sodium Chloride 0.9% 100 ml @ 25 mls/hr IVPB Q8HR [facility] Rx# :[id number] Sodium Chloride 0.9% 1, 100 000 ml @ 100 mls/hr IV . Q10H [facility] Rx#:[id number] Sodium Chloride 0.9% 1, 160 000 ml @ 20 mls/hr IV . Q24H SUZY Rx#:[id number] Oral 1314 462 Output: Urine 150 1775 Other: Voiding Method Toilet Urinal Urinal # Voids 4 1 # Bowel Movements 1 1 - Exam GENERAL EXAM: Alert, pleasant, 83-year-old white male on room air, the pulse 100% comfortable in no apparent distress. HEAD: Normocephalic/atraumatic. EYES: Normal reaction of pupils, equal size. Conjunctiva pink, sclera white. NOSE: Clear with pink turbinates. THROAT: No erythema or exudates. NECK: No masses, no JVD, no thyroid enlargement, no adenopathy. CHEST: No chest wall deformity. Symmetrical expansion. LUNGS: Equal air entry with some scattered wheezing, prolonged expiration CVS: Regular rate and rhythm, normal S1 and S2, no gallops, no murmurs, no rubs ABDOMEN: Soft, nontender. No hepatosplenomegaly, normal bowel sounds, no guarding or rigidity. EXTREMITIES: No clubbing, no edema, no cyanosis, 2+ pulses and upper and lower extremities. MUSCULOSKELETAL: Muscle strength and tone normal. SPINE: No scoliosis or deformity SKIN: No rashes CENTRAL NERVOUS SYSTEM: Alert and oriented -3. No focal deficits, tone is normal in all 4 extremities. PSYCHIATRIC: Alert and oriented -3. Appropriate affect. Intact judgment and insight. - Labs CBC & Chem 7: 01/25/19 06:38 01/25/19 14:54 Labs: Abnormal Lab Results - Last 24 Hours (Table) 01/24/19 01/24/19 01/24/19 Range/Units 17:15 17:15 20:05 WBC (3.8-10.6) k/uL Hgb (13.0-17.5) gm/dL Hct (39.0-53.0) % RDW (11.5-15.5) % Neutrophils # (1.3-7.7) k/uL Lymphocytes # (1.0-4.8) k/uL Sodium 125 L (137-145) mmol/L Chloride 88 L (98-107) mmol/L BUN 22 H (9-20) mg/dL Glucose 126 H (74-99) mg/dL POC Glucose (mg/dL) 127 H 180 H (75-99) mg/dL Total Protein (6.3-8.2) g/dL 01/24/19 01/25/19 01/25/19 Range/Units 23:52 06:14 06:38 WBC 33.5 H (3.8-10.6) k/uL Hgb 12.4 L (13.0-17.5) gm/dL Hct 36.2 L (39.0-53.0) % RDW 18.7 H (11.5-15.5) % Neutrophils # 32.2 H (1.3-7.7) k/uL Lymphocytes # 0.2 L (1.0-4.8) k/uL Sodium 127 L (137-145) mmol/L Chloride 94 L (98-107) mmol/L BUN 24 H (9-20) mg/dL Glucose 128 H (74-99) mg/dL POC Glucose (mg/dL) 166 H (75-99) mg/dL Total Protein (6.3-8.2) g/dL 01/25/19 01/25/19 01/25/19 Range/Units 06:38 12:25 14:54 WBC (3.8-10.6) k/uL Hgb (13.0-17.5) gm/dL Hct (39.0-53.0) % RDW (11.5-15.5) % Neutrophils # (1.3-7.7) k/uL Lymphocytes # (1.0-4.8) k/uL Sodium 129 L 129 L (137-145) mmol/L Chloride 96 L (98-107) mmol/L BUN 24 H (9-20) mg/dL Glucose 149 H (74-99) mg/dL POC Glucose (mg/dL) 159 H (75-99) mg/dL Total Protein 5.5 L (6.3-8.2) g/dL Microbiology - Last 24 Hours (Table) 01/25/19 09:32 Sputum Culture - Preliminary Sputum 01/23/19 12:00 Blood Culture - Preliminary Blood No Growth after 48 hours Assessment and Plan Plan: Assessment: #1. Shortness of breath related to recurrent pleural effusions, moderately sized, with previous history of thoracentesis #2. Acute exacerbation of chronic obstructive pulmonary disease, doubt underlying pneumonia #3. History of right upper lobbectomy #4. Metastatic non-small cell lung cancer currently on immunotherapy with aggressive #5. History of hypertension #7. Hyperlipidemia #8. History of atrial fibrillation on Eliquis #9. History of prostate cancer #10. History of idiopathic thrombocytopenia purpura #11. Myelodysplastic syndrome #12. Deep vein thrombosis left leg in 2009 Plan: Patient is clinically stable, we'll place his systolic was on hold, and proceed with a right-sided thoracentesis tomorrow, case was discussed with the attending physician Dr. Starks. Patient's antibiotics can be discontinued, his procalcitonin level was low, no fever or chills, no cough or chest congestion. Patient is agreeable to proceed. Continue with nebulized bronchodilators, and IV steroids, will follow I performed a history & physical examination of the patient and discussed their management with my nurse practitioner, Laly Gentile. I reviewed the nurse practitioner's note and agree with the documented findings and plan of care. Lung sounds are positive for rhonchi and some wheezing. The findings and the impression was discussed with the patient. I attest to the documentation by the nurse practitioner. Time with Patient: Less than 30
[2019-01-25 17:27] LABS: Glucose,Whole Blood 156 mg/dL (75-99)
[2019-01-25] MEDS: ATORVASTATIN 20 MG TAB PO SCH (20:24)
[2019-01-25 20:46] LABS: Glucose,Whole Blood 190 mg/dL (75-99)
[2019-01-26] MEDS: methylPREDNISolone SOD SUCCI 125 MG/2 ML VIAL IV SCH ×4 (06:10→22:58)
[2019-01-26 06:19] LABS: Glucose,Whole Blood 142 mg/dL (75-99)
[2019-01-26] MEDS: INSULIN ASPART (NovoLOG) 100 UNIT/ML VIAL SQ SCH ×4 (06:23→21:05)
[2019-01-26 07:25] LABS: Anisocytosis Slight; Basophils # (A) 0.1 k/uL (0-0.2); Basophils % (A) 0 %; Eosinophils # (A) 0.1 k/uL (0-0.7); Eosinophils % (A) 0 %; HCT 39.2 % (39.0-53.0); HGB 12.7 gm/dL (13.0-17.5); Hypochromasia Moderate; Lymphocytes # (A) 0.3 k/uL (1.0-4.8); Lymphocytes % (A) 1 %; MCH 27.2 pg (25.0-35.0); MCHC 32.4 g/dL (31.0-37.0); MCV 84.1 fL (80.0-100.0); Mean Platelet Volume 9.6; Monocytes # (A) 0.8 k/uL (0-1.0); Monocytes % (A) 3 %; Neutrophils # (A) 31.9 k/uL (1.3-7.7); Neutrophils % (A) 96 %; Platelet Count 243 k/uL (150-450); RBC 4.66 m/uL (4.30-5.90); RDW 18.8 % (11.5-15.5); WBC 33.4 k/uL (3.8-10.6)
[2019-01-26] MEDS: FORMOTEROL FUMARATE 20 MCG/2 ML NEBU INHALATION SCH ×2 (08:14→19:36)
[2019-01-26] MEDS: BUDESONIDE 1 MG/2 ML NEBU INHALATION SCH ×2 (08:14→19:22)
[2019-01-26] MEDS: IPRATROPIUM-ALBUTEROL 3 ML NEB INHALATION SCH ×3 (08:14→19:22)
[2019-01-26 08:37] LABS: Poikilocytosis (M) Present
[2019-01-26] MEDS: THIAMINE 100 MG TAB PO SCH (08:44)
[2019-01-26] MEDS: SODIUM CHLORIDE TAB 1 GM TAB PO SCH (08:44)
[2019-01-26] MEDS: TAMSULOSIN 0.4 MG CAP.ER.24H PO SCH ×2 (08:44→21:04)
[2019-01-26] MEDS: CALCIUM CARB-VIT D 500MG-200UN 1 EACH TAB PO SCH ×2 (08:44→21:03)
[2019-01-26] MEDS: FOLIC ACID 1 MG TAB PO SCH (08:44)
[2019-01-26] MEDS: METOPROLOL SUCCINATE (ER) 50 MG TAB.ER.24H PO SCH ×2 (08:44→21:04)
[2019-01-26] MEDS: guaiFENesin 600 MG TABLET.ER PO SCH ×2 (08:44→21:04)
[2019-01-26] MEDS: cycloSPORINE 0.05% OPHTH 0.4 ML DROPERETTE BOTH EYES SCH ×2 (08:45→21:04)
[2019-01-26 09:42] LABS: African American GFR (CKD) >90 (>60 ml/min/1.73 sqM); Anion Gap 11 mmol/L; Blood Urea Nitrogen 35 mg/dL (9-20); Calcium 8.9 mg/dL (8.4-10.2); Carbon Dioxide 24 mmol/L (22-30); Chloride 97 mmol/L (98-107); Glucose 119 mg/dL (74-99); Potassium 4.5 mmol/L (3.5-5.1); Sodium 132 mmol/L (137-145)
[2019-01-26] MEDS: DIPHENOX-ATROP 2.5-0.025 MG 1 EACH TAB PO PRN (11:46)
[2019-01-26 12:01] LABS: Glucose,Whole Blood 154 mg/dL (75-99)
--- NOTE | 2019-01-26 12:22 | P.PN ---
Subjective Progress Note Date: 01/26/19 Principal diagnosis: Dyspnea secondary to moderate right-sided pleural effusion and small left pleural effusion. The patient is seen today 01/26/2019 in follow-up on the selective care unit.he is currently sitting up in a chair at the bedside. Awake and alert in no acute distress. He is improved today as compared to yesterday. Less short of breath. He is maintaining O2 saturations in the 90s on room air. He is afebrile. Hemodynamically stable. Blood and sputum cultures are pending. White count 33.4. Hemoglobin 12.6. Creatinine 0.89. He declines thoracentesis today. Objective - Vital Signs Vital signs: Vital Signs Temp 97.8 F 01/26/19 11:50 Pulse 60 01/26/19 11:50 Resp 20 01/26/19 11:50 BP 147/87 01/26/19 11:50 Pulse Ox 91 L 01/26/19 11:50 Intake & Output 01/25/19 01/26/19 01/26/19 18:59 06:59 18:59 Intake Total 684 480 Balance 684 480 Weight 77.4 kg 77.4 kg Intake: Oral 684 480 Other: Voiding Method Urinal - Exam GENERAL EXAM: Alert, pleasant, 83-year-old male patient, on room air, comfortable in no apparent distress. HEAD: Normocephalic/atraumatic. EYES: Normal reaction of pupils, equal size. Conjunctiva pink, sclera white. NOSE: Clear with pink turbinates. THROAT: No erythema or exudates. NECK: No masses, no JVD, no thyroid enlargement, no adenopathy. CHEST: No chest wall deformity. Symmetrical expansion. LUNGS: Equal air entry with crackles in the posterior bases right greater than left CVS: Regular rate and rhythm, normal S1 and S2, no gallops, no murmurs, no rubs ABDOMEN: Soft, nontender. No hepatosplenomegaly, normal bowel sounds, no guarding or rigidity. EXTREMITIES: No clubbing, no edema, no cyanosis, 2+ pulses and upper and lower extremities. MUSCULOSKELETAL: Muscle strength and tone normal. SPINE: No scoliosis or deformity SKIN: No rashes CENTRAL NERVOUS SYSTEM: No focal deficits, tone is normal in all 4 extremities. PSYCHIATRIC: Alert and oriented -3. Appropriate affect. Intact judgment and insight. - Labs CBC & Chem 7: 01/26/19 05:54 01/26/19 05:54 Labs: Abnormal Lab Results - Last 24 Hours (Table) 01/25/19 01/25/19 01/25/19 Range/Units 12:25 14:54 17:25 WBC (3.8-10.6) k/uL Hgb (13.0-17.5) gm/dL RDW (11.5-15.5) % Neutrophils # (1.3-7.7) k/uL Lymphocytes # (1.0-4.8) k/uL Sodium 129 L (137-145) mmol/L Chloride (98-107) mmol/L BUN (9-20) mg/dL Glucose (74-99) mg/dL POC Glucose (mg/dL) 159 H 156 H (75-99) mg/dL 01/25/19 01/26/19 01/26/19 Range/Units 20:44 05:54 05:54 WBC 33.4 H (3.8-10.6) k/uL Hgb 12.7 L (13.0-17.5) gm/dL RDW 18.8 H (11.5-15.5) % Neutrophils # 31.9 H (1.3-7.7) k/uL Lymphocytes # 0.3 L (1.0-4.8) k/uL Sodium 132 L (137-145) mmol/L Chloride 97 L (98-107) mmol/L BUN 35 H (9-20) mg/dL Glucose 119 H (74-99) mg/dL POC Glucose (mg/dL) 190 H (75-99) mg/dL 01/26/19 01/26/19 Range/Units 06:17 11:48 WBC (3.8-10.6) k/uL Hgb (13.0-17.5) gm/dL RDW (11.5-15.5) % Neutrophils # (1.3-7.7) k/uL Lymphocytes # (1.0-4.8) k/uL Sodium (137-145) mmol/L Chloride (98-107) mmol/L BUN (9-20) mg/dL Glucose (74-99) mg/dL POC Glucose (mg/dL) 142 H 154 H (75-99) mg/dL Microbiology - Last 24 Hours (Table) 01/25/19 09:32 Gram Stain - Preliminary Sputum Sputum Culture - Preliminary 01/23/19 12:00 Blood Culture - Preliminary Blood No Growth after 48 hours Assessment and Plan Assessment: Assessment: #1. Shortness of breath related to recurrent pleural effusions, moderately sized, with previous history of thoracentesis #2. Acute exacerbation of chronic obstructive pulmonary disease, doubt underlying pneumonia #3. History of right upper lobbectomy #4. Metastatic non-small cell lung cancer currently on immunotherapy with aggressive #5. History of hypertension #7. Hyperlipidemia #8. History of atrial fibrillation on Eliquis #9. History of prostate cancer #10. History of idiopathic thrombocytopenia purpura #11. Myelodysplastic syndrome #12. Deep vein thrombosis left leg in 2009 Plan: The patient was seen and evaluated by Dr. Hobson. He is currently stable from the pulmonary standpoint. He declines thoracentesis at this time which is reasonable. He is on room air. Improved today compared to yesterday. Continue the current treatment plan. We'll continue to follow. I, the cosigning physician, performed a history & physical examination of the patient. Lungs sounds with crackles in the posterior bases right greater than left. Maintaining good O2 saturations in the 90s on room air. I discussed the assessment and plan of care with my nurse practitioner, Enma Coelho. I attest to the above note as dictated by her.
[2019-01-26] MEDS ORDERED: FUROSEMIDE 10 MG/ML 4 ML VIAL IV STA (12:31)
[2019-01-26] MEDS: OSIMERTINIB MESYLATE 80 MG PO SCH (12:32)
[2019-01-26] MEDS: APIXABAN 2.5 MG TABLET PO SCH ×2 (12:40→21:04)
[2019-01-26] MEDS: SODIUM CHLORIDE 0.9% 1,000 ML IV SCH (12:44)
--- NOTE | 2019-01-26 13:50 | P.PN ---
Subjective Progress Note Date: 01/26/19 This is a pleasant 83 years old male patient of Dr. Stone, Dr. 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 PET scan done in July 2018 prior to the radiation suggest lesions in the lower sclerae lumbar spine and pelvis and right eighth rib. Patient currently resides at [facility] under care of Dr. Stein under respite care as his 's mother past away and is in [place], and no one can be with him at home to assist with his medical care. Patient has had shortness of breath since his admission [facility] 6 days ago, he also mentions that he has had thoracentesis twice now usefully every 3 months, and was seen in emergency room secondary to increasing shortness of breath, productive cough of yellow sputum, hypoxemia, and respiratory distress conversational dyspnea Audible wheezing, decreased appetite weight loss no fever, no chills no falls, no disorientation, has weakness. ER findings x-ray showing left infiltrate sodium of 118 from a previous of 135 WBC count of 13.2 from a previous of 29, knowing urinalysis done lactic acid 0.9 creatinine of 0.6 he is currently being treated for COPD exacerbation and pneumonia, left side with 15% pleural effusion right side while in the hospital, with consults made to Dr. Mix and Dr. Patino oncology, patient is full code and is on oral chemotherapy agent to [facility] . Patient denies any O2 requirements prior to admission, and is on nebulizer unit 3 times a day without any help 01/24: Patient was seen for evaluation today, he has labored breathing today, w ith accessory muscle use, albuterol wheezing, and conversational dyspnea. We are giving him 1 time dose of Lasix 40 mg, caution as the patient has hyponatremia, fluid excess is noted today with edema, chest x-ray requested today, patient's IV steroid Solu-Medrol and Pulmicort Brovana albuterol. Sodium levels of 118 and 121 today albumin low at 3.3 computed tomography scan of the chest shows moderate bilateral pleural effusion with basilar pulmonary atelectasis pleural fluid did not significantly unchanged from previous CAT scan of 12/07/2018, no pulmonary emboli, there is also blastic changes multiple areas of thoracic spine and sternum 01/25: CTA of the chest reveals moderate bilateral pleural effusions with basilar pulmonary atelectasis is could relate to mild chronic heart failure. Pleural fluid not significantly different from old CAT scan of December 07. No evidence of pulmonary embolism. Atherosclerotic vascular disease. Osteoblastic changes in the bony thorax consistent with metastatic disease. Oncology has reviewed for no clear evidence of progression. Discussed case with Dr. Hobson and he may plan for thoracentesis on the patient tomorrow. Eliquis will be placed on hold. Pneumonia has been ruled out in antibiotics will be discontinued. Patient states that he is breathing better today. 01/26: Patient has been afebrile, heart rate 94, blood pressure 143/76, pulse ox 98% on room air. Blood sugars running between 119 and 190, WBC 33.4, hemoglobin 12.7, platelet count 243. Sodium is up to 132, potassium 4.5, chloride 97, CO2 24. Sputum culture is in progress. Blood culture no growth at 48 hours. Patient is less short of breath today. The patient was given option of thoracentesis today with Dr. Hobson and patient has declined. Patient will be resumed on eliquis. We will order 1 dose of IV Lasix 40 mg. Solu-Medrol will remain at 60 mg every 6 hours. Objective - Vital Signs Vital signs: Vital Signs Temp 96.9 F L 01/26/19 08:30 Pulse 94 01/26/19 08:38 Resp 20 01/26/19 08:30 BP 143/76 01/26/19 08:30 Pulse Ox 98 01/26/19 08:30 Intake & Output 01/25/19 01/26/19 01/26/19 18:59 06:59 18:59 Intake Total 684 480 Balance 684 480 Weight 77.4 kg Intake: Oral 684 480 Other: Voiding Method Urinal - Exam Review Of Systems: Constitutional: No fever, no chills, no night sweats. No weight change. Reports weakness, fatigue or lethargy. No daytime sleepiness. EENT: No headache. No blurred vision or double vision, no loss of vision. No loss of Hearing, no ringing in the ears, no dizziness. No nasal drainage or congestion. No epistaxis. No sore throat. Lungs: Reports shortness of breath-improved, reports cough, no sputum production. No wheezing. Cardiovascular: No chest pain, reports lower extremity edema. No palpitations. No lightheadedness or dizziness. No syncopal episodes. Abdominal: No abdominal pain. No nausea, vomiting. No diarrhea. No constipation. No bloody or tarry stools. No loss of appetite. Genitourinary: No dysuria, increased frequency, urgency. No urinary retention. Musculoskeletal: No myalgias. No muscle weakness, no gait dysfunction, no frequ ent falls. No back pain. No neck pain. Integumentary: No wounds, no lesions. No rash or pruritus. No unusual bruising. No change in hair or nails. Neurologic: No aphasia. No facial droop. No change in mentation. No head injury. No headache. No paralysis. No paresthesia. Psychiatric: No depression. No anxiety. No mood swings. Endocrine: No abnormal blood sugars. No weight change. No excessive sweating or thirst. - Constitutional General appearance: Present: average body habitus, cooperative, mild distress - EENT Eyes: Present: anicteric sclerae, EOMI, PERRLA, dentition normal, normal appearance ENT: Present: NA/AT, normal oropharynx - Neck Neck: Present: normal ROM - Respiratory Respiratory: bilateral: diminished, rhonchi, wheezing, negative: CTA, rales, prolonged expiration - Cardiovascular Rhythm: regular Heart sounds: normal: S1 Abnormal Heart Sounds: Absent: systolic murmur, diastolic murmur, rub, S3 Gal lop, S4 Gallop, click, other Pedal edema 1+ bilaterally. - Gastrointestinal General gastrointestinal: Present: normal bowel sounds, soft - Integumentary Integumentary: Present: decreased turgor, normal - Musculoskeletal Musculoskeletal: Present: gait normal - Psychiatric Psychiatric: Present: A&O x's 3, appropriate affect, intact judgment & insight - Labs CBC & Chem 7: 09/24/19 05:54 01/26/19 05:54 Labs: Abnormal Lab Results - Last 24 Hours (Table) 01/25/19 01/25/19 01/25/19 Range/Units 06:38 12:25 14:54 WBC 33.5 H (3.8-10.6) k/uL Hgb 12.4 L (13.0-17.5) gm/dL Hct 36.2 L (39.0-53.0) % RDW 18.7 H (11.5-15.5) % Neutrophils # 32.2 H (1.3-7.7) k/uL Lymphocytes # 0.2 L (1.0-4.8) k/uL Sodium 129 L (137-145) mmol/L Chloride (98-107) mmol/L BUN (9-20) mg/dL Glucose (74-99) mg/dL POC Glucose (mg/dL) 159 H (75-99) mg/dL 01/25/19 01/25/19 01/26/19 Range/Units 17:25 20:44 05:54 WBC 33.4 H (3.8-10.6) k/uL Hgb 12.7 L (13.0-17.5) gm/dL Hct (39.0-53.0) % RDW 18.8 H (11.5-15.5) % Neutrophils # 31.9 H (1.3-7.7) k/uL Lymphocytes # 0.3 L (1.0-4.8) k/uL Sodium (137-145) mmol/L Chloride (98-107) mmol/L BUN (9-20) mg/dL Glucose (74-99) mg/dL POC Glucose (mg/dL) 156 H 190 H (75-99) mg/dL 01/26/19 01/26/19 Range/Units 05:54 06:17 WBC (3.8-10.6) k/uL Hgb (13.0-17.5) gm/dL Hct (39.0-53.0) % RDW (11.5-15.5) % Neutrophils # (1.3-7.7) k/uL Lymphocytes # (1.0-4.8) k/uL Sodium 132 L (137-145) mmol/L Chloride 97 L (98-107) mmol/L BUN 35 H (9-20) mg/dL Glucose 119 H (74-99) mg/dL POC Glucose (mg/dL) 142 H (75-99) mg/dL Microbiology - Last 24 Hours (Table) 01/25/19 09:32 Gram Stain - Preliminary Sputum Sputum Culture - Preliminary 01/23/19 12:00 Blood Culture - Preliminary Blood No Growth after 48 hours Assessment and Plan Plan: 1. Acute COPD exacerbation, with dyspnea and bronchospasm, and moderate bilateral pleural effusion, acute respiratory distress without hypoxemia. Consult with Dr. Abdullahi appreciated. Continue O2 therapy, DuoNeb treatment 4 times daily and as needed, Pulmicort 1 mg twice daily, Perforomist 20 g twice daily, Mucinex, Levaquin, Solu-Medrol 60 mg every 6 hours, Zosyn. Thoracentesis canceled for today. Patient will be resumed on eliquis. Lasix 40 mg 1 dose now. 2. Pneumonia has been ruled out. Discontinue Zosyn and Levaquin. Pro- calcitonin was normal. 3. 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 Horowitz appreciated. Continue normal saline at 100 mL per hour, salt tablets 2 g 3 times daily and IV Lasix 20 mg every 8 hours. 4. Metastatic lung disease status post right lobectomy and chemotherapy in 2015 with metastasis to the right hip status postradiation in July 2018. Consult with Dr. Masterson appreciated. Patient is on Osimertinib mesylate. 5. Recurrent pleural effusions status post thoracentesis 3 months ago chest x- ray small bilateral pleural effusion 6. Myelodysplasia, stable. 7. Gilbert's syndrome, stable. 8. Paroxysmal atrial fibrillation with history of recurrent syncope status post pacemaker. Continue metoprolol 50 mg twice a day. Eliquis on hold for thoracentesis 9. History of DVT left leg 2009 without the occurrence as the patient is on eliquis and is compliant. 10. Hypertension. Continue metoprolol. 11. Idiopathic thrombocytopenia, platelets stable. Consult with Dr. Masterson coleen reciated. Patient is normally on prednisone 5 mg daily. 12. Hyperlipidemia. Lipitor 20 mg by mouth daily. 13. BPH. Continue tamsulosin. 14. CODE STATUS full code Return to [facility] for respite care until returns from [place] Impression and plan of care have been directed as dictated by the signing physician. Kasandra Dyer nurse practitioner acting as scribe for signing physician.
[2019-01-26 16:51] LABS: Glucose,Whole Blood 168 mg/dL (75-99)
--- NOTE | 2019-01-26 20:08 | PN ---
PROGRESS NOTE Patient is seen for followup for hyponatremia secondary to SIADH. Patient received IV Lasix along with salt tablets initially. He also received a dose of Samsca. His sodium has come up to 132 today. He is currently comfortable. The patient denies any significant complaints. On examination this morning, blood pressure 147/87, heart rate 60 per minute. He is afebrile. EXAMINATION OF THE HEART: S1 and S2. EXAMINATION OF LUNGS: Bilateral breath sounds are heard. ABDOMEN: Soft, non-tender. Examination of lower extremities shows edema trace bilaterally. [employer] exam is grossly intact. Labs show sodium 132, potassium 4.5, chloride 97, BUN 35, serum creatinine 0.89. ASSESSMENT: 1. Hyponatremia secondary to syndrome of inappropriate antidiuretic hormone, currently improved. Patient is off of Lasix and the sodium chloride tabs were decreased to 1 gram daily. Patient is encouraged to maintain good protein intake and limit his free water intake. 2. Lung cancer, status post right lung lobectomy, status post chemotherapy with metastases to right hip. 3. History of Gilbert syndrome. 4. History of myelodysplasia. 5. Chronic atrial fibrillation. 6. History of prostatic cancer. PLAN: Repeat labs in a.m. Encourage increased oral protein intake and limit free water intake. Patient is reluctant for fluid restriction, as he is concerned about constipation. We will repeat labs in a.m. MMODL / IJN: [id number] /
[2019-01-26 20:50] LABS: Glucose,Whole Blood 110 mg/dL (75-99)
[2019-01-26] MEDS: ATORVASTATIN 20 MG TAB PO SCH (21:04)
[2019-01-27 06:17] LABS: Glucose,Whole Blood 136 mg/dL (75-99)
[2019-01-27] MEDS: INSULIN ASPART (NovoLOG) 100 UNIT/ML VIAL SQ SCH ×4 (06:45→22:07)
[2019-01-27] MEDS: methylPREDNISolone SOD SUCCI 125 MG/2 ML VIAL IV SCH ×2 (06:50→12:29)
[2019-01-27 06:57] LABS: Anisocytosis Slight; HCT 42.2 % (39.0-53.0); Hypochromasia Marked; MCH 26.7 pg (25.0-35.0); MCHC 30.8 g/dL (31.0-37.0); MCV 86.7 fL (80.0-100.0); Mean Platelet Volume 9.1; Platelet Count 243 k/uL (150-450); RBC 4.87 m/uL (4.30-5.90); RDW 18.7 % (11.5-15.5); WBC 27.9 k/uL (3.8-10.6)
[2019-01-27 07:06] LABS: Calcium 8.8 mg/dL (8.4-10.2); Potassium 4.7 mmol/L (3.5-5.1)
[2019-01-27] MEDS: FORMOTEROL FUMARATE 20 MCG/2 ML NEBU INHALATION SCH ×2 (08:49→20:46)
[2019-01-27] MEDS: IPRATROPIUM-ALBUTEROL 3 ML NEB INHALATION SCH ×3 (08:49→20:46)
[2019-01-27] MEDS: BUDESONIDE 1 MG/2 ML NEBU INHALATION SCH ×2 (08:49→20:46)
[2019-01-27] MEDS: METOPROLOL SUCCINATE (ER) 50 MG TAB.ER.24H PO SCH ×2 (09:02→22:07)
[2019-01-27] MEDS: THIAMINE 100 MG TAB PO SCH (09:02)
[2019-01-27] MEDS: guaiFENesin 600 MG TABLET.ER PO SCH ×2 (09:02→22:07)
[2019-01-27] MEDS: CALCIUM CARB-VIT D 500MG-200UN 1 EACH TAB PO SCH ×2 (09:02→22:06)
[2019-01-27] MEDS: FOLIC ACID 1 MG TAB PO SCH (09:02)
[2019-01-27] MEDS: APIXABAN 2.5 MG TABLET PO SCH ×2 (09:02→22:06)
[2019-01-27] MEDS: cycloSPORINE 0.05% OPHTH 0.4 ML DROPERETTE BOTH EYES SCH ×2 (09:02→22:15)
[2019-01-27] MEDS: TAMSULOSIN 0.4 MG CAP.ER.24H PO SCH ×2 (09:02→22:07)
[2019-01-27] MEDS: SODIUM CHLORIDE TAB 1 GM TAB PO SCH (09:02)
[2019-01-27] MEDS: SODIUM CHLORIDE 0.9% 1,000 ML IV SCH (09:06)
--- NOTE | 2019-01-27 11:56 | PN ---
PROGRESS NOTE The patient is seen for followup for hyponatremia. His sodium is all the way up to 134. The patient has been eating well. He denies any nausea, vomiting or diarrhea. PHYSICAL EXAMINATION: On examination today, blood pressure was 146/90, heart rate 100 per minute. The patient is currently on the commode. He does not have any significant edema. LABS: Labs are reviewed. Sodium is 134, potassium 4.7, BUN 45, serum creatinine 1.06. ASSESSMENT: 1. Hyponatremia secondary to SIADH, currently improved. Sodium is up to 134. I will discontinue the salt sodium chloride tablets. 2. Lung cancer, status post right lung lobectomy, status post chemotherapy with metastasis to right hip. 3. History of myelodysplasia. 4. History of chronic atrial fibrillation. PLAN: Discontinue salt tablets. The patient is encouraged to maintain good oral protein intake and avoid excessive free water intake. MMODL / IJN: [id number] /
[2019-01-27 12:19] LABS: Glucose,Whole Blood 147 mg/dL (75-99)
[2019-01-27] MEDS: OSIMERTINIB MESYLATE 80 MG PO SCH (12:30)
[2019-01-27] MEDS ORDERED: LOPERAMIDE 2 MG CAP PO PRN (14:54)
[2019-01-27] MEDS ORDERED: LOPERAMIDE 2 MG CAP PO STA (14:54)
[2019-01-27] MEDS: FUROSEMIDE 40 MG TAB PO SCH (15:31)
--- NOTE | 2019-01-27 15:56 | P.PN ---
Subjective Progress Note Date: 01/27/19 This is a pleasant 83 years old male patient of Dr. Stone, Dr. 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 PET scan done in July 2018 prior to the radiation suggest lesions in the lower sclerae lumbar spine and pelvis and right eighth rib. Patient currently resides at [facility] under care of Dr. Stein under respite care as his 's mother past away and is in [place], and no one can be with him at home to assist with his medical care. Patient has had shortness of breath since his admission [facility] 6 days ago, he also mentions that he has had thoracentesis twice now usefully every 3 months, and was seen in emergency room secondary to increasing shortness of breath, productive cough of yellow sputum, hypoxemia, and respiratory distress conversational dyspnea Audible wheezing, decreased appetite weight loss no fever, no chills no falls, no disorientation, has weakness. ER findings x-ray showing left infiltrate sodium of 118 from a previous of 135 WBC count of 13.2 from a previous of 29, knowing urinalysis done lactic acid 0.9 creatinine of 0.6 he is currently being treated for COPD exacerbation and pneumonia, left side with 15% pleural effusion right side while in the hospital, with consults made to Dr. Mix and Dr. aPtino oncology, patient is full code and is on oral chemotherapy agent to [facility] . Patient denies any O2 requirements prior to admission, and is on nebulizer unit 3 times a day without any help 01/24: Patient was seen for evaluation today, he has labored breathing today, w ith accessory muscle use, albuterol wheezing, and conversational dyspnea. We are giving him 1 time dose of Lasix 40 mg, caution as the patient has hyponatremia, fluid excess is noted today with edema, chest x-ray requested today, patient's IV steroid Solu-Medrol and Pulmicort Brovana albuterol. Sodium levels of 118 and 121 today albumin low at 3.3 computed tomography scan of the chest shows moderate bilateral pleural effusion with basilar pulmonary atelectasis pleural fluid did not significantly unchanged from previous CAT scan of 12/07/2018, no pulmonary emboli, there is also blastic changes multiple areas of thoracic spine and sternum 01/25: CTA of the chest reveals moderate bilateral pleural effusions with basilar pulmonary atelectasis is could relate to mild chronic heart failure. Pleural fluid not significantly different from old CAT scan of December 07. No evidence of pulmonary embolism. Atherosclerotic vascular disease. Osteoblastic changes in the bony thorax consistent with metastatic disease. Oncology has reviewed for no clear evidence of progression. Discussed case with Dr. Hobson and he may plan for thoracentesis on the patient tomorrow. Eliquis will be placed on hold. Pneumonia has been ruled out in antibiotics will be discontinued. Patient states that he is breathing better today. 01/26: Patient has been afebrile, heart rate 94, blood pressure 143/76, pulse ox 98% on room air. Blood sugars running between 119 and 190, WBC 33.4, hemoglobin 12.7, platelet count 243. Sodium is up to 132, potassium 4.5, chloride 97, CO2 24. Sputum culture is in progress. Blood culture no growth at 48 hours. Patient is less short of breath today. The patient was given option of thoracentesis today with Dr. Hobson and patient has declined. Patient will be resumed on eliquis. We will order 1 dose of IV Lasix 40 mg. Solu-Medrol will remain at 60 mg every 6 hours. 01/27: Patient has been afebrile, heart rate 59, blood pressure 135/73, pulse ox 95% on room air. Repeat lab work reveals white count of 27.9, hemoglobin 13.0, platelet count 243. Sodium 134, potassium 4.7, chloride 96, CO2 29, BUN 45 and creatinine 1.06. Blood sugars running between 110 and 139. Sputum culture positive for Edda. Blood culture no growth after 72 hours. We will decrease IV Medrol to 40 mg every 8 hours and Lasix will be transitioned to oral. Anticipate discharge home tomorrow. Patient's is returning from [place] this evening. Discharge plan will change to home with home care. Objective - Vital Signs Vital signs: Vital Signs Temp 98 F 01/27/19 00:00 Pulse 59 L 01/27/19 04:00 Resp 18 01/27/19 04:00 BP 135/73 01/27/19 04:00 Pulse Ox 95 01/27/19 04:00 Intake & Output 01/26/19 01/27/19 01/27/19 18:59 06:59 18:59 Intake Total 900 Output Total 200 150 Balance 700 -150 Weight 77.4 kg 79.2 kg Intake: Oral 900 Output: Urine 200 150 Other: Voiding Method Urinal # Voids 1 1 - Exam Review Of Systems: Constitutional: No fever, no chills, no night sweats. No weight change. Reports weakness, fatigue or lethargy. No daytime sleepiness. EENT: No headache. No blurred vision or double vision, no loss of vision. No loss of Hearing, no ringing in the ears, no dizziness. No nasal drainage or congestion. No epistaxis. No sore throat. Lungs: Denies shortness of breath-improved, reports cough, no sputum production. No wheezing. Cardiovascular: No chest pain, reports lower extremity edema. No palpitations. No lightheadedness or dizziness. No syncopal episodes. Abdominal: No abdominal pain. No nausea, vomiting. No diarrhea. No constipation. No bloody or tarry stools. No loss of appetite. Genitourinary: No dysuria, increased frequency, urgency. No urinary retention. Musculoskeletal: No myalgias. No muscle weakness, no gait dysfunction, no frequent falls. No back pain. No neck pain. Integumentary: No wounds, no lesions. No rash or pruritus. No unusual bruising. No change in hair or nails. Neurologic: No aphasia. No facial droop. No change in mentation. No head injury. No headache. No paralysis. No paresthesia. Psychiatric: No depression. No anxiety. No mood swings. Endocrine: No abnormal blood sugars. No weight change. No excessive sweating or thirst. - Constitutional General appearance: Present: average body habitus, cooperative, mild distress - EENT Eyes: Present: anicteric sclerae, EOMI, PERRLA, dentition normal, normal appearance ENT: Present: NA/AT, normal oropharynx - Neck Neck: Present: normal ROM - Respiratory Respiratory: bilateral: diminished, rhonchi, wheezing, negative: CTA, rales, prolonged expiration - Cardiovascular Rhythm: regular Heart sounds: normal: S1 Abnormal Heart Sounds: Absent: systolic murmur, diastolic murmur, rub, S3 Gallop, S4 Gallop, click, other Pedal edema trace bilaterally. - Gastrointestinal General gastrointestinal: Present: normal bowel sounds, soft - Integumentary Integumentary: Present: decreased turgor, normal - Musculoskeletal Musculoskeletal: Present: gait normal - Psychiatric Psychiatric: Present: A&O x's 3, appropriate affect, intact judgment & insight - Labs CBC & Chem 7: 01/27/19 06:40 01/27/19 06:40 Labs: Abnormal Lab Results - Last 24 Hours (Table) 01/26/19 01/26/19 01/26/19 Range/Units 05:54 11:48 16:41 WBC (3.8-10.6) k/uL MCHC (31.0-37.0) g/dL RDW (11.5-15.5) % Sodium 132 L (137-145) mmol/L Chloride 97 L (98-107) mmol/L BUN 35 H (9-20) mg/dL Glucose 119 H (74-99) mg/dL POC Glucose (mg/dL) 154 H 168 H (75-99) mg/dL 01/26/19 01/27/19 01/27/19 Range/Units 20:48 06:16 06:40 WBC 27.9 H (3.8-10.6) k/uL MCHC 30.8 L (31.0-37.0) g/dL RDW 18.7 H (11.5-15.5) % Sodium (137-145) mmol/L Chloride (98-107) mmol/L BUN (9-20) mg/dL Glucose (74-99) mg/dL POC Glucose (mg/dL) 110 H 136 H (75-99) mg/dL 01/27/19 Range/Units 06:40 WBC (3.8-10.6) k/uL MCHC (31.0-37.0) g/dL RDW (11.5-15.5) % Sodium 134 L (137-145) mmol/L Chloride 96 L (98-107) mmol/L BUN 45 H (9-20) mg/dL Glucose 139 H (74-99) mg/dL POC Glucose (mg/dL) (75-99) mg/dL Microbiology - Last 24 Hours (Table) 01/23/19 12:00 Blood Culture - Preliminary Blood No Growth after 72 hours 01/25/19 09:32 Gram Stain - Preliminary Sputum Sputum Culture - Preliminary Edda albicans Assessment and Plan Plan: 1. Acute COPD exacerbation, with dyspnea and bronchospasm, and moderate bilateral pleural effusion, acute respiratory distress without hypoxemia. Co nsult with Dr. Abdullahi appreciated. Continue O2 therapy, DuoNeb treatment 4 times daily and as needed, Pulmicort 1 mg twice daily, Perforomist 20 g twice daily, Mucinex, Levaquin, Solu-Medrol decreased to 40 mg every 8 hours, Zosyn. Thoracentesis canceled for today. Patient will be resumed on eliquis. Lasix 40 mg oral twice daily 2. Pneumonia has been ruled out. Discontinue Zosyn and Levaquin. Pro- calcitonin was normal. 3. 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 Horowitz appreciated. Continue normal saline at 100 mL per hour, salt tablets 2 g 3 times daily and IV Lasix 20 mg every 8 hours. 4. Metastatic lung disease status post right lobectomy and chemotherapy in 2015 with metastasis to the right hip status postradiation in July 2018. Consult with Dr. Masterson appreciated. Patient is on Osimertinib mesylate. 5. Recurrent pleural effusions status post thoracentesis 3 months ago chest x- ray small bilateral pleural effusion 6. Myelodysplasia, stable. 7. Gilbert's syndrome, stable. 8. Paroxysmal atrial fibrillation with history of recurrent syncope status post pacemaker. Continue metoprolol 50 mg twice a day. Eliquis on hold for thoracentesis 9. History of DVT left leg 2009 without the occurrence as the patient is on eliquis and is compliant. 10. Hypertension. Continue metoprolol. 11. Idiopathic thrombocytopenia, platelets stable. Consult with Dr. Masterson appreciated. Patient is normally on prednisone 5 mg daily. 12. Hyperlipidemia. Lipitor 20 mg by mouth daily. 13. BPH. Continue tamsulosin. Discharge plan: Home tomorrow with home care Impression and plan of care have been directed as dictated by the signing physician. Kasandra Dyer nurse practitioner acting as scribe for signing physician.
[2019-01-27 16:58] LABS: Glucose,Whole Blood 128 mg/dL (75-99)
--- NOTE | 2019-01-27 17:04 | P.PN ---
Subjective Progress Note Date: 01/27/19 Principal diagnosis: Moderately sized right pleural effusion and small left pleural effusion, doubt underlying pneumonia On 01/25/2019 patient seen in follow-up on selective care unit, awake and alert, in no acute distress, his been ambulating to the bathroom, tolerating activity fairly well, patient is on room air, with a pulse ox of 100%, no cough or congestion, he is afebrile, denies any chills, hemodynamically stable. Although patient has a leukocytosis with a white blood cell count of 33.5, his pro-calcitonin level was low at 0.05 suggesting absence of active infection, and CT chest has been reviewed, showed no evidence of pulmonary embolism, but did show a moderately sized bilateral pleural effusions with basilar pulmonary atelectasis. Patient is on oral anticoagulation which we will place on hold, and we will proceed with the right-sided thoracentesis sometime tomorrow as was discussed with the patient who is agreeable to proceed. On 01/27/2017 patient seen in follow-up on selective care unit, he is resting comfortably in bed, in no acute distress, lung sounds are mostly clear, with the exception of a few scattered rales at the bases, patient states his breathing is improving, he had declined a thoracentesis yesterday. Room air pulse ox 95%, no fever, no chills, no complaints of chest pain, patient has been tolerating ambulation in the room acute distress, oral anticoagulation has been restarted, has been diuresed, and his IV diuretics have been transitioned to oral lasix. White cell count is trending down, on today's labs with blood cell count is 27.9, sodium is 134, potassium is 4.7, chloride is 96, CO2 is 29, BUN is 45 and creatinine is 1.06. Blood culture showed no growth, urine culture was negative with the exception of Edda. Antibiotics have been discontinued, pro- calcitonin was negative Objective - Vital Signs Vital signs: Vital Signs Temp 97.6 F 01/27/19 15:36 Pulse 72 01/27/19 15:36 Resp 18 01/27/19 15:36 BP 154/90 01/27/19 15:36 Pulse Ox 95 01/27/19 15:36 Intake & Output 09/24/19 09/25/19 09/25/19 18:59 06:59 18:59 Intake Total 900 912 Output Total 200 150 Balance 700 -150 912 Weight 77.4 kg 79.2 kg Intake: Oral 900 912 Output: Urine 200 150 Other: Voiding Method Urinal # Voids 1 1 1 # Bowel Movements 1 - Exam GENERAL EXAM: Alert, pleasant, 83-year-old white male on room air, the pulse 95% comfortable in no apparent distress. HEAD: Normocephalic/atraumatic. EYES: Normal reaction of pupils, equal size. Conjunctiva pink, sclera white. NOSE: Clear with pink turbinates. THROAT: No erythema or exudates. NECK: No masses, no JVD, no thyroid enlargement, no adenopathy. CHEST: No chest wall deformity. Symmetrical expansion. LUNGS: Equal air entry with with very minimal crackles at the bases, mostly clear at the upper lobes CVS: Regular rate and rhythm, normal S1 and S2, no gallops, no murmurs, no rubs ABDOMEN: Soft, nontender. No hepatosplenomegaly, normal bowel sounds, no guarding or rigidity. EXTREMITIES: No clubbing, no edema, no cyanosis, 2+ pulses and upper and lower extremities. MUSCULOSKELETAL: Muscle strength and tone normal. SPINE: No scoliosis or deformity SKIN: No rashes CENTRAL NERVOUS SYSTEM: Alert and oriented -3. No focal deficits, tone is normal in all 4 extremities. PSYCHIATRIC: Alert and oriented -3. Appropriate affect. Intact judgment and insight. - Labs CBC & Chem 7: 01/27/19 06:40 01/27/19 06:40 Labs: Abnormal Lab Results - Last 24 Hours (Table) 01/26/19 01/27/19 01/27/19 Range/Units 20:48 06:16 06:40 WBC 27.9 H (3.8-10.6) k/uL MCHC 30.8 L (31.0-37.0) g/dL RDW 18.7 H (11.5-15.5) % Sodium (137-145) mmol/L Chloride (98-107) mmol/L BUN (9-20) mg/dL Glucose (74-99) mg/dL POC Glucose (mg/dL) 110 H 136 H (75-99) mg/dL 01/27/19 01/27/19 01/27/19 Range/Units 06:40 12:18 16:49 WBC (3.8-10.6) k/uL MCHC (31.0-37.0) g/dL RDW (11.5-15.5) % Sodium 134 L (137-145) mmol/L Chloride 96 L (98-107) mmol/L BUN 45 H (9-20) mg/dL Glucose 139 H (74-99) mg/dL POC Glucose (mg/dL) 147 H 128 H (75-99) mg/dL Microbiology - Last 24 Hours (Table) 01/23/19 12:00 Blood Culture - Preliminary Blood No Growth after 96 hours 01/25/19 09:32 Gram Stain - Final Sputum Sputum Culture - Final Edda albicans Assessment and Plan Plan: Assessment: #1. Shortness of breath related to recurrent pleural effusions, moderately sized, with previous history of thoracentesis #2. Acute exacerbation of chronic obstructive pulmonary disease, doubt underlying pneumonia #3. History of right upper lobectomy #4. Metastatic non-small cell lung cancer currently on immunotherapy with aggressive #5. History of hypertension #7. Hyperlipidemia #8. History of atrial fibrillation on Eliquis #9. History of prostate cancer #10. History of idiopathic thrombocytopenia purpura #11. Myelodysplastic syndrome #12. Deep vein thrombosis left leg in 2009 Plan: Continue oral diuretics, no plans for thoracentesis, patient states his breathing has improved, maintaining stable oxygenation on room air, he is tolera ting ambulation, let us signs are stable, no complex of chest pain, oral anticoagulation has been restarted. Cultures are negative, probe calcitonin was low, antibiotic have been discontinued. Anticipate discharge in the next 24 hours. I performed a history & physical examination of the patient and discussed their management with my nurse practitioner, Laly Gentile. I reviewed the nurse practitioner's note and agree with the documented findings and plan of care. Lung sounds are positive for rhonchi and some wheezing. The findings and the impression was discussed with the patient. I attest to the documentation by the nurse practitioner. Time with Patient: Less than 30
[2019-01-27 20:26] LABS: Glucose,Whole Blood 205 mg/dL (75-99)
[2019-01-27] MEDS: methylPREDNISolone SOD SUCCI 40 MG/ML 1 ML VIAL IV SCH (22:06)
[2019-01-27] MEDS: ATORVASTATIN 20 MG TAB PO SCH (22:06)
[2019-01-28] MEDS: methylPREDNISolone SOD SUCCI 40 MG/ML 1 ML VIAL IV SCH (04:34)
[2019-01-28 06:18] LABS: Glucose,Whole Blood 125 mg/dL (75-99)
[2019-01-28] MEDS: INSULIN ASPART (NovoLOG) 100 UNIT/ML VIAL SQ SCH ×2 (06:26→12:36)
[2019-01-28 07:44] VITALS: TEMP 97.9
[2019-01-28] MEDS: DIPHENOX-ATROP 2.5-0.025 MG 1 EACH TAB PO PRN (08:05)
[2019-01-28] MEDS: IPRATROPIUM-ALBUTEROL 3 ML NEB INHALATION SCH ×2 (08:08→10:43)
[2019-01-28] MEDS: FORMOTEROL FUMARATE 20 MCG/2 ML NEBU INHALATION SCH (08:08)
[2019-01-28] MEDS: BUDESONIDE 1 MG/2 ML NEBU INHALATION SCH ×2 (08:08→10:43)
[2019-01-28] MEDS: METOPROLOL SUCCINATE (ER) 50 MG TAB.ER.24H PO SCH (09:02)
[2019-01-28] MEDS: APIXABAN 2.5 MG TABLET PO SCH (09:02)
[2019-01-28] MEDS: FOLIC ACID 1 MG TAB PO SCH (09:02)
[2019-01-28] MEDS: TAMSULOSIN 0.4 MG CAP.ER.24H PO SCH (09:02)
[2019-01-28] MEDS: guaiFENesin 600 MG TABLET.ER PO SCH (09:02)
[2019-01-28] MEDS: THIAMINE 100 MG TAB PO SCH (09:02)
[2019-01-28] MEDS: FUROSEMIDE 40 MG TAB PO SCH (09:03)
[2019-01-28] MEDS: cycloSPORINE 0.05% OPHTH 0.4 ML DROPERETTE BOTH EYES SCH (09:06)
[2019-01-28] MEDS: CALCIUM CARB-VIT D 500MG-200UN 1 EACH TAB PO SCH (09:06)
[2019-01-28] MEDS: SODIUM CHLORIDE 0.9% 1,000 ML IV SCH (09:07)
[2019-01-28 11:50] LABS: Glucose,Whole Blood 131 mg/dL (75-99)
[2019-01-28 11:57] VITALS: BP 134/79; PULSE 109; RESP 17
[2019-01-28] MEDS: OSIMERTINIB MESYLATE 80 MG PO SCH (12:39)
--- NOTE | 2019-01-28 14:26 | P.PN ---
Subjective Progress Note Date: 01/28/19 Principal diagnosis: COPD exacerbation Resting cmfortably this am, no family at bedside. Patient is breathing better Objective - Vital Signs Vital signs: Vital Signs Temp 97.9 F 01/28/19 11:35 Pulse 109 H 01/28/19 11:35 Resp 17 01/28/19 11:35 BP 134/79 01/28/19 11:35 Pulse Ox 95 01/28/19 04:00 Intake & Output 01/27/19 01/28/19 01/28/19 18:59 06:59 18:59 Intake Total 1092 596 Output Total 1020 175 Balance 72 -175 596 Weight 80 kg Intake: Oral 1092 596 Output: Urine 1020 175 Other: Voiding Method Urinal # Voids 1 2 # Bowel Movements 1 2 - Exam - Constitutional General appearance: no acute distress - EENT Eyes: EOMI, PERRLA ENT: hearing grossly normal, normal oropharynx - Neck Neck: no lymphadenopathy Thyroid: bilateral: normal size - Respiratory Respiratory: bilateral: wheezing, prolonged expiration - Cardiovascular Rhythm: regular Heart sounds: normal: S1, S2 - Gastrointestinal General gastrointestinal: normal bowel sounds, soft - Integumentary Integumentary: normal - Neurologic Neurologic: CNII-XII intact - Musculoskeletal Musculoskeletal: generalized weakness, strength equal bilaterally - Psychiatric Psychiatric: A&O x's 3, appropriate affect - Labs CBC & Chem 7: 01/27/19 06:40 01/27/19 06:40 Labs: Abnormal Lab Results - Last 24 Hours (Table) 01/27/19 01/27/19 01/28/19 Range/Units 16:49 20:25 06:17 POC Glucose (mg/dL) 128 H 205 H 125 H (75-99) mg/dL 01/28/19 Range/Units 11:48 POC Glucose (mg/dL) 131 H (75-99) mg/dL Microbiology - Last 24 Hours (Table) 01/23/19 12:00 Blood Culture - Preliminary Blood No Growth after 120 hours Assessment and Plan Plan: Chest x-ray: report reviewed Assessment and Plan Acute exacerbation of chronic obstructive airways disease: - The patient had similar complaints during his last visit. He appears to have had a recurrence, possibly due to underlying pneumonia. - The patient is improved currently. - Defer to the admitting service for management. - CT negative for PE Pneumonia - Chest x-ray showed bilateral effusions with official report not mentioning a definite infiltrate. - Therefore the diagnosis appears to be clinically. - Patient is on antibiotics. 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 While this can occur with COPD exacerbation/pneumonia, Given his history of malignancy, progression of malignancy has to be ruled out. - CT of the chest is being ordered as noted above. - Sodium is improved (4) Metastatic lung cancer (metastasis from lung to other site) - Most recent imaging in early 12/21 did not show any progression. No thoracentesis as breathing improved. Ok for discharge from oncology standpoint and can follow-up in office.
--- NOTE | 2019-01-28 15:42 | P.DS ---
Providers Date of admission: 01/23/19 12:55 Expected date of discharge: 01/28/19 Attending physician: Radha Starks Consults: 01/23/19 13:05 Consult Physician Routine Consulting Provider: Lv Abdullahi Consult Reason/Comments: Pneumonia, COPD, lung cancer Do you want consulting provider notified?: Yes 01/23/19 13:06 Consult Physician Routine Consulting Provider: Daniel Stone Consult Reason/Comments: Lung cancer Do you want consulting provider notified?: Yes 01/23/19 16:42 Consult Physician Routine Consulting Provider: Toy Graves Consult Reason/Comments: hyponatremia Do you want consulting provider notified?: Yes Primary care physician: [facility] Course: This is a pleasant 83 years old male patient of Dr. Stone, Dr. 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 PET scan done in July 2018 prior to the radiation suggest lesions in the lower sclerae lumbar spine and pelvis and right eighth rib. Patient currently resides at [facility] under care of Dr. Stein under respite care as his 's mother past away and is in [place], and no one can be with him at home to assist with his medical care. Patient has had shortness of breath since his admission [facility] 6 days ago, he also mentions that he has had thoracentesis twice now usefully every 3 months, and was seen in emergency room secondary to increasing shortness of breath, productive cough of yellow sputum, hypoxemia, and respiratory distress conversational dyspnea Audible wheezing, decreased ap petite weight loss no fever, no chills no falls, no disorientation, has weakness. ER findings x-ray showing left infiltrate sodium of 118 from a previous of 135 WBC count of 13.2 from a previous of 29, knowing urinalysis done lactic acid 0.9 creatinine of 0.6 he is currently being treated for COPD exacerbation and pneumonia, left side with 15% pleural effusion right side while in the hospital, with consults made to Dr. Mix and Dr. Patino oncology, patient is full code and is on oral chemotherapy agent to Tagrisso . Patient denies any O2 requirements prior to admission, and is on nebulizer unit 3 times a day without any help 01/24: Patient was seen for evaluation today, he has labored breathing today, with accessory muscle use, albuterol wheezing, and conversational dyspnea. We are giving him 1 time dose of Lasix 40 mg, caution as the patient has hyponatremia, fluid excess is noted today with edema, chest x-ray requested today, patient's IV steroid Solu-Medrol and Pulmicort Brovana albuterol. Sodium levels of 118 and 121 today albumin low at 3.3 computed tomography scan of the chest shows moderate bilateral pleural effusion with basilar pulmonary atelectasis pleural fluid did not significantly unchanged from previous CAT scan of 12/07/2018, no pulmonary emboli, there is also blastic changes multiple areas of thoracic spine and sternum 01/25: CTA of the chest reveals moderate bilateral pleural effusions with basilar pulmonary atelectasis is could relate to mild chronic heart failure. Pleural fluid not significantly different from old CAT scan of December 07. No evidence of pulmonary embolism. Atherosclerotic vascular disease. Osteoblastic changes in the bony thorax consistent with metastatic disease. Oncology has reviewed for no clear evidence of progression. Discussed case with Dr. Hobson and he may plan for thoracentesis on the patient tomorrow. Eliquis will be placed on hold. Pneumonia has been ruled out in antibiotics will be discontinued. Patient st ates that he is breathing better today. 01/26: Patient has been afebrile, heart rate 94, blood pressure 143/76, pulse ox 98% on room air. Blood sugars running between 119 and 190, WBC 33.4, hemoglobin 12.7, platelet count 243. Sodium is up to 132, potassium 4.5, chloride 97, CO2 24. Sputum culture is in progress. Blood culture no growth at 48 hours. Patient is less short of breath today. The patient was given option of thoracentesis today with Dr. Hobson and patient has declined. Patient will be resumed on eliquis. We will order 1 dose of IV Lasix 40 mg. Solu-Medrol will remain at 60 mg every 6 hours. 01/27: Patient has been afebrile, heart rate 59, blood pressure 135/73, pulse ox 95% on room air. Repeat lab work reveals white count of 27.9, hemoglobin 13.0, platelet count 243. Sodium 134, potassium 4.7, chloride 96, CO2 29, BUN 45 and creatinine 1.06. Blood sugars running between 110 and 139. Sputum culture positive for Edda. Blood culture no growth after 72 hours. We will decrease IV Medrol to 40 mg every 8 hours and Lasix will be transitioned to oral. Anticipate discharge home tomorrow. Patient's is returning from [place] this evening. Discharge plan will change to home with home care. 01/28: Multiple medication changes have been made. DuoNeb and Pulmicort prescriptions sent by high risk case manager to [facility]. 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 Repeat lab work has been ordered and patient may have this done at any laboratory or recommended obtaining an Dr. Stein's office Discharge diagnoses: 1. Acute COPD exacerbation, with dyspnea and bronchospasm, and moderate bilateral pleural effusion, acute respiratory distress without hypoxemia. 2. Pneumonia has been ruled out. 3. 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 Metastatic lung disease status post right lobectomy and chemotherapy in 2016 with metastasis to the right hip status postradiation in July 2018. 5. Recurrent pleural effusions status post thoracentesis 3 months ago 6. Myelodysplasia, stable. 7. Gilbert's syndrome, stable. 8. Paroxysmal atrial fibrillation with history of recurrent syncope status post pacemaker. 9. History of DVT left leg 2009 10. Hypertension. 11. Idiopathic thrombocytopenia, platelets stable. 12. Hyperlipidemia. 13. BPH. Discharge plan: Home [facility] home [facility] Impression and plan of care have been directed as dictated by the signing physician. Kasandra Dyer nurse practitioner acting as scribe for signing physician. Patient Condition at Discharge: Good Plan - Discharge Summary Discharge Rx Participant: No New Discharge Prescriptions: New Ipratropium-Albuterol Nebulize [Duoneb 0.5 mg-3 mg/3 ml Soln] 3 ml INHALATION RT-TID #90 ampul.neb guaiFENesin [Mucinex] 600 mg PO Q12HR tablet.er Budesonide [Pulmicort] 1 mg INHALATION RT-BID #60 nebu Furosemide [Lasix] 20 mg PO MOWEFR #12 tab predniSONE 0 mg PO DIRECTED #30 tab Fluconazole [Diflucan] 100 mg PO DAILY #10 tablet Continue cycloSPORINE [Restasis] 1 drop BOTH EYES BID Vitamin B Complex/Folic Acid [B-Complex Tablet] 0.4 mg PO DAILY Ubidecarenone [Co Q-10] 100 mg PO DAILY Tamsulosin [Flomax] 0.4 mg PO BID Umeclidinium Brm/Vilanterol Tr [Anoro Ellipta 62.5-25 Mcg INH] 1 puff INHALATION RT-DAILY Atorvastatin [Lipitor] 20 mg PO DAILY Osimertinib Mesylate [Tagrisso] 80 mg PO DAILY Apixaban [Eliquis] 2.5 mg PO BID Calcium Carbonate/Vitamin D3 [Calcium 600-Vit D3 400 Tablet] 1 tab PO BID Glucosamine-Chondr 500-400Mg 1 tab PO DAILY Loperamide HCl [Imodium A-D] 2 mg PO BID PRN PRN Reason: Diarrhea Na Phos,M-B/Na Phos,Di-Ba [Fleet Adult] 133 ml RECTAL DAILY PRN PRN Reason: Constipation Bisacodyl [Dulcolax] 10 mg RECTAL DAILY PRN PRN Reason: Constipation Metoprolol Succinate (ER) [Toprol XL] 50 mg PO BID predniSONE 5 mg PO DAILY Magnesium Hydroxide [Milk of Magnesia Concentrate] 7,200 mg PO DAILY PRN PRN Reason: Constipation Discontinued Albuterol Nebulized [Ventolin Nebulized] 2.5 mg INHALATION RT-BID Discharge Medication List Atorvastatin [Lipitor] 20 mg PO DAILY 11/22/17 [History] Tamsulosin [Flomax] 0.4 mg PO BID 11/22/17 [History] Ubidecarenone [Co Q-10] 100 mg PO DAILY 11/22/17 [History] Umeclidinium Brm/Vilanterol Tr [Anoro Ellipta 62.5-25 Mcg INH] 1 puff INHALATION RT-DAILY 11/22/17 [History] Vitamin B Complex/Folic Acid [B-Complex Tablet] 0.4 mg PO DAILY 11/22/17 [History] cycloSPORINE [Restasis] 1 drop BOTH EYES BID 11/22/17 [History] Apixaban [Eliquis] 2.5 mg PO BID 10/14/18 [History] Osimertinib Mesylate [Tagrisso] 80 mg PO DAILY 10/14/18 [History] Calcium Carbonate/Vitamin D3 [Calcium 600-Vit D3 400 Tablet] 1 tab PO BID 12/07/18 [History] Glucosamine-Chondr 500-400Mg 1 tab PO DAILY 12/07/18 [History] Loperamide HCl [Imodium A-D] 2 mg PO BID PRN 12/07/18 [History] Bisacodyl [Dulcolax] 10 mg RECTAL DAILY PRN 01/23/19 [History] Magnesium Hydroxide [Milk of Magnesia Concentrate] 7,200 mg PO DAILY PRN 01/23/19 [History] Metoprolol Succinate (ER) [Toprol XL] 50 mg PO BID 01/23/19 [History] Na Phos,M-B/Na Phos,Di-Ba [Fleet Adult] 133 ml RECTAL DAILY PRN 01/23/19 [History] predniSONE 5 mg PO DAILY 01/23/19 [History] Budesonide [Pulmicort] 1 mg INHALATION RT-BID #60 nebu 01/28/19 [Rx] Fluconazole [Diflucan] 100 mg PO DAILY #10 tablet 01/28/19 [Rx] Furosemide [Lasix] 20 mg PO MOWEFR #12 tab 01/28/19 [Rx] Ipratropium-Albuterol Nebulize [Duoneb 0.5 mg-3 mg/3 ml Soln] 3 ml INHALATION RT-TID #90 ampul.neb 01/28/19 [Rx] guaiFENesin [Mucinex] 600 mg PO Q12HR tablet.er 01/28/19 [Rx] predniSONE 0 mg PO DIRECTED #30 tab 01/28/19 [Rx] Follow up Appointment(s)/Referral(s): Shira Delgadillo MD [STAFF PHYSICIAN] - 02/17/19 11:20 am (Please keep previous follow up appointment. ) Ryne Stein MD [Primary Care Provider] - 1 Week (.) Daniel Stone MD [STAFF PHYSICIAN] - 02/11/19 10:30 am (Please keep previous follow up appointment.) Lexis Hobson MD [STAFF PHYSICIAN] - 02/24/19 10:45 am (Please keep previous follow up appointment. No earlier appointments at this time. ) [facility] Visiting Nurse, [NON-STAFF] - Ambulatory/Diagnostic Orders: Complete Blood Count w/diff [LAB.AMB] Location: None Selected Comprehensive Metabolic Panel [LAB.AMB] Location: None Selected Patient Instructions/Handouts: Oral Candidiasis (ED), Pleural Effusion (DC), Syndrome of Inappropriate Antidiuretic Hormone Secretion (ED) Activity/Diet/Wound Care/Special Instructions: 1. Avoid excessive free water intake. 2. High protein meals. Discharge Disposition: HOME WITH HOME HEALTH SERVICES
== END 2019-01-28 15:04 | disposition home health service (06) | DRG 191 ==
LOC: EC 11:03 → 3SCARD 12:55
PROVIDERS: ADMIT Family Medicine; ATTEND Family Medicine
DX: J44.1 Chronic obstructive pulmonary disease with (acute) exacerbation (principal); E22.2 Syndrome of inappropriate secretion of antidiuretic hormone; C79.51 Secondary malignant neoplasm of bone; C34.90 Malignant neoplasm of unspecified part of unspecified bronchus or lung; D69.3 Immune thrombocytopenic purpura; J90 Pleural effusion, not elsewhere classified; I50.9 Heart failure, unspecified; I48.0 Paroxysmal atrial fibrillation; I11.0 Hypertensive heart disease with heart failure; E80.4 Gilbert syndrome; E78.5 Hyperlipidemia, unspecified; D46.9 Myelodysplastic syndrome, unspecified; N40.0 Benign prostatic hyperplasia without lower urinary tract symptoms; L91.0 Hypertrophic scar; Z79.01 Long term (current) use of anticoagulants; Z79.899 Other long term (current) drug therapy; Z80.0 Family history of malignant neoplasm of digestive organs; Z80.3 Family history of malignant neoplasm of breast; Z85.118 Personal history of other malignant neoplasm of bronchus and lung; Z85.46 Personal history of malignant neoplasm of prostate; Z86.2 Personal history of diseases of the blood and blood-forming organs and certain disorders involving the immune mechanism; Z86.718 Personal history of other venous thrombosis and embolism; Z87.891 Personal history of nicotine dependence; Z90.2 Acquired absence of lung [part of]; Z92.21 Personal history of antineoplastic chemotherapy; Z95.0 Presence of cardiac pacemaker; Z92.3 Personal history of irradiation; Z90.89 Acquired absence of other organs; Z82.49 Family history of ischemic heart disease and other diseases of the circulatory system
CPT/HCPCS: 36415; 71046; 71275; 80048; 80053; 81001; 83605; 83735; 83880; 83930; 83935; 84145; 84295; 84300; 84484; 84550; 85025; 85027; 85610; 85730; 87040; 87070; 87205; 93005; 94640; 94760; 96361; 96365; 96367; 96375; 99291

== ENCOUNTER → 2019-02-13 | Outpatient (CLI) | payer MEDICARE ==
--- NOTE | 2019-02-15 07:07 | PE ---
EXAMINATION TYPE: PET CT fusion skull to thigh DATE OF EXAM: 02/13/2019 COMPARISON: CTA chest January 24, 2019 [address] older CTs outside PET/CT July 15, 2018 only images prov ided without postprocessing or report. HISTORY: Lung cancer progress study completed chemotherapy 2016. History of prostate cancer also tr eated with radiation in 2017 TECHNIQUE: Following the intravenous administration of 10.2 mCi of F-18 FDG, whole body images are p erformed from the top of skull to the midthigh. Images are reviewed on the computer in the coronal, axial, and sagittal planes. Reconstructed rotating images are created on independent workstation and reviewed on the computer. A noncontrast CT is performed in conjunction with the PET scan. SCAN: Subsequent Scan FINDINGS: HEAD AND NECK: No areas of suspicious hypermetabolic uptake. Diffuse cerebral atrophy and chronic sm all vessel ischemic changes are redemonstrated. CHEST, MEDIASTINUM, AND HILAR REGION: No areas of suspicious hypermetabolic uptake. Persistent fairly moderate to large size right pleural effusion. ABDOMEN AND PELVIS: No areas of suspicious hypermetabolic uptake. Normal excretion is seen. OSSEOUS STRUCTURES: Osseous metastatic disease is redemonstrated. Scattered sclerotic foci are seen f or reference L4 vertebra axial image 171 shows diffuse sclerosis extending into left and posterior el ements, mild hypermetabolic uptake is present but Max SUV is 2.12. Innumerable scattered sclerotic fo ci are seen. There is large lesion involving right acetabulum. There are sclerotic foci throughout th e bilateral ribs. Sclerotic lesion left glenoid is present axial image 72. OTHER CT: Cardiomegaly is present. Coronary artery calcification and/or stents are seen. There is tin y left pleural effusion. Calcifications of the liver and spleen are identified. Enlarged prostate gland consistent with BPH. M oderate to severe calcified plaque of the aorta extends into branch vessels. Multilevel spurring in the spine. Facet arthropathy lower lumbar levels. IMPRESSION: Redemonstration of diffuse osseous metastatic disease. No areas of abnormal hypermetaboli c uptake with Max SUV greater than 2.5 identified including throughout diffuse osseous metastatic les ions. Stable moderate to large right pleural effusion without mediastinal shift. Prior PET report not available for comparison at time of dictation.
== END | disposition home or self-care (01) ==
LOC: RADPETMAIN 11:12
PROVIDERS: ATTEND Internal Medicine Hematology & Oncology
DX: C79.51 Secondary malignant neoplasm of bone (principal); C34.11 Malignant neoplasm of upper lobe, right bronchus or lung; J90 Pleural effusion, not elsewhere classified
CPT/HCPCS: 78815; A9552